=== PATIENT | male | born 1945 | race Caucasian/White ===

== ENCOUNTER → 2016-10-21 | Outpatient (CLI) | payer OTHER ==
[~2016-10-21] MED LIST: GLC/500 PO; LISI-725 PO; METO25TA3 PO; ZNTT/150 PO
--- NOTE | 2016-10-21 15:11 | DIAGNOSTIC IMAGING REPORT ---
AP STANDING VIEW OF BOTH KNEES; 3 VIEWS LEFT KNEE CLINICAL HISTORY: Left knee pain. FINDINGS: An AP standing view of both knees with crosstable lateral, tunnel, and sunrise views of the left knee are compared to study dated 02/04/2012. The skeletal structures are osteopenic. No fracture is seen. There is moderate to advanced tricompartmental degenerative joint space narrowing in the left knee, greatest in the medial and patellofemoral compartments. There are marginal osteophytes, large patellar enthesophytes, and degenerative beaking of the tibial spine. No osteochondral defect is identified on the tunnel view. There is no significant joint effusion. Prepatellar soft tissue edema is noted. Survey images of the right knee on the frontal view show advanced narrowing in the medial compartment with mild bony sclerosis. There is moderate narrowing in the lateral compartment of the right knee. IMPRESSION: 1. Mild soft tissue swelling with no acute bony abnormality seen in the left knee. 2. Osteopenia and arthritic change as above. 3. Survey images of the right knee on the frontal view also show arthritic change. Electronically signed by: Kemal Oneill M.D. 10/21/2016 3:10 PM Dictated Date/Time: 10/21/2016 3:07 PM
== END | disposition home or self-care (01) ==
LOC: C.RDSM 13:52
PROVIDERS: ATTEND Physical Medicine & Rehabilitation Sports Medicine
DX: S76.012A Strain of muscle, fascia and tendon of left hip, initial encounter (principal); X58.XXXA Exposure to other specified factors, initial encounter

== ENCOUNTER → 2016-12-24 | Outpatient (CLI) | payer OTHER ==
--- NOTE | 2016-12-24 12:23 | DIAGNOSTIC IMAGING REPORT ---
LUMBAR SPINE 5 VIEWS HISTORY: Pain. Nausea. LUMBAR RADICULOPATHY COMPARISON: None. FINDINGS: There is no fracture. Mild scoliosis. Moderate degenerative disc changes throughout. No evidence for subluxation. Moderate reactive sclerosis vertebral endplates. IMPRESSION: Moderate degenerative change. Scoliosis. No acute process. Electronically signed by: Bharathi Rivas M.D. 12/24/2016 12:20 PM Dictated Date/Time: 12/24/2016 12:20 PM
== END | disposition home or self-care (01) ==
LOC: C.RADBC 11:58
PROVIDERS: ATTEND Physician Assistant Medical
DX: M54.16 Radiculopathy, lumbar region (principal); M41.9 Scoliosis, unspecified

== ENCOUNTER → 2016-12-30 | Outpatient (CLI) | payer OTHER ==
--- NOTE | 2016-12-30 09:19 | DIAGNOSTIC IMAGING REPORT ---
MRI OF THE LUMBAR SPINE WITHOUT IV CONTRAST CLINICAL HISTORY: Left lower extremity radiculopathy. COMPARISON STUDY: Radiographs of the lumbar spine dated 12/24/2016. TECHNIQUE: MRI of the lumbar spine is performed utilizing various T1 and T2-weighted sequences in the axial and sagittal planes. IV contrast was not administered for this examination. FINDINGS: Lumbar spine: Vertebral body height is maintained throughout the lumbar spine. There is 5 mm of anterolisthesis at L4-L5. Alignment is otherwise preserved. Marrow signal intensity is heterogeneous. Hemangiomas are suggested in the bodies of L1 and L5. The transverse and spinous processes appear intact. There is no evidence of spondylolysis. No destructive bony lesion is seen. Small anterior osteophytes are seen throughout. Mild chronic degenerative endplate change is noted at L3-L4, L4-L5, and L5-S1. Intervertebral discs: There is degenerative disc desiccation seen throughout the lumbar spine. Only mild loss of height is noted, greatest at L4-L5. Spinal cord: The visualized spinal cord is normal in morphology and signal intensity. The conus medullaris terminates at the level of L1. The nerve roots of the cauda equina are normal in morphology. L1-L2: Unremarkable. L2-L3: Unremarkable. L3-L4: There is a posterior disc extrusion. This contributes to moderate central canal stenosis with a minimum AP diameter of 6.5 mm. The neural foramina are patent. There is mild bilateral subarticular stenosis. L4-L5: There is minimal posterior disc bulge with annular fissure. The central canal appears clear. There is mild bilateral subarticular stenosis. Facet arthropathy is of no consequence. The neural foramina are widely patent. L5-S1: Facet arthropathy causes minimal bilateral neural foraminal narrowing. The central canal is widely patent. Sacrum: Partially imaged sacrum is normal in morphology and demonstrates slightly heterogeneous marrow signal intensity. Soft tissues: The paraspinous soft tissues are within normal limits. A large cyst arises from the lower pole of the left kidney. IMPRESSION: 1. Marrow signal intensity is heterogeneous. No destructive bony process is seen. 2. There is a central posterior disc extrusion seen at L3-L4. This contributes to moderate acquired compromise of the central canal. 3. Only mild spondylotic change is seen at the remaining lumbar levels. See above discussion for detailed level by level analysis. Dictated: 12/30/2016 8:00 AM Transcribed: 12/30/2016 9:19 AM [facility] Electronically signed by: Kemal Oneill M.D. 12/30/2016 9:30 AM Dictated Date/Time: 12/30/2016 8:00 AM
== END | disposition home or self-care (01) ==
LOC: C.MRIBC 07:02
PROVIDERS: ATTEND Physician Assistant Medical
DX: M54.16 Radiculopathy, lumbar region (principal)

== ENCOUNTER → 2017-05-17 | Outpatient (CLI) | payer OTHER | END | disposition home or self-care (01) | LOC: C.RDSM 09:00 | PROVIDERS: ATTEND Physical Medicine & Rehabilitation Sports Medicine | DX: M17.12 Unilateral primary osteoarthritis, left knee (principal); Z96.649 Presence of unspecified artificial hip joint; M16.0 Bilateral primary osteoarthritis of hip ==

== ENCOUNTER → 2017-10-18 | Outpatient (CLI) | payer OTHER ==
[~2017-10-18] MED LIST changes: -METO25TA3 PO; +METO25TA4 PO; +RANI150T85 PO; -ZNTT/150 PO
== END | disposition home or self-care (01) ==
LOC: C.RDSM 07:30
PROVIDERS: ATTEND Physical Medicine & Rehabilitation Sports Medicine
DX: M25.562 Pain in left knee (principal); Z96.649 Presence of unspecified artificial hip joint

== ENCOUNTER 2019-07-26 10:52 | Observation (INO) ==
[2019-07-26] MEDS ORDERED: BUPIVACAINE 0.25% 30 ML VIAL ONE (11:57)
[2019-07-26] MEDS ORDERED: LIDOCAINE HCL 1% 20 ML VIAL ONE (11:57)
[2019-07-26] MEDS ORDERED: BACITRACIN INJ 50,000 UNIT VIAL ONE (11:57)
[2019-07-26] MEDS ORDERED: fentaNYL citrate 100 MCG/2 ML VIAL ONE ×3 (12:19→13:54)
[2019-07-26] MEDS ORDERED: MIDAZOLAM HCL 5 MG/ML 1 ML VIAL ONE ×3 (12:19→13:54)
[2019-07-26] MEDS ORDERED: CEFAZOLIN 250 MG/ML 1 GM VIAL ONE (12:20)
--- NOTE | 2019-07-26 12:20 | History & Physical Bridge Note ---
Date of Service July 26, 2019 History & Physical Bridge Note I have examined the patient, reviewed the History & Physical and in the interval since the performance of the History & Physical I have noted the following changes of clinical significance: no changes noted
--- NOTE | 2019-07-26 12:21 | Pre Anesthesia Assessment ---
Date of Service July 26, 2019 Pre Sedation Assessment Vital Signs Temp Pulse Resp BP Pulse Ox 07/26/19 11:09 36.8 C 71 16 182/104 H 98 Cardiovascular RRR, no murmur, no edema Respiratory normal respiratory effort, lungs clear to auscultation Pre-Sedation Airway Assessment Smoking Status: Former smoker Hx Sleep Apnea: No Short, Thick Neck: No Thyromental Distance: > or= 3.5 Finger Breadths Oral Cavity: + WNL Mallampati Class: III ASA: ASA3 NPO Status Date of Last Intake of Fluids: 07/26/19 Time of Last Intake of Fluids: 08:00 Last Oral Intake of Fluids Comment: sip with meds Date of Last Intake of Solid Food: 07/25/19 Time of Last Intake of Solid Foods: 20:00 Procedure Planning Contraindications for Sedation: none Current Medications Reviewed: Yes Notes The planned sedation has been discussed with the patient. Informed Consent was obtained. I have identified the patient, determined the appropriateness of s edation and have assessed the patient immediately prior to the procedure. All medicine(s) and interventions are by my order.
[2019-07-26] MEDS ORDERED: MIDAZOLAM HCL 1 MG/ML 2ML VIAL ONE (14:35)
[2019-07-26] MEDS ORDERED: OXYCODONE/ACETAMINOPHEN 5mg/325mg TAB PO PRN (15:28)
[2019-07-26] MEDS ORDERED: ACETAMINOPHEN 325 MG TAB PO PRN (15:28)
--- NOTE | 2019-07-26 15:28 | Operative Report ---
Post Operative Report Pre & Post Diagnosis 2:1 AV block Operation Date: 07/26/19 12:00 <No data on this case meets the specified criteria> I identified the patient and participated in the time-out.: Yes Procedure Operation Date: 07/26/19 12:00 Actual Procedures p Pacer with A/V Leads (Dual) - Katie Serrato DO s Insertion Single Lead Only - Katie Serrato DO s Venogram, Unilateral - Katie Serrato DO Surgeon Katie Serrato, Vamp Strap Ironer none Estimated Blood Loss 25 Findings Consistent with Post-Op Diagnosis Specimens none Description of Procedure see official report I attest to the content of the Intraoperative Record and any orders documented therein. Any exceptions are noted below.
--- NOTE | 2019-07-26 15:28 | Post Anesthesia Assessment ---
Date of Service July 26, 2019 Post Sedation Assessment Vital Signs Temp Pulse Resp BP Pulse Ox 07/26/19 11:09 36.8 C 71 16 182/104 H 98 Recovery Score Activity: Moves 4 extremities Respiration: Deep Breath/Cough Circulation: +/-20% PreAnes Value Consciousness: Fully Awake Oxygen Saturation: > 92% On Room Air Discharge Sedation Level of Care: Fast Track Phase II Post Sedation Plan On clinical assessment, the patient appears to have tolerated the sedation without complications. Patient is recovering as anticipated. Patient will continue to be monitored by nursing and may be discharged when sedation discharge criteria are met per below protocol. Upon Completions of procedure up to 15 minutes continue every 5 minute vital signs and the P.A.R. score; then discharge to a Phase I or Fast Track to Phase I I per the following guidelines: * Discharge Patient to appropriate Phase II area if PAR is 8 or greater or return to pre- procedure baseline. The post - procedure orders will be as directed. * If PAR score is less than 8 or not return to pre-procedure baseline then patient will follow Phase I monitoring till PAR is reached for Phase II. The Phase I may be done in procedure room or may call to secure a Phase I area. * If naloxone or flumazenil are used for reversal, hold in Phase I for continued monitoring from when last reversal dose was given for a minimum of 60 minutes or longer pending the nurse and/or physician discretion of patient condition before discharge to Phase II. Please call the Sedation Physician to re-evaluate and complete post-note for discharge to Phase II area. Do NOT discharge from procedure sedation or Phase 1 until post- sedation evaluation note is complete by procedure /sedation MD Sedation Discharge Instructions to be given to the patient at discharge to home.
[2019-07-26] MEDS ORDERED: ALBUTEROL HFA 8 GM INHALER INH PRN (16:08)
[2019-07-26] MEDS ORDERED: Nursing to Pharmacy Communication ONE (17:03)
[2019-07-26] MEDS: CELECOXIB 100 MG CAP PO SCH (17:14)
[2019-07-26] MEDS: METFORMIN HCL 500 MG TAB PO SCH (17:15)
[2019-07-26] MEDS: PANTOprazole 40 MG TAB PO SCH (20:02)
[2019-07-26] MEDS ORDERED: CELECOXIB 100 MG CAP PO SCH (21:00)
[2019-07-26] MEDS ORDERED: [UNRECOGNIZED DRUG - OTHER] PO SCH (21:00)
[2019-07-26] MEDS ORDERED: AMOXICILLIN PO SCH (21:00)
[2019-07-27] MEDS ORDERED: Nursing to Pharmacy Communication ONE (00:17)
[2019-07-27] MEDS ORDERED: METOPROLOL SUCC 25MG EXT REL TAB PO SCH ×2 (00:30→09:00)
[2019-07-27] MEDS ORDERED: LISINOPRIL 20 MG TAB PO SCH ×2 (00:30→09:00)
[2019-07-27] MEDS: CELECOXIB 100 MG CAP PO SCH (07:48)
[2019-07-27] MEDS: METFORMIN HCL 500 MG TAB PO SCH (07:48)
[2019-07-27] MEDS: PANTOprazole 40 MG TAB PO SCH (07:48)
--- NOTE | 2019-07-27 07:59 | Discharge Summary ---
Date of Service July 27, 2019 Admission HPI Per Admitting Provider pt admitted for elective ppm due to symptomatic 2:1 AV block Admission Exam Per Admitting Provider aaox3, NAD NC/AT, EOMI Supple No JVD Nrl S1/S2, No murmur CTA b/l no w/r/r soft nt/nd no LE edema b/l skin intact no focal deficits Principal Diagnosis High degree AV block s/p His bundle Biv ppm Discharge Exam aaox3, NAD NC/AT, EOMI Supple No JVD Nrl S1/S2, No murmur CTA b/l no w/r/r soft nt/nd no LE edema b/l skin intact no focal deficits left pectoral incision intact, no hematoma mild ecchymosis, dressing on ENMT Mallampati Class: III Respiratory normal respiratory effort, lungs clear to auscultation Cardiovascular RRR, no murmur, no edema Discharge Data Allergies Allergy/AdvReac Type Severity Reaction Status Date / Time Pfmozmu-Trs-Ico Reductase AdvReac Unknown SEVERE Verified 07/26/19 11:18 Inhibitor MUSCLE WEAKNESS AND ACHES Procedures Performed Operation Date: 07/26/19 12:00 Actual Procedures p Pacer with A/V Leads (Dual) - Katie Serrato DO s Insertion Single Lead Only - DO cliff Nuno Venogram, Unilateral - Katie Serrato DO Ordered Studies 07/26/19 07:30 EP Lab Images for PACS ONCE Hospital Course (1) CHB (complete heart block): Total Time Total Time Spent Total Time Spent (In Minutes): 30 Total Time Includes: Examination of the Patient, Discharge Planning, Medication Reconciliation and Other Discharge Plan Discharge Items Patient Disposition: Home - Self-Care Reason For Visit: PACEMAKER INSERTION Discharge Diagnosis: AV block s/p HIS Bundle BIV ppm Condition on Discharge: Good Activity: As commented below Activity Comment: do not lift the left elbow over the left shoulder for 1 month Lifting: No more than 10 pounds Lifting Comment: do not lift more than 10 pounds with the left arm for 2 weeks Bathing: Keep incision dry Bathing Comment: can shower saturday 07/28 let water run over the dressing Sexual Activity: After two weeks Non-emergency contact: Wood Strip Block Floor Installer Call non-emergency contact if: you have any medication questions Follow-up/Referrals: Mookie Coyne MD [Primary Care Provider] - Diet: Heart Healthy Addtl Attending Provider Instructions: Try to keep the white dressing on until wound check but if it starts to fall off than ok to remove if you notice any concerns at the surgical site call my office immediately your wound check is now Wednesday08/02/2019 at 11:30am Pending Studies at Discharge: No Stand-Alone Forms: [facility] Medications and DC Order Prescriptions: Continued Ranitidine (Zantac) 150 MG tablet 300 mg PO HS Qty: 0 RF: 0 Lisinopril (Zestril) 20 MG tablet 20 mg PO DAILY Qty: 0 RF: 0 Metoprolol Succinate (TOPROL XL) 25 MG ENYRV-ZNR-PXR 25 mg PO DAILY Qty: 30 RF: 0 ALBUTEROL HFA (VENTOLIN HFA) 200 PUFFS/18,000 MCG AEROSOL,SOLN 2 puff Inhalation Q4 PRN (Reason: Pain) Qty: 1 RF: 0 ASPIRIN (ASPIRIN EC) 81 MG tablet 81 mg PO DAILY Qty: 0 RF: 0 Amoxicillin & Pot Clavulanate (Augmentin 875-125 mg) 1 TAB tablet 1 tab PO BID Qty: 14 RF: 0 Celecoxib 100 MG capsule 100 mg PO BID Qty: 0 RF: 0 Fluticasone Propionate 120 SPRAYS/6,000 MCG INHALATION 2 spry RANDAL DAILY Qty: 0 RF: 0 METFORMIN HCL (GLUCOPHAGE) 1,000 MG tablet 1,000 mg PO BID Qty: 0 RF: 0 omeprazole 20 mg Tablet,Delayed Release (Dr/Ec) 20 mg PO BID RF: 0 Discharge Orders: Discharge Order (Routine); Ordered 07/27/19 Ordered By: Katie Serrato Admission Data Admit Date/Time: 07/26/19 14:57 Attending Provider: Katie Serrato Admit Provider: Katie Serrato Primary Care Provider: Mookie Coyne
--- NOTE | 2019-07-27 08:00 | XRay Report ---
XR chest 2V PA/lateral HISTORY: post implant COMPARISON: None. FINDINGS: There is a left-sided pacemaker. The leads appear intact. No pneumothorax. No pleural effus ions. The lungs are clear. The heart is normal in size. IMPRESSION: Left-sided pacemaker. No pneumothorax. Electronically signed by: Justice Lawrence M.D. 07/27/2019 7:58 AM
[2019-07-27] MEDS ORDERED: FLUTICASONE PROPIONATE NA SPR 16 GM BTL SCH (09:00)
[2019-07-27] MEDS ORDERED: ASPIRIN 81 MG ECTAB PO SCH (09:00)
--- NOTE | 2019-07-31 12:22 | Operative Report ---
DATE OF OPERATION: 07/26/2019 PREOPERATIVE DIAGNOSES: Intermittent symptomatic 2:1 atrioventricular block, left bundle branch block, sinus bradycardia. POSTOPERATIVE DIAGNOSES: Intermittent symptomatic 2:1 atrioventricular block, left bundle branch block, sinus bradycardia. PROCEDURE: Biventricular Rate responsive (His bundle) permanent pacemaker with a peripheral venogram and electrogram anatomical mapping of the His bundle region. SURGEON: Katie Serrato DO. ASSISTANTS: None. ANESTHESIA: Monitored conscious sedation administered under my supervision by Leah Collier. Start time 1228, end time 1517. A total of 11 mg of Versed and 275 mcg of fentanyl. INTRAVENOUS FLUIDS: 87 mL. ANTIBIOTICS: 2 grams of Ancef. CONTRAST: 20 mL of Optiview. BLOOD LOSS: 25 mL. URINE OUTPUT: Not applicable. SPECIMENS: None. FINDINGS: See below. DRAINS: None. INDICATIONS: This is a 73-year-old gentleman who has a past medical history for left bundle-branch block, sinus bradycardia, second-degree AV block Mobitz type 1, nonischemic cardiomyopathy, ejection fraction 45%, geos-nc-miybviby aortic insufficiency, obstructive sleep apnea, hypertension, diabetes, hyperlipidemia, prior tobacco use, gastroesophageal reflux disease, Schatzki ring, B12 deficiency, anxiety and cataracts. He is now having symptomatic intermittent 2:1 AV block and was recommended a pacemaker. CONSENT: Consent was obtained prior to the patient going into the electrophysiology lab. The patient was informed of the risks, benefits and alternative procedure. Risks include but not limited to sudden cardiac , cardiac arrhythmias, cerebrovascular accident, myocardial infarction, injury to the blood vessels, chambers of the heart, lungs, bleeding and infection. The patient understood these risks and agreed to the procedure as planned. Informed consent was obtained. DESCRIPTION OF THE PROCEDURE: The patient was brought into electrophysiology lab in a fasting state. He was connected to continuous quality assurance monitor final. A timeout was performed to ensure patient identity and procedure correctly. The patient was prepped and draped over the left infraclavicular space in normal surgical standard fashion. Monitored conscious sedation was given throughout the procedure for patient's comfort level. [place] precautions were maintained throughout the procedure. 10 mL of 1% lidocaine-bupivacaine mixture were given in the left deltopectoral groove. Incision was made in the left deltopectoral groove. Blunt dissection was performed down to identify the cephalic vein; however, none could be identified, so peripheral venogram using 10 mL of contrast diluted in 10 mL of saline was performed to identify the axillary vein. The venous axillary access was obtained with 2 separate sticks without any problems. The guidewire was inserted without any resistance. An 8-Nepalese sheath was inserted over the guidewire without any resistance. The dilator was removed and a second guidewire was inserted through the sheath to allow for retained venous access. Then, the 8-Nepalese sheath was flushed and dilator reinserted over it and it was reinserted over one of the guidewires. The guidewire and dilator were removed. The right ventricular pacing lead was advanced into right ventricle and positioned in the low right ventricular septum under fluoroscopic guidance. There was adequate pacing and sensing thresholds and no diaphragmatic stimulation with high output pacing. The 8-Nepalese sheath was peeled away and lead was fixated to pectoralis muscle using 0 silk suture. This was then connected to alligators so that we could always have right ventricular pacing backup during the case as we position the His bundle given his significant left bundle branch block. An 8-Nepalese sheath was inserted over the other second venous access stick that was by itself and then the guidewire and dilator were removed. Then, the preformed His outer sheath was advanced into the right atrium over a Glidewire. The dilator and guidewire were removed. Then, His bundle lead was advanced through the sheath and I performed intracardiac electrogram anatomical mapping of the His bundle region. We found the His bundle with the AH being 178 milliseconds, HV 99 milliseconds. The lead was screwed in and I did not slit it. Of note, the patient did become dependent on the right ventricular lead into complete heart block with the positioning of the His bundle lead. With the His bundle lead in position now, I went back to the last venous access site I had that was the retained access through the axillary vein where the right ventricular lead is and I advanced an 8-Nepalese sheath over the guidewire. The guidewire and dilator were removed and the right atrial lead was advanced into right atrium and positioned into right atrial appendage under fluoroscopic guidance. There was adequate pacing and sensing thresholds and no diaphragmatic stim with high output pacing. The 8-Nepalese sheath was peeled away and lead was fixated to pectoralis muscle using 0 silk suture. I then slit the His bundle preformed sheath under fluoroscopic guidance followed then by the 8-Nepalese short sheath was peeled away and lead was fixated to pectoralis muscle. However, then we went back to check the His bundle lead, the capture threshold had increased and there was not that much selective capture so I set up to reposition the His bundle lead in the following manner. I ended up doing another peripheral venogram and then obtaining venous axillary access through a third needlestick. Then, an 8-Nepalese sheath was inserted over the guidewire without any resistance. The guidewire and dilator were removed. Then, a preformed His outer sheath was advanced into the right atrium over a Glidewire under fluoroscopic guidance. The Glidewire and the dilator were removed and then I advanced another His lead through the sheath and did electrocardiogram anatomical mapping of the His bundle. I then removed the old His bundle lead under fluoroscopic guidance. The new His bundle position was screwed into the septum. His bundle sheath was then slit under fluoroscopic guidance and the 8-Nepalese sheath was peeled away under fluoroscopic guidance and the His sheath was secured to the pectoralis muscle using 0 silk suture. All 3 leads were intraoperatively tested, you can see below for results. There was no diaphragmatic stimulation with high output pacing. A pacemaker pocket was created using blunt dissection over the pectoralis muscle within the pectoralis fascia. The pocket was flushed with copious amounts of bacitracin saline wash and inspected for hemostasis. The pulse generator was then attached to the leads, making sure that the pins were in appropriate position, passed set screws and set screws were all tightened. Pulse generator was then placed in the pocket, making sure that the leads were lying flat beneath the device. A stay stitch using 0 silk suture was used to secure the device to pectoralis muscle. The incision was then closed in a 3-layer fashion using 2-0 Vicryl interrupted suture followed by 3-0 Vicryl interrupted suture followed by 4-0 Monocryl running stitch and Dermabond was applied followed then by Telfa and a Micropore dressing. EQUIPMENT: 1. The generator is a [employer] Karly CRTP MRI SureScan [id number], serial number [id number]. 2. Right atrial lead is a Medtronic 5076-52 cm, serial number [id number]. 3. Right ventricular lead, Medtronic 5076-58 cm, serial number [id number]. 4. Left ventricular lead is the His bundle lead, is a Rupeetalktronic 3830-69 cm, serial number [id number]. INTRAOPERATIVE TESTIN. The AH was 178 milliseconds, HV was 99 milliseconds. The [place] QRS was 163 milliseconds. The His paced QRS was 123 milliseconds. 2. The right atrial lead P waves were 3.7 millivolts, impedance 651 ohms, threshold 0.6 volts at 0.5 milliseconds. 3. Right ventricular lead R waves 6.1 millivolts, impedance 924 ohms, threshold 0.9 volts at 0.5 milliseconds. 4. The His bundle lead impedance is 650 ohms, threshold 0.9 volts at 1 millisecond. FINAL MEASUREMENTS THROUGH THE DEVICE: 1. Right atrial lead: P waves 3.4 milliseconds, impedance 513 ohms, threshold 0.75 volts at 0.4 milliseconds. 2. Right ventricular lead: There were no R waves as he is completely paced, impedance 570 ohms, threshold 0.5 volts at 0.4 milliseconds. 3. The His bundle lead impedance 532 ohms, threshold 2.9 volts at 1 millisecond for selective capture. FINAL PARAMETERS: DDD 60/130, right atrial amplitude 3.5 volts, pulse width 0.4 milliseconds, sensitivity 0.3 millivolts. Right ventricular amplitude 3.5 volts, pulse width 0.4 milliseconds, sensitivity 0.9 millivolts. His bundle amplitude is 5 volts and pulse width 1 millisecond. IMPRESSION: Successful biventricular rate responsive permanent pacemaker under fluoroscopic guidance along with peripheral venogram and intracardiac electrogram anatomical mapping of the His bundle region secondary to high-degree symptomatic atrioventricular block. PLAN: Monitor the patient overnight, 12-lead ECG, chest x-ray. He cannot lift his left elbow or left shoulder for 1 month. He cannot lift more than 10 pounds with the left arm for 2 weeks. He will follow up in our [facility] in 1 week's time for device and wound check, and he can take a full tablet of his metoprolol instead of half. I attest to the content of the Intraoperative Record and any orders documented therein. Any exceptions are noted below. GIBRAN
== END 2019-07-27 09:39 | disposition home or self-care (01) ==
LOC: 2S 10:52 → EP 10:52 → 2S 22:18

== ENCOUNTER 2021-06-04 06:39 | Observation (INO) ==
--- NOTE | 2021-05-15 15:33 | PAT Medication Instructions ---
Medication Instructions Date of Service May 15, 2021 Home Medications famotidine 40 mg tablet 40 mg PO QPM metformin 1,000 mg tablet 1,000 mg PO BID metoprolol succinate 25 mg tablet,extended release 24 hr (Toprol XL) 25 mg PO QPM dulaglutide 1.5 mg/0.5 mL subcutaneous pen injector (Trulicity) 1.5 mg SUBCUT WK cyanocobalamin (vitamin B-12) 1,000 mcg capsule 1,000 mcg PO 3XWK sacubitril 24 mg-valsartan 26 mg tablet (Entresto) 1 tab PO BID Continue as directed dulaglutide 1.5 mg/0.5 mL subcutaneous pen injector (Trulicity) 1.5 mg SUBCUT WK DO NOT take the morning of surgery metformin 1,000 mg tablet 1,000 mg PO BID cyanocobalamin (vitamin B-12) 1,000 mcg capsule 1,000 mcg PO 3XWK sacubitril 24 mg-valsartan 26 mg tablet (Entresto) 1 tab PO BID Take evening before surgery famotidine 40 mg tablet 40 mg PO QPM metformin 1,000 mg tablet 1,000 mg PO BID metoprolol succinate 25 mg tablet,extended release 24 hr (Toprol XL) 25 mg PO QPM sacubitril 24 mg-valsartan 26 mg tablet (Entresto) 1 tab PO BID Other Notes If you have any questions please call us at [phone] or [phone] or [phone] or [phone]
--- NOTE | 2021-05-19 10:50 | Anesthesiology Consultation ---
Date of Service May 19, 2021 Assessment & Plan (1) Encounter for pre-operative examination: - COVID screening: Per assessment on 05/19: Travel screen negative, no known COVID-19 positive contacts or current COVID-19 related symptoms. Patient vac cinated. Surgeon arranging preop COVID testing. Awaiting results. - Check BSG AM DOS - Cardiology office visit (05/07/21): "Feeling great.. Evaluated by [facility] in October 2020. Recommendations at that time were for Cardiac MRI which the patient declined. Second opinion at [facility]. No indication for Cardiac MRI. Echocardiography at [facility] revealed a mildly dilated left ventricle with normal left ventricular systolic function, EF 56%. The aortic valve was noted to have moderate, 2+ aortic insufficiency with a very eccentric posteriorly directed jet, likely underestimated. Recommendations were to consider RHONDA if indicated.. Preoperative cardiology evaluation.. No overt cardiac contraindications to knee surgery.. Standard pacemaker precautions should be taken. Pre-admission testing to be reviewed when available. Nonischemic cardiomyopathy with moderate left ventricular dysfunction. EF previously 30 to 34%. EF has normalized as of the December 2020 resting echocardiogram obtained at [facility]. Volume status is normovolemic. 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 April 28, 2021 Device Interrogation. Appropriate function. Remaining longevity: 2.5 years. Atrial p aced 2.1%. Ventricular paced 99.8%. OptiVol 2.0 fluid index below threshold. Device interrogation due next on 08/06/2021. Moderate aortic insufficiency. Compensated volume status. Options of management discussed. Patient asymptomatic. LV systolic function has improved. No overt indication for repeat transesophageal echocardiography. Aggressive blood pressure control advised with patient reporting well controlled blood pressures on home monitoring. Endocarditis prophylaxis is not indicated. Continue appropriate medical management." - PCP office visit (05/08/21): "Pt has revised cardiac index score of One Risk Factor- 1.0% (95% CI: 0.5-1.4) for the surgery scheduled. Patient is acceptable for the listed procedure as long as pre-op testing is unremarkable." Preop labs done 05/19/21 at [facility] were unremarkable. Chart Review Chart Review: Acceptable Risk for Surgery (pending evaluation AM DOS ) and Patient seen in Pre Admission Testing Teaching & Discussion Pre-Anesthesia Teaching/Discussion Notes: Instructed NPO after midnight before surgery,except medications with 15 cc of water. Medication instructions provided according to the PAT guidelines. History Surgery Operation Date: 06/04/21 09:20 Proposed Procedures p Left Total Knee Arthroplasty - Kd Palomion MD Per patient, surgery being changed for Right TKA (Sofía at surgeon's office confirmed and will send updated booking sheet) Height/Weight Height: 6 ft 0.5 in Weight: 108.5 kg Allergies Allergy/AdvReac Type Severity Reaction Status Date / Time Ditjgcb-Hht-Fdi Reductase AdvReac Unknown Severe Verified 05/16/21 09:41 Inhibitor muscle weakness, aches Medications Home Medications Medication Instructions Recorded Confirmed Last Taken famotidine 40 mg tablet 40 mg PO QPM 03/21/20 05/13/21 Unknown metformin 1,000 mg tablet 1,000 mg PO BID 03/21/20 05/13/21 Unknown metoprolol succinate 25 mg 25 mg PO QPM 03/21/20 05/13/21 Unknown tablet,extended release 24 hr (Toprol XL) dulaglutide 1.5 mg/0.5 mL 1.5 mg SUBCUT WK ml 06/10/20 05/13/21 Unknown subcutaneous pen injector (Trulicity) cyanocobalamin (vitamin B-12) 1,000 mcg PO 3XWK 08/21/20 05/13/21 Unknown 1,000 mcg capsule sacubitril 24 mg-valsartan 26 mg 1 tab PO BID 01/27/21 05/13/21 Unknown tablet (Entresto) Past Medical History Medical History CAD (coronary artery disease) Mild nonobstructive CAD per 2010 cardiac cath ([place]) Chronic GERD Degenerative joint disease of knee Diabetes NIDDM Hyperlipidemia "Borderline" Hypertension LBBB (left bundle branch block) Nonischemic cardiomyopathy Osteoarthritis Pacemaker Implanted 2018 (for 2:1 AV block), Follows with [facility] cardiology (Dr. Ramírez) Sleep apnea "Mild" > no device prescribed Spinal stenosis of lumbar region Exercise / Class Metabolic Activity II 4-5 Yardwork/Stairs/Walk up hill (one FS (no CP, no SOB)) Past Family History Family History Family/Other Family history of diabetes mellitus BROTHER OR SISTER Other Family history non-contributory No family history of adverse response to anesthesia Past Surgical History Surgical History H/O colonoscopy H/O esophagogastroduodenoscopy S/P appy Status post total hip replacement, right Past Anesthesia History No Hx of Anesthesia Complications and No Family Hx of Anesthesia Complications History of PONV No Hx of PONV and Hx of Motion Sickness (Remote hx) Social History Smoking Status: Former smoker Do You Dip or Chew Tobacco: No Smoking End Date: Quit 30 years ago Hx Alcohol Use: Yes Alcohol type: hard liquor alcohol intake frequency: a few times a month Hx Substance Use: No substance use type: does not use Review of Systems Patient denies chest pain, shortness of breath, dyspnea on exertion, fever, chills, cough, wheezing, palpitations. Physical Exam Vital Signs VITALS BP 138/76 P 82 TEMP 98.2 SP02 95%RA RESP 16 PHYSICAL Decreased cervical extension range of motion. Full TMJ range of motion. TMD 4 finger breaths Mallampati Score 1 Dentition: several missing (including sides/molars), several crowns Lungs: clear throughout to auscultation Cardiac: regular rate and rhythm, no murmurs noted Spine: normal Carotid arteries: negative bruit Extremities: no edema Lab Results Anesthesia Preop Results Results Anesthesia Widget: WBC 5.65 K/uL (4.8-10.8) 05/19/21 Hgb 15.7 g/dL (14.0-18.0) 05/19/21 Hct 42.7 % (42-52) 05/19/21 Plt 189 K/uL (130-400) 05/19/21 Na 137 mmol/L (136-145) 05/19/21 K 4.0 mmol/L (3.5-5.1) 05/19/21 Cl 107 mmol/L (98-107) 05/19/21 CO2 23 mmol/L (21-32) 05/19/21 BUN 16 mg/dl (7-18) 05/19/21 Creat 1.10 mg/dl (0.6-1.4) 05/19/21 Glucose Level 128 mg/dl (70-99) H 05/19/21 PT 10.3 Seconds (9.0-12.0) 05/19/21 PTT 29.6 Seconds (21.0-31.0) 05/19/21 INR 1.0 (0.9-1.1) 05/19/21 HA1c 6.6 % (4.5-5.6) H 05/19/21 Blood Type O Positive 05/19/21 Antibody Screen NEGATIVE 05/19/21 Testing Electrocardiogram Date: 10/11/20 Findings: + pertinent finding Atrialsensed ventricular-paced rhythm at 84bpm. Chest X-Ray Date: 09/16/20 FINDINGS: The cardiac and mediastinal contours remain stable. A left subclavian pacemaker is again visualized. There is no failure. There is no focal pulmonary consolidation. There are no pleural effusions.[ IMPRESSION: No active disease in the chest. Echocardiogram Date: 09/18/20 LVEF 30 to 34%. Septal motion consistent with left bundle branch block. The remaining left ventricular wall segments are moderately hypokinetic. Grade 2 diastolic dysfunction. Moderate AR. Mildly enlarged aortic root and proximal ascending aorta. Per cardiology note from 05/07/21, "Evaluated by [facility] in October 2020. Recommendations at that time were for Cardiac MRI which the patient declined. Second opinion at [facility]. No indication for Cardiac MRI. Echocardiography at [facility] revealed a mildly dilated left ventricle with normal left ventricular systolic function, EF 56%. The aortic valve was noted to have moderate, 2+ aortic insufficiency with a very eccentric posteriorly directed jet, likely underestimated. Recommendations were to consider RHONDA if indicated... No overt indication for repeat transesophageal echocardiography." Attempts to obtain official [facility] subsequent echo report unsuccessful. Stress Test Date: 10/01/20 Type: nuclear Lexiscan nuclear stress test negative for ischemia. Normal myocardial perfusion. Abnormal septal wall motion consistent with pacemaker activation, otherwise, mild global hypokinesis. EF 41%. 99% MPHR. Other Testing Pacer check (04/30/21) [employer]. RVP 99.8%. AP 2.1%. 1 VT nonsustained episodes of which the longest is 1 second with a ventricular rate of 200 bpm. 2.5 years estimated battery longevity. Mode DDD. Summary: " Normal biventricular pacemaker function."
--- NOTE | 2021-05-21 09:42 | History & Physical Report ---
Date of Service May 21, 2021 Assessment & Plan (1) Right knee DJD: Plan: Postoperative prescriptions for Percocet and Coumadin will be provided at discharge from the hospital. Anticipate discharge to home with home health services. He has already seen his PCP and watch caser. Preoperative lab work, EKG, and chest x-ray were ordered today. He will meet with PAT today. He already has a walker. The patient is aware of the COVID-19 risks associated with surgery. He is currently asymptomatic of any COVID-19 symptoms. He has been vaccinated. The patient will obtain nasal swab testing 2 days prior to surgery. PDMP was checked and there are no concerning findings. History of Present Illness Chief Complaint: Right knee pain Primary Care Provider: Mookie Coyne MD This 75-year-old male presents for his preoperative history and physical. He is scheduled to undergo a right knee total knee arthroplasty on 06/04/2021. The patient has had a longstanding history of bilateral knee pain. Symptoms have been ongoing for the last 5-6 years. Previously, his left knee was bothering him more. As of late, the right knee is more bothersome. He has pain with weightbearing. Pain is affecting his ADLs. He is not able to ride his bike or exercise like he would normally do secondary to knee pain. Symptoms have become worse with time. He is frustrated with his lack of activity. No catching or locking. No buckling. There is daily pain. There is pain that disrupts his sleep. Pain is worse medially. He has tried oral anti-inflammatories, ice, elevation, as well as viscosupplementation injections without lasting improvement. Preoperative imaging has been obtained. Allergies Allergy/AdvReac Type Severity Reaction Status Date / Time Oxaqbjl-Jad-Bgd Reductase AdvReac Unknown Severe Verified 05/16/21 09:41 Inhibitor muscle weakness, aches Home Medications Medication Instructions Recorded Confirmed Type famotidine 40 mg tablet 40 mg PO QPM 03/21/20 05/13/21 History metformin 1,000 mg tablet 1,000 mg PO BID 03/21/20 05/13/21 History metoprolol succinate 25 mg 25 mg PO QPM 03/21/20 05/13/21 History tablet,extended release 24 hr (Toprol XL) dulaglutide 1.5 mg/0.5 mL 1.5 mg SUBCUT WK ml 06/10/20 05/13/21 History subcutaneous pen injector (Trulicity) cyanocobalamin (vitamin B-12) 1,000 mcg PO 3XWK 08/21/20 05/13/21 History 1,000 mcg capsule sacubitril 24 mg-valsartan 26 mg 1 tab PO BID 01/27/21 05/13/21 History tablet (Entresto) Past Med/Surg History Medical History (Updated 05/21/21 @ 09:41 by Jose Grady PA-C) Aortic insufficiency Aortic valve disorder CAD (coronary artery disease) Mild nonobstructive CAD per 2010 cardiac cath ([place]) Cardiomyopathy Chronic GERD Degenerative joint disease of knee Diabetes NIDDM Hiatal hernia Hyperlipidemia "Borderline" Hypertension LBBB (left bundle branch block) Migraine headache Nonischemic cardiomyopathy Osteoarthritis Pacemaker Implanted 2018 (for 2:1 AV block), Follows with [facility] cardiology (Dr. Ramírez) Sleep apnea "Mild" > no device prescribed Spinal stenosis of lumbar region Surgical History (Updated 05/21/21 @ 09:38 by Jose Grady PA-C) H/O colonoscopy H/O esophagogastroduodenoscopy History of permanent cardiac pacemaker placement History of tonsillectomy S/P appy Status post total hip replacement, right Family History (Updated 05/21/21 @ 09:39 by Jose Grady PA-C) Family/Other Family history of diabetes mellitus BROTHER OR SISTER Other Family history non-contributory No family history of adverse response to anesthesia Silicosis Social History (Updated 05/21/21 @ 09:39 by Jose Grady PA-C) Smoking Status: Former smoker Second Hand Exposure: No; Hx Alcohol Use: Yes Alcohol type: hard liquor Hx Substance Use: No Preferred Language: Grenadian Communication Ability: Effective Visual Impairment: No Limitations Pharmacy General Manager Required: No Beliefs That Will Affect Care: None Current Living Situation: Spouse current occupational status: retired Feels Safe at Home: Yes Assistive Devices: Glasses Review of Systems Review of Systems: All systems reviewed & are unremarkable except as noted in HPI & below A total of 10 systems were reviewed. Physical Exam Physical Exam: Vitals: Height 186 cm, weight 110 kilograms, BMI 31.9, temperature 36.3, BP 152/72, pulse 88, O2 sat 97% on room air. General: Well-developed, well-nourished, elderly white male in no acute distress. Sitting in a chair. Alert and oriented. Skin: Warm and dry with good turgor. No rashes or lesions. No intraarticular effusion. HEENT: Normocephalic, atraumatic. Eyes: PERRLA, EOMI. Nares and oropharynx exams deferred due to COVID precautions. Heart: RRR. Soft murmur noted. No gallops or rubs. Lungs: Clear to auscultation bilaterally. No crackles, rhonchi or wheezing. Good air movement. Abdomen: Mildly obese, bowel sounds present x4, soft, nontender. No organomegaly. No masses. Musculoskeletal: Right knee evaluation reveals varus alignment. No intraarticular effusion. Obvious arthritic changes. He has focal discomfort with palpation over the medial joint line. No significant lateral joint line discomfort at this time. There is peripatellar discomfort. Stable collateral ligaments. No defect in the patellar tendon or quadriceps tendon. Lacks about 5 degrees of terminal extension. Flexion to greater than 100 degrees. Strength is 5/5 with fairly good quad tone. Ambulates today with a slightly antalgic gait. Neurologic: Gross sensation is intact across both lower extremities by soft touch. Peripheral pulses are 2+. Results & Data Results & Data ([facility]) Diagnostic Findings Radiographic imaging obtained previously today shows tricompartmental osteoarthritis of the right knee. Periarticular osteophytes, subchondral sclerosis, and joint space narrowing are all present. Code Status & VTE Plan VTE Prophylaxis Plan VTE Prophylaxis will be ordered: Yes
[~2021-06-04 06:39] MED LIST changes: +BUPIVACAINE 0.5 % 5 MG/1 ML PF 10ML VIAL ONE; -GLC/500 PO; -LISI-725 PO; +LR 500ML BOLUS, THEN 15ML/HR IV SCH; +LR 60ML/HR IV SCH; -METO25TA4 PO; -RANI150T85 PO; +ROPIVACAINE 0.5% 5 MG/ML 30 ML VIAL ONE; +ROPIVACAINE 0.5% HCL/PF 150 MG, BUPIVACAINE 0.75% MPF 20 ML, EPINEPHrine 0.15 MG, Ketor... INFIL SCH; +TRANEXAMIC ACID 1,000 MG **IV Pre-op IV SCH; +ceFAZolin 2000MG 2,000 MG/15 ML SYR IV SCH
--- NOTE | 2021-06-04 06:52 | History & Physical Bridge Note ---
Date of Service June 04, 2021 History & Physical Bridge Note I have examined the patient, reviewed the History & Physical and in the interval since the performance of the History & Physical I have noted the following changes of clinical significance: consent verified/site verified/covid screen negative.no changes noted
[2021-06-04] MEDS ORDERED: MIDAZOLAM HCL 1 MG/ML 2ML VIAL ONE (07:31)
[2021-06-04] MEDS ORDERED: PROPOFOL IV EMULSION 10 MG/ML 20 ML VIAL IV ONE ×4 (07:31→10:33)
[2021-06-04] MEDS ORDERED: ONDANSETRON INJ 2 MG/ML 2 ML VIAL ONE (07:31)
[2021-06-04] MEDS ORDERED: ePHEDrine sulfate 50 MG/ML AMP IV PRN (08:22)
[2021-06-04] MEDS ORDERED: fentaNYL citrate 100 MCG/2 ML VIAL IV PRN (08:22)
[2021-06-04] MEDS ORDERED: HYDROmorphone INJ 2 MG/ML SYR/VIAL IV PRN (08:22)
[2021-06-04] MEDS ORDERED: ATROPINE SULFATE 0.1 MG/ML 10ML SYR IV PRN (08:22)
[2021-06-04] MEDS ORDERED: ORTHO JOINT ANESTHETIC ONE (08:50)
[2021-06-04] MEDS ORDERED: PHENYLEPHRINE HCL 10 MG/ML VIAL ONE (10:12)
--- NOTE | 2021-06-04 10:44 | Post Operative Brief Note ---
Immediate Post Op Note v1 Date of Surgery June 04, 2021 Pre & Post Diagnosis Operation Date: 06/04/21 08:50 Pre-Op Diagnosis: Right knee degenerative joint disease. Post-Op Diagnosis: Right knee degenerative joint disease. I identified the patient and participated in the time-out.: Yes Procedure Operation Date: 06/04/21 08:50 Actual Procedures p Right Total Knee Arthroplasty(Right) - Kd Palomino MD Surgeon Kd Palomino MD Tennis Coach Corrina/Miguel A Estimated Blood Loss 25 Findings Consistent with Post-Op Diagnosis
--- NOTE | 2021-06-04 10:52 | Operative Report ---
Post Operative Report Pre & Post Diagnosis Operation Date: 06/04/21 08:50 Pre-Op Diagnosis: Right knee degenerative joint disease. Post-Op Diagnosis: Right knee degenerative joint disease. I identified the patient and participated in the time-out.: Yes Procedure Operation Date: 06/04/21 08:50 Actual Procedures p Right Total Knee Arthroplasty(Right) - Kd Palomino MD Surgeon Bobby Palomino Motor Adjuster Corrina/Miguel A Estimated Blood Loss 25 Findings Consistent with Post-Op Diagnosis Right knee degenerative joint disease Specimens no specimens Description of Procedure right total knee arthroplasty I attest to the content of the Intraoperative Record and any orders documented therein. Any exceptions are noted below. Supervising Physician Co-Signing Physician Notes Dr. Palomino
--- NOTE | 2021-06-04 10:58 | Operative Report (OR) ---
DATE OF PROCEDURE: 06/04/2021 SURGEON: Kd Paolmino MD. WILDLIFE BIOLOGY INTERNSHIP: Courtney Houser MD. SECOND WILDLIFE BIOLOGY INTERNSHIP: Jose Grady PA-C. PREOPERATIVE DIAGNOSIS: Osteoarthritis with varus flexion deformity, right knee. POSTOPERATIVE DIAGNOSIS: Osteoarthritis with varus flexion deformity, right knee. OPERATION PERFORMED: Cemented right total knee replacement. PERIOPERATIVE SITUATION: Medically cleared male with intractable knee pain, has varus flexion deform ity bilaterally, right is worse than left as far as symptoms, wants to proceed with knee replacement on the right. Appropriate clearance and so forth was performed. He understands the risks and conseq uences. DESCRIPTION OF PROCEDURE: The patient was appropriately identified, site verified, consent verified. Antibiotics were confirmed as being given. The right lower extremity was prepped and draped in usu al routine fashion with tourniquet inflated to 300 mmHg after exsanguination of limb with a rubber Es march bandage for a total of approximately 65 minutes. Midline exposure was utilized. Parapatellar arthrotomy was performed. Extensive release medially was performed. Synovectomy completed, osteophy lorin resected. Distal femur entered. The ACL was absent. The PCL was resected. A distal femoral cut was made at 14 mm, proximal tibia cut at 4 mm. Extension gap was excellent. Th e femur was sized between 5 and 4, was measured 5, cut 4. There was no notching. Flexion gap was ch ecked, it was excellent. The box cut was then made and a size 4 fit well. The tibia was then broach ed and reamed to a size 4 and with a 10 mm spacer, everything was nice and stable including mid range flexion. The patella tracked well. The patella was resected leaving 16 mm and then the seating hol es made, and the trial tracked well. Orthomix was then injected all about the knee. All the trial implants were removed, the wound irrigated with Betadine Pulsavac, and then the permane nt cemented into position, tibia, femur, and patella in that order. After 12 minutes, the tourniquet was deflated. Minor bleeding points controlled with electrocautery. EBL was only about 25 mL. Once this was all taken care of, the wound was irrigated one final time. The permanent liner seated and then the knee reduced and closed with #2 Vicryl, 2-0 Vicryl and stainless steel clips. It should be mentioned that a saw blade had fractured during the procedure and all of the remaining elements were removed. This was verified by looking at all the pieces. ESTIMATED BLOOD LOSS: Roughly 25 mL. CRYSTALLOID: Per anesthesia. Bone sent for pathology. DVT prophylaxis per protocol. SUMMARY OF IMPLANTS: Size 4 right femur posterior cruciate substituting, size 4 mobile bearing tray right tibia, size 41 patella, size 4 x 10 rotating platform insert. Job ID: [id number]
--- NOTE | 2021-06-04 11:04 | Operative Report ---
Post Operative Report Pre & Post Diagnosis Operation Date: 06/04/21 08:50 Pre-Op Diagnosis: Right knee degenerative joint disease. Post-Op Diagnosis: Right knee degenerative joint disease. I identified the patient and participated in the time-out.: Yes Procedure Operation Date: 06/04/21 08:50 Actual Procedures p Right Total Knee Arthroplasty(Right) - Kd Palomino MD Surgeon APRIL Palomino MD Sewer And Drain Technician Corrina/Miguel A PERSAUD Estimated Blood Loss 25 Findings Consistent with Post-Op Diagnosis see operative report Specimens see operative report Drains none Complications none Disposition Accompanied Patient To Recovery: Yes Indications This 75-year-old male presented to the office with complaints of persisting right knee pain. He had tried conservative care measures including injection therapy and activity modification, without improvement. He elected to proceed with surgical intervention after being educated about potential risks and outcomes. Preoperative imaging was obtained. Description of Procedure Patient was administered a spinal anesthetic and then taken to the operating room where he was given sedation. He was prepped and draped in the usual sterile fashion. Please see Dr. Palomino's operative report for specifics of the procedure. I was present for the entire case from initial patient positioning through final wound closure. Assistance was provided in tissue retraction, hemostasis, trial implant placement, final implant placement, and final wound closure. Patient was taken to the recovery room in satisfactory condition. I attest to the content of the Intraoperative Record and any orders documented therein. Any exceptions are noted below.
--- NOTE | 2021-06-04 11:10 | XRay Report ---
RIGHT KNEE 2 VIEWS History: Right total knee arthroplasty. Degenerative arthritis. Postop. FINDINGS: The patient is status post a right total knee arthroplasty. The hardware is intact. No frac ture or dislocation. Skin sanford are in place. IMPRESSION: Right total knee arthroplasty. No evidence for hardware complication. ACT 112: Negative or not required by law. Electronically signed by: Justice Lawrence M.D. 06/04/2021 11:08 AM
[2021-06-04] MEDS ORDERED: VANCOMYCIN HCL 1,750 MG in SODIUM CHLORIDE 0.9% 500 ML IV STA (11:26)
[2021-06-04] MEDS ORDERED: ALUMINUM/MAGNESIUM SUSP 30 ML UDC PO PRN (12:22)
[2021-06-04] MEDS ORDERED: ONDANSETRON INJ 2 MG/ML 2 ML VIAL IV PRN (12:22)
[2021-06-04] MEDS ORDERED: diphenhydrAMINE 50 MG/ML VIAL IV PRN (12:22)
[2021-06-04] MEDS ORDERED: MAGNESIUM HYDROXIDE SUSP 30 ML UDC PO PRN (12:22)
[2021-06-04] MEDS ORDERED: NALOXONE HCL 0.4 MG/1 ML VIAL/CARP IV PRN (12:22)
[2021-06-04] MEDS ORDERED: TAMSULOSIN HCL 0.4 MG CAP PO PRN (12:22)
[2021-06-04] MEDS ORDERED: HYDROmorphone INJ 0.5 MG/0.5 ML SYR IV PRN (12:22)
[2021-06-04] MEDS ORDERED: METOCLOPRAMIDE HCL INJ 5 MG/ML 2 ML VIAL IV PRN (12:22)
[2021-06-04] MEDS ORDERED: SODIUM CHLORIDE 0.9% 1000ML 1,000 ML IV SCH (12:22)
[2021-06-04] MEDS ORDERED: bisacodyL 10 MG SUPP PR PRN (12:22)
[2021-06-04] MEDS ORDERED: GLUCAGON FOR INJ 1 MG VIAL IM PRN (12:45)
[2021-06-04] MEDS ORDERED: CARBOHYDRATES FOR HYPOGLYCEMIA PO PRN (12:45)
[2021-06-04] MEDS ORDERED: GLUCOSE 40% GEL 15 GM TUBE PO PRN (12:45)
[2021-06-04] MEDS ORDERED: GLUCOSE 10 TABS/TUBE PO PRN (12:45)
[2021-06-04] MEDS ORDERED: DEXTROSE 50% 50 ML SYRINGE IV PRN (12:45)
--- NOTE | 2021-06-04 13:06 | Anesthesiology Progress Note ---
Date of Service June 04, 2021 Anesthesia Post Procedure Vital Signs Vital Signs: Temp Pulse Pulse Resp BP Pulse Ox 06/04/21 12:55 68 18 134/66 93 06/04/21 12:40 67 17 132/68 95 06/04/21 12:25 67 15 132/62 95 06/04/21 12:10 65 14 126/67 95 06/04/21 12:00 70 14 130/71 95 06/04/21 11:50 67 20 136/61 96 06/04/21 11:40 64 19 120/67 98 06/04/21 11:30 36.2 C L 65 16 130/70 94 06/04/21 11:20 71 21 113/65 96 06/04/21 11:10 65 16 126/64 98 06/04/21 11:00 70 73 18 107/56 L 98 06/04/21 10:50 36.4 C L 73 73 19 106/53 L 97 06/04/21 07:11 36.6 C 79 20 160/79 H 97 Transfer of Care Handoff Completed per policy Notes Mental Status: alert / awake / arousable and participated in evaluation Patient Amnestic to Procedure: Yes Nausea / Vomiting: adequately controlled Pain: adequately controlled Airway Patency, RR, SpO2: stable & adequate BP & HR: stable & adequate Hydration State: stable & adequate Anesthetic Complications: no major complications apparent
--- NOTE | 2021-06-04 13:10 | Progress Notes ---
DATE OF SERVICE: 06/04/2021 Postop check status post right total knee replacement. The patient is doing well. He is resting com fortably. His spinal is starting to wear off. He can roll his legs, but still does not have signifi cant function of his foot or ankle. Wound dressing clean, dry and intact. He denies chest pain, shortness of breath, fever, chills, nausea, vomiting or headache. Postop x-rays look excellent. ASSESSMENT: Doing well status post right total knee replacement. Continue care pathway. Discharge tomorrow if he does well overnight. Job ID: [id number]
--- NOTE | 2021-06-04 13:15 | Discharge Summary (DS) ---
DATE OF ADMISSION: 06/04/2021 POTENTIAL DATE OF DISCHARGE: 06/05/2021 CHIEF COMPLAINT: Right knee pain. HISTORY OF PRESENT ILLNESS: The patient underwent elective right total knee replacement. He had sev ere varus flexion deformity. His procedure was uneventful. His postoperative x-rays look excellent. PREADMISSION MEDICATIONS: Include famotidine, metformin, metoprolol, dulaglutide, vitamin B and Entr esto. PAST MEDICAL HISTORY: Remarkable for aortic valvular disease, coronary artery disease, cardiomyopathy , GERD, DJD of multiple joints, ftb-jgpzjuk-hkrfokmue diabetes, hiatal hernia, hyperlipidemia, hypert ension, migraine headaches, nonischemic cardiomyopathy, sleep apnea, spinal stenosis. PAST SURGICAL HISTORY: Remarkable for colonoscopy, gastroduodenoscopy, cardiac pacemaker, tonsillect corazon, status post appendectomy, status post right hip replacement. FAMILY HISTORY: Reveals diabetes runs in the family. SOCIAL HISTORY: Reveals he does not smoke, but he did smoke in the past. He has no secondhand smoke . He socially drinks. Feels safe at home, has a spouse. REVIEW OF SYSTEMS: Noncontributory. ASSESSMENT: Doing well status post right total knee replacement. Discharge to [facility] tomorrow [facility] services. Job ID: [id number]
[2021-06-04] MEDS: INSULIN ASPART 100 UNITS/ML 3 ML PEN SC SCH ×3 (13:43→20:55)
[2021-06-04] MEDS ORDERED: ORTHO WARFARIN NOMOGRAM SCH (14:00)
[2021-06-04] MEDS: ACETAMINOPHEN 500 MG TAB PO SCH ×2 (14:13→20:03)
[2021-06-04] MEDS: KETOROLAC TROMETHAMINE 15 MG/ML VIAL IV SCH ×2 (14:13→17:57)
[2021-06-04] MEDS: oxyCODONE HCL IR 5 MG TAB (IMMEDIATE RELEASE) PO PRN ×2 (15:23→22:41)
[2021-06-04] MEDS ORDERED: WARFARIN SOD 5 MG TAB PO ONE (16:00)
[2021-06-04] MEDS ORDERED: TRANEXAMIC ACID / 0.7% NACL 1,000 MG/100 ML BAG IV SCH (17:00)
[2021-06-04] MEDS: ASCORBIC ACID 500 MG TAB PO SCH (17:57)
[2021-06-04] MEDS: FERROUS GLUCONATE 324 MG TAB PO SCH (17:57)
[2021-06-04] MEDS: ceFAZolin 2000MG 2,000 MG/15 ML SYR IV SCH (18:03)
[2021-06-04] MEDS: DOCUSATE SODIUM 100 MG CAP PO SCH (20:02)
[2021-06-04] MEDS: SACUBITRIL-VALSARTAN 24-26 MG TAB PO SCH (20:03)
[2021-06-04] MEDS ORDERED: VANCOMYCIN HCL 1,750 MG in SODIUM CHLORIDE 0.9% 250 ML IV SCH (21:00)
[2021-06-04] MEDS ORDERED: SENNA 8.6 MG TAB PO SCH (21:00)
[2021-06-04] MEDS ORDERED: METOPROLOL SUCC 25MG EXT REL TAB PO SCH (21:00)
[2021-06-04] MEDS ORDERED: FAMOTIDINE 40 MG TABLET PO SCH (21:00)
[2021-06-05] MEDS: KETOROLAC TROMETHAMINE 15 MG/ML VIAL IV SCH ×2 (01:40→06:12)
[2021-06-05] MEDS: ceFAZolin 2000MG 2,000 MG/15 ML SYR IV SCH (01:40)
[2021-06-05] MEDS: ACETAMINOPHEN 500 MG TAB PO SCH (06:11)
--- NOTE | 2021-06-05 06:44 | Progress Notes ---
DATE OF SERVICE: 06/04/2021 SUBJECTIVE: Postop check status post right total knee replacement. The patient is doing well. Juan Carlos es any chest pain, shortness of breath, fever, chills, nausea, vomiting or headache. OBJECTIVE: Vital signs are stable. He is afebrile. Neurovascular check, femoral sciatic nerve is normal. Wound dressing clean, dry and intact. Can do a straight leg raise. Initiate flexion of his knee. ASSESSMENT AND PLAN: Doing well. Discharged to home today after PT/OT. Coumadin dose per nomogram. Job ID: [id number]
[2021-06-05 07:19] LABS: Hematocrit (blood only) 33.1 % (42-52); Mean Corpuscular Hemoglobin 33.6 pg (25-34); Mean Corpuscular Hgb Conc 36.3 g/dL (32-36); Mean Corpuscular Volume 92.7 fL (80-100); Mean Platelet Volume 9.4 fL (7.4-10.4); Platelet Count 149 K/uL (130-400); RDW Coefficient of Variation 12.9 % (11.5-14.5); RDW Standard Deviation 43.5 fL (36.4-46.3); Red Blood Count 3.57 M/uL (4.7-6.1); White Blood Count 7.41 K/uL (4.8-10.8)
[2021-06-05 07:26] LABS: Prothrombin Time 10.6 Seconds (9.0-12.0)
[2021-06-05 07:55] LABS: BUN Creatinine Ratio 15.1 (10-20); Calcium 8.4 mg/dl (8.5-10.1); Creatinine Clr Calc Pharmacy 55.9 ml/min; Est GFR (African American) 54.3 ml/min; Est GFR (Non-African American) 46.8 ml/min; Potassium 4.3 mmol/L (3.5-5.1)
[2021-06-05] MEDS: SACUBITRIL-VALSARTAN 24-26 MG TAB PO SCH (08:01)
[2021-06-05] MEDS: ASCORBIC ACID 500 MG TAB PO SCH (08:01)
[2021-06-05] MEDS: DOCUSATE SODIUM 100 MG CAP PO SCH (08:01)
[2021-06-05] MEDS: FERROUS GLUCONATE 324 MG TAB PO SCH (08:01)
[2021-06-05] MEDS ORDERED: MULTIVITAMIN TAB PO SCH (09:00)
[2021-06-05] MEDS: INSULIN ASPART 100 UNITS/ML 3 ML PEN SC SCH (09:21)
--- NOTE | 2021-06-05 09:53 | Orthopedic Progress Note ---
Date of Service June 05, 2021 Assessment & Plan (1) Status post total right knee replacement using cement: Plan: Patient's dressings were changed today by me. SUSAN hose was reapplied. Continue using the knee immobilizer today and tomorrow, and discontinue its use on Wednesday morning. Patient will be discharged to home today with home health services. Arrangements have been made. He will receive Coumadin today prior to discharge. Start Coumadin tomorrow at 4 mg daily through the weekend. He will have his blood checked on Wednesday. Follow-up in the office in 2 weeks as scheduled for staple removal. Call the office with any other concerns. Use the walker for ambulation. Weight-bear as tolerated. Admission and Anticipated Discharge Date Admission Date: June 04, 2021 Subjective Patient is seen in his room this morning. He has no chest pain, shortness of breath, nausea, vomiting, or abdominal pain. He states his knee is starting to bother him a little bit. Overall he did well overnight. He feels ready for discharge to home. No other complaints. Review of Systems Review of Systems: Unchanged from yesterday. Physical Exam Physical Exam: General: Well-developed, well-nourished, elderly white male, in no acute distress. Sitting in a chair. Alert and oriented. Conversive. Skin: Warm dry with good turgor. Postsurgical dressings are in place. Upon removal, there is scant dried drainage on the inner dressings. There is no active bleeding. Expected postoperative ecchymosis and edema. Ros are intact. Musculoskeletal: Patient has intact motor function to the ankle and toes. He is able to perform straight leg raise. He lacks a few degrees of terminal extension. Flexion to greater than 45 degrees without difficulty. Neurologic: Gross sensation is intact across the right leg by soft touch. Peripheral pulses are 2+. Results & Data ([facility]) Vital Signs (Past 12 Hours) Vital Signs Temp Pulse Pulse Resp BP BP Pulse Ox 06/05/21 07:27 36.7 C 70 16 125/68 97 06/05/21 02:10 36.4 C L 65 16 126/68 95 06/04/21 22:28 36.5 C 67 16 126/67 96 Laboratory Results WBCs this morning are 7.4. Hemoglobin 12.0. Hematocrit 33.1. Platelets 149. Sodium 136, potassium 4.3, chloride 106, BUN 22, creatinine 1.44. Blood sugar this morning was 169. INR is 1.0.
[2021-06-05] MEDS ORDERED: WARFARIN SOD 5 MG TAB PO ONE (11:30)
== END 2021-06-05 12:05 | disposition home health service (06) ==
LOC: PACUINP 06:39 → ASU 06:39 → 3E 13:51
DX: Z79.899 Other long term (current) drug therapy; I25.10 Atherosclerotic heart disease of native coronary artery without angina pectoris; I44.7 Left bundle-branch block, unspecified; G47.33 Obstructive sleep apnea (adult) (pediatric); E11.9 Type 2 diabetes mellitus without complications; I35.1 Nonrheumatic aortic (valve) insufficiency; E78.5 Hyperlipidemia, unspecified; I42.8 Other cardiomyopathies; Z87.891 Personal history of nicotine dependence; I10 Essential (primary) hypertension; M17.11 Unilateral primary osteoarthritis, right knee; K21.9 Gastro-esophageal reflux disease without esophagitis; Z79.84 Long term (current) use of oral hypoglycemic drugs; Z95.0 Presence of cardiac pacemaker; Z88.8 Allergy status to other drugs, medicaments and biological substances

== ENCOUNTER 2021-06-09 17:59 | Observation (INO) ==
[2021-06-09] MEDS ORDERED: fentaNYL citrate 100 MCG/2 ML VIAL IV PRN (18:17)
[2021-06-09] MEDS ORDERED: ONDANSETRON INJ 2 MG/ML 2 ML VIAL IV STA (18:18)
[2021-06-09 18:42] LABS: Prothrombin Time 10.3 Seconds (9.0-12.0)
[2021-06-09 18:44] LABS: Basophils # (auto) 0.01 K/uL (0-0.2); Basophils % (auto) 0.1 %; Eosinophils # (auto) 0.19 K/uL (0-0.5); Eosinophils % (auto) 2.5 %; Hematocrit (blood only) 34.1 % (42-52); Hemoglobin 12.7 g/dL (14.0-18.0); Immature Granulocytes # (auto) 0.03 K/uL (0.00-0.02); Immature Granulocytes % (auto) 0.4 %; Lymphocytes # (auto) 1.48 K/uL (1.2-3.4); Lymphocytes % (auto) 19.7 %; Mean Corpuscular Hemoglobin 33.2 pg (25-34); Mean Corpuscular Hgb Conc 37.2 g/dL (32-36); Mean Corpuscular Volume 89.3 fL (80-100); Monocytes # (auto) 0.84 K/uL (0.11-0.59); Monocytes % (auto) 11.2 %; Neutrophils # (auto) 4.97 K/uL (1.4-6.5); Neutrophils % (auto) 66.1 %; Platelet Count 293 K/uL (130-400); RDW Coefficient of Variation 12.9 % (11.5-14.5); RDW Standard Deviation 42.1 fL (36.4-46.3); Red Blood Count 3.82 M/uL (4.7-6.1); White Blood Count 7.52 K/uL (4.8-10.8)
[2021-06-09 18:50] LABS: Alanine Aminotransferase 43 U/L (12-78); Aspartate Aminotransferase 31 U/L (15-37); BUN Creatinine Ratio 18.8 (10-20); Blood Urea Nitrogen 17 mg/dl (7-18); Calcium 9.3 mg/dl (8.5-10.1); Carbon Dioxide 23 mmol/L (21-32); Chloride 102 mmol/L (98-107); Creatinine Clr Calc Pharmacy 88.7 ml/min; Est GFR (African American) 92.1 ml/min; Est GFR (Non-African American) 79.5 ml/min; Glucose 147 mg/dl (70-99); Magnesium 2.1 mg/dl (1.8-2.4); Potassium 3.5 mmol/L (3.5-5.1); Sodium 133 mmol/L (136-145)
--- NOTE | 2021-06-09 18:54 | XRay Report ---
XR chest 1V portable CLINICAL HISTORY: weakness COMPARISON STUDY: Chest radiograph September 16, 2020 FINDINGS: Dual lead left subclavian pacemaker is in place. Lung volumes are normal. Lungs are clear. There is no pneumothorax or pleural effusion. Mild cardiomegaly is noted. Mediastinal contours are no rmal. There is no evidence for pulmonary edema. Incidental note is made of osteoarthritis of the left glenohumeral joint. IMPRESSION: No acute cardiopulmonary findings. Cardiomegaly. ACT 112: Negative or not required by law. Electronically signed by: Nakul Rizo M.D. 06/09/2021 6:53 PM
[2021-06-09 19:01] LABS: Albumin Globulin Ratio 0.7 (0.9-2); Alkaline Phosphatase 72 U/L (45-117); Bilirubin,Total 1.6 mg/dl (0.2-1); Creatine Kinase 71 U/L (39-308); Globulin 4.3 gm/dl (2.5-4.0); Total Protein 7.3 gm/dl (6.4-8.2); Troponin I < 0.015 ng/ml (0-0.045)
--- NOTE | 2021-06-09 19:02 | XRay Report ---
XR knee RT 1 or 2V routine CLINICAL HISTORY: Postoperative pain. COMPARISON: Right knee radiographs June 04, 2021. FINDINGS: Alignment of the total right knee arthroplasty is anatomic. Skin sanford are present. No p eriprosthetic fracture is noted. There are no unexpected radiopaque foreign bodies. Right knee soft t issue swelling is noted. No definite joint effusion is identified by radiography. IMPRESSION: 1. Status post total right knee arthroplasty. No periprosthetic fracture. Hardware intact. 2. Right knee soft tissue swelling. ACT 112: Negative or not required by law. Electronically signed by: Nakul Rizo M.D. 06/09/2021 7:00 PM
--- NOTE | 2021-06-09 19:14 | Emergency Department Note ---
Impression & Plan Post-operative pain, Status post revision of total replacement of right knee ED Provider Note Praveen: DIONE SIEGEL AGE: 75 SEX: M : 1945 ARRIVES VIA: Ambulance INFORMANT: Patient, ED PROVIDER(S): José Miguel Minor DO CHIEF COMPLAINT: leg pain HPI: the patient is a 75-year-old male who presented to the emergency department for an evaluation of leg pain. The patient states that he had knee replacement at the end of May. He was discharged home. He thought he would be doing better but he states he is having significant difficulty ambulating. He also reports generalized weakness and just not feeling well. The patient does have a history of pacemaker. The patient states that he is had no chest pain. He states he is been trying to take the pain medication but at times the pain medication makes him very confused and he does not feel comfortable taking the pain medication because of this. He saw home nursing today who evaluated the knee and according to the patient reportedly the knee looks well and is healing well. The patient called his primary orthopedic physician and states he was referred to the emergency department because of this conversation. The patient denies having any falls. He does complain of a slight headache. ROS: See above HPI for pertinent positives & negatives. A total of 10 systems reviewed and were otherwise negative. PAST MEDICAL HISTORY: See Below PAST SURGICAL HISTORY: See Below FAMILY HISTORY: See Below SOCIAL HISTORY: See Below HOME MEDICATIONS: See Below ALLERGIES: See Below VITALS: See Below PHYSICAL EXAMINATION: GENERAL: Patient is awake alert in no acute distress patient is resting comfortably and showing no signs of anxiety EYES: The conjunctivae are clear. The pupils are round and reactive. EARS, NOSE, MOUTH AND THROAT: The nose is without any evidence of any deformity. NECK: The neck is nontender and supple. RESPIRATORY: Normal respiratory effort is noted there is no evidence of wheezing rhonchi or rales CARDIOVASCULAR: Regular rate and rhythm noted there no murmurs rubs or gallops normal S1 normal S2. GASTROINTESTINAL: The abdomen is soft. Abdomen is nontender. Rectal exam revealed brown stool which was he negative. MUSCULOSKELETAL/EXTREMITIES: there is a compression stocking to the right lower extremity. Pulses are symmetric in both feet. SKIN: There is no obvious evidence of any rash. There is no Tenderness elicited. NEUROLOGIC: Patient is awake alert and oriented x3. MEDICAL DECISION MAKING: the patient is a 75-year-old male for an evaluation of pain in his right leg. The patient recently had his knee replaced. The patient was doing some things at home but started to do worse because he was not able to tolerate the pain medications and also was having pain in his leg. The patient was treated pain medication in the emergency department. He was reevaluated multiple times. I discussed his condition with his primary orthopedic surgeon. There does not appear to be any complication involving the knee replacement but the patient might require some inpatient therapy. For this reason I discussed this case with you electronics manufacturer [employer] [facility]. They've agreed to evaluate the patient in the emergency department for further management and disposition. Triage Nursing notes reviewed. Prior medical records reviewed Vital Signs: reviewed and remarkable for elevated blood pressure Differential diagnosis: Infection, dehydration, metabolic abnormality, hypo/hyperglycemia, electrolyte disturbance, anemia, hypoxia, cardiac sources, intracerebral event, toxicologic, neurologic, as well as other pathologies. ER treatment provided: See below Diagnostics interpreted by me: ECG: EKG was obtained in the emergency department. My interpretation is atrial sense ventricular paste rhythm at 72 bpm. No [place] beats were noted. This was compared to retracing from August 022018. No significant changes were noted. Cardiac Monitoring: An order was placed for continuous cardiac monitoring. The monitor shows a rate of 83 bpm with paste rhythm. Laboratory studies: As stated above and show below. Imaging studies: See below Consultation(s): I discussed this case with the patient's primary orthopedic surgeon, Dr. Palomino. I discussed this case with Dr. Heredia who was electronics manufacturer for the [employer] [facility] group. He will evaluate the patient in the emergency department. Past Med/Surg History Medical History Aortic insufficiency Aortic valve disorder CAD (coronary artery disease) Mild nonobstructive CAD per 2010 cardiac cath ([place]) Cardiomyopathy Chronic GERD Degenerative joint disease of knee Diabetes NIDDM Hiatal hernia Hyperlipidemia "Borderline" Hypertension LBBB (left bundle branch block) Migraine headache Nonischemic cardiomyopathy Osteoarthritis Pacemaker Implanted 2018 (for 2:1 AV block), Follows with [facility] cardiology (Dr. Ramírez) Sleep apnea "Mild" > no device prescribed Spinal stenosis of lumbar region Surgical History H/O colonoscopy H/O esophagogastroduodenoscopy History of permanent cardiac pacemaker placement History of tonsillectomy S/P appy Status post total hip replacement, right Family History Family/Other Family history of diabetes mellitus BROTHER OR SISTER Other Family history non-contributory No family history of adverse response to anesthesia Silicosis Social History Smoking Status: Former smoker Second Hand Exposure: No; Hx Alcohol Use: Yes Alcohol type: hard liquor Hx Substance Use: No Preferred Language: Sami Communication Ability: Effective Visual Impairment: No Limitations Folder Gluer Operator Required: No Beliefs That Will Affect Care: None marital status: Current Living Situation: Spouse current occupational status: retired Feels Safe at Home: Yes Assistive Devices: Walker Allergies Allergies Allergy/AdvReac Type Severity Reaction Status Date / Time Dotjdrv-Hbw-Bou Reductase AdvReac Severe Severe Verified 06/09/21 19:17 Inhibitor muscle weakness, aches Home Meds Home Medications Medication Instructions Recorded Confirmed famotidine 40 mg tablet (Pepcid) 40 mg PO QPM 03/21/20 06/09/21 metformin 1,000 mg tablet 1,000 mg PO BID 03/21/20 06/09/21 metoprolol succinate 25 mg 25 mg PO QPM 03/21/20 06/09/21 tablet,extended release 24 hr (Toprol XL) dulaglutide 1.5 mg/0.5 mL 1.5 mg SUBCUT WK ml 06/10/20 06/09/21 subcutaneous pen injector (Trulicity) cyanocobalamin (vitamin B-12) 1,000 mcg PO 3XWK 08/21/20 06/09/21 1,000 mcg capsule sacubitril 24 mg-valsartan 26 mg 1 tab PO BID 01/27/21 06/09/21 tablet (Entresto) tapentadol 50 mg tablet (Nucynta) 50 mg PO BID PRN 06/09/21 06/09/21 warfarin 2 mg tablet 0 mg PO QPM 06/09/21 06/09/21 Previous Rx's Medication Instructions Recorded oxycodone-acetaminophen 5 mg-325 2 tab PO Q6H PRN #24 tab 06/05/21 mg tablet (Percocet) Results & Data (ED) Vital Signs Vital Signs - 24 hr 06/09/21 17:48 06/09/21 18:04 06/09/21 18:16 Temperature 36.6 C Temperature Source Oral Pulse Rate 64 71 Pulse Rate from SpO2 Sensor 69 Respiratory Rate 22 23 Respiratory Effort / Characteristics Non-Labored Respiratory Depth Normal Blood Pressure 141/64 H 141/64 H Blood Pressure Mean 89 89 Blood Pressure Position Lying Pulse Oximetry 95 94 95 Oxygen Delivery Method Room Air Room Air Room Air Sepsis Recent Fever Within 48 Hours No Sepsis New/Unexplained Change in Mental Status No Sepsis Action Taken by Nursing No Action Required 06/09/21 19:00 06/09/21 19:32 06/09/21 20:00 Temperature Temperature Source Pulse Rate 75 84 Pulse Rate from SpO2 Sensor 64 Respiratory Rate 19 18 22 Respiratory Effort / Characteristics Respiratory Depth Blood Pressure 149/67 H 134/79 151/69 H Blood Pressure Mean 94 97 96 Blood Pressure Position Pulse Oximetry 94 95 96 Oxygen Delivery Method Room Air Room Air Room Air Sepsis Recent Fever Within 48 Hours Sepsis New/Unexplained Change in Mental Status Sepsis Action Taken by Nursing 06/09/21 20:30 06/09/21 21:30 06/09/21 22:00 Temperature Temperature Source Pulse Rate 82 68 75 Pulse Rate from SpO2 Sensor Respiratory Rate 20 23 27 H Respiratory Effort / Characteristics Respiratory Depth Blood Pressure 141/88 H 138/67 148/63 H Blood Pressure Mean 105 90 91 Blood Pressure Position Pulse Oximetry 96 94 97 Oxygen Delivery Method Room Air Room Air Room Air Sepsis Recent Fever Within 48 Hours Sepsis New/Unexplained Change in Mental Status Sepsis Action Taken by Nursing 06/09/21 22:30 06/09/21 23:00 Temperature Temperature Source Pulse Rate 69 69 Pulse Rate from SpO2 Sensor Respiratory Rate 25 H 24 Respiratory Effort / Characteristics Respiratory Depth Blood Pressure 146/72 H 140/71 Blood Pressure Mean 96 94 Blood Pressure Position Pulse Oximetry 97 96 Oxygen Delivery Method Room Air Room Air Sepsis Recent Fever Within 48 Hours Sepsis New/Unexplained Change in Mental Status Sepsis Action Taken by Long-Term Medications Current Medication List: was personally reviewed by me Laboratory Data Attestation: I reviewed the patient's lab results. Result diagrams: 06/09/21 17:50 06/09/21 17:50 Lab Results 06/09/21 06/09/21 06/09/21 Range/Units 17:50 17:50 17:50 WBC 7.52 (4.8-10.8) K/uL RBC 3.82 L (4.7-6.1) M/uL Hgb 12.7 L (14.0-18.0) g/dL Hct 34.1 L (42-52) % MCV 89.3 (80-100) fL MCH 33.2 (25-34) pg MCHC 37.2 H (32-36) g/dL RDW Std Deviation 42.1 (36.4-46.3) fL RDW Coeff of Lio 12.9 (11.5-14.5) % Plt Count 293 (130-400) K/uL MPV 9.0 (7.4-10.4) fL Immature Gran % (Auto) 0.4 % Neut % (Auto) 66.1 % Lymph % (Auto) 19.7 % Crisp % (Auto) 11.2 % Eos % (Auto) 2.5 % Baso % (Auto) 0.1 % Neut # (Auto) 4.97 (1.4-6.5) K/uL Lymph # (Auto) 1.48 (1.2-3.4) K/uL Crisp # (Auto) 0.84 H (0.11-0.59) K/uL Eos # (Auto) 0.19 (0-0.5) K/uL Baso # (Auto) 0.01 (0-0.2) K/uL Immature Gran # (Auto) 0.03 H (0.00-0.02) K/uL PT 10.3 (9.0-12.0) Seconds INR 1.0 (0.9-1.1) APTT (21.0-31.0) Seconds PTT Ratio Sodium 133 L (136-145) mmol/L Potassium 3.5 (3.5-5.1) mmol/L Chloride 102 (98-107) mmol/L Carbon Dioxide 23 (21-32) mmol/L Anion Gap 8.0 (3-11) BUN 17 (7-18) mg/dl Creatinine 0.93 (0.6-1.4) mg/dl Est Cr Clr Drug Dosing 88.7 ml/min Est GFR ( Amer) 92.1 ml/min Est GFR (Non-Af Amer) 79.5 ml/min BUN/Creatinine Ratio 18.8 (10-20) Glucose 147 H (70-99) mg/dl Calcium 9.3 (8.5-10.1) mg/dl Magnesium 2.1 (1.8-2.4) mg/dl Total Bilirubin 1.6 H (0.2-1) mg/dl AST 31 (15-37) U/L ALT 43 (12-78) U/L Alkaline Phosphatase 72 (45-117) U/L Total Creatine Kinase 71 (39-308) U/L Troponin I < 0.015 (0-0.045) ng/ml Total Protein 7.3 (6.4-8.2) gm/dl Albumin 3.0 L (3.4-5.0) gm/dl Globulin 4.3 H (2.5-4.0) gm/dl Albumin/Globulin Ratio 0.7 L (0.9-2) TSH 3.180 (0.300-4.500) uIu/ml Urine Color Urine Appearance (Clear) Urine pH (4.5-7.5) Ur Specific Lee (1.000-1.030) Urine Protein (Negative) Urine Glucose (UA) (Negative) Urine Ketones (Negative) Urine Blood (Negative) Urine Nitrite (Negative) Urine Bilirubin (Negative) Urine Urobilinogen (Negative) Ur Leukocyte Esterase (Negative) COVID-19 Eval Order SARS-CoV-2 (PCR) (Negative) 06/09/21 06/09/21 06/09/21 Range/Units 18:16 19:13 19:13 WBC (4.8-10.8) K/uL RBC (4.7-6.1) M/uL Hgb (14.0-18.0) g/dL Hct (42-52) % MCV (80-100) fL MCH (25-34) pg MCHC (32-36) g/dL RDW Std Deviation (36.4-46.3) fL RDW Coeff of Lio (11.5-14.5) % Plt Count (130-400) K/uL MPV (7.4-10.4) fL Immature Gran % (Auto) % Neut % (Auto) % Lymph % (Auto) % Crisp % (Auto) % Eos % (Auto) % Baso % (Auto) % Neut # (Auto) (1.4-6.5) K/uL Lymph # (Auto) (1.2-3.4) K/uL Crisp # (Auto) (0.11-0.59) K/uL Eos # (Auto) (0-0.5) K/uL Baso # (Auto) (0-0.2) K/uL Immature Gran # (Auto) (0.00-0.02) K/uL PT (9.0-12.0) Seconds INR (0.9-1.1) APTT 27.8 (21.0-31.0) Seconds PTT Ratio 1.1 Sodium (136-145) mmol/L Potassium (3.5-5.1) mmol/L Chloride (98-107) mmol/L Carbon Dioxide (21-32) mmol/L Anion Gap (3-11) BUN (7-18) mg/dl Creatinine (0.6-1.4) mg/dl Est Cr Clr Drug Dosing ml/min Est GFR ( Amer) ml/min Est GFR (Non-Af Amer) ml/min BUN/Creatinine Ratio (10-20) Glucose (70-99) mg/dl Calcium (8.5-10.1) mg/dl Magnesium (1.8-2.4) mg/dl Total Bilirubin (0.2-1) mg/dl AST (15-37) U/L ALT (12-78) U/L Alkaline Phosphatase (45-117) U/L Total Creatine Kinase (39-308) U/L Troponin I (0-0.045) ng/ml Total Protein (6.4-8.2) gm/dl Albumin (3.4-5.0) gm/dl Globulin (2.5-4.0) gm/dl Albumin/Globulin Ratio (0.9-2) TSH (0.300-4.500) uIu/ml Urine Color Urine Appearance (Clear) Urine pH (4.5-7.5) Ur Specific Lee (1.000-1.030) Urine Protein (Negative) Urine Glucose (UA) (Negative) Urine Ketones (Negative) Urine Blood (Negative) Urine Nitrite (Negative) Urine Bilirubin (Negative) Urine Urobilinogen (Negative) Ur Leukocyte Esterase (Negative) COVID-19 Eval Order Covid19 at [facility] SARS-CoV-2 (PCR) NEGATIVE (Negative) 06/09/21 Range/Units 20:02 WBC (4.8-10.8) K/uL RBC (4.7-6.1) M/uL Hgb (14.0-18.0) g/dL Hct (42-52) % MCV (80-100) fL MCH (25-34) pg MCHC (32-36) g/dL RDW Std Deviation (36.4-46.3) fL RDW Coeff of Lio (11.5-14.5) % Plt Count (130-400) K/uL MPV (7.4-10.4) fL Immature Gran % (Auto) % Neut % (Auto) % Lymph % (Auto) % Crisp % (Auto) % Eos % (Auto) % Baso % (Auto) % Neut # (Auto) (1.4-6.5) K/uL Lymph # (Auto) (1.2-3.4) K/uL Crisp # (Auto) (0.11-0.59) K/uL Eos # (Auto) (0-0.5) K/uL Baso # (Auto) (0-0.2) K/uL Immature Gran # (Auto) (0.00-0.02) K/uL PT (9.0-12.0) Seconds INR (0.9-1.1) APTT (21.0-31.0) Seconds PTT Ratio Sodium (136-145) mmol/L Potassium (3.5-5.1) mmol/L Chloride (98-107) mmol/L Carbon Dioxide (21-32) mmol/L Anion Gap (3-11) BUN (7-18) mg/dl Creatinine (0.6-1.4) mg/dl Est Cr Clr Drug Dosing ml/min Est GFR ( Amer) ml/min Est GFR (Non-Af Amer) ml/min BUN/Creatinine Ratio (10-20) Glucose (70-99) mg/dl Calcium (8.5-10.1) mg/dl Magnesium (1.8-2.4) mg/dl Total Bilirubin (0.2-1) mg/dl AST (15-37) U/L ALT (12-78) U/L Alkaline Phosphatase (45-117) U/L Total Creatine Kinase (39-308) U/L Troponin I (0-0.045) ng/ml Total Protein (6.4-8.2) gm/dl Albumin (3.4-5.0) gm/dl Globulin (2.5-4.0) gm/dl Albumin/Globulin Ratio (0.9-2) TSH (0.300-4.500) uIu/ml Urine Color Dark Yellow Urine Appearance Clear (Clear) Urine pH 6.0 (4.5-7.5) Ur Specific Lee 1.017 (1.000-1.030) Urine Protein Negative (Negative) Urine Glucose (UA) 1+ H (Negative) Urine Ketones Trace H (Negative) Urine Blood Negative (Negative) Urine Nitrite Negative (Negative) Urine Bilirubin Negative (Negative) Urine Urobilinogen Negative (Negative) Ur Leukocyte Esterase Negative (Negative) COVID-19 Eval Order SARS-CoV-2 (PCR) (Negative) Administered Medications Discontinued Medications Fentanyl Citrate (Fentanyl Citrate 100 Mcg/2 Ml Vial) 50 mcg IV Q15M PRN PRN Reason: Pain Stop: 06/23/21 18:16 Last Admin: 06/09/21 20:10 Dose: 50 mcg Documented by: [id number] Ondansetron HCl (Ondansetron Inj 2 Mg/Ml 2 Ml Vial) 4 mg IV NOW STA Stop: 06/09/21 18:19 Last Admin: 06/09/21 22:49 Dose: Not Given Documented by: [id number] Tramadol HCl (Tramadol Hcl 50 Mg Tablet) 50 mg PO NOW STA Stop: 06/09/21 23:07 Last Admin: 06/09/21 23:30 Dose: 50 mg Documented by: [id number] Warfarin Sodium (Warfarin Sod 5 Mg Tab) 5 mg PO NOW STA Stop: 06/09/21 23:09 Last Admin: 06/09/21 23:39 Dose: 5 mg Documented by: [id number] Imaging Data Radiologist's Impression: Chest X-Ray 06/09/21 18:16 XR chest 1V portable CLINICAL HISTORY: weakness COMPARISON STUDY: Chest radiograph September 16, 2020 FINDINGS: Dual lead left subclavian pacemaker is in place. Lung volumes are normal. Lungs are clear. There is no pneumothorax or pleural effusion. Mild cardiomegaly is noted. Mediastinal contours are normal. There is no evidence for pulmonary edema. Incidental note is made of osteoarthritis of the left glenohumeral joint. IMPRESSION: No acute cardiopulmonary findings. Cardiomegaly. ACT 112: Negative or not required by law. Electronically signed by: Nakul Rizo M.D. 06/09/2021 6:53 PM Knee X-Ray 06/09/21 18:17 XR knee RT 1 or 2V routine CLINICAL HISTORY: Postoperative pain. COMPARISON: Right knee radiographs June 04, 2021. FINDINGS: Alignment of the total right knee arthroplasty is anatomic. Skin sanford are present. No periprosthetic fracture is noted. There are no unexpected radiopaque foreign bodies. Right knee soft tissue swelling is noted. No definite joint effusion is identified by radiography. IMPRESSION: 1. Status post total right knee arthroplasty. No periprosthetic fracture. Hardware intact. 2. Right knee soft tissue swelling. ACT 112: Negative or not required by law. Electronically signed by: Nakul Rizo M.D. 06/09/2021 7:00 PM Venous Doppler Study 06/09/21 18:17 RIGHT LOWER EXTREMITY VENOUS DOPPLER CLINICAL HISTORY: Postoperative pain. COMPARISON STUDY: No previous studies for comparison. TECHNIQUE: Sonography of the deep venous system of the right lower extremity was performed. Compression and augmentation were evaluated. FINDINGS: This exam is mildly compromised by suboptimal penetration. The right common femoral, superficial femoral and popliteal veins were compressible. Augmentation was normal. Flow was shown within the deep calf vessels. IMPRESSION: Technically compromised exam but no evidence of deep venous thrombus within the right lower extremity. ACT 112: Negative or not required by law. Electronically signed by: Nakul Rizo M.D. 06/09/2021 8:59 PM Discharge Plan Visit Data Chief Complaint: Knee Injury/Pain ED Provider: José Miguel Minor Discharge Problem: Post-operative pain, Status post revision of total replacement of right knee Patient Disposition: Admitted As Inpatient Discharge Instructions Interventions: ED Discharge Assessment Last Done: 06/10/21 00:15
[2021-06-09 19:34] LABS: Partial Thromboplastin Ratio 1.1; Partial Thromboplastin Time 27.8 Seconds (21.0-31.0)
[2021-06-09 20:32] LABS: Appearance Urine Clear (Clear); Bilirubin Urine Negative (Negative); Blood Urine Negative (Negative); Color Urine Dark Yellow; Glucose Urine UA 1+ (Negative); Ketones Urine Trace (Negative); Leukocyte Esterase Urine Negative (Negative); Nitrite Urine Negative (Negative); Protein Urine Negative (Negative); Specific Gravity Urine 1.017 (1.000-1.030); Urobilinogen Urine Negative (Negative)
--- NOTE | 2021-06-09 21:01 | Ultrasound Report ---
RIGHT LOWER EXTREMITY VENOUS DOPPLER CLINICAL HISTORY: Postoperative pain. COMPARISON STUDY: No previous studies for comparison. TECHNIQUE: Sonography of the deep venous system of the right lower extremity was performed. Compress ion and augmentation were evaluated. FINDINGS: This exam is mildly compromised by suboptimal penetration. The right common femoral, superf icial femoral and popliteal veins were compressible. Augmentation was normal. Flow was shown within t he deep calf vessels. IMPRESSION: Technically compromised exam but no evidence of deep venous thrombus within the right low er extremity. ACT 112: Negative or not required by law. Electronically signed by: Nakul Rizo M.D. 06/09/2021 8:59 PM
[2021-06-09] MEDS ORDERED: traMADol HCL 50 MG TABLET PO STA (23:06)
[2021-06-09] MEDS ORDERED: WARFARIN SOD 5 MG TAB PO STA (23:08)
[2021-06-09] MEDS ORDERED: SODIUM CHLORIDE 0.9% 500 ML IV ONE (23:15)
--- NOTE | 2021-06-09 23:22 | History & Physical Report ---
Date of Service June 09, 2021 Assessment & Plan (1) Knee pain, right: Plan: hx recent knee replacement Suboptimal control with home Percocet along with confusion as adverse reaction chronic systolic heart failure (EF 30 to 34%, TTE 2020), patient on the dry side hx moderate aortic regurgitation chronic LBBB symptomatic bradycardia status post PPM hypertension, slight elevated hyperlipidemia on statin Rx DM2 on oral medications, well-controlled as of recent hemoglobin A1c of 6.12 May 2021 Postop anemia, hemoglobin stable past tobacco abuse OBS GMF Tramadol trial for now (Patient recalls better tolerance for above Rx in the past. ) Orthopedics postop eval (ER provider already in touch with Dr. Palomino.) Basal insulin, ISS BG goal 1 10-1 40, carb count coverage PT OT eval Social service discharge planning, possible rehab placement DVT prophylaxis. Coumadin INR goal between 2 and 3 Full code Text document was generated using [employer] voice recognition software. It may contain grammatical or spelling errors. Kindly contact undersigned for clarification of any documentation item in question. History of Present Illness Chief Complaint: Right leg pain Primary Care Provider: Mookie Coyne MD History obtained from patient and records. Medical history significant for chronic systolic heart failure (EF 30 to 34%, TTE 2020), moderate aortic regurgitation, chronic LBBB, symptomatic bradycardia status post PPM, hypertension, hyperlipidemia, DM2 on oral medications, BPH, past tobacco abuse. Last confinement June 042020 for elective right total knee replacement. Patient discharged on Coumadin course for DVT prophylaxis. Uncontrolled right knee/right leg pain when patient got home. Oxycodone making him feel confused. Patient denies chest pain, S OB, fever, or chills. Poor appetite as per patient. Patient directed to ER by his orthopedic surgeon for further evaluation. Medical History as above Surgical History : PPM, appendectomy, hip replacement, tonsillectomy/adenoidectomy, sinus surgery, right knee surgery Family History : DM, alcoholism Personal/Social history : Past tobacco abuse, occasional EtOH intake, retired from sales Allergies Allergy/AdvReac Type Severity Reaction Status Date / Time Bdcvfki-Ttl-Aoi Reductase AdvReac Severe Severe Verified 06/09/21 19:17 Inhibitor muscle weakness, aches Home Medications Medication Instructions Recorded Confirmed Type famotidine 40 mg tablet (Pepcid) 40 mg PO QPM 03/21/20 06/09/21 History metformin 1,000 mg tablet 1,000 mg PO BID 03/21/20 06/09/21 History metoprolol succinate 25 mg 25 mg PO QPM 03/21/20 06/09/21 History tablet,extended release 24 hr (Toprol XL) dulaglutide 1.5 mg/0.5 mL 1.5 mg SUBCUT WK ml 06/10/20 06/09/21 History subcutaneous pen injector (Trulicity) cyanocobalamin (vitamin B-12) 1,000 mcg PO 3XWK 08/21/20 06/09/21 History 1,000 mcg capsule sacubitril 24 mg-valsartan 26 mg 1 tab PO BID 01/27/21 06/09/21 History tablet (Entresto) oxycodone-acetaminophen 5 mg-325 2 tab PO Q6H PRN #24 tab 06/05/21 06/09/21 Rx mg tablet (Percocet) tapentadol 50 mg tablet (Nucynta) 50 mg PO BID PRN 06/09/21 06/09/21 History warfarin 2 mg tablet 0 mg PO QPM 06/09/21 06/09/21 History Past Med/Surg History Medical History Aortic insufficiency Aortic valve disorder CAD (coronary artery disease) Mild nonobstructive CAD per 2010 cardiac cath ([place]) Cardiomyopathy Chronic GERD Degenerative joint disease of knee Diabetes NIDDM Hiatal hernia Hyperlipidemia "Borderline" Hypertension LBBB (left bundle branch block) Migraine headache Nonischemic cardiomyopathy Osteoarthritis Pacemaker Implanted 2018 (for 2:1 AV block), Follows with [facility] cardiology (Dr. Ramírez) Sleep apnea "Mild" > no device prescribed Spinal stenosis of lumbar region Surgical History H/O colonoscopy H/O esophagogastroduodenoscopy History of permanent cardiac pacemaker placement History of tonsillectomy S/P appy Status post total hip replacement, right Family History Family/Other Family history of diabetes mellitus BROTHER OR SISTER Other Family history non-contributory No family history of adverse response to anesthesia Silicosis Social History Smoking Status: Former smoker Second Hand Exposure: No; Hx Alcohol Use: Yes Alcohol type: hard liquor Hx Substance Use: No Preferred Language: Peruvian Communication Ability: Effective Visual Impairment: No Limitations Overnight Cashier Required: No Beliefs That Will Affect Care: None marital status: Current Living Situation: Spouse current occupational status: retired Feels Safe at Home: Yes Assistive Devices: Walker Review of Systems Review of Systems: As per HPI, all 10 systems reviewed, all other ROS negative Physical Exam Physical Exam: GENERAL: Comfortable, pleasant, obese, no respiratory distress SKIN: Pallor, warm HEENT: Pale palpebral conjunctivae, no ptosis, dry buccal mucosa NECK : Supple, short neck, no tenderness CHEST : Decreased breath sounds, no tenderness HEART : RRR, diastolic murmur appreciated over left sternal border ABDOMEN: Some distention, nontender EXTREMITIES : Minimal LE swelling, dressing over right knee, no overt tenderness, no other conspicuous deformities noted NEUROLOGIC : Coherent, no facial asymmetry, no other gross focality Results & Data Results & Data ([facility]) Vital Signs (Past 12 Hours) Vital Signs Temp Pulse Resp BP Pulse Ox 06/09/21 22:30 69 25 H 146/72 H 97 06/09/21 22:00 75 27 H 148/63 H 97 06/09/21 21:30 68 23 138/67 94 06/09/21 20:30 82 20 141/88 H 96 06/09/21 20:00 84 22 151/69 H 96 06/09/21 19:32 75 18 134/79 95 06/09/21 19:00 19 149/67 H 94 06/09/21 18:16 95 06/09/21 18:04 71 23 141/64 H 94 06/09/21 17:48 36.6 C 64 22 141/64 H 95 Laboratory Results Laboratory Results WBC 7.52 K/uL (4.8-10.8) 06/09/21 17:50 RBC 3.82 M/uL (4.7-6.1) L 06/09/21 17:50 Hgb 12.7 g/dL (14.0-18.0) L 06/09/21 17:50 Hct 34.1 % (42-52) L 06/09/21 17:50 MCV 89.3 fL (80-100) 06/09/21 17:50 MCH 33.2 pg (25-34) 06/09/21 17:50 MCHC 37.2 g/dL (32-36) H 06/09/21 17:50 RDW Std Deviation 42.1 fL (36.4-46.3) 06/09/21 17:50 RDW Coeff of Lio 12.9 % (11.5-14.5) 06/09/21 17:50 Plt Count 293 K/uL (130-400) 06/09/21 17:50 MPV 9.0 fL (7.4-10.4) 06/09/21 17:50 Immature Gran % (Auto) 0.4 % 06/09/21 17:50 Neut % (Auto) 66.1 % 06/09/21 17:50 Lymph % (Auto) 19.7 % 06/09/21 17:50 [place] % (Auto) 11.2 % 06/09/21 17:50 Eos % (Auto) 2.5 % 06/09/21 17:50 Baso % (Auto) 0.1 % 06/09/21 17:50 Neut # (Auto) 4.97 K/uL (1.4-6.5) 06/09/21 17:50 Lymph # (Auto) 1.48 K/uL (1.2-3.4) 06/09/21 17:50 [place] # (Auto) 0.84 K/uL (0.11-0.59) H 06/09/21 17:50 Eos # (Auto) 0.19 K/uL (0-0.5) 06/09/21 17:50 Baso # (Auto) 0.01 K/uL (0-0.2) 06/09/21 17:50 Immature Gran # (Auto) 0.03 K/uL (0.00-0.02) H 06/09/21 17:50 PT 10.3 Seconds (9.0-12.0) 06/09/21 17:50 INR 1.0 (0.9-1.1) 06/09/21 17:50 APTT 27.8 Seconds (21.0-31.0) 06/09/21 18:16 PTT Ratio 1.1 06/09/21 18:16 Sodium 133 mmol/L (136-145) L 06/09/21 17:50 Potassium 3.5 mmol/L (3.5-5.1) 06/09/21 17:50 Chloride 102 mmol/L (98-107) 06/09/21 17:50 Carbon Dioxide 23 mmol/L (21-32) 06/09/21 17:50 Anion Gap 8.0 (3-11) 06/09/21 17:50 BUN 17 mg/dl (7-18) 06/09/21 17:50 Creatinine 0.93 mg/dl (0.6-1.4) 06/09/21 17:50 Est Cr Clr Drug Dosing 88.7 ml/min 06/09/21 17:50 Est GFR ( Amer) 92.1 ml/min 06/09/21 17:50 Est GFR (Non-Af Amer) 79.5 ml/min 06/09/21 17:50 BUN/Creatinine Ratio 18.8 (10-20) 06/09/21 17:50 Glucose 147 mg/dl (70-99) H 06/09/21 17:50 Calcium 9.3 mg/dl (8.5-10.1) 06/09/21 17:50 Magnesium 2.1 mg/dl (1.8-2.4) 06/09/21 17:50 Total Bilirubin 1.6 mg/dl (0.2-1) H 06/09/21 17:50 AST 31 U/L (15-37) 06/09/21 17:50 ALT 43 U/L (12-78) 06/09/21 17:50 Alkaline Phosphatase 72 U/L (45-117) 06/09/21 17:50 Total Creatine Kinase 71 U/L (39-308) 06/09/21 17:50 Troponin I < 0.015 ng/ml (0-0.045) 06/09/21 17:50 Total Protein 7.3 gm/dl (6.4-8.2) 06/09/21 17:50 Albumin 3.0 gm/dl (3.4-5.0) L 06/09/21 17:50 Globulin 4.3 gm/dl (2.5-4.0) H 06/09/21 17:50 Albumin/Globulin Ratio 0.7 (0.9-2) L 06/09/21 17:50 TSH 3.180 uIu/ml (0.300-4.500) 06/09/21 17:50 Urine Color Dark Yellow 06/09/21 20:02 Urine Appearance Clear (Clear) 06/09/21 20:02 Urine pH 6.0 (4.5-7.5) 06/09/21 20:02 Ur Specific [place] 1.017 (1.000-1.030) 06/09/21 20:02 Urine Protein Negative (Negative) 06/09/21 20:02 Urine Glucose (UA) 1+ (Negative) H 06/09/21 20:02 Urine Ketones Trace (Negative) H 06/09/21 20:02 Urine Blood Negative (Negative) 06/09/21 20: Urine Nitrite Negative (Negative) 06/09/21 20:02 Urine Bilirubin Negative (Negative) 06/09/21 20:02 Urine Urobilinogen Negative (Negative) 06/09/21 20:02 Ur Leukocyte Esterase Negative (Negative) 06/09/21 20:02 COVID-19 Eval Order Covid19 at [facility] 06/09/21 19:13 SARS-CoV-2 (PCR) NEGATIVE (Negative) 06/09/21 19:13 Impressions Chest X-Ray 06/09/21 18:16 XR chest 1V portable CLINICAL HISTORY: weakness COMPARISON STUDY: Chest radiograph September 16, 2020 FINDINGS: Dual lead left subclavian pacemaker is in place. Lung volumes are normal. Lungs are clear. There is no pneumothorax or pleural effusion. Mild cardiomegaly is noted. Mediastinal contours are normal. There is no evidence for pulmonary edema. Incidental note is made of osteoarthritis of the left glenohumeral joint. IMPRESSION: No acute cardiopulmonary findings. Cardiomegaly. ACT 112: Negative or not required by law. Electronically signed by: Nakul Rizo M.D. 06/09/2021 6:53 PM Knee X-Ray 06/09/21 18:17 XR knee RT 1 or 2V routine CLINICAL HISTORY: Postoperative pain. COMPARISON: Right knee radiographs June 04, 2021. FINDINGS: Alignment of the total right knee arthroplasty is anatomic. Skin sanford are present. No periprosthetic fracture is noted. There are no unexpected radiopaque foreign bodies. Right knee soft tissue swelling is noted. No definite joint effusion is identified by radiography. IMPRESSION: 1. Status post total right knee arthroplasty. No periprosthetic fracture. Hardware intact. 2. Right knee soft tissue swelling. ACT 112: Negative or not required by law. Electronically signed by: Nakul Rizo M.D. 06/09/2021 7:00 PM Venous Doppler Study 06/09/21 18:17 RIGHT LOWER EXTREMITY VENOUS DOPPLER CLINICAL HISTORY: Postoperative pain. COMPARISON STUDY: No previous studies for comparison. TECHNIQUE: Sonography of the deep venous system of the right lower extremity was performed. Compression and augmentation were evaluated. FINDINGS: This exam is mildly compromised by suboptimal penetration. The right common femoral, superficial femoral and popliteal veins were compressible. Augmentation was normal. Flow was shown within the deep calf vessels. IMPRESSION: Technically compromised exam but no evidence of deep venous thrombus within the right lower extremity. ACT 112: Negative or not required by law. Electronically signed by: Nakul Rizo M.D. 06/09/2021 8:59 PM Diagnostic Findings EKG as per my interpretation rate 70, paced rhythm Code Status & VTE Plan VTE Prophylaxis Plan VTE Prophylaxis will be ordered: Yes
[2021-06-10] MEDS ORDERED: PROMETHAZINE HCL 12.5 MG in SODIUM CHLORIDE 0.9% 50 ML IV PRN (00:21)
[2021-06-10] MEDS ORDERED: GLUCOSE 10 TABS/TUBE PO PRN (00:21)
[2021-06-10] MEDS ORDERED: MoRPHine SULFATE 4 MG/ML 1 ML CARP\\VIAL IV PRN (00:21)
[2021-06-10] MEDS ORDERED: CARBOHYDRATES FOR HYPOGLYCEMIA PO PRN (00:21)
[2021-06-10] MEDS ORDERED: DEXTROSE 50% 50 ML SYRINGE IV PRN (00:21)
[2021-06-10] MEDS ORDERED: POTASSIUM CHLORIDE CRTAB 20 MEQ TABCR PO STA (00:21)
[2021-06-10] MEDS ORDERED: ACETAMINOPHEN 325 MG TAB PO PRN (00:21)
[2021-06-10] MEDS ORDERED: GLUCAGON FOR INJ 1 MG VIAL SQ PRN (00:21)
[2021-06-10] MEDS ORDERED: GLUCOSE 40% GEL 15 GM TUBE PO PRN (00:21)
[2021-06-10] MEDS: SACUBITRIL-VALSARTAN 24-26 MG TAB PO SCH ×3 (01:33→22:04)
[2021-06-10] MEDS: METOPROLOL SUCC 25MG EXT REL TAB PO SCH ×2 (01:33→22:06)
[2021-06-10] MEDS: INSULIN ASPART 100 UNITS/ML 3 ML PEN SC SCH ×5 (01:37→21:59)
[2021-06-10] MEDS ORDERED: traMADol HCL 50 MG TABLET PO PRN (06:00)
[2021-06-10] MEDS: ACETAMINOPHEN 500 MG TAB PO SCH ×3 (06:42→22:04)
[2021-06-10 07:43] LABS: Basophils # (auto) 0.01 K/uL (0-0.2); Basophils % (auto) 0.2 %; Eosinophils # (auto) 0.18 K/uL (0-0.5); Eosinophils % (auto) 2.9 %; Hematocrit (blood only) 30.8 % (42-52); Hemoglobin 11.3 g/dL (14.0-18.0); Immature Granulocytes # (auto) 0.04 K/uL (0.00-0.02); Immature Granulocytes % (auto) 0.6 %; Lymphocytes # (auto) 1.05 K/uL (1.2-3.4); Mean Corpuscular Hemoglobin 33.3 pg (25-34); Mean Corpuscular Hgb Conc 36.7 g/dL (32-36); Mean Corpuscular Volume 90.9 fL (80-100); Mean Platelet Volume 8.9 fL (7.4-10.4); Monocytes # (auto) 0.92 K/uL (0.11-0.59); Monocytes % (auto) 14.9 %; Neutrophils # (auto) 3.98 K/uL (1.4-6.5); Neutrophils % (auto) 64.4 %; Platelet Count 216 K/uL (130-400); RDW Coefficient of Variation 12.8 % (11.5-14.5); RDW Standard Deviation 42.1 fL (36.4-46.3); Red Blood Count 3.39 M/uL (4.7-6.1); White Blood Count 6.18 K/uL (4.8-10.8)
[2021-06-10 07:57] LABS: INR 1.1 (0.9-1.1); Prothrombin Time 10.7 Seconds (9.0-12.0)
[2021-06-10] MEDS: traMADol HCL 50 MG TABLET PO PRN ×2 (08:20→20:02)
[2021-06-10 08:26] LABS: BUN Creatinine Ratio 22.1 (10-20); Calcium 8.7 mg/dl (8.5-10.1); Creatinine Clr Calc Pharmacy 97.9 ml/min; Est GFR (African American) 98.1 ml/min; Est GFR (Non-African American) 84.6 ml/min; Potassium 4.1 mmol/L (3.5-5.1)
--- NOTE | 2021-06-10 08:51 | Electrocardiogram Report ---
Test Reason : Blood Pressure : / mmHG Vent. Rate : 072 BPM Atrial Rate : 072 BPM P-R Int : 144 ms QRS Dur : 156 ms QT Int : 492 ms P-R-T Axes : 030 021 204 degrees QTc Int : 538 ms Atrial-sensed ventricular-paced rhythm Abnormal ECG When compared with ECG of 27-JUL-2019 08:03, Vent. rate has decreased BY 28 BPM Confirmed by Anthony Bartlett ([id number]) on 06/10/2021 8:50:53 AM Referred By: REFERRED SELF Confirmed By:Juan Bartlett
[2021-06-10] MEDS ORDERED: INSULIN GLARGINE SOLOSTAR 100 UNITS/ML 3 ML PEN SC SCH (09:00)
--- NOTE | 2021-06-10 09:11 | Consultation Report ---
HISTORY OF PRESENT ILLNESS: The patient was seen this morning. He is 6 days postoperative right tot al knee replacement, is having issues with pain management and reactions to the medication, making hi m feel weak, still a little bit cantankerous. Also having a little bit of reactive depression. PHYSICAL EXAMINATION: Today reveals calves nontender. Vascular check intact. Neurologic check quad and hamstring all intact. Posterior and anterior tibial, deep and superficial peroneal and femoral n erve, all intact. Wound looks excellent for 6 days out. X-rays are fine. Doppler is fine. Chest x-ray is fine. Laboratory work is good. ASSESSMENT: 1. Pain management reactive to narcotics. At this point, adjusted medications, Tylenol 1000 mg q. 8 hours ATC, tramadol 50 mg q. 4 hours p.r.n., Celebrex 100 mg b.i.d. Please note that I want the INR to be in the 1.8-2.2 range, not for over 2. 2. He can be full weightbearing with a knee immobilizer on. The knee immobilizer is only necessary f or gait to help him get up and move. He can do range of motion 0 to 90 degrees with no restriction i n that range. He needs PT and OT. He can be discharged when he feels more comfortable or be placed immediately. At this point in time, there is nothing further to do orthopedically. His main issues are reactive depression, pain management and negative reaction to narcotics. Job ID: [id number]
[2021-06-10] MEDS: CELECOXIB 100 MG CAP PO SCH ×2 (09:44→22:04)
[2021-06-10] MEDS: GABAPENTIN 100 MG CAP PO SCH ×2 (09:44→22:04)
--- NOTE | 2021-06-10 14:49 | Hospitalist Progress Note ---
Date of Service June 10, 2021 Assessment & Plan (1) Knee pain, right: (2) Status post total right knee replacement using cement: (3) Diabetes: (4) Nonischemic cardiomyopathy: (5) Hypertension: (6) Pacemaker: Plan: This is a 75-year-old male who has significant past medical history of T2DM, HTN, HLD, nonischemic dilated cardiomyopathy, chronic LBBB symptomatic bradycardia with pacemaker placement, BPH, GERD who presented to ED on evening of 06/09 secondary to increasing right knee pain in setting of postop right TKA on 06/[address] Palomino. S/P R TKA on 06/04, POD #[address] Palomino Readmitted for ambulatory dysfunction and uncontrolled post operative pain - intolerant with percocet continue PT/OT per ortho Pain management adjusted by orthopedics to tylenol ATC, tramadol prn and scheduled celebrex continue warfarin for dvt ppx, goal INR 1.8-2.2 Full WBAT with knee immobilizer with gait T2DM a1c 6.6 on 05/27 hold metformin, trulicity Lantus/novolog per protocol, BSG consistently 200 or above, will adjust lantus to 0-10 units BID Nonischemic [employer] CLE[employer]ER with moderate LV dysfunction Moderate aortic insufficiency EF previously 30-34%, EF normalized as of 12/2020 continue entresto, metoprolol add daily weights, I&Os HTN Bp elevated, likely pain related on entresto and metoprolol monitor HLD statin intolerant diet controlled Symptomatic 2:1 AV Block s/p PPM Dispo: med/surg, likely d/c home with HH or acute rehab based on progress, CM on board PCP: [facility] FULL CODE Pt was seen and examined in collaboration with Dr. Soares, please see addendum Admission and Anticipated Discharge Date Admission Date: June 09, 2021 Supervising Physician Co-Signing Physician Notes Patient seen and examined. History notable for 75-year-old man with chronic systolic heart failure, moderate pediatric regurgitation, chronic LBBB, symptomatic bradycardia status post PPM, hypertension, DM 2 who was recently hospitalized for elective right total knee replacement and discharged on Coumadin for DVT prophylaxis. Presents from home for uncontrolled right knee pain. Physical exam notable for limited range of movement of right knee due to pain. Right knee pain Status post total right knee replacement. Report of patient being confused and oxycodone with very poor pain control. Patient currently on Tylenol and tramadol. Reports better pain control with this regimen. to bring knee immobilizer from home. PT/OT evaluation Patient may needs some rehab or placement depending on for evaluation by PT Agree with other plans as detailed by Ruby Jewell PA-C Subjective This is a 75-year-old male who has significant past medical history of T2DM, HTN, HLD, nonischemic dilated cardiomyopathy, chronic LBBB symptomatic bradycardia with pacemaker placement, BPH, GERD who presented to ED on evening of 06/09 secondary to increasing right knee pain in setting of postop right TKA on 06/[address] Palomino. Patient states he was discharged to home on 06/05. He has had minimal therapy yet at home. He states when he was discharged on he spent most every day in bed except family numbers on 06/08 came to home unassisted to get out to the chair. He is having a significant increase in right leg pain and lack of mobility which is causing him severe frustration. He states, "it should not be like this." He denies any known fever, chills, sweats, lightheadedness, chest pain, shortness of breath, cough, nausea, vomiting, abdominal pain. He states postoperatively he did have constipation but his last bowel movement was 1 day ago. He denies any difficulty with urination. He is currently working with physical therapy. Review of Systems Review of Systems: All systems reviewed & are unremarkable except as noted in HPI & below Physical Exam Physical Exam: Gen: WD/WN, M, sitting at bedside c/o pain, NAD, A&O x3 HEENT: Normocephalic, atraumatic, conjunctivae moist, sclerae anicteric, mucous membranes moist. Lung: Clear to Auscultation bilaterally, no wheezes/rales/rhonchi Heart: Regular rate, regular rhythm, no murmurs, rubs, or gallops Abdomen: Soft, NT, ND +BS x 4 Extremities: No edema, RLE dressing CDI Skin: Warm, no rash, negative turgor. Results & Data Results & Data ([facility]) Vital Signs (Past 12 Hours) Vital Signs Temp Pulse Resp BP Pulse Ox 06/10/21 07:36 36.9 C 66 16 152/71 H 95 Diagnostic Findings Chest X-Ray 06/09/21 18:16 XR chest 1V portable CLINICAL HISTORY: weakness COMPARISON STUDY: Chest radiograph September 16, 2020 FINDINGS: Dual lead left subclavian pacemaker is in place. Lung volumes are normal. Lungs are clear. There is no pneumothorax or pleural effusion. Mild cardiomegaly is noted. Mediastinal contours are normal. There is no evidence for pulmonary edema. Incidental note is made of osteoarthritis of the left glenohumeral joint. IMPRESSION: No acute cardiopulmonary findings. Cardiomegaly. ACT 112: Negative or not required by law. Electronically signed by: Nakul Rizo M.D. 06/09/2021 6:53 PM Knee X-Ray 06/09/21 18:17 XR knee RT 1 or 2V routine CLINICAL HISTORY: Postoperative pain. COMPARISON: Right knee radiographs June 04, 2021. FINDINGS: Alignment of the total right knee arthroplasty is anatomic. Skin sanford are present. No periprosthetic fracture is noted. There are no unexpected radiopaque foreign bodies. Right knee soft tissue swelling is noted. No definite joint effusion is identified by radiography. IMPRESSION: 1. Status post total right knee arthroplasty. No periprosthetic fracture. Hardware intact. 2. Right knee soft tissue swelling. ACT 112: Negative or not required by law. Electronically signed by: Nakul Rizo M.D. 06/09/2021 7:00 PM Venous Doppler Study 06/09/21 18:17 RIGHT LOWER EXTREMITY VENOUS DOPPLER CLINICAL HISTORY: Postoperative pain. COMPARISON STUDY: No previous studies for comparison. TECHNIQUE: Sonography of the deep venous system of the right lower extremity was performed. Compression and augmentation were evaluated. FINDINGS: This exam is mildly compromised by suboptimal penetration. The right common femoral, superficial femoral and popliteal veins were compressible. Augmentation was normal. Flow was shown within the deep calf vessels. IMPRESSION: Technically compromised exam but no evidence of deep venous thrombus within the right lower extremity. ACT 112: Negative or not required by law. Electronically signed by: Nakul Rizo M.D. 06/09/2021 8:59 PM Medications Administered Current Inpatient Medications Acetaminophen (Acetaminophen 325 Mg Tab) 650 mg PO Q4H PRN PRN Reason: pain/fever Stop: 07/10/21 00:20 Last Admin: 06/10/21 01:51 Dose: 650 mg Documented by: Acetaminophen (Acetaminophen 500 Mg Tab) 1,000 mg PO Q8 URIEL Stop: 07/10/21 05:59 Last Admin: 06/10/21 13:29 Dose: 1,000 mg Documented by: Celecoxib (Celecoxib 100 Mg Cap) 100 mg PO BID URIEL Stop: 07/10/21 08:59 Last Admin: 06/10/21 09:44 Dose: 100 mg Documented by: Dextrose (Dextrose 50% 50 Ml Syringe) 25 - 50 ml IV UD PRN; Protocol PRN Reason: Hypoglycemia Protocol Stop: 07/10/21 00:20 Famotidine (Famotidine 40 Mg Tablet) 40 mg PO QPM URIEL Stop: 07/10/21 20:59 Gabapentin (Gabapentin 100 Mg Cap) 100 mg PO BID URIEL Stop: 07/10/21 08:59 Last Admin: 06/10/21 09:44 Dose: 100 mg Documented by: Glucagon (Glucagon For Inj 1 Mg Vial) 1 mg SQ UD PRN; Protocol PRN Reason: Hypoglycemia Protocol Stop: 07/10/21 00:20 Glucose (Glucose 10 Tabs/Tube) 4 - 8 tabs PO UD PRN; Protocol PRN Reason: Hypoglycemia Protocol Stop: 07/10/21 00:20 Glucose (Glucose 40% Gel 15 Gm Tube) 15 - 30 gm PO UD PRN; Protocol PRN Reason: Hypoglycemia Protocol Stop: 07/10/21 00:20 Promethazine HCl 12.5 mg/ (Sodium Chloride) 50.5 mls @ 202 mls/hr IV Q6H PRN PRN Reason: Nausea And Vomiting Stop: 07/10/21 00:20 Insulin Aspart (Insulin Aspart 100 Units/Ml 3 Ml Pen) 0 units SC ACHS URIEL Stop: 07/10/21 00:20 Last Admin: 06/10/21 13:26 Dose: 5 units Documented by: Insulin Glargine (Insulin Glargine Solostar 100 Units/Ml 3 Ml Pen) 5 units SC DAILY URIEL Stop: 07/10/21 08:59 Last Admin: 06/10/21 10:50 Dose: 5 units Documented by: Metoprolol Succinate (Metoprolol Succ 25mg Ext Rel Tab) 25 mg PO QPM URIEL Stop: 07/10/21 00:20 Last Admin: 06/10/21 01:33 Dose: 25 mg Documented by: Miscellaneous (Carbohydrates For Hypoglycemia ) 15 - 30 gm PO UD PRN PRN Reason: Hypoglycemia Protocol Stop: 07/10/21 00:20 Morphine Sulfate (Morphine Sulfate 4 Mg/Ml 1 Ml Carp\\Vial) 4 mg IV Q4H PRN PRN Reason: Pain Stop: 06/24/21 00:20 Sacubitril/Valsartan (Sacubitril-Valsartan 24-26 Mg Tab) 1 tab PO BID URIEL Stop: 07/10/21 00:20 Last Admin: 06/10/21 09:44 Dose: 1 tab Documented by: Tramadol HCl (Tramadol Hcl 50 Mg Tablet) 25 - 50 mg PO Q4H PRN PRN Reason: Pain Stop: 07/10/21 00:20 Last Admin: 06/10/21 08:20 Dose: 25 mg Documented by: COVID-19 Results Results COVID-19 Adm Lab Results: RBC 3.39 M/uL (4.7-6.1) L 06/10/21 WBC 6.18 K/uL (4.8-10.8) 06/10/21 Hgb 11.3 g/dL (14.0-18.0) L 06/10/21 Hct 30.8 % (42-52) L 06/10/21 Plt Count 216 K/uL (130-400) 06/10/21 Neutrophils (%) (Auto) 64.4 % 06/10/21 Lymphocytes (%) (Auto) 17.0 % 06/10/21 Monocytes # (Auto) 0.92 K/uL (0.11-0.59) H 06/10/21 Eosinophils # (Auto) 0.18 K/uL (0-0.5) 06/10/21 Immature Granulocyte % (Auto) 0.6 % 06/10/21 Neutrophils # (Auto) 3.98 K/uL (1.4-6.5) 06/10/21 Lymphocytes # (Auto) 1.05 K/uL (1.2-3.4) L 06/10/21 Monocytes # (Auto) 0.92 K/uL (0.11-0.59) H 06/10/21 Eosinophils # (Auto) 0.18 K/uL (0-0.5) 06/10/21 Basophils # (Auto) 0.01 K/uL (0-0.2) 06/10/21 Immature Granulocyte # (Auto) 0.04 K/uL (0.00-0.02) H 06/10/21 Na 136 mmol/L (136-145) 06/10/21 K 4.1 mmol/L (3.5-5.1) 06/10/21 Cl 104 mmol/L (98-107) 06/10/21 CO2 24 mmol/L (21-32) 06/10/21 Anion Gap 8.0 (3-11) 06/10/21 BUN 19 mg/dl (7-18) H 06/10/21 Creatinine 0.85 mg/dl (0.6-1.4) 06/10/21 BUN/Creatinine Ratio 22.1 (10-20) H 06/10/21 Glucose Level 147 mg/dl (70-99) H 06/10/21 Ca 8.7 mg/dl (8.5-10.1) 06/10/21 Total Bilirubin 1.6 mg/dl (0.2-1) H 06/09/21 AST/SGOT 31 U/L (15-37) 06/09/21 ALT/SGPT 43 U/L (12-78) 06/09/21 Alkaline Phosphatase 72 U/L (45-117) 06/09/21 Total Protein 7.3 gm/dl (6.4-8.2) 06/09/21 Albumin 3.0 gm/dl (3.4-5.0) L 06/09/21 Globulin 4.3 gm/dl (2.5-4.0) H 06/09/21 Albumin/Globulin Ratio 0.7 (0.9-2) L 06/09/21 Total CK 71 U/L (39-308) 06/09/21 Troponin I < 0.015 ng/ml (0-0.045) 06/09/21 PTT 27.8 Seconds (21.0-31.0) 06/09/21 INR 1.1 (0.9-1.1) 06/10/21 COVID-19 PCR NEGATIVE (Negative) 06/09/21 Chest X-Ray 06/09/21
[2021-06-10] MEDS: WARFARIN SOD 4 MG TAB PO SCH (16:33)
[2021-06-10] MEDS ORDERED: FAMOTIDINE 40 MG TABLET PO SCH (21:00)
[2021-06-10] MEDS: INSULIN GLARGINE SOLOSTAR 100 UNITS/ML 3 ML PEN SC SCH (21:58)
[2021-06-11] MEDS: ACETAMINOPHEN 500 MG TAB PO SCH ×2 (05:32→12:38)
[2021-06-11 05:51] LABS: Hematocrit (blood only) 29.4 % (42-52); Hemoglobin 10.8 g/dL (14.0-18.0); Mean Corpuscular Hemoglobin 33.3 pg (25-34); Mean Corpuscular Hgb Conc 36.7 g/dL (32-36); Mean Corpuscular Volume 90.7 fL (80-100); Mean Platelet Volume 8.6 fL (7.4-10.4); Platelet Count 221 K/uL (130-400); RDW Coefficient of Variation 12.9 % (11.5-14.5); RDW Standard Deviation 42.3 fL (36.4-46.3); Red Blood Count 3.24 M/uL (4.7-6.1); White Blood Count 5.56 K/uL (4.8-10.8)
[2021-06-11 06:04] LABS: INR 1.3 (0.9-1.1); Prothrombin Time 12.5 Seconds (9.0-12.0)
[2021-06-11 06:15] LABS: Albumin Level 2.5 gm/dl (3.4-5.0); BUN Creatinine Ratio 22.1 (10-20); Bilirubin Direct 0.3 mg/dl (0-0.2); Calcium 8.6 mg/dl (8.5-10.1); Creatinine Clr Calc Pharmacy 102.7 ml/min; Est GFR (African American) 100.1 ml/min; Est GFR (Non-African American) 86.3 ml/min
[2021-06-11 06:27] LABS: Total Protein 6.2 gm/dl (6.4-8.2)
[2021-06-11 06:38] LABS: Potassium 3.7 mmol/L (3.5-5.1)
--- NOTE | 2021-06-11 07:43 | Progress Notes ---
bedside commode. Knee immobilizer for walking only b.i.d., b.i.d., Tylenol 1000 mg . Job ID: [id number] The phone did not pick nthis up I will re dictate MTDD
[2021-06-11] MEDS: traMADol HCL 50 MG TABLET PO PRN (08:43)
--- NOTE | 2021-06-11 08:55 | Progress Notes ---
SUBJECTIVE: He is doing well he can do a straight leg raise. He has been getting up to the [facility]. He is eating and drinking. He denies chest pain, shortness of breath, fever, chills, nausea, vom iting or headache. VITAL SIGNS: Stable. He is afebrile. Wound is clean and dry. Calves nontender. His INR is 1.3. He is getting appropriate Coumadin. LABORATORY DATA: Hematocrit stable at 29-30 range. ASSESSMENT AND PLAN: At this point in time, he can be discharged to home. Discharge on gabapentin/N eurontin 100 mg p.o. b.i.d., Celebrex 100 mg p.o. b.i.d., Tylenol 1000 mg p.o. q. 8 hours and p.r.n., tramadol 50 mg p.o. q. 4 to 6 hours p.r.n. Can do range of motion 0 to 90 degrees. Can be full weig htbearing using the knee immobilizer until he is comfortable and confident. Can discontinue it at an y time. Job ID: [id number]
[2021-06-11] MEDS: CELECOXIB 100 MG CAP PO SCH (09:28)
[2021-06-11] MEDS: GABAPENTIN 100 MG CAP PO SCH (09:28)
[2021-06-11] MEDS: SACUBITRIL-VALSARTAN 24-26 MG TAB PO SCH (09:28)
[2021-06-11] MEDS: INSULIN GLARGINE SOLOSTAR 100 UNITS/ML 3 ML PEN SC SCH (09:29)
[2021-06-11] MEDS: INSULIN ASPART 100 UNITS/ML 3 ML PEN SC SCH ×2 (09:30→13:33)
--- NOTE | 2021-06-11 11:05 | Discharge Summary ---
Date of Service June 11, 2021 Admission HPI Per Admitting Provider History obtained from patient and records. Medical history significant for chronic systolic heart failure (EF 30 to 34%, TTE 2020), moderate aortic regurgitation, chronic LBBB, symptomatic bradycardia status post PPM, hypertension, hyperlipidemia, DM2 on oral medications, BPH, past tobacco abuse. Last confinement June 042020 for elective right total knee replacement. Patient discharged on Coumadin course for DVT prophylaxis. Uncontrolled right knee/right leg pain when patient got home. Oxycodone making him feel confused. Patient denies chest pain, S OB, fever, or chills. Poor appetite as per patient. Patient directed to ER by his orthopedic surgeon for further evaluation. Medical History as above Surgical History : PPM, appendectomy, hip replacement, tonsillectomy/adenoidectomy, sinus surgery, right knee surgery Family History : DM, alcoholism Personal/Social history : Past tobacco abuse, occasional EtOH intake, retired from sales Admission Exam Per Admitting Provider Physical Exam Physical Exam: GENERAL: Comfortable, pleasant, obese, no respiratory distress SKIN: Pallor, warm HEENT: Pale palpebral conjunctivae, no ptosis, dry buccal mucosa NECK : Supple, short neck, no tenderness CHEST : Decreased breath sounds, no tenderness HEART : RRR, diastolic murmur appreciated over left sternal border ABDOMEN: Some distention, nontender EXTREMITIES : Minimal LE swelling, dressing over right knee, no overt tenderness, no other conspicuous deformities noted NEUROLOGIC : Coherent, no facial asymmetry, no other gross focality Principal Diagnosis Uncontrolled post operative R knee pain S/P R TKA on 06/[address] Palomino T2DM Discharge Exam Gen: WD/WN, M, sitting up in bed, NAD, A&O x3 HEENT: Normocephalic, atraumatic, conjunctivae moist, sclerae anicteric, mucous membranes moist. Lung: Clear to Auscultation bilaterally, no wheezes/rales/rhonchi Heart: Regular rate, regular rhythm, no murmurs, rubs, or gallops Abdomen: Soft, NT, ND +BS x 4 Extremities: No edema, RTKA dressing CDI Skin: Warm, no rash, negative turgor. Discharge Data Allergies Allergy/AdvReac Type Severity Reaction Status Date / Time alfuzosin Allergy Unknown Verified 06/10/21 14:34 tamsulosin Allergy Unknown Verified 06/10/21 14:34 terazosin Allergy Unknown Verified 06/10/21 14:34 [id number]-[id number]-Tjq Reductase AdvReac Severe Severe Verified 06/09/21 19:17 Inhibitor muscle weakness, aches Consultations 06/09/21 21:58 ED Decision to Admit Stat 06/10/21 00:21 Consult Orthopedic Surgery Routine DICTATED BY: Kd Palomino M.D. SUBJECTIVE: He is doing well he can do a straight leg raise. He has been getting up to the bathroom. He is eating and drinking. He denies chest pain, shortness of breath, fever, chills, nausea, vomiting or headache. VITAL SIGNS: Stable. He is afebrile. Wound is clean and dry. Calves nontender. His INR is 1.3. He is getting appropriate Coumadin. LABORATORY DATA: Hematocrit stable at 29-30 range. ASSESSMENT AND PLAN: At this point in time, he can be discharged to home. Discharge on gabapentin/Neurontin 100 mg p.o. b.i.d., Celebrex 100 mg p.o. b.i.d., Tylenol 1000 mg p.o. q. 8 hours and p.r.n., tramadol 50 mg p.o. q. 4 to 6 hours p.r.n. Can do range of motion 0 to 90 degrees. Can be full weightbearing using the knee immobilizer until he is comfortable and confident. Can discontinue it at any time. Ordered Studies Chest X-Ray 06/09/21 18:16 XR chest 1V portable CLINICAL HISTORY: weakness COMPARISON STUDY: Chest radiograph September 16, 2020 FINDINGS: Dual lead left subclavian pacemaker is in place. Lung volumes are normal. Lungs are clear. There is no pneumothorax or pleural effusion. Mild cardiomegaly is noted. Mediastinal contours are normal. There is no evidence for pulmonary edema. Incidental note is made of osteoarthritis of the left glenohumeral joint. IMPRESSION: No acute cardiopulmonary findings. Cardiomegaly. ACT 112: Negative or not required by law. Electronically signed by: Nakul Rizo M.D. 06/09/2021 6:53 PM Knee X-Ray 06/09/21 18:17 XR knee RT 1 or 2V routine CLINICAL HISTORY: Postoperative pain. COMPARISON: Right knee radiographs June 04, 2021. FINDINGS: Alignment of the total right knee arthroplasty is anatomic. Skin sanford are present. No periprosthetic fracture is noted. There are no unexpected radiopaque foreign bodies. Right knee soft tissue swelling is noted. No definite joint effusion is identified by radiography. IMPRESSION: 1. Status post total right knee arthroplasty. No periprosthetic fracture. Hardware intact. 2. Right knee soft tissue swelling. ACT 112: Negative or not required by law. Electronically signed by: Nakul Rizo M.D. 06/09/2021 7:00 PM Venous Doppler Study 06/09/21 18:17 RIGHT LOWER EXTREMITY VENOUS DOPPLER CLINICAL HISTORY: Postoperative pain. COMPARISON STUDY: No previous studies for comparison. TECHNIQUE: Sonography of the deep venous system of the right lower extremity was performed. Compression and augmentation were evaluated. FINDINGS: This exam is mildly compromised by suboptimal penetration. The right common femoral, superficial femoral and popliteal veins were compressible. Augmentation was normal. Flow was shown within the deep calf vessels. IMPRESSION: Technically compromised exam but no evidence of deep venous thrombus within the right lower extremity. ACT 112: Negative or not required by law. was 6.6 Continue outpatient regiment of Metformin and Trulicity Hospital Course (1) Knee pain, right: (2) Status post total right knee replacement using cement: (3) Diabetes: (4) Nonischemic cardiomyopathy: (5) Hypertension: (6) Pacemaker: This is a 75-year-old male who has significant past medical history of T2DM, HTN, HLD, nonischemic dilated cardiomyopathy, chronic LBBB symptomatic bradycardia with pacemaker placement, BPH, GERD who presented to ED on evening of 06/09 secondary to increasing right knee pain in setting of postop right TKA on 06/[address] Palomino. A venous Doppler of the right leg was performed which was negative for DVT. He also had an x-ray which confirmed proper placement and positioning of knee replacement. On day of discharge patient is POD #7. He was seen and evaluated by Dr. Palomino who adjusted pain medications. His Percocet and Nucynta were discontinued. He was started on regiment of Celebrex 100 mg twice a day, APAP 1000 mg every 8 hours, tramadol 25 to 50 mg every 6 hours as needed and gabapentin 100 mg twice daily. His symptoms improved and he was seen and evaluated by physical therapy and Occupational Therapy. Acute rehabilitation was recommended for the patient; however, patient declined and wished to be discharged home. His blood sugar was controlled throughout hospital stay. At time of discharge his vital signs were stable and he voiced no concerns. His pain has significantly improved in the past 24 hours. Per orthopedics he is to continue to bear full weight on right lower extremity with knee immobilizer in place until he is feeling comfortable and confident. At that time he is able to remove knee immobilizer. It is recommended he continue warfarin 8 mg in the evening and to maintain a PT/INR of 1.8-2.2 for DVT prophylaxis. Home health is currently in place from recent discharge and will continue to follow patient at home. He will have a PT/INR drawn on 06/12. His last INR was 1.3 on 06/11/2021. Total Time Total Time Spent Total Time Spent (In Minutes): 45 minutes Total Time Includes: Examination of the Patient, Discharge Planning, Medication Reconciliation, Communication With Other Providers and Other Discharge Plan Discharge Items Patient Disposition: Home - Home Health Services Reason For Visit: R KNEE PAIN Discharge Diagnosis: Post operative pain in setting of recent R TKA Uncontrolled pain Intolerance to narcotics Ambulatory dysfunction T2DM Condition on Discharge: Good Activity: Per Instructions section Lifting: Wait until after follow-up appointment Bathing: Keep incision dry Exercise/Sports: Wait until after follow-up appointment Driving/Machine Use: No driving until cleared by Dr. Palomino Weightbearing: Full weightbearing Weightbearing Comment: full weight bearing with knee immobilizer until comfortable and confident Non-emergency contact: Primary Care Provider and Surgeon Call non-emergency contact if: you have any medication questions, your symptoms worsen, your pain is not controlled, your pain is worsening, your pain is concerning for you, you have a fever, your temperature is above 101, your wound has increased redness and your wound pain has increased Follow-up/Referrals: Mookie Coyne MD [Primary Care Provider] - (Date & Time 06/18/2021 10:00 AM Provider Evelia Watson MD Department General Internal Medicine [facility] ) Diet: Carb Consistent or DM2 Addtl Attending Provider Instructions: MEDICATION CHANGES: STOP: Oxycodone - Acetaminophen (Percocet) & Nucynta START: Gabapentin/Neurontin 100 mg by mouth twice daily Celebrex 100 mg by mouth twice daily Tylenol 1000 mg by mouth every 8 hours and as needed Tramadol 50 mg by mouth q. 4 to 6 hours p.r.n. SUMMARY OF TEST RESULTS: Knee Xray confirms proper position of your right knee replacement Ultrasound was done and ruled out blood clot to right leg. PENDING TEST RESULTS: None RECOMMENDATIONS FOR FOLLOW-UP: Continue physical therapy and occupational therapy as prescribed by orthopedics. Please continue to follow activity instructions from your orthopedic Physician Dr. Palomino. You may bear full weight on R leg with knee immobilizer until you feel comfortable and confident. At that time you may stop using the immobilizer. Please have a PT/INR level drawn on 06/12/21 or 06/13/21 with home health to monitor your warfarin (blood thinner). Goal INR 1.8-2.2 Continue your Coumadin daily. Continue all other medications as prescribed by your PCP. OTHER INSTRUCTIONS: Seek medical attention if you have: * temperature above 101 * chest pain or trouble breathing * abdominal pain, nausea, vomiting * diarrhea, dark stools or bloody stools * any unanswered questions or concerns Call 911 if symptoms are severe. Please take good care of yourself. It has been a pleasure taking care of you. Please take care of yourself. If you have any questions regarding your recent hospitalization please contact [facility] and request [employer] Jes[facility]s[employer] @ [phone]. Ruby Jewell PA-C Pending Studies at Discharge: No Stand-Alone Forms: My [facility], Opioid Pain Management, Smoking Cessation Medications and DC Order Prescriptions: New acetaminophen [Tylenol Extra Strength] 500 mg Tablet 1,000 mg PO Q8 Qty: 21 RF: 0 celecoxib [Celebrex] 100 mg Capsule 100 mg PO BID Qty: 30 RF: 0 gabapentin 100 mg Capsule 100 mg PO BID Qty: 60 RF: 0 tramadol 50 mg Tablet 50 mg PO Q6H PRN (Reason: pain) Qty: 14 RF: 0 Continued metoprolol succinate [Toprol XL] 25 mg tablet extended release 24 hr 25 mg PO QPM RF: 0 famotidine [Pepcid] 40 mg tablet 40 mg PO QPM RF: 0 metformin 1,000 mg tablet 1,000 mg PO BID RF: 0 Entresto 24-26 mg tablet 1 tab PO BID RF: 0 Trulicity 1.5 mg/0.5 mL pen injector 1.5 mg subcut WK RF: 0 cyanocobalamin (vitamin B-12) 1,000 mcg Capsule 1,000 mcg PO 3XWK RF: 0 warfarin 2 mg tablet 8 mg PO QPM RF: 0 Discontinued oxycodone-acetaminophen [Percocet] 5-325 mg tablet 2 tab PO Q6H PRN (Reason: pain) Qty: 24 RF: 0 Nucynta 50 mg tablet 50 mg PO BID PRN (Reason: pain) RF: 0 Discharge Orders: Discharge Order (Routine); Ordered 06/11/21 Ordered By: Kd Landaverde/Other Patient Handouts: What to Know When TakingWarfarin, How Your Knee Works, Managing Post-Op Pain at Home Admission Data Admit Date/Time: 06/09/21 23:09 Attending Provider: Luís Leach Admit Provider: Raghu Spencer Primary Care Provider: Mookie Coyne Other Providers: Raghu Spencer ; Kd Palomino ; [facility] ; [facility] Other Interventions: Discharge Summary Assessment (RN) Last Done: 06/11/21 14:02 Supervising Physician Co-Signing Physician Notes Patient is seen and examined at bedside on day of discharge. Right knee pain at surgical site is much improved. He denies any chest pain, shortness of breath, dizziness, nausea, abdominal pain. On exam patient is moderately built and nourished, no apparent distress, normocephalic atraumatic, EOMI, lungs are clear to auscultation, normal breath sounds, S1-S2, no murmur, no pedal edema, abdomen soft, nontender, normal bowel sounds, alert, awake, oriented, grossly no focal deficits, right knee surgical site in dressing. Patient is admitted for management of uncontrolled postoperative pain after having right total knee arthroplasty by Dr. Palomino. He also had ambulatory dysfunction. Patient refused rehab placement. He prefers to be discharged home with home health. Pain is better controlled with change in medications. Appreciate orthopedics input. Advised to follow-up with primary care physician and orthopedics upon discharge. I personally reviewed the record. Patient is interviewed and examined at bedside. Patient's care is coordinated with Ruby Jewell PA-C. Please refer to the documentation above for details of patient's presentation and for discussion of other issues.
[2021-06-11] MEDS: WARFARIN SOD 4 MG TAB PO SCH (15:42)
== END 2021-06-11 16:05 | disposition home health service (06) ==
LOC: ED 17:59 → 3N 17:59 → SUATTDRO 23:09 → 3N 06-10 00:15
DX: Z79.01 Long term (current) use of anticoagulants; I42.8 Other cardiomyopathies; I35.1 Nonrheumatic aortic (valve) insufficiency; K21.9 Gastro-esophageal reflux disease without esophagitis; G89.18 Other acute postprocedural pain; I25.10 Atherosclerotic heart disease of native coronary artery without angina pectoris; Z79.84 Long term (current) use of oral hypoglycemic drugs; R00.1 Bradycardia, unspecified; R26.9 Unspecified abnormalities of gait and mobility; Z96.651 Presence of right artificial knee joint; Z95.0 Presence of cardiac pacemaker; E11.9 Type 2 diabetes mellitus without complications; I44.7 Left bundle-branch block, unspecified; Z87.891 Personal history of nicotine dependence; E78.5 Hyperlipidemia, unspecified; Z20.822 Contact with and (suspected) exposure to COVID-19; Z88.8 Allergy status to other drugs, medicaments and biological substances; G47.30 Sleep apnea, unspecified; M19.90 Unspecified osteoarthritis, unspecified site

== ENCOUNTER 2024-11-18 15:04 | Inpatient (IN) ==
--- OUTSIDE RECORDS SUMMARY | 2024-11-18 15:13 | External Medical Summary | Summary of Care ---
Author Name Unknown Organization [facility] Address [address] [place] [address] Phone [phone] Care Team Providers Care Centerpuncher Name Role Phone Mookie Coyne MD Primary Care Provider + Reason for Visit * Reason Onset Date Comments Advice 11/16/2024 Encounter Details Date Type Department Care Team (Late st Contact Info) Description 11/16/2024 Telephone Gastroenterology, [facility] [address] [facility] [place] [address] Virgen Dias MD [address] [facility] [place] [address] Advice Allergies Active Allergy Reactions Criticality Noted Date Comments Statins 02/29/2012 Feels poorly on Statins Tamsulosin 12/24/2015 Nasal congestion Terazosin 12/24/2015 Low blood pressure, weak legs documented as of this encounter (statuses as of 11/17/2024) Medications AMOXICILLIN 500 MG PO CAPSIndications: Aortic valve disorder 4 by mouth 1 hour prior to procedure 4 Cap 5 4 Active B-12 1000 MCG Oral Tablet 1 tab daily 1 Tablet 2 Active Famotidine 20 MG Oral Tablet (Pepcid) Take 2 Tablets by mouth every evening. 180 Tablet 3 4 Active Omeprazole 20 MG Oral Capsule Delayed Release (PriLOSEC) Take 1 Capsule by mouth in the morning. Every morning.. 90 Capsule 3 4 Active Metoprolol Succinate ER 50 MG Oral Tablet Extended Release 24 Hour (toPROL XL)Indications:H TN, goal below 140/90 Take 1 Tablet by mouth in the morning. 90 Tablet 3 4 Active Additional Information Patient taking differently:50 mg OralHS, Reported on 07/18/2024 Entresto 49-51 MG Oral Tablet (sacubitril-vals saul 49-51 mg per tab)Indications: HTN, goal below 150/90 TAKE 1 TABLET BY MOUTH EVERY MORNING AND TAKE 1 TABLET BY MOUTH AT BEDTIME 180 Tablet 3 4 Active Trulicity 3 MG/0.5ML Subcutaneous Solution Pen-injector (Dulaglutide)Ind ications:Type 2 diabetes mellitus with hemoglobin A1c goal of less than 7.0% (HCC) INJECT 3MG (0.5ML) UNDER THE SKIN ONCE WEEKLY 2 mL 11 4 Active Finasteride 5 MG Oral Tablet (Proscar)Indicat ions:BPH with obstruction/lowe r urinary tract symptoms TAKE 1 TABLET BY MOUTH EVERY MORNING 90 Tablet 3 4 Active metFORMIN HCl 1000 MG Oral Tablet (Glucophage)Dariana cations:Type 2 diabetes mellitus with hemoglobin A1c goal of less than 7.0% (HCC) TAKE ONE TABLET BY MOUTH twice daily with MORNING AND EVENING meals 180 Tablet 1 5 Active documented as of this encounter (statuses as of 11/17/2024) Active Problems Problem Noted Date Diagnosed Date Heart failure 11/30/2023 AV block 09/19/2020 S/P cardiac pacemaker procedure 03/06/2020 Vitamin B12 deficiency 04/19/2018 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/2014 HTN, goal below 150/90 05/10/2014 Hyperlipidemia with target LDL less than 100 Type 2 diabetes mellitus wit h hemoglobin A1c goal of less than 7.0% 03/11/2012 Overview (12/31/2015): Diagnosed 2011 ICD-10 update of inactive term Aortic valve regurgitation 03/11/2012 Left bundle branch block 03/11/2012 Aortic valve disorder 09/24/2003 Anxiety state Esophageal reflux documented as of this encounter (statuses as of 11/17/2024) Resolved Problems Problem Noted Date Diagnosed Date Resolved Date HTN, goal below 140/80 06/29/201305/10 Hyperglycemia 02/29/2012 03/14/2014 Other primary cardiomyopathies 06/25/2011 05/04/2017 History of tobacco use 06/25/201112/03 Dyslipidemia, goal LDL below 130 06/25/2011 02/22/2013 Pre-op testing 06/25/2011 12/03/2016 ED 08/22/2008 05/04/2017 ADVANCE DIRECTIVE INFORMATION 06/01/2005 04/19/2018 Overview (06/01/2005): No, Advance Directive brochure given to patient. HTN, goal below 140/90 09/24/200305/10 Screening for prostate cancer 07/31/2002 11/14/2008 Overview (11/14/2008): Resolved per Screening Diagnosis Protocol #6 Dyslipidemia, goal to be determined 07/31/2002 02/22/2013 FAM HX-DIABETES MELLITUS 07/31/2002 documented as of this encounter (statuses as of 11/17/2024) Immunizations Name Administration Dates Next Due COVID-19 mRNA, LNP-s, No Pre serve, 2-Dose Series (Moderna) 07/22/2021 COVID-19 mRNA, LNP-s, No Pre serve, 2-Dose Series (Pfizer) 10/28/2020,10/07/2020 Pneumococcal Conjugate Vacc, 13 Valent (Prevnar) 12/20/2014 Pneumococcal Polysaccharide PPV23 (Pneumovax) 05/07/2011 Season Influenza, Quad, PF, Adjuvanted, 65+ Yrs, IM (FLUAD) 05/16/2020 Seasonal Influenza Vac., MDV , IM, 0.5 mL (Fluzone) 06/06/2016,05/21/2015,06/15/2014,06/08,06/25/2012,07/24/2006 Seasonal Influenza, High Dos e, Trivalent, PF, IM (Fluzone HD) 06/20/2024,06/22/2018 Seasonal Influenza, Quadriva lent Hd (Fluzone Hd) 06/13/2022,09/23/2021 Seasonal Influenza, Quadriva lent, No Preserve, IM 07/06/2017 Seasonal Influenza, Trivalen t, Adjuvanted, 65+ YRS, PF, (Fluad) 05/30/2019 TDAP (age 10 and older)(Boostrix) 12/03/2016 Varicella Zoster Vaccine (Adult) 08/05/2012 Zoster Vaccine Recombinant (Shingrix) 07/10/2019 ,03/13/2019 documented as of this encounter Social History Tobacco Use Types Packs/Day Years Used Date Smoking Tobacco: Former Cigars Smokeless Tobacco: Never Alcohol Use Standard Drinks/Week Comments Yes 0 (1 standard drink = 0.6 oz pure alcohol) very rare- when going to dinner maybe a glass of wine PHQ-2 Answer Date Recorded PHQ Adult Total Score 0 07/18/2024 Hunger Vital Sign Answer Date Recorded Within the past 12 months, y ou worried that your food would run out before you got the money to buy more. Never true 07/16/20 23 Within the past 12 months, t he food you bought just didn't last and you didn't have money to get more. Never true 07/16/2023 Childcare Answer Date Recorded Do you feel overwhelmed with taking care of a child, family member or friend? No 07/16/2023 Does your family need help f inding childcare? (Household - for ages 0-17 years) Not on file 07/16/2023 Clothing Answer Date Recorded Have you been unable to get clothing when it was really needed? No 07/16/2023 Is your family able to get c lothes or diapers when needed? (Household - for ages 0-17 years) Not on file 07/16/2023 Personal Safety Answer Date Recorded Do you feel unsafe or have concerns for your saf ety? No 07/16/2023 Do you have concerns for you r family's safety? (Household - for ages 0-17 years) Not on file 07/16/2023 Utilities Answer Date Recorded Do you have trouble paying y our heating, water, or electric bill? No 07/16/2023 Is your family able to pay t he heat, water, or electric bill? (Household - for ages 0-17 years) Not on file 07/16/2023 Does your family have access to good internet? (Household - for ages 0-17 years) Not on file 07/16/2023 Employment Status Answer Date Recorded Are you unemployed or without regular income? No 07/16/2023 Does the household have a re gular source of income? (Household - for ages 0-17 years) Not on file 07/16/2023 Social Connections Answer Date Recorded How often do you feel lonely or isolated from th ose around you? Never 07/16/2023 Financial Resource Strain Answer Date R ecorded Do you have any trouble payi ng for your medications, or do you think you might in the future? No 07/16/2023 Does your family have troubl e paying for medicine? (Household - for ages 0-17 years) Not on file 07/16/2023 Transportation Needs Answer Date Record ed READ ONLY Do you have troubl e getting a ride to medical visits or work? Never True 07/16/2023 Does your family have a hard time getting a ride to doctors visits? (Household - for ages 0-17 years) Not on file 07/16/2023 Has lack of transportation k ept you from medical appointments, meetings, work, or from getting things needed for daily living? Check all that apply. (Adult - for ages 18 years and over) Not on file 07/16/2023 Do you (or your family) have trouble finding or paying for a ride (transportation)? (Household - for ages 0-17 years) Not on file 07/16/2023 Housing Stability Answer Date Recorded Do you currently live in a s helter or have no steady place to sleep at night? No 07/16/2023 READ ONLY Do you think you a re at risk of becoming homeless? No 07/16/2023 Does your family worry about paying for your home or becoming homeless? (Household - for ages 0-17 years) Not on file 1 09/15/2022 Are you homeless or worried that you might be in the future? (Adult - for ages 18 years and over) Not on file Are you (or your family) danelle eless or worried that you might be in the future? (Household - for ages 0-17 years) Not on file Food Insecurity Answer Date Recorded Do you need food for this week? No 07/16/2023 Are you able to get enough f ood for your family? (Household - for ages 0-17 years) Not on file 07/16/2023 Does your family need food t his week? (Household - for ages 0-17 years) Not on file 07/16/2023 Do you always have enough fo od for your family? 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 Total of 5 episodes. Was given IV fluids, zofran and tylenol. ER physician thought norovirus. Today able to consume scrambled eggs, toast, tea, jello. Patient still not feeling well but no vomiting today. Pt has not been seen in GI clinic since 2021. Advised pts that they should contact PCP for further advice and for potential referral back to GI. Call transferred to Alfonso WIN at [facility]. documented in this encounter Plan of Treatment Upcoming Encounters Date Type Department Care Team (Late st Contact Info) Description 11/17/2024 8:30 AM EDT Office Visit Gastroenterology, [facility] [address] [place] [id number] Dianne Haji CRNP [address] [place] [address] 11/24/2024 12:15 PM EDT Office Visit Cardiology, [facility] [address] [facility] [facility] [place] [address] Katie Serrato, [address] [place] [address] 12/25/2024 10:00 AM EDT Office Visit Cardiology, [facility] [address] [facility] [place] [address] Bharathi Lynn PA-C [facility] [place] [address] 04/19/2025 1:00 PM EDT Office Visit General Internal Medicine [facility] [address] [place] [address] Mookie Coyne MD [address] [facility] [place] [address] 07/24/2025 11:00 AM EST Nurse Only Ancillary [facility] [address] [facility] [place] [address] [place], Nurse Annual Wellness [address] [facility] [place] [address] Health Maintenance Due Date Last Done Comments Albumin/Creatinine Ratio 05/21/2024 023, 03/21/2021, 03/06/2020, Additional history exists *NEPHROLOGY REFERRAL DUE TO RESISTANT HTN 07/21/2024 B-12 12/01/2024 12/02/2023, 05/07, 10/21/2022, Additional history exists HbA1c 12/21/2024 06/22/2024, 11/05, 05/19/2023, Additional history exists Diabetic Eye Exam 12/22/2024 12/23/2023, , 07/16/2023, Additional history exists COVID-19 Vaccine ( season) 2025 07/22/2021, 10/28/2020, 10/07/2020 Postponed from 05/07/2024 (Other) Diabetic Foot Exam 06/28/2025 06/28/2024, 0 05/19/2023, 04/01/2022, Additional history exists Adult Wellness Visit 07/18/2025 07/18/2024, 07/16/20 23 Depression Screening 07/18/2025 07/18/2024 GFR 08/02/2025 08/02/2024, 06/06, 03/17/2024, Additional history exists DTap/Tdap Vaccines (2 - Td or Tdap) 12/03/2026 12/03/2016, 07/24/2005 Colonoscopy 08/16/2028 08/16/2023, 08/06, 06/15/2018, Additional history exists Pneumococcal Vaccine: 50+ Years Completed 12/20/2014, 05/07/2011 Zoster Vaccines Completed 07/10/2019, 04/2019, 08/05/2012 RETIRED - COLONOSCOPY-EVERY 5 YRS AGES 18-100 Discontinued 08/16/2023, 08/16/2023, 06/15/2018, Additional history exists Influenza Vaccine (FLU shot) Completed 06/20/2024, 07/11/2023, 06/13/2022, Additional history exists HPV (Gardasil) Vaccine Aged Out No lo nger eligible based on patient's age to complete this topic Hepatitis B Vaccine Aged Out No longe r eligible based on patient's age to complete this topic MENINGOCOCCAL (MENACTRA/MENVEO) Aged Out No longer eligible based on patient's age to complete this topic Meningitis B Vaccine (Bexsero/Trumemba) Aged Out No longer eligible based on patient's age to complete this topic documented as of this encounter Medical Devices Implanted Type Area Flight Operations Engineer Device Identifier Shelf Expiration Date Model / Serial / Lot Lens Intraoc 18.5 - [id number] Implanted:Qty: 1 on 12/15/2022 by Anuj Mack MD at OR [facility] Left: Eye BAUSCH & LOMB 07/06/2027 [id number] / / [id number] Lens Intraoc 19.0 - [id number] - [id number] Implanted:Qty: 1 on 12/29/2022 by Anuj Mack MD at OR [facility] Right: Eye BAUSCH & LOMB 07/06/2027 [id number] / [id number] / [id number] documented as of this encounter Advance Directives * No Code (Latest Code Status on File) Date Activated Date Inactivated Comments 12/29/2022 7:22 AM 12/29/2022 1:47 PM This order r eflects the patients wishes and were consensually agreed upon. Question Answer Comments Discussion of Advance Directives occurred with: Patient Does the patient have a Living Will? No Does the patient have Health Care Power of Attor raul? No * No Code Date Activated Date Inactivated Comments 12/15/2022 8:32 AM 12/15/2022 2:40 PM This order r eflects the patients wishes and were consensually agreed upon. Question Answer Comments Discussion of Advance Directives occurred with: Patient Does the patient have a Living Will? No Does the patient have Health Care Power of Attor raul? No Care Teams Centerpuncher Relationship Specialty Start Date End Date Mookie Coyne MD [address] [place] [address] PCP - General Internal Medicine 12/06/17 documented as of this encounter
--- OUTSIDE RECORDS SUMMARY | 2024-11-18 15:13 | External Medical Summary | Summary of Care ---
Author Name Unknown Organization [facility] Address [address] [place] [address] Phone [phone] Care Team Providers Care Carpenter Apprentice Name Role Phone Mookie Coyne MD Primary Care Provider + Encounter Details Date Type Department Care Team (Late st Contact Info) Description 11/13/2024 Result Scan Unspecified Department <No scans attached> Allergies Active Allergy Reactions Criticality Noted Date Comments Statins 02/29/2012 Feels poorly on Statins Tamsulosin 12/24/2015 Nasal congestion Terazosin 12/24/2015 Low blood pressure, weak legs documented as of this encounter (statuses as of 11/17/2024) Medications AMOXICILLIN 500 MG PO CAPSIndications :Aortic valve disorder 4 by mouth 1 hour prior to procedure 4 Cap 5 11/07/19 14 Active B-12 1000 MCG Oral Tablet 1 tab daily 1 Tablet 04/01/20 22 Active Famotidine 20 MG Oral Tablet (Pepcid) Take 2 Tablets by mouth every evening. 180 Tablet 3 11/30/19 24 Active Metoprolol Succinate ER 50 MG Oral Tablet Extended Release 24 Hour (toPROL XL)Indications: HTN, goal below 140/90 Take 1 Tablet by mouth in the morning. 90 Tablet 3 12/20/19 24 Active Additional Information Patient taking differently:50 mg OralHS, Reported on 11/17/2024 Entresto 49-51 MG Oral Tablet (sacubitril-juan sartan 49-51 mg per tab)Indications :HTN, goal below 150/90 TAKE 1 TABLET BY MOUTH EVERY MORNING AND TAKE 1 TABLET BY MOUTH AT BEDTIME 180 Tablet 3 06/12/20 24 Active Trulicity 3 MG/0.5ML Subcutaneous Solution Pen-injector (Dulaglutide)In dications:Type 2 diabetes mellitus with hemoglobin A1c goal of less than 7.0% (HCC) INJECT 3MG (0.5ML) UNDER THE SKIN ONCE WEEKLY 2 mL 11 06/15/20 24 Active Finasteride 5 MG Oral Tablet (Proscar)Indica tions:BPH with obstruction/low er urinary tract symptoms TAKE 1 TABLET BY MOUTH EVERY MORNING 90 Tablet 3 06/26/20 24 Active metFORMIN HCl 1000 MG Oral Tablet (Glucophage)Ind ications:Type 2 diabetes mellitus with hemoglobin A1c goal of less than 7.0% (HCC) TAKE ONE TABLET BY MOUTH twice daily with MORNING AND EVENING meals 180 Tablet 1 11/08/19 25 Active Additional Information Patient not taking.Reported on 11/17/2024 Omeprazole 20 MG Oral Capsule Delayed Release (PriLOSEC) Take 1 Capsule by mouth in the morning. Every morning.. 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 Not on file Not on file documented as of this encounter Plan of Treatment Upcoming Encounters Date Type Department Care Team (Latest Contact Info) Description 11/24/2024 12:15 PM EDT Office Visit Cardiology, [facility] [address] [place] [address] Katie Serrato, [address] [place] [address] 12/05/2024 2:00 PM EDT Hospital Encounter ENDO OSSC, Endoscopy Room [facility] [address] [place] [phone] Bharathi Mcdonnell MD [address] [place] [address] 12/05/2024 2:00 PM EDT - 12/05/2024 2:30 PM EDT Surgery ENDO OSS[facility], Endoscopy Room [facility] [address] [place] [phone] Bharathi Mcdonnell MD [address] [place] [address] ESOPHAGOGASTRODUODENOSCOPY (EGD), FLEXIBLE, TRANSORAL, DIAGNOSTIC 12/25/2024 10:00 AM EDT Office Visit Cardiology, [facility] [address] [place] [address] Bharathi Lynn, PARhonaC [address] [place] [address] 04/19/2025 1:00 PM EDT Office Visit General Internal Medicine [facility] [place] [address] [facility] [place] [address] Mookie Coyne MD [address] [facility] [place] [address] 05/23/2025 10:30 AM EDT Office Visit Gastroenterology , [facility] [address] [place] [address] Cassidy Palm CRNP [address] [place] [address] 07/24/2025 11:00 AM EST Nurse Only Ancillary [facility] [place] [address] [facility] [place] [address] [place], Nurse Annual Wellness [address] [place] [address] Scheduled Procedures Name Priority Associated Diagnoses Date/Ti me ESOPHAGOGASTRODUODENOSCOPY ( EGD), FLEXIBLE, TRANSORAL, DIAGNOSTIC Gastroesophageal reflux disease, unspecified whether esophagitis present 12/05/2024 2:00 PM EDT Health Maintenance Due Date Last Done Comments [...] 07/16/20 23 Depression Screening 07/18/2025 07/18/2024 GFR 11/13/2025 11/13/2024, 07/08, 06/22/2024, Additional history exists DTap/Tdap Vaccines (2 - [...] this encounter Medical Devices Implanted Type Area Cable Wirer Device Identifier Shelf Expiration Date Model / Serial / Lot Lens Intraoc 18.5 - [id number] Implanted:Qty: 1 on 12/15/2022 by Anuj Mack MD at OR [facility] Left: Eye BAUSCH & LOMB 07/06/2027 [id number] / / [id number] Lens Intraoc 19.0 - [id number] - [id number] Implanted:Qty: 1 on 12/29/2022 by Anuj Mack MD at OR [facility] Right: Eye BAUSCH & LOMB 07/06/2027 [id number] / [id number] / [id number] documented as of this encounter Procedures Procedure Name Priority Date/Time Associated Diagnosis Comments EKG SCANNED RESULT 11/13/2024 RADIOLOGY SCANNED RESULT 11/13/2024 documented in this encounter Results * RADIOLOGY SCANNED RESULT (11/13/2024) 11/13/2024 us No Physician Data Unknown DIAGNOSTIC RADIOLOGY S ERVICES Final Result * EKG SCANNED RESULT (11/13/2024) 11/13/2024 us No Physician Data Unknown EKG Final Result documented in this encounter Advance Directives * No Code [...] Power of Attor raul? No Care Teams Carpenter Apprentice Relationship Specialty Start Date End Date Mookie Coyne MD [address] [place] [address] PCP - General Internal Medicine 12/06/17 documented as of this encounter
--- OUTSIDE RECORDS SUMMARY | 2024-11-18 15:13 | External Medical Summary | Summary of Care ---
Author Name Unknown Organization [facility] Address [address] [place] [address] Phone [phone] Care Team Providers Care Helicopter Crew Chief Name Role Phone Mookie Coyne MD Primary Care Provider + Encounter Details Date Type Department Care Team (Late st Contact Info) Description 11/17/2024 Orders Only General Internal Medicine [facility] [place] 200 [facility] [place] [address] Mookie Coyne MD 200 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 on file Not on file Not on file documented as of this encounter Plan of Treatment Upcoming Encounters Date Type Department Care Team (Latest Contact Info) Description 11/24/2024 12:15 PM EDT Office Visit Cardiology, [facility] 132 [place] [address] Katie Serrato, [address] [place] [address] 12/05/2024 2:00 PM EDT Hospital Encounter ENDO OSS[facility], Endoscopy Room [facility] [address] [place] [phone] Bharathi Mcdonnell MD 132 [place] [address] 12/05/2024 2:00 PM EDT - 12/05/2024 2:30 PM EDT Surgery ENDO [facility], Endoscopy Room [facility] [address] [place] [phone] Bharathi Mcdonnell MD [address] [place] [address] ESOPHAGOGASTRODUODENOSCOPY (EGD), FLEXIBLE, TRANSORAL, DIAGNOSTIC 12/25/2024 10:00 AM EDT Office Visit Cardiology, [facility] 132 [facility] [place] [address] Bharathi Lynn PA-C [address] [place] [address] 04/19/2025 1:00 PM EDT Office Visit General Internal Medicine [facility] 200 [facility] [place] [address] Mookie Coyne MD 200 [facility] [place] [address] 05/23/2025 10:30 AM EDT Office Visit Gastroenterology , [facility] [place] [address] Cassidy Palm CRNP 132 [facility] [place] [address] 07/24/2025 11:00 AM EST Nurse Only Ancillary [facility] 200 [facility] [place] [address] Fabiana, Nurse [facility] [address] [place] [address] Scheduled Procedures Name Priority Associated Diagnoses Date/Ti [...] this encounter Medical Devices Implanted Type Area Tricot Knitting Machine Operator Device Identifier Shelf Expiration Date Model / Serial / Lot Lens Intraoc 18.5 - [id number] Implanted:Qty: 1 on 12/15/2022 by Anuj Mack MD at OR [facility] Left: Eye BAUSCH [employer] LOMB 07/06/2027 [id number] / / [id number] Lens Intraoc 19.0 - [id number] - [id number] Implanted:Qty: 1 on 12/29/2022 by Anuj Mack MD at OR [facility] Right: Eye BAUSCH & LOMB 07/06/2027 [id number] / [id number] / [id number] documented as of this encounter Procedures Procedure Name Priority Date/Time Associated Diagnosis Comments XR CHEST 1 VIEW Routine 11/13/2024 CHEMISTRY-OUTSIDE Routine 11/13/2024 documented in this encounter Results * (ABNORMAL) CHEMISTRY-OUTSIDE (11/13/2024) Not all results display below - see scan for full detail SCAN INCLUDES [facility]: CBC, CMP OUTSIDE LAB (SEE SCANNED REPORT) CREATININE 1.32 0.6 - 1.4 MG/DL OUTSIDE LAB (SEE SCANNED REPORT) EGFR 54.87 OUTSIDE LA B (SEE SCANNED REPORT) POTASSIUM 3.7 3.5 - 5.1 MMOL/L OUTSIDE LAB (SEE SCANNED REPORT) GLUCOSE 241(A) 70 - 99 MG/DL OUTSIDE LAB (SEE SCANNED REPORT) HOURS FASTING OUTSID E LAB (SEE SCANNED REPORT) TRIGLYCERIDES-OU TSIDE LAB OUTSIDE LAB (SEE SCANNED REPORT) CHOLESTEROL-OUTS VENKAT LAB OUTSIDE LAB (SEE SCANNED REPORT) HDL-OUTSIDE LAB OUTS VENKAT LAB (SEE SCANNED REPORT) CHOL/HDL RATIO-OUTSIDE LAB OUTSIDE LAB (SEE SCANNED REPORT) LDL (CALCULATED)-OUT SIDE LAB OUTSIDE LAB (SEE SCANNED REPORT) LDL (DIRECT MEASURE)-OUTSIDE LAB OUTSIDE LAB (SEE SCANNED REPORT) HEMOGLOBIN, I6G-VDOUROT LAB OUTSIDE LAB (SEE SCANNED REPORT) PHOSPHORUS-OUTSI DE LAB OUTSIDE LAB (SEE SCANNED REPORT) PTH-OUTSIDE LAB OUTS VENKAT LAB (SEE SCANNED REPORT) MICROALBUMIN RATIO-OUTSIDE LAB OUTSIDE LAB (SEE SCANNED REPORT) PROTEIN, UA-OUTSIDE LAB OUTSIDE LAB (SEE SCANNED REPORT) HGB 15.9 14.0 - 18.0 G/DL OUTSIDE LAB (SEE SCANNED REPORT) 11/13/2024 us History Per Patient LABORATORY Final Result OUTSIDE LAB (SEE SCANNED REPORT) * XR CHEST 1 VIEW (11/13/2024) Anatomical Region Laterality Modality Chest Other 11/13/2024 us History Per Patient RADIOLOGY (RAD GENERAL) Kelly l Result documented in this encounter Advance Directives [...] Power of Attor raul? No Care Teams Helicopter Crew Chief Relationship Specialty Start Date End Date Mookie Coyne MD 200 [facility] [place] [address] PCP - General Internal Medicine 12/06/17 documented as of this encounter
--- OUTSIDE RECORDS SUMMARY | 2024-11-18 15:13 | External Medical Summary | Summary of Care ---
Author Name Unknown Organization [facility] Address [address] [place] [address] Phone [phone] Care Team Providers Care Float Nurse Name Role Phone Mookie Coyne MD Primary Care Provider + Reason for Visit * Reason Comments Vomiting Pt was at [facility] for v omiting. He has h/o food getting stuck in his esophagus. * Evaluate & Treat - Unlimited Visits (Within 3 days (urgent)) - Authorized Specialty Diagnoses / Procedures Referred By Mary clark Referred To Contact Gastroenterology Diagnoses Gastroesophageal reflux disease without esophagitis Mookie Coyne MD [address] [facility] [place] [address] Phone: tel: fax: Referral ID Status Reason Start Date Expiration Date Visits Requested Visits Authorized [id number] Authorized Specialty Services Required 11/16/2024 [id number] Encounter Details Date Type Department Care Team (Latest Contact Info) Description 11/17/2024 8:30 AM EDT Office Visit Gastroenterology, [facility] [address] [place] [address] Dianne Haji CRNP [address] [place] [address] Gastroesophageal reflux disease, unspecified whether esophagitis present*; Nausea and vomiting, unspecified vomiting type Allergies Active Allergy Reactions Criticality Noted Date [...] Information Patient not taking.Reported on 11/17/2024 Omeprazole 40 MG Oral Capsule Delayed Release (PriLOSEC)Indic ations:GERD Take 1 Capsule by mouth in the morning. 30 Capsule 12 11/18/19 25 Active Omeprazole 20 MG Oral Capsule Delayed [...] Tobacco: Former Cigarettes Cigars Smokeless Tobacco: Never Tobacco Cessation:Counseling Given: Not Answered Alcohol Use Standard Drinks/Week Comments Yes 0 [...] 07/16/2023 Does the household have a re lar source of income? 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 Not on ce e Not on file Retired Not on file Not on file Not on file documented as of this encounter Last Filed Vital Signs Vital Sign Reading Time Taken Comments Blood Pressure 132/63 11/17/2024 8:28 AM EDT Pulse 85 11/17/2024 8:28 AM EDT Temperature 36.7 C (98.1 F) 11/17/2024 8:28 AM ED T Respiratory Rate - - Oxygen Saturation - - Inhaled Oxygen Concentration - - Weight 106.7 kg (235 lb 3.2 oz) 11/17/2024 8:28 AM EDT Height - - Body Mass Index 31.44 07/18/2024 11:11 AM EST documented in this encounter Patient Instructions * Patient Instructions* Dianne Haji CRNP - 11/17/2024 9:00 AM EDT Omeprazole 40mg take 1/2 hour before breakfast. Famotidine at bedtime. documented in this encounter Progress Notes * Dianne Haji CRNP - 11/17/2024 7:32 AM EDT CC: Recent Vomiting Episode, GERD HPI: Recall that Ms. Karthikeyan Soto is a 78 yr old male pt of Dr. Stanford rosenbaum a hx of HTN, HLD, DM2, GERD w Juanpablo's who was seen in the ED for vomiting, abd pain on 11/14/24 then when at [facility] for ED f/u yesterday, we were asked to fit him in urgently. He describes his baseline symptoms being reflux symptoms present most days, often taking his morning dose of omeprazole in the middle of the night because he has reflux then. He has had severe vomiting episodes, but not frequently. He is referred for 1 of these severe episodes. Most recent prior severe episode was around 2 or 3 years ago. He describes the recent episode began in the evening and w a little nausea, a feeling in the upper chest that felt like something wascoming up. He had eaten a large, meal earlier that day. Then he vomited aroun 9PM, the food that heate a few hours prior, but the vomiting didn't stop. He continued to have dry heaving until being in the ED around 11PM. He also had epigastric pain. The vomiting and pain resolved in the ED. He had a similar episode in 2022. His believes that he has, different since starting the Trulicity a few years ago. She describes him as being full more quickly having less of an appetite and having more reflux. He denies ongoing problems with vomiting up food that he ate hours previously he does not have ongoing nausea. In fact during this episode of recent severe vomiting had some mild nausea but not an overwhelming feeling of nausea and it was not present for very long before the vomiting started. He isnow able to eat liquid and soft foods without any abdominal pain or nausea. His presents with him today. She mentions that eats quickly that he sometimes eats large portions. No blood in bowel movements, no blood in the emesis, no black tarry bowel movements, no unintentional weight loss. Current GI Meds: Omeprazole 20mg daily Pepcid 20mg daily Also on Trulicity for DM Diagnostic Testing: Labs at [facility] on 11/14/24: CBC, CMP w BS 241 otherwise no significant abnormalities. EGD 2019 Hiatal Hernia, prior esophagitis resolved, Ring at GE junction dilated to 18mm. EGD 2018 Dr. Ricardo: Fabio Grade II erosive esophagitis. Normal stomach and duodenum. EXAM: BP 132/63 | Pulse 85 | Temp 36.7 C (98.1 F) | Wt 106.7 kg (235 lb 3.2 oz) | BMI 31.44 kg/m | BSA 2.34 m GENERAL: 78 year old male well developed and well nourished in no acute distress SKIN: no rashes, ulcers, or spider angiomata HEENT: normocephalic, sclera clear, pharynx normal NECK: supple, no lymphadenopathy, no masses or thyroid enlargement LUNGS: clear to auscultation anterior and posterior HEART: regular rate & rhythm, no murmurs and no gallops ABDOMEN: Ventral hernia and umbilical hernia, normo-active bowel sounds, soft, non-tender, non-distended no masses, no hepatosplenomegaly, no rebound or guarding, no bruits EXTREMITIES: no palmar erythema, no edema, no skin discoloration, no clubbing, no cyanosis NEURO: no lateralizing findings, Sensory/Motor grossly normal IMPRESSION/RECOMMENDATIONS: 78 year old male with GERD, rare but severe vomiting episodes. Most likely, both of these are worsened by being on Trulicity. I explained that the effects of Trulicity includes slowing down stomach emptying, so he should expect to feel more full sometimes even some mild nausea as well as decreased appetite as a result of being on Trulicity. I encouraged him to use thisas a reminder to eat smaller portions. He has a history of Schatzki ring, but he is not describing any dysphagia. He has a history significant esophagitis in the past, he likely has some esophagitis right now based on the frequency of his reflux symptoms. Gastroesophageal reflux disease, unspecified whether esophagitis present (Primary) - EGD, FLEXIBLE, DIAGNOSTIC - Omeprazole 40 MG Oral Capsule Delayed Release (PriLOSEC); Take 1 Capsule by mouth in the morning. Nausea and vomiting, unspecified vomiting type I spent a total of 30 minutes on the date of service in review of patient's record, and previously obtained information in person and appropriate medical visit, discussion and education of plan, withpatient and/or caregiver, placing orders for tests/referral/procedures as medically necessary and documentation of pertinent clinical information in patient's medical records for their visit today. Recheck in GI after EGD, in approx 6m. At that time, may decrease Omeprazole dosing if improved symptoms. Thank you for the opportunity to be involved in the care of this patient. HARLEY Middleton documented in this encounter Nursing Notes * Taylor Rodríguez LPN - 11/17/2024 8:28 AM EDT Chief Complaint Patient presents with Vomiting Pt was at [facility] for vomiting. He has h/o food getting stuck in his esophagus. documented in this encounter Plan of Treatment Upcoming Encounters Date Type Department Care Team (Latest Contact Info) Description 11/24/2024 12:15 PM EDT Office Visit Cardiology, [facility] [address] [place] [address] Katie Serrato, [address] [place] [address] 12/05/2024 2:00 PM EDT Hospital Encounter ENDO [facility], Endoscopy Room [facility] 132 [place] [phone] Bharathi Mcdonnell MD 132 [place] [address] 12/05/2024 2:00 PM EDT - 12/05/2024 2:30 PM EDT Surgery ENDO [facility], Endoscopy Room [facility] [address] [place] [phone] Bharathi Mcdonnell MD [address] [place] [address] ESOPHAGOGASTRODUODENOSCOPY (EGD), FLEXIBLE, TRANSORAL, DIAGNOSTIC 12/25/2024 10:00 AM EDT Office Visit Cardiology, [facility] [address] [place] [address] Bharathi Lynn PA-Tonja [address] [place] [address] 04/19/2025 1:00 PM EDT Office Visit General Internal Medicine [facility] [place] [address] Mookie Coyne MD [address] [place] [address] [place] [address] 05/23/2025 10:30 AM EDT Office Visit Gastroenterology , [facility] [address] [place] [address] Cassidy Palm CRNP 132 [facility] [place] [address] 07/24/2025 11:00 AM EST Nurse Only Ancillary [facility] [address] [facility] [place] [address] Fabiana, Nurse Annual Wellness [place] [address] [place] [address] [address] Scheduled Orders Name Type Priority Associated Diagnoses Orde r Schedule EGD, FLEXIBLE, DIAGNOSTIC Procedures Routine Gastroesophageal reflux disease, unspecified whether esophagitis present Ordered: 11/17/2024 Scheduled Procedures Name Priority Associated Diagnoses Date/Ti [...] Completed 12/20/2014, 05/07/2011 Zoster Vaccines Completed 07/10/2019, 0704/2019, 08/05/2012 RETIRED - COLONOSCOPY-EVERY 5 YRS AGES [...] this encounter Medical Devices Implanted Type Area Vocational Education Teacher Device Identifier Shelf Expiration Date Model / Serial / Lot Lens Intraoc 18.5 - [id number] Implanted:Qty: 1 on 12/15/2022 by Anuj Mack MD at OR [facility] Left: Eye BAUSCH & LOMB 07/06/2027 [id number] / / [id number] Lens Intraoc 19.0 - [id number] - [id number] Implanted:Qty: 1 on 12/29/2022 by Anuj Mack MD at OR [facility] Right: Eye BAUSCH & LOMB 07/06/2027 [id number] / [id number] / [id number] documented as of this encounter Visit Diagnoses Diagnosis Gastroesophageal reflux disease, unspecified whether esophagitis present- Primary Nausea and vomiting, unspecified vomiting type Gastroesophageal reflux disease, unspecified whether esophagitis present documented in this encounter Advance Directives * [...] Power of Attor raul? No Care Teams Float Nurse Relationship Specialty Start Date End Date Mookie Coyne MD 200 [facility], [place] [id number] PCP - General Internal Medicine 12/06/17 documented as of this encounter"
--- OUTSIDE RECORDS SUMMARY | 2024-11-18 15:13 | External Medical Summary | Summary of Care ---
Author Name Unknown Organization [facility] Address [address] [place] [address] Phone [phone] Care Team Providers Care Cutting Machine Operator Name Role Phone Mookie Coyne MD Primary Care Provider + Reason for Referral * Evaluate & Treat - Unlimited Visits (Within 3 days (urgent)) - Authorized Specialty Diagnoses / Procedures Referred By Mary clark Referred To Contact Gastroenterology Diagnoses Gastroesophageal reflux disease without esophagitis Mookie Coyne MD [address] [facility] [address] [facility] [place] [address] Phone: tel: fax: Referral ID Status Reason Start Date Expiration Date Visits Requested Visits Authorized [id number] Authorized Specialty Services Required 11/16/2024 999 [id number] Question Answer Referral Priority Within 3 days (urgent) Where should this appointment be scheduled? [facility] For what condition is the patient being referred? All Other Gastro Conditions (Abdominal Pain, Change in Bowel Habits, Anemia, Reflux) Other conditions (please specify): GERD, Esophagitis, Epigastric ABD PAIN, Hx of Hiatal Hernia Reason for Visit * Reason Onset Date Comments Appointment 11/16/2024 Encounter Details Date Type Department Care Team (Late st Contact Info) Description 11/16/2024 Telephone General Internal Medicine [place] [address] [place] [address] Mookie Coyne MD [address] [place] [address] Appointment Allergies Active Allergy Reactions Criticality Noted Date [...] every evening. 180 Tablet 3 4 Active Metoprolol Succinate ER 50 MG Oral Tablet Extended Release 24 Hour (toPROL XL)Indications:H TN, goal below 140/90 Take 1 Tablet by mouth in the morning. 90 Tablet 3 4 Active Additional Information Patient taking differently:50 mg OralHS, Reported on 11/17/2024 Entresto 49-51 MG Oral Tablet (sacubitril-vals saul [...] EVENING meals 180 Tablet 1 5 Active Additional Information Patient not taking.Reported on 11/17/2024 documented as of this encounter (statuses as [...] mRNA, LNP-s, No Pre serve, 2-Dose Series ([email or web address]) 10/28/2020,10/07/2020 Pneumococcal Conjugate Vacc, 13 Valent (Prevnar) [...] No 07/16/2023 Does the household have a [facility] receiving hospitalr source of income? (Household - for ages [...] encounter Miscellaneous Notes * Telephone Encounter - Taylor Rodríguez LPN - 11/17/2024 11:29 AM EDT Appt with Dianne at 8:30 am today * Telephone Encounter - Alfonso Conner LPN - 11/16/2024 3:43 PM EDT The pt was transferred to [facility] care [facility] by gastroenterology [facility] because he did not have an active referral. Vernell Soto: The pt's took her to the [facility] ED on Wednesday11/13/2024. She said in the evening on Wednesday11/13/2024 the pt started "violently" vomiting with ABD pain radiating to her back. She said he also vomited in the ED. His is a former nurse and said his EKG was good., and that they gave him IV Zofran, Pepcid, and tylenol. She also said the patient has a Hx of GERD, a hiatal hernia, and he has a pacemaker. She also said that he has an extensive history of EGDs. The patient previously saw Dr. Dias. When asked his said the patient is no longer vomiting, she also denied him having Diarrhea. Karthikeyan Brittany I spoke with the pt and he said he is also having trouble swallowing and he feels like his food is sticking his esophagus. He said any food that is very dense he cannot swallow very well. The pt stated he has esophagitis and epigastric ABD pain(5/10). The pt denies taking any medication today todaybut he did say he took omeprazole in the middle of the night. He said he feels weak and his urine is orange. He thinks he is dehydrated as well. He said he has been drinking a cup of tea and some water(16oz). I encouraged him to try to drink fluids. I renewed the pt's referral and Tt'd HARLEY Stanton with the gastroenterology department because she was scheduled to work at the [facility] tomorrow 11/17/2024. She was willing to allowthe pt to be overbooked at 830am. I informed Dianne that the patient was dehydrated and his urine was orange, and fluid intake has been limited. The pt was agreeable to seeing Dianne and scheduled.I informed the patient that if he starts vomiting again or he feels like he is unable to keep fluids down and his dehydration is getting worse to go to the ED. I also called [facility] and spoke with medical records and they are faxing all the patients documentation related to his ED visit to the gastroenterology department at [facility] and his PCP's office. documented in this encounter Plan of Treatment Upcoming Encounters Date Type Department Care Team (Latest Contact Info) Description 11/24/2024 12:15 PM EDT Office Visit Cardiology [facility] [address] [place] [address] Rojelio Katie Vernell, DO [address] [place] [address] 12/05/2024 2:00 PM EDT Hospital Encounter ENDO OSS[facility], Endoscopy Room [facility] [address] [place] [phone] Bharathi Mcdonnell MD [address] [place] [address] 12/05/2024 2:00 PM EDT - 12/05/2024 2:30 PM EDT Surgery ENDO O[facility], Endoscopy Room [facility] [address] [place] [phone] Bhaarthi Mcdonnell MD [address] [place] [address] ESOPHAGOGASTRODUODENOSCOPY (EGD), FLEXIBLE, TRANSORAL, DIAGNOSTIC 12/25/2024 10:00 AM EDT Office Visit Cardiology [facility] [address] [place] [address] Bharathi yLnn PA-C [address] [place] [address] 04/19/2025 1:00 PM EDT Office Visit General Internal Medicine S[place]ra [place] [address] [place] [address] Mookie Coyne MD [address] [facility] [place] [address] 05/23/2025 10:30 AM EDT Office Visit Gastroenterology , [facility] [address] [place] [address] Cassidy Palm CRNP [address] [place] [address] 07/24/2025 11:00 AM EST Nurse Only Ancillary [facility] [address] [place] [address] Fabiana, Nurse Annual Wellness [facility] [address] [facility] [place] [address] Scheduled Procedures Name Priority Associated Diagnoses Date/Ti me ESOPHAGOGASTRODUODENOSCOPY ( EGD), FLEXIBLE, TRANSORAL, DIAGNOSTIC Gastroesophageal reflux disease, unspecified whether esophagitis present 12/05/2024 2:00 PM EDT Scheduled Referrals Name Type Priority Associated Diagnoses Order Schedule ADULT GASTROENTEROLOGY REFERRAL OP Referral Within 3 days (urgent) Gastroesophageal reflux disease without esophagitis Ordered: 11/16/2024 Health Maintenance Due Date Last Done Comments [...] this encounter Medical Devices Implanted Type Area Airdox Fitter Device Identifier Shelf Expiration Date Model / Serial / Lot Lens Intraoc 18.5 - [id number] Implanted:Qty: 1 on 12/15/2022 by Anuj Mack MD at OR [facility] Left: Eye BAUSCH & LOMB 07/06/2027 [id number] / / [id number] Lens Intraoc 19.0 - [id number] - [id number] Implanted:Qty: 1 on 12/29/2022 by Anuj Mack MD at OR [facility] Right: Eye BAUSCH & LOMB 07/06/2027 [id number] / [id number] / [id number] documented as of this encounter Visit Diagnoses Diagnosis Gastroesophageal reflux disease without esophagitis- Primary Esophageal reflux Esophagitis Esophagitis, unspecified Abdominal pain, epigastric Dysphagia Dysphagia, unspecified Gastroesophageal reflux disease, unspecified whether esophagitis present [...] Power of Attor raul? No Care Teams Cutting Machine Operator Relationship Specialty Start Date End Date Mookie Coyne MD 200 [place] [address] PCP - General Internal Medicine 12/06/17 documented as of this encounter
--- NOTE | 2024-11-18 15:15 | Emergency Department Note ---
Impression & Plan Acute cholecystitis, Abdominal pain, Acute dyspnea, Transaminitis ED Provider Note NAME: DIONE SIEGEL AGE: 78 SEX: M : 1945 ARRIVES VIA: Walk-In INFORMANT: Patient, , daughter ED PROVIDER(S): Andre Scott MD CHIEF COMPLAINT: Abdominal fullness, shortness of breath MEDICAL DECISION MAKING: Patient presents due to concern for increased work of breathing as well as abdominal fullness. IV was established and blood work was obtained. Fluids withheld until evaluating patient further as the patient does have pretibial edema. Patient's blood work shows a normal white count normal hemoglobin and platelet count. The patient's kidney function is unremarkable. Mild hypokalemia at 3.3 and hyponatremia 132. Lipase elevated at 200 BMP of 419 with a bilirubin of 2.4 AST and ALT of 41 and 57. The patient had complained of upper abdominal fullness and does have epigastric right upper quadrant pain CT abdomen pelvis performed to further evaluate liver gallbladder as well as pancreas. Patient's plain films without significant findings. CT Abdo pelvis did show concern for acute cholecystitis. I did inform the patient of these findings. I did speak with the on-call general surgery service Dr. Boothe as well as the inpatient medicine service Dr. Deal. Patient was admitted to medicine service with surgical consultation. I did inform the patient patient's family bedside of plan of care and they were comfortable with current plan of care. CBD normal in caliber as noted on CT without any biliary ductal dilatation reported. Patient's mild transaminitis may be discussed further with the inpatient service and general surgery. Discussion w/ other healthcare providers: Dr. Boothe general surgery Dr. Deal inpatient medicine service Prior /Outside records reviewed: None Differential diagnosis: CHF, pneumonia, bowel obstruction, GA, infection, dehydration, metabolic abnormality, hypo/hyperglycemia, electrolyte imbalance, anemia, UTI, pneumonia, thyroid dysfunction among others were considered. Diagnostics, as interpreted by me: ECG: A sensed V paced rhythm, rate of 101, wide QRS, left branch block pattern, ST depressions in the lateral leads. No obvious Sgarbossa criteria present. Cardiac monitoring: An order was placed for continuous cardiac monitoring. The monitor shows a rate of 102 with paced rhythm. Patient was placed on pulse oximetry Medical decision rules: None Imaging studies: I informally interpreted the patient's chest x-ray without obvious pneumonia or pneumothorax with formal report to follow. HPI: Patient presents due to concern for upper abdominal fullness and family reporting that patient has had fever the last 2 days. Temp of one 1.3 yesterday and 100.3 today. Patient denies any cough. He does occasionally feel chilled. Patient denies any significant leg swelling. Family reports that today with exertion he seemed to have increased work of breathing and heavier breathing. Patient states that he has a decreased appetite. The patient was seen at gastroenterology yesterday after being seen here in the emergency department for vomiting on Wednesday. They report that yesterday he was told that he might have an element of gastroparesis and is pending an EGD. Patient has not had any recent vomiting in the last 2 days and has been able to keep liquids down. Patient has not had a bowel movement since Wednesday. Patient does feel as though he has increased upper abdominal fullness. Patient currently denies any active chest pain. also reports that she thought that he had an irregular heartbeat. Patient denies any prior history of A-fib and does not take blood thinners but does have a pacemaker and does follow with Dr. Ramírez with cardiology as well as with Bharathi Lynn PA-C. PAST MEDICAL HISTORY: See Below PAST SURGICAL HISTORY: See Below SOCIAL HISTORY: See Below HOME MEDICATIONS: See Below ALLERGIES: See Below VITALS: See Below PHYSICAL EXAMINATION: GENERAL: NAD, non-toxic. Wearing glasses. EYE EXAM: Normal conjunctiva. PERRL, no anisocoria and EOM's grossly intact w/o pain. OROPHARYNX: Dry mucus membranes, grossly normal dentition. NECK: Trachea midline, no stridor. Supple, no nuchal rigidity, no adenopathy, non-tender. No signs of meningismus. FROM of the neck with good chin to chest and neck extension. LUNGS: Clear to auscultation. Normal chest wall mechanics. HEART: Tachycardic and regular, no MRG. ABDOMEN: Abdomen soft, mild distention no significant TTP, no masses, no rebound or guarding. BACK: No CVA TTP. SKIN: No rashes and no bruising. UPPER EXTREMITIES: Upper extremities are grossly normal. LOWER EXTREMITIES: Grossly normal, trace pretibial edema without calf pain or erythema. NEURO EXAM: A&O x3, cranial nerves II-XII grossly intact, normal speech, moves all 4 extremities. 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 Degenerative joint disease of knee Left hip pain Spinal stenosis of lumbar region (Chronic) Sacroiliitis Piriformis syndrome (Chronic) Pacemaker Implanted 2018 (for 2:1 AV block), Follows with [facility] cardiology (Dr. Ramírez) Hypertension Medical History Aortic valve disorder Migraine headache Hiatal hernia Cardiomyopathy Aortic insufficiency Nonischemic cardiomyopathy Osteoarthritis Hyperlipidemia "Borderline" LBBB (left bundle branch block) Chronic GERD CAD (coronary artery disease) Mild nonobstructive CAD per 2010 cardiac cath ([place]) Sleep apnea "Mild" > no device prescribed Surgical History History of tonsillectomy History of permanent cardiac pacemaker placement H/O colonoscopy H/O esophagogastroduodenoscopy S/P appy Status post total hip replacement, right Family History Family/Other Family history of diabetes mellitus BROTHER OR SISTER Other Family history non-contributory No family history of adverse response to anesthesia Silicosis Social History Smoking Status: Former smoker Second Hand Exposure: No; Do You Dip or Chew Tobacco: No; Hx Alcohol Use: No Hx Substance Use: No Preferred Language: Latvian Communication Ability: Effective Visual Impairment: No Limitations Alpine Guide Required: No Beliefs That Will Affect Care: None marital status: Current Living Situation: Spouse current occupational status: retired Other Information That Helps Us Care for You: No Feels Safe at Home: Yes Safety Concerns: Feels Safe At This Time Assistive Devices: Cane and Glasses Allergies Allergies Allergy/AdvReac Type Severity Reaction Status Date / Time alfuzosin Allergy Unknown Nausea Verified 11/18/24 19:47 tamsulosin Allergy Unknown Nausea Verified 11/18/24 19:47 terazosin Allergy Unknown Nausea Verified 11/18/24 19:47 Aaupnxw-NHN-OaQ Reductase AdvReac Severe Severe Verified 11/18/24 19:47 Inhibitor muscle [[place]-Ohr-Dhf Reductase weakness, Inhibitor] aches Home Meds Home Medications Medication Instructions Recorded Confirmed cyanocobalamin (vitamin B-12) 1,000 mcg PO 3XWK 08/21/20 11/18/24 1,000 mcg capsule dulaglutide 3 mg/0.5 mL 3 mg subcut WK 11/18/24 11/18/24 subcutaneous pen injector (Trulicity) famotidine 20 mg tablet 40 mg PO PM 11/18/24 11/18/24 finasteride 5 mg tablet 5 mg PO QAM 11/18/24 11/18/24 metformin 1,000 mg tablet 1,000 mg PO BID 11/18/24 11/18/24 metoprolol succinate 50 mg 50 mg PO QAM 11/18/24 11/18/24 tablet,extended release 24 hr sacubitril 49 mg-valsartan 51 mg 1 tab PO BID 11/18/24 11/18/24 tablet (Entresto) Previous Rx's Medication Instructions Recorded acetaminophen 500 mg tablet 1,000 mg (2 x 500 mg) PO Q8 pain 06/11/21 (Tylenol Extra Strength) #21 tabs Results & Data (ED) Vital Signs Vital Signs - 24 hr 11/18/24 15:05 11/18/24 15:08 11/18/24 15:24 Temperature 36.9 C Temperature Source Temporal Artery Scan Pulse Rate 104 H 97 H Pulse Rate [Right Finger] Pulse Rate from SpO2 Sensor Respiratory Rate 16 20 Respiratory Effort / Characteristics Non-Labored Spontaneous Respiratory Depth Normal Respiratory Pattern Blood Pressure 118/65 Blood Pressure [Right Arm] Blood Pressure Mean 82 Blood Pressure Mean [Right Arm] Blood Pressure Position [Right Arm] Pulse Oximetry 95 96 95 Oxygen Delivery Method Room Air Room Air Room Air Sepsis Recent Fever Within 48 Hours No Sepsis New/Unexplained Change in Mental Status No Sepsis Action Taken by Nursing No Action Required 11/18/24 15:39 11/18/24 15:57 11/18/24 16:06 Temperature Temperature Source Pulse Rate 95 H 95 H 97 H Pulse Rate [Right Finger] Pulse Rate from SpO2 Sensor 96 H 89 Respiratory Rate 19 30 H Respiratory Effort / Characteristics Respiratory Depth Respiratory Pattern Blood Pressure 136/73 154/81 H Blood Pressure [Right Arm] Blood Pressure Mean 94 105 Blood Pressure Mean [Right Arm] Blood Pressure Position [Right Arm] Pulse Oximetry 94 94 Oxygen Delivery Method Sepsis Recent Fever Within 48 Hours Sepsis New/Unexplained Change in Mental Status Sepsis Action Taken by Nursing 11/18/24 16:27 11/18/24 16:33 11/18/24 19:19 Temperature 37.9 C H Temperature Source Oral Pulse Rate 97 H 96 H Pulse Rate [Right Finger] 86 Pulse Rate from SpO2 Sensor 84 86 Respiratory Rate 35 H 30 H 24 Respiratory Effort / Characteristics Non-Labored Spontaneous Respiratory Depth Normal Respiratory Pattern Regular Blood Pressure 150/101 H 150/101 H Blood Pressure [Right Arm] 141/72 H Blood Pressure Mean 117 117 Blood Pressure Mean [Right Arm] 95 Blood Pressure Position [Right Arm] Lying Pulse Oximetry 93 93 94 Oxygen Delivery Method Room Air Sepsis Recent Fever Within 48 Hours Sepsis New/Unexplained Change in Mental Status Sepsis Action Taken by Nursing 11/18/24 20:01 Temperature Temperature Source Pulse Rate 92 H Pulse Rate [Right Finger] Pulse Rate from SpO2 Sensor Respiratory Rate Respiratory Effort / Characteristics Respiratory Depth Respiratory Pattern Blood Pressure Blood Pressure [Right Arm] Blood Pressure Mean Blood Pressure Mean [Right Arm] Blood Pressure Position [Right Arm] Pulse Oximetry Oxygen Delivery Method Sepsis Recent Fever Within 48 Hours Sepsis New/Unexplained Change in Mental Status Sepsis Action Taken by Retirement Medications Current Medication List: was personally reviewed by me Laboratory Data Attestation: I reviewed the patient's lab results. 11/19/24 05:24 11/19/24 05:24 Lab Results 11/18/24 Range/Units 15:26 WBC 8.82 (4.8-10.8) K/ul RBC 4.50 L (4.70-6.10) M/uL Hgb 14.7 (14.0-18.0) g/dl Hct 40.5 L (42.0-52.0) % MCV 90.0 (80.0-100.0) fL MCH 32.7 (25.0-34.0) pg MCHC 36.3 H (32.0-36.0) g/dL RDW Std Deviation 41.9 (36.4-46.3) fL RDW Coeff of Lio 12.9 (11.5-14.5) % Plt Count 203 (130-400) K/uL MPV 9.5 (9.4-12.4) fL Immature Gran % (Auto) 0.5 % Neut % (Auto) 82.0 % Lymph % (Auto) 6.2 % Humphreys % (Auto) 10.2 % Eos % (Auto) 1.0 % Baso % (Auto) 0.1 % Neut # (Auto) 7.23 H (1.40-6.50) K/uL Lymph # (Auto) 0.55 L (1.20-3.40) K/uL Humphreys # (Auto) 0.90 H (0.11-0.59) K/uL Eos # (Auto) 0.09 (0.00-0.50) K/uL Baso # (Auto) 0.01 (0.00-0.20) K/uL Immature Gran # (Auto) 0.04 (0.01-0.20) K/uL PT 11.1 (9.0-12.0) Seconds INR 1.0 (0.9-1.1) APTT 28 (21-31) Seconds PTT Ratio 1.0 Sodium 132 L (136-145) mmol/L Potassium 3.3 L (3.5-5.1) mmol/L Chloride 96 L (98-107) mmol/L Carbon Dioxide 25 (21-32) mmol/L Anion Gap 11 (3-11) BUN 19 (6-23) mg/dl Creatinine 1.22 (0.6-1.4) mg/dl Est Cr Clr Drug Dosing Not Reportable eGFR 60.31 BUN/Creatinine Ratio 15.6 (10-20) Glucose 207 H (70-99(Fasting)) mg/dl Calcium 9.4 (8.6-10.3) mg/dl Magnesium 1.7 (1.7-2.4) mg/dl Total Bilirubin 2.4 H (0.2-1.0) mg/dl AST 41 H (13-39) U/L ALT 57 H (7-52) U/L Alkaline Phosphatase 82 (34-104) U/L Troponin I High Sens 13.0 (0-20) pg/ml B-Natriuretic Peptide 419 H (0-100) pg/ml Total Protein 7.4 (6.0-8.3) gm/dl Albumin 4.0 (3.4-5.0) gm/dl Globulin 3.4 (2.5-4.0) gm/dl Albumin/Globulin Ratio 1.2 (0.9-2) Lipase 200 H (11-82) U/L Administered Medications Finasteride (Finasteride 5 Mg Tab) 5 mg PO QAM [facility] Stop: 12/19/24 08:59 Last Admin: 11/19/24 08:54 Dose: 5 mg Documented By: DARCY Sodium Chloride (Nss) 1,000 mls @ 75 mls/hr IV .[id number] URIEL Stop: 11/19/24 21:56 Last Admin: 11/18/24 22:27 Dose: 75 mls/hr Documented By: MAURICIO Piperacillin Sod/Tazobactam Sod (Zosyn) 4.5 gm in 100 mls @ 25 mls/hr IV Q8H URIEL; Protocol Stop: 11/29/24 00:00 Last Admin: 11/19/24 08:53 Dose: 25 mls/hr Documented By: Infusion: 11/19/24 04:13 Dose: Infused Documented By: Admin: 11/19/24 00:13 Dose: 25 mls/hr Documented By: MAURICIO Potassium Chloride (K Cornell / Wtr) 10 meq in 100 mls @ 100 mls/hr IV Q1H URIEL Stop: 11/19/24 12:29 Last Infusion: 11/19/24 10:02 Dose: Infused Documented By: Admin: 11/19/24 09:02 Dose: 100 mls/hr Documented By: DARCY Insulin Aspart (Insulin Aspart Per Unit Charge) 0 units SC Q6 URIEL Stop: 12/19/24 00:00 Last Admin: 11/19/24 05:54 Dose: 1 units Documented By: MAURICIO Co-signed By: MIK Admin: 11/19/24 00:13 Dose: 2 units Documented By: MAURICIO Co-signed By: CLARENCE Metoprolol Succinate (Metoprolol Succ 50mg Ext Rel Tab) 50 mg PO QAM URIEL Stop: 12/19/24 08:59 Last Admin: 11/19/24 08:54 Dose: 50 mg Documented By: DARCY Sacubitril/Valsartan (Valsartan/Sacubitril 51/49 Mg Tab) 1 tab PO BID URIEL Stop: 12/18/24 21:56 Last Admin: 11/19/24 08:54 Dose: 1 tab Documented By: Admin: 11/18/24 22:29 Dose: Not Given Documented By: MAURICIO Discontinued Medications Piperacillin Sod/Tazobactam Sod (Zosyn) 4.5 gm in 100 mls @ 200 mls/hr IV NOW ONE; Protocol Stop: 11/18/24 19:39 Last Infusion: 11/18/24 20:16 Dose: Infused Documented By: Admin: 11/18/24 19:46 Dose: 200 mls/hr Documented By: EDGAR Potassium Chloride (K Cornell / Wtr) 10 meq in 100 mls @ 100 mls/hr IV Q1H URIEL Stop: 11/18/24 22:59 Last Infusion: 11/18/24 23:24 Dose: Infused Documented By: Admin: 11/18/24 22:24 Dose: 100 mls/hr Documented By: Infusion: 11/18/24 22:01 Dose: Infused Documented By: Admin: 11/18/24 21:01 Dose: 100 mls/hr Documented By: EDGAR Ioversol (Optiray 320 100ml) 93 ml IV ONCE ONE Stop: 11/18/24 17:10 Last Admin: 11/18/24 17:09 Dose: 93 ml Documented By: EDK Potassium Chloride (Potassium Chloride 20 Meq/15 Ml Udc) 20 meq PO NOW STA Stop: 11/18/24 20:55 Last Admin: 11/18/24 21:00 Dose: 20 meq Documented By: PAG Imaging Data Radiologist's Impression: Chest/Abdomen X-ray 11/18/24 15:24 EXAM: XR abdomen 2V w PA chest CLINICAL HISTORY: Upper ab fullness, SOB. TECHNIQUE: X-ray images of the chest in PA projection, and abdomen were obtained in supine and upright positions. COMPARISON: X-RAY dated 11/12/2024 FINDINGS: I-Chest: Pulmonary Parenchyma: Left lower zone parenchymal band, not appreciated in the previous images, possibly was masked by cardiac shadow Non-specific prominence of perihilar and right lower zone bronchovascular markings. No evidence of consolidation, collapse, or focal opacities. No pulmonary nodules are identified. No evidence of pleural effusion or pleural thickening. Heart and Mediastinum: The heart size appears enlarged. No hilar or mediastinal lymphadenopathy. Bony Thorax: Degenerative changes in the visualized skeleton. Soft Tissues: Soft tissues overlying the chest wall are unremarkable. A cardiac pacemaker is seen with its distal leads projected over the right atrium, right ventricular apex, and left ventricle. (no interval changes) II-Abdomen: Gas Pattern: Interval increase in the gaseous distension of the bowel loops mainly central and on the right. No evidence of bowel obstruction. No air-fluid levels No pneumoperitoneum. Soft Tissues: Soft tissues of the abdomen appear normal without evidence of calcifications. Tiny faint radiopaque densities are seen in the right renal area. is not appreciated in today's study Right hip prosthesis seen in place without loosening or break. IMPRESSION: 1. The left lower zone parenchymal band not appreciated in the previous radiograph, could be inflammatory. 2. Interval progression of the bowel gas distention, since last study mainly, no air-fluid levels, no pneumoperitoneum. 3. clinical correlation is recommended. Electronically signed by Corby Zuniga 11-18-2024 6:04 PM Abdomen/Pelvis CT 11/18/24 16:27 EXAM: CT abd pelvis IV con only CLINICAL HISTORY: Transaminitis, elevated lipase, upper ab fullness; TECHNIQUE: Contrast-enhanced CT of the abdomen and pelvis was performed, with the following protocol: axial images with, and reconstructed coronal and sagittal images. 93ml opti 320 was administered. One of the following dose reduction techniques was utilized for this exam: Automated exposure control, adjustment of the mA and/or kV according to patient size, and use of iterative reconstruction. DLP: 1444.56 mGy-cm, CTDI: 27.4 mGy. COMPARISON: Compared to prior CT dated 01/24/2023. FINDINGS: Abdomen: Liver: Increase in size 19 cm, shape, and fatty density. multiple small hypodense lesions, with no zonal predilection. Hepatic vasculature and biliary ducts are unremarkable. 19x19 mm gely hepatic lymph node. Gallbladder and Biliary System: The gallbladder is distended 53x12 cm Increase wall thickness with pericholecystic fat strandings. The common bile duct is normal in caliber 3.5 mm without dilation. Pancreas: Pancreatic head, body, and tail are visualized and appear normal in size and density. No pancreatic masses, spot of calcification at uncinate process. The pancreatic duct is not dilated. Spleen: Normal in size, shape, and density. No splenic lesions or masses were identified. Appendix: No signs of acute appendicitis. Kidneys and Adrenal Glands: Both kidneys are normal in size, shape, and position. Cortical thickness is within normal limits. No renal calculi or hydronephrosis. Perinephric fat strandings. Bilateral multiple simple renal cysts, largest at the left lower pole about 11.4x11.4 cm. Adrenal glands are unremarkable with no evidence of masses or hyperplasia. Pelvis: Urinary Bladder: Normal in contour and wall thickness. No intraluminal lesions identified. Prostate: Increase in size 65 gm and contour. No focal lesions or masses identified. Seminal Vesicles: Normal in size and appearance. No abnormalities noted. Rectum and Sigmoid Colon: Normal wall thickness and no evidence of mass. Peritoneal and Retroperitoneal Structures: No free fluid or abnormal fluid collections were identified within the abdomen or pelvis. No lymphadenopathy was noted. Bowel: The visualized bowel loops are normal in caliber and appearance. No evidence of bowel obstruction or wall thickening. Abdominal wall: Fatty umbilical defect 17 mm. Bones and Soft Tissues: Pelvic bones and soft tissues are unremarkable. No fractures or abnormal masses were identified. Lumbar spondylosis with facet arthropathy and L4 over L5 grade I anterior spondylolisthesis. right-sided total hip replacement scanned lower lung lobes: bilateral basal atelectatic changes (stable) IMPRESSION: 1. Inflammatory changes centered on the gallbladder, suggestive of acute non-calcular cholecystitis. US correlation is recommended (new). 2. 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 3. 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 (unchanged). 4. Enlarged prostate 65 gm. (unchanged). 5. Bilateral simple renal cysts (BOSNIAK I) (unchanged). Electronically signed by Corby Zuniga 11-18-2024 6:23 PM Discharge Plan Visit Data Chief Complaint: Cardiac Assessment Stated Complaint: SHORTNESS OF BREATH, HYPERTENSION, ARRHYTHMIA ED Provider: Andre Scott Discharge Problem: Acute cholecystitis, Abdominal pain, Acute dyspnea, Transaminitis Patient Disposition: Admitted As Inpatient Discharge Instructions Interventions: ED Discharge Assessment Last Done: 11/18/24 21:54 Discharge Problem: Abdominal pain Qualifiers: Abdominal location: epigastric Qualified Code(s): R10.13 - Epigastric pain
[2024-11-18 15:53] LABS: Basophils # (auto) 0.01 K/uL (0.00-0.20); Basophils % (auto) 0.1 %; Eosinophils # (auto) 0.09 K/uL (0.00-0.50); Hematocrit (blood only) 40.5 % (42.0-52.0); Hemoglobin 14.7 g/dl (14.0-18.0); Immature Granulocytes # (auto) 0.04 K/uL (0.01-0.20); Immature Granulocytes % (auto) 0.5 %; Lymphocytes # (auto) 0.55 K/uL (1.20-3.40); Lymphocytes % (auto) 6.2 %; Mean Corpuscular Hemoglobin 32.7 pg (25.0-34.0); Mean Corpuscular Hgb Conc 36.3 g/dL (32.0-36.0); Mean Platelet Volume 9.5 fL (9.4-12.4); Monocytes % (auto) 10.2 %; Neutrophils # (auto) 7.23 K/uL (1.40-6.50); Platelet Count 203 K/uL (130-400); RDW Coefficient of Variation 12.9 % (11.5-14.5); RDW Standard Deviation 41.9 fL (36.4-46.3); White Blood Count 8.82 K/ul (4.8-10.8)
[2024-11-18 16:14] LABS: Alanine Aminotransferase 57 U/L (7-52); Albumin Globulin Ratio 1.2 (0.9-2); Alkaline Phosphatase 82 U/L (34-104); Anion Gap 11 (3-11); Aspartate Aminotransferase 41 U/L (13-39); BUN Creatinine Ratio 15.6 (10-20); Bilirubin,Total 2.4 mg/dl (0.2-1.0); Blood Urea Nitrogen 19 mg/dl (6-23); Calcium 9.4 mg/dl (8.6-10.3); Carbon Dioxide 25 mmol/L (21-32); Chloride 96 mmol/L (98-107); Globulin 3.4 gm/dl (2.5-4.0); Glucose 207 mg/dl (70-99(Fasting)); Lipase 200 U/L (11-82); Magnesium 1.7 mg/dl (1.7-2.4); Potassium 3.3 mmol/L (3.5-5.1); Sodium 132 mmol/L (136-145); Total Protein 7.4 gm/dl (6.0-8.3)
[2024-11-18 16:21] LABS: Partial Thromboplastin Time 28 Seconds (21-31); Prothrombin Time 11.1 Seconds (9.0-12.0)
[2024-11-18] MEDS: OPTIRAY 320 100ml IV ONE (17:09)
--- NOTE | 2024-11-18 18:05 | XRay Report ---
EXAM: XR abdomen 2V w PA chest CLINICAL HISTORY: Upper ab fullness, SOB. TECHNIQUE: X-ray images of the chest in PA projection, and abdomen were obtained in supine and upright positions. COMPARISON: X-RAY dated 11/12/2024 FINDINGS: I-Chest: Pulmonary Parenchyma: Left lower zone parenchymal band, not appreciated in the previous images, possibly was masked by cardiac shadow Non-specific prominence of perihilar and right lower zone bronchovascular markings. No evidence of consolidation, collapse, or focal opacities. No pulmonary nodules are identified. No evidence of pleural effusion or pleural thickening. Heart and Mediastinum: The heart size appears enlarged. No hilar or mediastinal lymphadenopathy. Bony Thorax: Degenerative changes in the visualized skeleton. Soft Tissues: Soft tissues overlying the chest wall are unremarkable. A cardiac pacemaker is seen with its distal leads projected over the right atrium, right ventricular apex, and left ventricle. (no interval changes) II-Abdomen: Gas Pattern: Interval increase in the gaseous distension of the bowel loops mainly central and on the right. No evidence of bowel obstruction. No air-fluid levels No pneumoperitoneum. Soft Tissues: Soft tissues of the abdomen appear normal without evidence of calcifications. Tiny faint radiopaque densities are seen in the right renal area. is not appreciated in today's study Right hip prosthesis seen in place without loosening or break. IMPRESSION: 1. The left lower zone parenchymal band not appreciated in the previous radiograph, could be inflammatory. 2. Interval progression of the bowel gas distention, since last study mainly, no air-fluid levels, no pneumoperitoneum. 3. clinical correlation is recommended. Electronically signed by Corby Zuniga 11-18-2024 6:04 PM
--- NOTE | 2024-11-18 18:23 | CT Scan Report ---
EXAM: CT abd pelvis IV con only CLINICAL HISTORY: Transaminitis, elevated lipase, upper ab fullness; TECHNIQUE: Contrast-enhanced CT of the abdomen and pelvis was performed, with the following protocol: axial images with, and reconstructed coronal and sagittal images. 93ml opti 320 was administered. One of the following dose reduction techniques was utilized for this exam: Automated exposure control, adjustment of the mA and/or kV according to patient size, and use of iterative reconstruction. DLP: 1444.56 mGy-cm, CTDI: 27.4 mGy. COMPARISON: Compared to prior CT dated 01/24/2023. FINDINGS: Abdomen: Liver: Increase in size 19 cm, shape, and fatty density. multiple small hypodense lesions, with no zonal predilection. Hepatic vasculature and biliary ducts are unremarkable. 19x19 mm gely hepatic lymph node. Gallbladder and Biliary System: The gallbladder is distended 53x12 cm Increase wall thickness with pericholecystic fat strandings. The common bile duct is normal in caliber 3.5 mm without dilation. Pancreas: Pancreatic head, body, and tail are visualized and appear normal in size and density. No pancreatic masses, spot of calcification at uncinate process. The pancreatic duct is not dilated. Spleen: Normal in size, shape, and density. No splenic lesions or masses were identified. Appendix: No signs of acute appendicitis. Kidneys and Adrenal Glands: Both kidneys are normal in size, shape, and position. Cortical thickness is within normal limits. No renal calculi or hydronephrosis. Perinephric fat strandings. Bilateral multiple simple renal cysts, largest at the left lower pole about 11.4x11.4 cm. Adrenal glands are unremarkable with no evidence of masses or hyperplasia. Pelvis: Urinary Bladder: Normal in contour and wall thickness. No intraluminal lesions identified. Prostate: Increase in size 65 gm and contour. No focal lesions or masses identified. Seminal Vesicles: Normal in size and appearance. No abnormalities noted. Rectum and Sigmoid Colon: Normal wall thickness and no evidence of mass. Peritoneal and Retroperitoneal Structures: No free fluid or abnormal fluid collections were identified within the abdomen or pelvis. No lymphadenopathy was noted. Bowel: The visualized bowel loops are normal in caliber and appearance. No evidence of bowel obstruction or wall thickening. Abdominal wall: Fatty umbilical defect 17 mm. Bones and Soft Tissues: Pelvic bones and soft tissues are unremarkable. No fractures or abnormal masses were identified. Lumbar spondylosis with facet arthropathy and L4 over L5 grade I anterior spondylolisthesis. right-sided total hip replacement scanned lower lung lobes: bilateral basal atelectatic changes (stable) IMPRESSION: 1. Inflammatory changes centered on the gallbladder, suggestive of acute non-calcular cholecystitis. US correlation is recommended (new). 2. 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 3. 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 (unchanged). 4. Enlarged prostate 65 gm. (unchanged). 5. Bilateral simple renal cysts (BOSNIAK I) (unchanged). Electronically signed by Corby Zuniga 11-18-2024 6:23 PM
[2024-11-18] MEDS: PIPERACILLIN/TAZOBACTAM 4.5 GM/100 ML BAG IV ONE (19:46)
--- NOTE | 2024-11-18 20:04 | Surgery Consultation ---
Date of Consultation November 18, 2024 Assessment & Plan (1) Cholecystitis, acute: The patient has symptomatic cholelithiasis acute flareup at this time I recommend proceed with laparoscopic cholecystectomy possible open interesting the liver enzyme is slightly elevated total bili alkaline phosphatase normal he does have an amylase of 200 clinically has some dark urine therefore at this time we will repeat the liver enzymes in the morning along with the amylase and pending those results he may need MRCP prior to surgery The medical service is seeing the patient admitting and clearing for surgery Presently is on antibiotic The procedure was discussed with the patient and his including bleeding infection and most likely repair that umbilical hernia defect since we have been neurorehab but are not one of the more trocars All question answered History of Present Illness Reason for Consultation: Symptomatic cholelithiasis History of Present Illness This 78-year-old gentleman with nonischemic cardiomyopathy aortic insufficiency hyperlipidemia coronary artery disease has had a longstanding history of gallbladder dysfunction as far as eating certain foods triggering some pain in the upper abdomen especially fatty foods spicy foods on Wednesday had an acute episode and a persistent he came in to be evaluated and underwent a CT scan of the abdomen which showed acute cholecystitis common bile duct 3.5 mm we were asked to see for consideration of cholecystectomy He has had an extremely longstanding history of spicy foods and fatty food intolerances The here at the bedside and noticed that recently his urine has been pretty dark orange Allergies Allergy/AdvReac Type Severity Reaction Status Date / Time alfuzosin Allergy Unknown Nausea Verified 11/18/24 19:47 tamsulosin Allergy Unknown Nausea Verified 11/18/24 19:47 terazosin Allergy Unknown Nausea Verified 11/18/24 19:47 [id number] Reductase AdvReac Severe Severe Verified 11/18/24 19:47 Inhibitor muscle [Bjnbabs-Rqy-Ebd Reductase weakness, Inhibitor] aches Home Medications Medication Instructions Recorded Confirmed Type cyanocobalamin (vitamin B-12) 1,000 mcg PO 3XWK 08/21/20 11/18/24 History 1,000 mcg capsule acetaminophen 500 mg tablet 1,000 mg (2 x 500 mg) PO Q8 pain 06/11/21 11/18/24 Rx (Tylenol Extra Strength) #21 tabs dulaglutide 3 mg/0.5 mL 3 mg subcut WK 11/18/24 11/18/24 History subcutaneous pen injector (Trulicity) famotidine 20 mg tablet 40 mg PO PM 11/18/24 11/18/24 History finasteride 5 mg tablet 5 mg PO QAM 11/18/24 11/18/24 History metformin 1,000 mg tablet 1,000 mg PO BID 11/18/24 11/18/24 History metoprolol succinate 50 mg 50 mg PO QAM 11/18/24 11/18/24 History tablet,extended release 24 hr sacubitril 49 mg-valsartan 51 mg 1 tab PO BID 11/18/24 11/18/24 History tablet (Entresto) Patient History Medical History Aortic valve disorder Migraine headache Hiatal hernia Cardiomyopathy Aortic insufficiency Nonischemic cardiomyopathy Osteoarthritis Hyperlipidemia "Borderline" LBBB (left bundle branch block) Chronic GERD CAD (coronary artery disease) Mild nonobstructive CAD per 2010 cardiac cath ([place]) Sleep apnea "Mild" > no device prescribed Surgical History History of tonsillectomy History of permanent cardiac pacemaker placement H/O colonoscopy H/O esophagogastroduodenoscopy S/P appy Status post total hip replacement, right Family History Family/Other Family history of diabetes mellitus BROTHER OR SISTER Other Family history non-contributory No family history of adverse response to anesthesia Silicosis Social History Smoking Status: Former smoker Second Hand Exposure: No; Do You Dip or Chew Tobacco: No; Hx Alcohol Use: No Hx Substance Use: No Preferred Language: Italian Communication Ability: Effective Visual Impairment: No Limitations Coke Drawer Required: No Beliefs That Will Affect Care: None marital status: Current Living Situation: Spouse current occupational status: retired Other Information That Helps Us Care for You: No Feels Safe at Home: Yes Safety Concerns: Feels Safe At This Time Assistive Devices: Cane and Glasses Review of Systems Review of Systems: Positive for cardiac issues fatty foods spicy food intolerances The patient has no chest pain going up a flight of stairs and no shortness of breath although lately according to the he has a little trouble walking with his balance Physical Exam Physical Exam: Alert coherent in no distress sclera minimally icteric No cervical lymphadenopathy trachea midline Lungs no rhonchi or rails audible Heart normal sinus rhythm The abdomen distended right upper quadrant tenderness patient has an umbilical hernia large completely reduced measuring the size of centimeter and a half or so as far as the defect Extremity grossly normal Results & Data Vital Signs (Past 12 Hours) Vital Signs Temp Pulse Pulse Resp BP BP Pulse Ox 11/18/24 19:19 37.9 C H 86 24 141/72 H 94 11/18/24 16:33 96 H 30 H 150/101 H 93 11/18/24 16:27 97 H 35 H 150/101 H 93 11/18/24 16:06 97 H 11/18/24 15:57 95 H 30 H 154/81 H 94 11/18/24 15:39 95 H 19 136/73 94 11/18/24 15:24 97 H 20 95 11/18/24 15:08 36.9 C 104 H 16 118/65 96 11/18/24 15:05 95 O2 Del Method 11/18/24 19:19 Room Air 11/18/24 16:33 11/18/24 16:27 11/18/24 16:06 11/18/24 15:57 11/18/24 15:39 11/18/24 15:24 Room Air 11/18/24 15:08 Room Air 11/18/24 15:05 Room Air Laboratory Results Normal white count with left shift total bilirubin 2.4 alkaline phosphatase 82 lipase 200 Diagnostic Findings Noted PG Care Time/CCT Total # of Minutes Spent Total Time Spent with Patient: Total time spent is greater than 50% in coordination of care (as documented) at patient's floor/unit and/or counseling patient: Coding Level of Care Code 41860 INT INP/OBS CARE MIN Diagnoses Cholecystitis, acute K81.0
--- NOTE | 2024-11-18 20:43 | History & Physical Report ---
Date of Service November 18, 2024 Assessment & Plan (1) Cholecystitis, acute: Plan: 78-year-old male with past medical history significant for type 2 diabetes, hyperlipidemia, nonischemic dilated cardiomyopathy, chronic systolic CHF EF 30 to 34%, chronic left bundle branch block, symptomatic 2:1 AV block status post biventricular pacemaker in 2019, moderate aortic insufficiency, hypertension GERD, schatzki ring, hiatal hernia, B12 deficiency, anxiety disorder, BPH comes from home because of abdominal pain, nausea and vomiting. Patient states symptoms started last Wednesday. Pain in the epigastric region radiating to back. Associated with nausea and vomiting. No blood in the vomitus. He was in the ER on Wednesday. Symptoms not improving and was spiking temperature today and brought to hospital . also noticed heart rate was irregular. Somewhat con stipated. Urine is orange color. Denies any chest pain or shortness of breath. No headache. No runny nose or sore throat or cough. No earaches. Family in the room. Acute cholecystitis Presents with abdominal pain nausea vomiting and fevers Labs showed elevated LFTs Total bilirubin 2.4. AST 41. ALT 57. Alk phos 82. CT abdomen pelvis showing acute non calcular cholecystitis. Will get ultrasound. NPO. IV fluids. IV pain meds as needed. IV Zosyn. follow repeat labs Surgery consulted. Chronic left bundle branch block Symptomatic 2:1 AV block Status post biventricular pacemaker in 2019 As per epic records pacemaker is not MRI compatible at [facility] Nonischemic dilated cardiomyopathy Chronic systolic CHF with EF of 30 to 34% Moderate aortic insufficiency Continue home metoprolol and Entresto Not on diuretics Getting gentle fluids Will monitor for volume overload Type 2 diabetes On Trulicity Will hold metformin Sliding scale Will monitor Hypertension On metoprolol and Entresto Will monitor GERD On famotidine BPH On finasteride DVT prophylaxis SCDs Disposition Med/telemetry Full code History of Present Illness Chief Complaint: Abdominal pain Primary Care Provider: Mookie Coyne MD 78-year-old male with past medical history significant for type 2 diabetes, hyperlipidemia, nonischemic dilated cardiomyopathy, chronic systolic CHF EF 30 to 34%, chronic left bundle branch block, symptomatic 2:1 AV block status post biventricular pacemaker in 2019, moderate aortic insufficiency, hypertension GERD, schatzki ring, hiatal hernia, B12 deficiency, anxiety disorder, BPH comes from home because of abdominal pain, nausea and vomiting. Patient states symptoms started last Wednesday. Pain in the epigastric region radiating to back. Associated with nausea and vomiting. No blood in the vomitus. He was in the ER on Wednesday. Symptoms not improving and was spiking temperature today and brought to hospital . also noticed heart rate was irregular. Somewhat constipated. Urine is orange color. Denies any chest pain or shortness of breath. No headache. No runny nose or sore throat or cough. No earaches. Family in the room. Past medical history. As mentioned above Past surgical history. Colonoscopy. EGD. Sinus surgery. Right foot surgery. Pacemaker insertion. Appendectomy. Bilateral cataracts. Tonsillectomy and adenoidectomy. Right total hip replacement. Right total knee replacement. Social history. . Former smoker. Alcohol rarely. No drug use. Family history. Mother had cancer. Diabetes. Father had black lung. Sister had diabetes. Allergies Allergy/AdvReac Type Severity Reaction Status Date / Time alfuzosin Allergy Unknown Nausea Verified 11/18/24 19:47 tamsulosin Allergy Unknown Nausea Verified 11/18/24 19:47 terazosin Allergy Unknown Nausea Verified 11/18/24 19:47 Ynwakvi-BLC-WeY Reductase AdvReac Severe Severe Verified 11/18/24 19:47 Inhibitor muscle [Pqkwops-Hbk-Nio Reductase weakness, Inhibitor] aches Home Medications Medication Instructions Recorded Confirmed Type cyanocobalamin (vitamin B-12) 1,000 mcg PO 3XWK 08/21/20 11/18/24 History 1,000 mcg capsule acetaminophen 500 mg tablet 1,000 mg (2 x 500 mg) PO Q8 pain 06/11/21 11/18/24 Rx (Tylenol Extra Strength) #21 tabs dulaglutide 3 mg/0.5 mL 3 mg subcut WK 11/18/24 11/18/24 History subcutaneous pen injector (Trulicity) famotidine 20 mg tablet 40 mg PO PM 11/18/24 11/18/24 History finasteride 5 mg tablet 5 mg PO QAM 11/18/24 11/18/24 History metformin 1,000 mg tablet 1,000 mg PO BID 11/18/24 11/18/24 History metoprolol succinate 50 mg 50 mg PO QAM 11/18/24 11/18/24 History tablet,extended release 24 hr sacubitril 49 mg-valsartan 51 mg 1 tab PO BID 11/18/24 11/18/24 History tablet (Entresto) Past Med/Surg History Problem List (Updated 11/18/24 @ 20:02 by Elio Boothe MD, FACS) Cholecystitis, acute Vomiting (Acute) Pacemaker battery depletion Nonischemic cardiomyopathy Diabetes NIDDM Post-operative pain (Acute) Status post revision of total replacement of right knee (Acute) Knee pain, right 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 Degenerative joint disease of knee Left hip pain Spinal stenosis of lumbar region (Chronic) Sacroiliitis Piriformis syndrome (Chronic) Pacemaker Implanted 2018 (for 2:1 AV block), Follows with [facility] cardiology (Dr. Ramírez) Hypertension Medical History Aortic valve disorder Migraine headache Hiatal hernia Cardiomyopathy Aortic insufficiency Nonischemic cardiomyopathy Osteoarthritis Hyperlipidemia "Borderline" LBBB (left bundle branch block) Chronic GERD CAD (coronary artery disease) Mild nonobstructive CAD per 2011 cardiac cath ([place]) Sleep apnea "Mild" > no device prescribed Surgical History History of tonsillectomy History of permanent cardiac pacemaker placement H/O colonoscopy H/O esophagogastroduodenoscopy S/P appy Status post total hip replacement, right Family History Family/Other Family history of diabetes mellitus BROTHER OR SISTER Other Family history non-contributory No family history of adverse response to anesthesia Silicosis Social History Smoking Status: Former smoker Second Hand Exposure: No; Do You Dip or Chew Tobacco: No; Hx Alcohol Use: No Hx Substance Use: No Preferred Language: Armenian Communication Ability: Effective Visual Impairment: No Limitations Television Announcer Required: No Beliefs That Will Affect Care: None marital status: Current Living Situation: Spouse current occupational status: retired Other Information That Helps Us Care for You: No Feels Safe at Home: Yes Safety Concerns: Feels Safe At This Time Assistive Devices: Cane and Glasses Review of Systems Review of Systems: All systems reviewed & are unremarkable except as noted in HPI & below Physical Exam Physical Exam: General- Not in distress. Head- atraumatic Eyes- PERRL. ENT- oropharynx dry Neck- supple, no JVD. Lungs- clear to auscultation no wheezing or crackles Heart- regular rhythm; no murmur, no gallop. Abdomen- normal bowel sounds, soft, mild diffuse discomfort, no distension. Extremities- trace pretibial edema, no erythema seen Neuro- alert, oriented PERRL, no facial palsy; no dysarthria; moves extremities Results & Data Results & Data Vital Signs (Past 12 Hours) Vital Signs Temp Pulse Pulse Resp BP BP Pulse Ox 11/18/24 20:01 92 H 11/18/24 19:19 37.9 C H 86 24 141/72 H 94 11/18/24 16:33 96 H 30 H 150/101 H 93 11/18/24 16:27 97 H 35 H 150/101 H 93 11/18/24 16:06 97 H 11/18/24 15:57 95 H 30 H 154/81 H 94 11/18/24 15:39 95 H 19 136/73 94 11/18/24 15:24 97 H 20 95 11/18/24 15:08 36.9 C 104 H 16 118/65 96 11/18/24 15:05 95 O2 Del Method 11/18/24 20:01 11/18/24 19:19 Room Air 11/18/24 16:33 11/18/24 16:27 11/18/24 16:06 11/18/24 15:57 11/18/24 15:39 11/18/24 15:24 Room Air 11/18/24 15:08 Room Air 11/18/24 15:05 Room Air Diagnostic Findings Laboratory Results WBC 8.82 K/ul (4.8-10.8) 11/18/24 15:26 RBC 4.50 M/uL (4.70-6.10) L 11/18/24 15: Hgb 14.7 g/dl (14.0-18.0) 11/18/24: Hct 40.5 % (42.0-52.0) L 11/18/24: MCV 90.0 fL (80.0-100.0) 11/18/24: MCH 32.7 pg (25.0-34.0) 11/18/24: MCHC 36.3 g/dL (32.0-36.0) H 11/18/24: RDW Std Deviation 41.9 fL (36.4-46.3) 11/18/24 RDW Coeff of Lio 12.9 % (11.5-14.5) 11/18/24 Plt Count 203 K/uL (130-400) 11/18/24 MPV 9.5 fL (9.4-12.4) 11/18/24: Immature Gran % (Auto) 0.5 % 11/18/24: Neut % (Auto) 82.0 % 11/18/24: Lymph % (Auto) 6.2 % 11/18/24: [place] % (Auto) 10.2 % 11/18/24: Eos % (Auto) 1.0 % 11/18/24: Baso % (Auto) 0.1 % 11/18/24: Neut # (Auto) 7.23 K/uL (1.40-6.50) H 11/18/24 15: Lymph # (Auto) 0.55 K/uL (1.20-3.40) L 11/18/24: [place] # (Auto) 0.90 K/uL (0.11-0.59) H 11/18/24: Eos # (Auto) 0.09 K/uL (0.00-0.50) 11/18/24: Baso # (Auto) 0.01 K/uL (0.00-0.20) 11/18/24: Immature Gran # (Auto) 0.04 K/uL (0.01-0.20) 11/18/24 15: PT 11.1 Seconds (9.0-12.0) 11/18/24: INR 1.0 (0.9-1.1) 11/18/24 15: APTT 28 Seconds (21-31) 11/18/24: PTT Ratio 1.0 11/18/24: Sodium 132 mmol/L (136-145) L 11/18/24: Potassium 3.3 mmol/L (3.5-5.1) L 11/18/24: Chloride 96 mmol/L (98-107) L 11/18/24: Carbon Dioxide 25 mmol/L (21-32) 11/18/24 Anion Gap 11 (3-11) 11/18/24: BUN 19 mg/dl (6-23) 11/18/24: Creatinine 1.22 mg/dl (0.6-1.4) 11/18/24 Est Cr Clr Drug Dosing Not Reportable 11/18/24 eGFR 60.31 11/18/24 BUN/Creatinine Ratio 15.6 (10-20) 11/18/24: Glucose 207 mg/dl (70-99(Fasting)) H 11/18/24: Calcium 9.4 mg/dl (8.6-10.3) 11/18/24: Magnesium 1.7 mg/dl (1.7-2.4) 11/18/24: Total Bilirubin 2.4 mg/dl (0.2-1.0) H 11/18/24: AST 41 U/L (13-39) H 11/18/24: ALT 57 U/L (7-52) H 11/18/24: Alkaline Phosphatase 82 U/L (34-104) 11/18/24: Troponin I High Sens 13.0 pg/ml (0-20) 11/18/24: B-Natriuretic Peptide 419 pg/ml (0-100) H 11/18/24: Total Protein 7.4 gm/dl (6.0-8.3) 03/15/25 15:26 Albumin 4.0 gm/dl (3.4-5.0) 11/18/24 15:26 Globulin 3.4 gm/dl (2.5-4.0) 11/18/24 15:26 Albumin/Globulin Ratio 1.2 (0.9-2) 11/18/24 15:26 Lipase 200 U/L (11-82) H 11/18/24 15:26 Impressions Chest/Abdomen X-ray 11/18/24 15:24 EXAM: XR abdomen 2V w PA chest CLINICAL HISTORY: Upper ab fullness, SOB. TECHNIQUE: X-ray images of the chest in PA projection, and abdomen were obtained in supine and upright positions. COMPARISON: X-RAY dated 11/12/2024 FINDINGS: I-Chest: Pulmonary Parenchyma: Left lower zone parenchymal band, not appreciated in the previous images, possibly was masked by cardiac shadow Non-specific prominence of perihilar and right lower zone bronchovascular markings. No evidence of consolidation, collapse, or focal opacities. No pulmonary nodules are identified. No evidence of pleural effusion or pleural thickening. Heart and Mediastinum: The heart size appears enlarged. No hilar or mediastinal lymphadenopathy. Bony Thorax: Degenerative changes in the visualized skeleton. Soft Tissues: Soft tissues overlying the chest wall are unremarkable. A cardiac pacemaker is seen with its distal leads projected over the right atrium, right ventricular apex, and left ventricle. (no interval changes) II-Abdomen: Gas Pattern: Interval increase in the gaseous distension of the bowel loops mainly central and on the right. No evidence of bowel obstruction. No air-fluid levels No pneumoperitoneum. Soft Tissues: Soft tissues of the abdomen appear normal without evidence of calcifications. Tiny faint radiopaque densities are seen in the right renal area. is not appreciated in today's study Right hip prosthesis seen in place without loosening or break. IMPRESSION: 1. The left lower zone parenchymal band not appreciated in the previous radiograph, could be inflammatory. 2. Interval progression of the bowel gas distention, since last study mainly, no air-fluid levels, no pneumoperitoneum. 3. clinical correlation is recommended. Electronically signed by Corby Zuniga 11-18-2024 6:04 PM Abdomen/Pelvis CT 11/18/24 16:27 EXAM: CT abd pelvis IV con only CLINICAL HISTORY: Transaminitis, elevated lipase, upper ab fullness; TECHNIQUE: Contrast-enhanced CT of the abdomen and pelvis was performed, with the following protocol: axial images with, and reconstructed coronal and sagittal images. 93ml opti 320 was administered. One of the following dose reduction techniques was utilized for this exam: Automated exposure control, adjustment of the mA and/or kV according to patient size, and use of iterative reconstruction. DLP: 1444.56 mGy-cm, CTDI: 27.4 mGy. COMPARISON: Compared to prior CT dated 01/24/2023. FINDINGS: Abdomen: Liver: Increase in size 19 cm, shape, and fatty density. multiple small hypodense lesions, with no zonal predilection. Hepatic vasculature and biliary ducts are unremarkable. 19x19 mm gely hepatic lymph node. Gallbladder and Biliary System: The gallbladder is distended 53x12 cm Increase wall thickness with pericholecystic fat strandings. The common bile duct is normal in caliber 3.5 mm without dilation. Pancreas: Pancreatic head, body, and tail are visualized and appear normal in size and density. No pancreatic masses, spot of calcification at uncinate process. The pancreatic duct is not dilated. Spleen: Normal in size, shape, and density. No splenic lesions or masses were identified. Appendix: No signs of acute appendicitis. Kidneys and Adrenal Glands: Both kidneys are normal in size, shape, and position. Cortical thickness is within normal limits. No renal calculi or hydronephrosis. Perinephric fat strandings. Bilateral multiple simple renal cysts, largest at the left lower pole about 11.4x11.4 cm. Adrenal glands are unremarkable with no evidence of masses or hyperplasia. Pelvis: Urinary Bladder: Normal in contour and wall thickness. No intraluminal lesions identified. Prostate: Increase in size 65 gm and contour. No focal lesions or masses identified. Seminal Vesicles: Normal in size and appearance. No abnormalities noted. Rectum and Sigmoid Colon: Normal wall thickness and no evidence of mass. Peritoneal and Retroperitoneal Structures: No free fluid or abnormal fluid collections were identified within the abdomen or pelvis. No lymphadenopathy was noted. Bowel: The visualized bowel loops are normal in caliber and appearance. No evidence of bowel obstruction or wall thickening. Abdominal wall: Fatty umbilical defect 17 mm. Bones and Soft Tissues: Pelvic bones and soft tissues are unremarkable. No fractures or abnormal masses were identified. Lumbar spondylosis with facet arthropathy and L4 over L5 grade I anterior spondylolisthesis. right-sided total hip replacement scanned lower lung lobes: bilateral basal atelectatic changes (stable) IMPRESSION: 1. Inflammatory changes centered on the gallbladder, suggestive of acute non-calcular cholecystitis. US correlation is recommended (new). 2. 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 3. 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 (unchanged). 4. Enlarged prostate 65 gm. (unchanged). 5. Bilateral simple renal cysts (BOSNIAK I) (unchanged). Electronically signed by Corby Zuniga 11-18-2024 6:23 PM ECG Additional Comments: ECG. Atrial sensed ventricular paced rhythm with occasional PVCs at the rate of 101. QTc 518 Code Status & VTE Plan VTE Prophylaxis Plan VTE Prophylaxis will be ordered: Yes
[2024-11-18 20:48] LABS: Albumin Level 3.5 gm/dl (3.4-5.0); Total Protein 6.3 gm/dl (6.0-8.3)
[2024-11-18 20:55] LABS: Troponin I High Sensitivity 12.5 pg/ml (0-20)
[2024-11-18] MEDS: POTASSIUM CHLORIDE 20 MEQ/15 ML UDC PO STA (21:00)
[2024-11-18] MEDS: POTASSIUM CHLORIDE / WTR 10 MEQ/100 ML PLCT IV SCH (21:01)
[2024-11-18] MEDS ORDERED: GLUCOSE 10 TAB/TUBE PO PRN (21:57)
[2024-11-18] MEDS ORDERED: NITROGLYCERIN SL 0.4 MG/TAB TAB SL PRN (21:57)
[2024-11-18] MEDS ORDERED: CARBOHYDRATES FOR HYPOGLYCEMIA PO PRN (21:57)
[2024-11-18] MEDS ORDERED: DEXTROSE 50% 50 ML SYRINGE IV PRN (21:57)
[2024-11-18] MEDS ORDERED: GLUCOSE 40% GEL 15 GM TUBE PO PRN (21:57)
[2024-11-18] MEDS ORDERED: GLUCAGON FOR INJ 1 MG VIAL SQ PRN (21:57)
[2024-11-18] MEDS ORDERED: ONDANSETRON INJ 2 MG/ML 2 ML VIAL IV PRN (21:57)
[2024-11-18] MEDS ORDERED: HYDROmorphone INJ 0.5 MG/0.5 ML SYR IV PRN ×2 (21:57)
[2024-11-18] MEDS: SODIUM CHLORIDE 0.9% 1,000 ML IV SCH (22:27)
[2024-11-18] MEDS: VALSARTAN/SACUBITRIL 51/49 MG TAB PO SCH (22:29)
--- NOTE | 2024-11-19 00:09 | Ultrasound Report ---
Exam(s): US GALLBLADDER EXAM: US Abdomen Limited, Gallbladder CLINICAL HISTORY: Reason for exam: elevated liver enzymes. cholecystitis. TECHNIQUE: Real-time ultrasound of the right upper quadrant with image documentation. COMPARISON: CT scan from November 18, 2024 FINDINGS: Liver: The liver is fatty infiltrated. There are numerous small simple cyst scattered throughout the liver measuring up to 1 cm. The portal vein is patent with normal hepatopetal flow. The liver is enlarged measuring 20.4 cm craniocaudad. Gallbladder: The gallbladder is dilated measuring 5 x 11 cm with sludge and small amount calcified stones within it dependently, wall thickening measuring 7 mm and a trace amount of pericholecystic fluid consistent with acute cholecystitis. Common bile duct: The common bile duct is nondilated measuring 3 mm. Pancreas: The pancreas is obscured by bowel gas. Right kidney: The right kidney measures 12.4 cm. There are simple cysts measuring 1.7 cm extending off the right kidney. No follow-up is required. IMPRESSION: The gallbladder is dilated measuring 5 x 11 cm with sludge and small amount calcified stones within it dependently, wall thickening measuring 7 mm, and a trace amount of pericholecystic fluid consistent with acute cholecystitis. Electronically signed by: Jason Max MD 11/19/24 00:09 AM
[2024-11-19] MEDS: INSULIN ASPART PER UNIT CHARGE SC SCH (00:13)
[2024-11-19] MEDS: PIPERACILLIN/TAZOBACTAM 4.5 GM/100 ML BAG IV SCH (00:13)
[2024-11-19 05:56] LABS: Basophils # (auto) 0.02 K/uL (0.00-0.20); Basophils % (auto) 0.3 %; Eosinophils # (auto) 0.11 K/uL (0.00-0.50); Eosinophils % (auto) 1.6 %; Hematocrit (blood only) 35.1 % (42.0-52.0); Immature Granulocytes # (auto) 0.03 K/uL (0.01-0.20); Immature Granulocytes % (auto) 0.4 %; Lymphocytes # (auto) 0.43 K/uL (1.20-3.40); Lymphocytes % (auto) 6.3 %; Mean Corpuscular Hemoglobin 33.1 pg (25.0-34.0); Mean Corpuscular Volume 89.3 fL (80.0-100.0); Mean Platelet Volume 9.5 fL (9.4-12.4); Monocytes # (auto) 0.69 K/uL (0.11-0.59); Monocytes % (auto) 10.1 %; Neutrophils # (auto) 5.58 K/uL (1.40-6.50); Neutrophils % (auto) 81.3 %; Platelet Count 175 K/uL (130-400); RDW Coefficient of Variation 12.5 % (11.5-14.5); RDW Standard Deviation 41.1 fL (36.4-46.3); Red Blood Count 3.93 M/uL (4.70-6.10); White Blood Count 6.86 K/ul (4.8-10.8)
[2024-11-19 06:08] LABS: Albumin Level 3.3 gm/dl (3.4-5.0); Bilirubin Direct 0.9 mg/dl (0-0.2); Bilirubin,Total 1.9 mg/dl (0.2-1.0); Calcium 8.5 mg/dl (8.6-10.3); Creatinine Clr Calc Pharmacy 67.4 ml/min; Magnesium 1.6 mg/dl (1.7-2.4); Potassium 3.4 mmol/L (3.5-5.1); Total Protein 6.1 gm/dl (6.0-8.3)
[2024-11-19 08:26] LABS: Estimated Average Glucose 148 mg/dl; Hemoglobin A1C 6.8 % (4.5-5.6)
[2024-11-19] MEDS ORDERED: PROPOFOL IV EMULSION 10 MG/ML 20 ML VIAL IV ONE (08:36)
[2024-11-19] MEDS ORDERED: ONDANSETRON INJ 2 MG/ML 2 ML VIAL ONE (08:36)
[2024-11-19] MEDS ORDERED: CISATRACURIUM BESYLATE IV SOLN 2 MG/ML 10 ML VIAL IV ONE ×2 (08:36→11:11)
[2024-11-19] MEDS ORDERED: fentaNYL citrate PF 100 MCG/2 ML VIAL ONE ×3 (08:36→12:17)
[2024-11-19] MEDS ORDERED: LIDOCAINE 2% 2 ML VIAL/AMP(20MG/ML) INFIL ONE (08:36)
--- NOTE | 2024-11-19 08:48 | Anesthesiology Consultation ---
Date of Service November 19, 2024 Assessment & Plan Chart Review Chart Review: Acceptable Risk for Surgery and Patient NOT seen in Pre Admission Testing Consults Requested none ASA [id number] Proposed Anesthesia Anesthesia Type: General Anesthesia Line Insertion: Arterial line History Surgery Operation Date: 11/19/24 10:00 Proposed Procedures p Laparoscopic Cholecystectomy - Elio Boothe MD, FACS Height/Weight Height: 6 ft 1 in Weight: 108.7 kg Allergies Allergy/AdvReac Type Severity Reaction Status Date / Time alfuzosin Allergy Unknown Nausea Verified 11/18/24 19:47 tamsulosin Allergy Unknown Nausea Verified 11/18/24 19:47 terazosin Allergy Unknown Nausea Verified 11/18/24 19:47 Humkjif-YNR-ZhE Reductase AdvReac Severe Severe Verified 11/18/24 19:47 Inhibitor muscle [Lsoeurx-Efh-Nyq Reductase weakness, Inhibitor] aches Medications Home Medications Medication Instructions Recorded Confirmed Last Taken cyanocobalamin (vitamin B-12) 1,000 mcg PO 3XWK 08/21/20 11/18/24 11/16/24 1,000 mcg capsule acetaminophen 500 mg tablet 1,000 mg (2 x 500 mg) PO Q8 pain 06/11/21 11/18/24 Unknown (Tylenol Extra Strength) #21 tabs dulaglutide 3 mg/0.5 mL 3 mg subcut WK 11/18/24 11/18/24 11/13/24 subcutaneous pen injector (Trulicity) famotidine 20 mg tablet 40 mg PO PM 11/18/24 11/18/24 Unknown finasteride 5 mg tablet 5 mg PO QAM 11/18/24 11/18/24 Unknown metformin 1,000 mg tablet 1,000 mg PO BID 11/18/24 11/18/24 Unknown metoprolol succinate 50 mg 50 mg PO QAM 11/18/24 11/18/24 11/15/24 tablet,extended release 24 hr sacubitril 49 mg-valsartan 51 mg 1 tab PO BID 11/18/24 11/18/24 Unknown tablet (Entresto) Active Medications Generic Name Dose Route Start Last Admin Trade Name Freq PRN Reason Stop Dose Admin Sodium Chloride 1,000 mls @ 75 mls/hr 11/18/24 21:57 11/18/24 22:27 Nss IV 11/19/24 21:56 75 mls/hr .[id number] URIEL Administration Piperacillin Sod/Tazobactam Sod 4.5 gm in 100 mls @ 25 mls/hr 11/19/24 00:00 11/19/24 04:13 Zosyn IV 11/29/24 00:00 Infused Q8H URIEL Infusion Protocol Insulin Aspart 0 units 11/19/24 00:00 11/19/24 05:54 Insulin Aspart Per Unit Charge SC 12/19/24 00:00 1 units Q6 URIEL Administration Sacubitril/Valsartan 1 tab 11/18/24 21:57 11/18/24 22:29 Valsartan/Sacubitril 51/49 Mg Tab PO 12/18/24 21:56 Not Given BID URIEL Past Medical History Medical History Aortic valve disorder Migraine headache Hiatal hernia Cardiomyopathy Aortic insufficiency Nonischemic cardiomyopathy Osteoarthritis Hyperlipidemia "Borderline" LBBB (left bundle branch block) Chronic GERD CAD (coronary artery disease) Mild nonobstructive CAD per 2010 cardiac cath ([place]) Sleep apnea "Mild" > no device prescribed obese GERD Anemia HLD ASCVD Ao DJD NIDDM S/P pacemaker AR mod Exercise / Class Metabolic Activity III < 4 Walking/Shop/Light housework Past Family History Family History Family/Other Family history of diabetes mellitus BROTHER OR SISTER Other Family history non-contributory No family history of adverse response to anesthesia Silicosis Past Surgical History Surgical History History of tonsillectomy History of permanent cardiac pacemaker placement H/O colonoscopy H/O esophagogastroduodenoscopy S/P appy Status post total hip replacement, right Past Anesthesia History No Hx of Anesthesia Complications and No Family Hx of Anesthesia Complications History of PONV No Hx of PONV and No Hx of Motion Sickness Social History Smoking Status: Former smoker Do You Dip or Chew Tobacco: No Hx Alcohol Use: No Alcohol type: wine alcohol intake frequency: holidays/special occasions only Hx Substance Use: No substance use type: does not use Physical Exam Vital Signs Last Vital Signs Temp 37.7 C H 11/19/24 08:23 Pulse 85 03/16/25 07:00 Resp 36 H 11/19/24 08:23 BP 147/66 H 11/19/24 08:23 Pulse Ox 94 11/19/24 08:23 O2 Del Method Room Air 11/19/24 08:23 Testing Laboratory Results 11/19/24 05:24 11/19/24 05:24 PT 11.1 Seconds (9.0-12.0) 11/18/24 15: INR 1.0 (0.9-1.1) 11/18/24 15: APTT 28 Seconds (21-31) 11/18/24 15:26 Hemoglobin A1c 6.8 % (4.5-5.6) H 11/19/24 05:24 11/19/24 11/19/24 11/19/24 08:13 05:46 00:00 POC Glucose 168 H 156 H 185 H 11/18/24 22:25 POC Glucose 201 H Electrocardiogram Date: 11/18/24 Findings: + LBBB A sensed, V paced @ 101 w/ PVC's;LBBB Chest X-Ray Date: 11/13/24 Findings: + NAD and + other (pacemaker) Echocardiogram Date: 11/02/23 EF: 35% LV Function: dysfunctional RWMA: + hypokinetic Other Findings: + LVH (mild) Valvular Disease: + AI (moderate)
[2024-11-19] MEDS: METOPROLOL SUCC 50MG EXT REL TAB PO SCH (08:54)
[2024-11-19] MEDS: FINASTERIDE 5 MG TAB PO SCH (08:54)
[2024-11-19] MEDS: POTASSIUM CHLORIDE / WTR 10 MEQ/100 ML PLCT IV SCH (09:02)
[2024-11-19] MEDS ORDERED: ONDANSETRON INJ 2 MG/ML 2 ML VIAL IV PRN (09:43)
[2024-11-19] MEDS ORDERED: fentaNYL citrate PF 100 MCG/2 ML VIAL IV PRN (09:43)
[2024-11-19] MEDS ORDERED: PROMETHAZINE HCL 6.25 MG in SODIUM CHLORIDE 0.9% 50 ML IV PRN (09:43)
[2024-11-19] MEDS ORDERED: NALOXONE HCL 0.4 MG/1 ML VIAL/CARP IV PRN (09:43)
[2024-11-19] MEDS ORDERED: ePHEDrine sulfate 50 MG/ML AMP IV PRN (09:43)
[2024-11-19] MEDS ORDERED: FLUMAZENIL 0.1 MG/1 ML 10 ML VIAL IV PRN (09:43)
[2024-11-19] MEDS ORDERED: ATROPINE SULFATE 0.1 MG/ML 10ML SYR IV PRN (09:43)
--- NOTE | 2024-11-19 09:45 | Surgery Progress Note ---
Date of Service November 19, 2024 Assessment & Plan (1) Cholecystitis, acute: Plan: Appropriate for laparoscopic cholecystectomy possible open risk and complication of procedure were explained to patient including bleeding infection conversion open procedure injury to other organs To proceed accordingly (2) Umbilical hernia, incarcerated: Plan: Will proceed with repair of incarcerated umbilical hernia defect approxione 1.5 cm discussed this with the patient since this is the area that we normally placed the umbilical trocar to the laparoscopic cholecystectomy and may be an appropriate time to try to fix this hernia and he agrees to proceed accordingly Plan Repair incarcerated incisional hernia Admission and Anticipated Discharge Date Admission Date: November 18, 2024 Subjective Patient had a fairly good night stating he has less discomfort in the right side where the gallbladder is Stating his urine is still concentrated Physical Exam Physical Exam: Alert coherent resting comfortably no distress This morning sclera is nonicteric The abdomen less abdominal right upper quadrant discomfort umbilical area still present incarcerated umbilical hernia Results & Data Vital Signs (Past 12 Hours) Vital Signs Temp Pulse Pulse Resp BP BP Pulse Ox 11/19/24 09:00 11/19/24 08:23 37.7 C H 36 H 147/66 H 94 11/19/24 07:00 85 11/19/24 03:45 37.4 C 80 18 150/72 H 92 11/18/24 22:46 37.3 C 98 H 18 153/71 H 94 11/18/24 22:04 91 H 11/18/24 21:57 37.3 C 98 H 18 153/71 H 94 11/18/24 21:54 74 20 136/81 94 O2 Del Method 11/19/24 09:00 Room Air 11/19/24 08:23 Room Air 11/19/24 07:00 11/19/24 03:45 Room Air 11/18/24 22:46 Room Air 11/18/24 22:04 11/18/24 21:57 Room Air 11/18/24 21:54 Room Air Laboratory Results Liver enzymes normal except for bilirubin is still mildly elevated at 1.9 total direct is 0.9 Patient had a lipase of 201 and that yesterday this morning is 21
[2024-11-19] MEDS ORDERED: PHENYLEPHRINE 100MCG/ML 5ML SYR ONE (09:58)
--- NOTE | 2024-11-19 10:57 | Hospitalist Progress Note ---
Date of Service November 19, 2024 Assessment & Plan (1) Cholecystitis, acute: Plan: 78-year-old male with past medical history significant for type 2 diabetes, hyperlipidemia, nonischemic dilated cardiomyopathy, chronic systolic CHF EF 30 to 34%, chronic left bundle branch block, symptomatic 2:1 AV block status post biventricular pacemaker in 2019, moderate aortic insufficiency, hypertension GERD, schatzki ring, hiatal hernia, B12 deficiency, anxiety disorder, BPH comes from home because of abdominal pain, nausea and vomiting For several days Acute cholecystitis Umbilical hernia Presents with abdominal pain nausea vomiting and fever Labs showed elevated LFTs Total bilirubin 2.4. AST 41. ALT 57. Alk phos 82. Right upper quadrant ultrasound shows dilated gallbladder with sludge and a small amount of calcified stone; wall thickening and trace amount of pericholecystic fluid present. Continue on Zosyn. Surgery planning for laparoscopic cholecystectomy and umbilical hernia repair. Chronic left bundle branch block Symptomatic 2:1 AV block Status post biventricular pacemaker in 2019 As per epic records pacemaker is not MRI compatible at [facility] Nonischemic dilated cardiomyopathy, Chronic systolic CHF with EF of 30 to 34%, compensated Moderate aortic insufficiency Continue home metoprolol and Entresto Not on diuretics Patient appears well compensated from heart failure standpoint. High sensitive troponin are negative; patient denies any chest pain or shortness of breath. He has higher than average risk for perioperative and postoperative complications due to his comorbid conditions. will hold entresto for today Type 2 diabetes On Trulicity Will hold metformin Sliding scale Will monitor Hypertension On metoprolol and Entresto Will monitor GERD On famotidine BPH On finasteride DVT prophylaxis SCDs Disposition Med/telemetry Full code Time spent evaluating patient, direct bedside care, chart review, placing orders, interpretation of diagnostic studies, discussion with consultants, patient, and family members, as well as other required patient management activities is 50 minutes Please note the above document was generated using voice recognition software. It may contain grammatical, syntax or spelling errors. Any formal questions or concerns about the content, text or information contained within the body of this dictation should be directly addressed to the provider for clarification Admission and Anticipated Discharge Date Admission Date: November 18, 2024 Subjective Patient seen and examined at bedside. He is comfortable; not in distress Reports that the pain is well-controlled at this time Mildly elevated temperature noted Review of Systems Review of Systems: All systems reviewed & are unremarkable except as noted in Subjective Physical Exam Physical Exam: General- Not in distress. Head- atraumatic Eyes- PERRL. ENT- oropharynx dry Neck- supple, no JVD. Lungs- clear to auscultation no wheezing or crackles Heart- regular rhythm; no murmur, no gallop. Abdomen- normal bowel sounds, soft, mild diffuse discomfort, no distension. Extremities- trace pretibial edema, no erythema seen Neuro- alert, oriented PERRL, no facial palsy; no dysarthria; moves extremities Results & Data Results & Data Vital Signs (Past 12 Hours) Vital Signs Temp Pulse Pulse Resp BP Pulse Ox O2 Del Method 11/19/24 09:00 Room Air 11/19/24 08:23 37.7 C H 36 H 147/66 H 94 Room Air 11/19/24 07:00 85 11/19/24 03:45 37.4 C 80 18 150/72 H 92 Room Air
[2024-11-19] MEDS ORDERED: LABETALOL HCL IV 5 MG/ML 20ML IV ONE (11:03)
[2024-11-19] MEDS ORDERED: GLYCOPYRROLATE 0.2 MG/ML VIAL ONE (11:54)
[2024-11-19] MEDS: BUPIVACAINE/EPINEPHRINE 0.5% MPF 1:200,000 30 ML VIAL ONE (11:55)
[2024-11-19] MEDS ORDERED: NEOSTIGMINE METHYLSULFATE 1 MG/ML 10ML VIAL ONE (11:55)
[2024-11-19] MEDS: OPTIRAY 350 IV PRN (11:56)
--- NOTE | 2024-11-19 12:04 | Post Operative Brief Note ---
Immediate Post Op Note Date of Surgery November 19, 2024 Pre & Post Diagnosis Operation Date: 11/19/24 10:00 Pre-Op Diagnosis: Acute Cholecystitis Post-Op Diagnosis: Acute Cholecystitis I identified the patient and participated in the time-out.: Yes Procedure Operation Date: 11/19/24 10:00 Actual Procedures p Laparoscopic Cholecystectomy with Cholangiogram(Not Applicable) - Elio Boothe MD, FACS Surgeon Elio Boothe MD, FACS In[employer] Maker Nathalie SOUZA Estimated Blood Loss 100 Findings Consistent with Post-Op Diagnosis
--- NOTE | 2024-11-19 12:06 | Electrocardiogram Report ---
Test Reason : Blood Pressure : */* mmHG Vent. Rate : 101 BPM Atrial Rate : 101 BPM P-R Int : 164 ms QRS Dur : 152 ms QT Int : 400 ms P-R-T Axes : 23 13 182 degrees QTcB Int : 518 ms Atrial-sensed ventricular-paced rhythm with occasional Premature ventricular complexes Abnormal ECG When compared with ECG of 13-Nov-2024 23:59, Premature ventricular complexes are now Present Vent. rate has increased by 38 bpm Confirmed by José Miguel Betancourt ([id number]) on 11/19/2024 12:05:56 PM Referred By: REFERRED SELF Confirmed By: José Miguel Betancourt
--- NOTE | 2024-11-19 12:21 | Operative Report ---
PG Post Operative Report Pre & Post Diagnosis Operation Date: 11/19/24 10:00 Pre-Op Diagnosis: Acute Cholecystitis Post-Op Diagnosis: Acute Gangrenous Cholecystitis I identified the patient and participated in the time-out.: Yes Procedure Operation Date: 11/19/24 10:00 Actual Procedures p Placement of Cholecystostomy Tube, Incarcerated umbilical Hernia(Not Applicable) - Elio Boothe MD, FACS The patient was brought into the operating theater general endotracheal anesthesia including arterial line placement systemic antibiotics on board a t imeout was had patient identified in the abdomen abdomen prepped with Betadine solution and properly draped We made a small opening transversely in the tissue overlying the umbilical crater where the patient had an incarcerated umbilical hernia incision approximately centimeter and a half we then dissected out the incarcerated tissue circumferentially till we were able to delineate the wall of the hernia at this point we entered the abdomen with a hemostat 5 mm trocar was placed we had trouble insufflating therefore we thought it was preperitoneal he eventually enlarge the incision lower the patient's finger in a and suite prepared stimulate and finally were able to enter towards the cephalic area a 5 mm port that was intra-abdominal he CO2 insufflated to about 12 with that the patient's abdomen was quite distended and throughout the procedure we took it down to about 10 at most fully identified at this point was in the right upper quadrant significant amount of wrapped around the gallbladder that we could see was quite thickened therefore on the requisition we placed a 5 mm epigastric to 5 mm subcostal ports the start of dissection taken the omentum that was wrapped about three quarters the way around the gallbladder wall and this dissection was pretty much report to take longstanding the block thing in strip the omentum was wrapped around the gallbladder to the point that we could see the gallbladder wall more specifically it was thickened did not appear to be gangrenous at this point I aspirated the gallbladder so we can obtain more purchase and the drainage was bilious in nature even though aspirating approximately 150 cc from the gallbladder wall we still had enough tissue and the gallbladder still moderately prominent as far as the edema on the wall we were able then to grab it and continued our dissection towards the neck of the gallbladder but he was quite apparent that this did dissection was not going to go very well as we had towards the lower part of the gallbladder it was became more more difficult to identify any planes with this thickened area we did enter the gallbladder 1 area of what looks like a patchy necrosis that had been sealed off by the omentum and some bilirubinate and small stones fell out that we had tried to remove as many as possible. This opening in the gallbladder was approximately 1 cm which was the area that appeared to be necrotic at this point we brought onto the field and #16 [place] catheter placement intra-abdominal he and I placed a catheter in the area there was approximately 1 cm went in without any difficulty we then brought out the other end to a right upper quadrant trocar site and attached to the skin edges with 2-0 silk we left the catheter bit loose then we sutured the tissue around the catheter is entering the gallbladder with 2-0 silk interrupted suture but we felt that we had enough secure very little oozing in fact we flushed through the catheter and there was very little extravasation around the gastrostomy tube having accomplished this then we elected to drain the area twice with a 19 Fernando drain brought 1 subhepatic we have 1 suprahepatic lead tension in both of the skin edges it was brought up to the right upper quadrant with 2-0 silk suture the area was then checked hemostasis appeared satisfactory the trocars were removed and used a 2 subhepatic trocar sites at the site to bring the plate to the fascial stitch 0 Vicryl x 2 for epigastric area fascia and the umbilical opening similarly closed with 0 Vicryl suture [id number] times 2 subcutaneous 4-0 Monocryl Steri-Strips applied procedure was tolerated well by the patient estimated blood loss approximately 100 cc We took cultures of the bile Nathalie SOUZA was present about the procedure and helped the retraction exposure wound closure and low Called his Vernell at [phone] there is no answer recorder on I left a generic message hopefully can talk to her later Surgeon Eilo Boothe MD, FACS Career Developer Nathalie SOUZA Estimated Blood Loss 100 Findings Consistent with Post-Op Diagnosis Acute gangrenous gallbladder incarcerated umbilical hernia Specimens Incarcerated fatty tissue gallbladder cultures Complications Not Description of Procedure merda I attest to the content of the Intraoperative Record and any orders documented therein. Any exceptions are noted below.
[2024-11-19] MEDS: ALBUTEROL 0.083% NEBU SOLN 3 ML VIAL ONE (13:19)
[2024-11-19 13:23] LABS: iSTAT Art Bld Gas pCO2 Correct 34 mmHg (35-46); iSTAT Art Bld Gas pH Corrected 7.349 (7.35-7.45); iSTAT Arterial Blood Gas HCO3 19 meg/L (19-24); iSTAT Arterial Blood Gas pCO2 34 mmHg (35-46); iSTAT Arterial Blood Gas pH 7.34 (7.35-7.45); iSTAT Arterial Blood Gas pO2 76 mmHg (80-95); iSTAT Arterial Blood Gas pO2 C 74; iSTAT Carbon Dioxide 20 mmol/L (24-31); iSTAT Hematocrit 37 % (42-52); iSTAT Hemoglobin 12.6 g/dl (14.0-18.0); iSTAT Potassium 3.9 mmol/L (3.3-5.0); iSTAT Sample Type Arterial; iSTAT Site Art Line; iSTAT Sodium 133 mmol/L (135-144); iSTAT SpO2 92
--- NOTE | 2024-11-19 13:32 | XRay Report ---
HISTORY: CHF. Postoperative evaluation. TECHNIQUE: Portable AP radiograph of the chest. 2 images. COMPARISON: Chest radiograph dated 11/18/2024. FINDINGS: Low lung volumes. Mild bibasilar airspace opacities. No pneumothorax or significant effusion. Cardiomegaly. Left subclavian approach pacer. Left-sided aortic arch. Midline trachea. Degenerative changes of the shoulders and spine. IMPRESSION: * Low lung volumes with mild bibasilar opacities favoring atelectasis. Possible small effusions. * Cardiomegaly. Electronically signed by Junito Ko 11-19-2024 13:32 PM
--- NOTE | 2024-11-19 14:05 | Anesthesiology Progress Note ---
Date of Service November 19, 2024 Anesthesia Post Procedure Vital Signs Vital Signs: Temp Pulse Pulse Pulse Resp BP BP 11/19/24 13:45 36.6 C 79 31 H 140/89 11/19/24 13:35 79 31 H 148/77 H 11/19/24 13:25 73 31 H 141/64 H 11/19/24 13:21 74 20 11/19/24 13:15 75 30 H 138/70 11/19/24 13:05 75 28 H 141/83 H 11/19/24 12:55 81 28 H 152/75 H 11/19/24 12:45 85 30 H 146/74 H 11/19/24 12:36 36.6 C 81 30 H 153/66 H 11/19/24 09:00 11/19/24 08:23 37.7 C H 36 H 147/66 H 11/19/24 07:00 85 11/19/24 03:45 37.4 C 80 18 150/72 H 11/18/24 22:46 37.3 C 98 H 18 153/71 H 11/18/24 22:04 91 H 11/18/24 21:57 37.3 C 98 H 18 153/71 H 11/18/24 21:54 74 20 136/81 11/18/24 20:01 92 H 11/18/24 19:19 37.9 C H 86 24 141/72 H 11/18/24 16:33 96 H 30 H 150/101 H 11/18/24 16:27 97 H 35 H 150/101 H 11/18/24 16:06 97 H 11/18/24 15:57 95 H 30 H 154/81 H 11/18/24 15:39 95 H 19 136/73 11/18/24 15:24 97 H 20 11/18/24 15:08 36.9 C 104 H 16 118/65 11/18/24 15:05 Pulse Ox O2 Del Method O2 Flow Rate 11/19/24 13:45 94 Oxymask 10 11/19/24 13:35 94 Oxymask 10 11/19/24 13:25 94 Oxymask 10 11/19/24 13:21 93 Oxymask 9 11/19/24 13:15 93 Oxymask 10 11/19/24 13:05 92 Oxymask 15 11/19/24 12:55 92 Oxymask 15 11/19/24 12:45 91 Oxymask 15 11/19/24 12:36 88 L Oxymask 15 11/19/24 09:00 Room Air 11/19/24 08:23 94 Room Air 11/19/24 07:00 11/19/24 03:45 92 Room Air 11/18/24 22:46 94 Room Air 11/18/24 22:04 11/18/24 21:57 94 Room Air 11/18/24 21:54 94 Room Air 11/18/24 20:01 11/18/24 19:19 94 Room Air 11/18/24 16:33 93 11/18/24 16:27 93 11/18/24 16:06 11/18/24 15:57 94 11/18/24 15:39 94 11/18/24 15:24 95 Room Air 11/18/24 15:08 96 Room Air 11/18/24 15:05 95 Room Air Pain Intensity Abdomen: Pain Intensity: 2 Transfer of Care Handoff Completed per policy Notes Mental Status: alert / awake / arousable Patient Amnestic to Procedure: Yes Nausea / Vomiting: adequately controlled Pain: adequately controlled Airway Patency, RR, SpO2: see Notes below BP & HR: stable & adequate Hydration State: stable & adequate Anesthetic Complications: no major complications apparent Notes: Pt w/ cardiomyopathy and post-op SOB;CXR shows bibasilar atelectasis; pt will be transferred to ICU.
[2024-11-19] MEDS: HYDROmorphone INJ 0.5 MG/0.5 ML SYR IV PRN (15:37)
--- NOTE | 2024-11-19 15:54 | Critical Care Consultation ---
Date of Consultation November 19, 2024 Assessment & Plan (1) Acute cholecystitis: (2) Nonischemic cardiomyopathy: (3) Hypoxemia: Plan 79-year-old male with a history of heart block status post pacemaker, nonischemic cardiomyopathy, Type 2 diabetes mellitus and hypertension presenting to the ICU status post laparotomy and gallbladder drain placement. Neurologic: Pain control per general surgery. Avoid overly sedating agents. Pulmonary: Postoperative hypoxemia likely related to mild volume overload and postoperative atelectasis. Continue incentive spirometer. Head of the bed elevated. Chest x-ray with mild atelectasis today. Cardiovascular: Continue home meds including metoprolol and Entresto. Discontinue additional IV fluids given patient's hypoxemia. Fluid boluses as needed for maps under 65. Gastrointestinal: NPO. Advance diet per general surgery recommendations. Gallbladder drains in place. Monitor output closely. Renal: Monitor urine output closely. Replace electrolytes as needed. Infectious disease: Follow-up surgical cultures. Continue Zosyn. Hematologic: SCDs. Start chemical prophylaxis when indicated by surgery. Endocrine: Maintain euglycemia. Sliding scale insulin. Hold Trulicity. Lines and tubes: Peripheral IVs and arterial line in place. VTE prophylaxis: SCDs CODE STATUS: Full Family at bedside: Daughter updated at bedside by me Disposition: ICU overnight I have personally spent 39 minutes of critical care time in the direct management of this patient. This is a life/limb threatening event. This includes time spent evaluating patient, direct bedside care, chart review, placing orders, interpretation of diagnostic studies, discussion with consultants, patient, and family members, as well as other required patient management activities. This time is exclusive of all separately billable procedures, and teaching time and separate from and in addition to any other critical care service time. Thank you for allowing us to participate in the care of this patient. History of Present Illness Reason for Consultation: Status post gallbladder tube, acute hypoxic respiratory failure Attending Physician: Danial Metz MD History of Present Illness 79-year-old male with a past medical history of type 2 diabetes mellitus, nonischemic cardiomyopathy with an EF of 30 to 34%, chronic left bundle branch block status post pacemaker, hypertension, GERD and anxiety who presented with abdominal pain, nausea and vomiting which started on Wednesday. He was found to have acute cholecystitis but was taken to the OR. Patient was found to have gangrenous gallbladder and it was decided to place a gallbladder drain by the general surgeon. Patient was moved to the ICU postoperatively due to some mild hypoxemia and complexity of his OR case. Currently patient is complaining of lower back pain. Denies any chest pain or shortness of breath. No fevers or chills. He is currently receiving Zosyn, p.o. metoprolol NovoLog sliding scale, Entresto and Proscar. Allergies Allergy/AdvReac Type Severity Reaction Status Date / Time alfuzosin Allergy Unknown Nausea Verified 11/18/24 19:47 tamsulosin Allergy Unknown Nausea Verified 11/18/24 19:47 terazosin Allergy Unknown Nausea Verified 11/18/24 19:47 [id number]-[id number]-OxZ Reductase AdvReac Severe Severe Verified 11/18/24 19:47 Inhibitor muscle [Awmzrxb-Err-Qrz Reductase weakness, Inhibitor] aches Home Medications Medication Instructions Recorded Confirmed Type cyanocobalamin (vitamin B-12) 1,000 mcg PO 3XWK 08/21/20 11/18/24 History 1,000 mcg capsule acetaminophen 500 mg tablet 1,000 mg (2 x 500 mg) PO Q8 pain 06/11/21 11/18/24 Rx (Tylenol Extra Strength) #21 tabs dulaglutide 3 mg/0.5 mL 3 mg subcut WK 11/18/24 11/18/24 History subcutaneous pen injector (Trulicity) famotidine 20 mg tablet 40 mg PO PM 11/18/24 11/18/24 History finasteride 5 mg tablet 5 mg PO QAM 11/18/24 11/18/24 History metformin 1,000 mg tablet 1,000 mg PO BID 11/18/24 11/18/24 History metoprolol succinate 50 mg 50 mg PO QAM 11/18/24 11/18/24 History tablet,extended release 24 hr sacubitril 49 mg-valsartan 51 mg 1 tab PO BID 11/18/24 11/18/24 History tablet (Entresto) Patient History Medical History Aortic valve disorder Migraine headache Hiatal hernia Cardiomyopathy Aortic insufficiency Nonischemic cardiomyopathy Osteoarthritis Hyperlipidemia "Borderline" LBBB (left bundle branch block) Chronic GERD CAD (coronary artery disease) Mild nonobstructive CAD per 2010 cardiac cath ([place]) Sleep apnea "Mild" > no device prescribed Surgical History History of tonsillectomy History of permanent cardiac pacemaker placement H/O colonoscopy H/O esophagogastroduodenoscopy S/P appy Status post total hip replacement, right Family History Family/Other Family history of diabetes mellitus BROTHER OR SISTER Other Family history non-contributory No family history of adverse response to anesthesia Silicosis Social History Smoking Status: Former smoker Second Hand Exposure: No; Do You Dip or Chew Tobacco: No; Hx Alcohol Use: No Hx Substance Use: No Preferred Language: Armenian Communication Ability: Effective Visual Impairment: No Limitations Language Assistant Required: No Beliefs That Will Affect Care: None marital status: Current Living Situation: Spouse current occupational status: retired Other Information That Helps Us Care for You: No Feels Safe at Home: Yes Safety Concerns: Feels Safe At This Time Assistive Devices: Cane and Glasses Review of Systems Review of Systems: All systems reviewed & are unremarkable except as noted in HPI & below Physical Exam Physical Exam: Constitutional: Patient appears to be of their stated age. Patient is in no apparent distress. Patient is well-developed. Eyes: Pupils are equal round and reactive to light. Conjunctivae are normal. Anicteric sclera. Ears nose, mouth and throat: Mallampati class 2. Normal posterior oropharynx. Uvula is midline. Neck: Trachea is midline. Visual inspection is normal. Respiratory: Clear to auscultation bilaterally. No use of accessory muscles. No significant clubbing noted. Cardiovascular: Regular rate and rhythm. No murmurs. No edema. Gastrointestinal: Mildly distended abdomen with bandaging noted. [address] Musculoskeletal: No cyanosis. Patient is able to move all extremities. Strength is 5 out of 5 in the upper and lower extremities. Skin: No rashes, warm dry and intact. Neurologic: No obvious focal neurological deficits seen. Psychiatric: Alert and oriented x3 with a euthymic affect. Results & Data Results & Data Vital Signs (Past 12 Hours) Vital Signs Temp Pulse Pulse Pulse Resp BP Pulse Ox 11/19/24 13:45 36.6 C 79 31 H 140/89 94 03/16/25 13:35 79 31 H 148/77 H 94 11/19/24 13:25 73 31 H 141/64 H 94 11/19/24 13:21 74 20 93 11/19/24 13:15 75 30 H 138/70 93 11/19/24 13:05 75 28 H 141/83 H 92 11/19/24 12:55 81 28 H 152/75 H 92 11/19/24 12:45 85 30 H 146/74 H 91 11/19/24 12:36 36.6 C 81 30 H 153/66 H 88 L 11/19/24 09:00 11/19/24 08:23 37.7 C H 36 H 147/66 H 94 11/19/24 07:00 85 11/19/24 03:45 37.4 C 80 18 150/72 H 92 O2 Del Method O2 Flow Rate 11/19/24 13:45 Oxymask 10 11/19/24 13:35 Oxymask 10 11/19/24 13:25 Oxymask 10 11/19/24 13:21 Oxymask 9 11/19/24 13:15 Oxymask 10 11/19/24 13:05 Oxymask 15 11/19/24 12:55 Oxymask 15 11/19/24 12:45 Oxymask 15 11/19/24 12:36 Oxymask 15 11/19/24 09:00 Room Air 11/19/24 08:23 Room Air 11/19/24 07:00 11/19/24 03:45 Room Air Coding Level of Care Code 80363 CRITICAL CARE 1ST 30-74M Diagnoses Acute cholecystitis K81.0 Nonischemic cardiomyopathy I42.8 Hypoxemia R09.02
[2024-11-19] MEDS: ALBUTEROL 0.083% NEBU SOLN 3 ML VIAL NEB STA (17:06)
--- NOTE | 2024-11-19 19:23 | Surgery Progress Note ---
Date of Service November 19, 2024 Assessment & Plan (1) Acute cholecystitis: Plan: Discussed the situation with the son and I tried to get a hold of her . Will go there again had some phone issues Went over the surgical procedure and anticipated plans for keeping the tube in the gallbladder and tentatively proceed with cholecystectomy in approximately 6 weeks They are made aware that this was a very difficult case and one of their cases that we had to put her intraoperative cholecystostomy tube All question answered Admission and Anticipated Discharge Date Admission Date: November 18, 2024 Subjective 7 hours postop surgery evaluation Physical Exam Physical Exam: Alert coherent no distress stating less pain than he had preoperatively The cholecystostomy tube is bilious drainage the Fernando drains bloody discharge nonbilious The abdomen is distended tympanitic but nonpainful Results & Data Vital Signs (Past 12 Hours) Vital Signs Temp Pulse Pulse Resp BP BP Pulse Ox 11/19/24 19:12 11/19/24 19:10 36.9 C 11/19/24 18:30 91 H 20 92 11/19/24 18:00 149/69 H 11/19/24 18:00 149/69 H 11/19/24 18:00 90 20 91 11/19/24 17:59 11/19/24 17:57 37.3 C 11/19/24 17:30 89 22 91 11/19/24 17:00 94 H 22 92 11/19/24 17:00 143/64 H 11/19/24 16:55 93 H 11/19/24 16:30 93 H 27 H 91 11/19/24 16:03 94 H 24 95 11/19/24 16:00 154/76 H 11/19/24 16:00 154/76 H 11/19/24 16:00 154/76 H 11/19/24 15:33 86 31 H 94 11/19/24 15:21 82 40 H 95 11/19/24 14:48 82 35 H 93 11/19/24 14:39 79 37 H 96 11/19/24 14:30 37 C 11/19/24 13:45 36.6 C 79 31 H 140/89 94 11/19/24 13:35 79 31 H 148/77 H 94 11/19/24 13:25 73 31 H 141/64 H 94 11/19/24 13:21 74 20 93 11/19/24 13:15 75 30 H 138/70 93 11/19/24 13:05 75 28 H 141/83 H 92 11/19/24 12:55 81 28 H 152/75 H 92 11/19/24 12:45 85 30 H 146/74 H 91 11/19/24 12:36 36.6 C 81 30 H 153/66 H 88 L 11/19/24 09:00 11/19/24 08:23 37.7 C H 36 H 147/66 H 94 O2 Del Method O2 Flow Rate 11/19/24 19:12 Room Air 11/19/24 19:10 11/19/24 18:30 11/19/24 18:00 11/19/24 18:00 11/19/24 18:00 11/19/24 17:59 Oxymask 4 11/19/24 17:57 11/19/24 17:30 11/19/24 17:00 11/19/24 17:00 11/19/24 16:55 11/19/24 16:30 11/19/24 16:03 Oxymask 8 11/19/24 16:00 11/19/24 16:00 11/19/24 16:00 11/19/24 15:33 11/19/24 15:21 11/19/24 14:48 11/19/24 14:39 11/19/24 14:30 11/19/24 13:45 Oxymask 10 11/19/24 13:35 Oxymask 10 11/19/24 13:25 Oxymask 10 11/19/24 13:21 Oxymask 9 11/19/24 13:15 Oxymask 10 11/19/24 13:05 Oxymask 15 11/19/24 12:55 Oxymask 15 11/19/24 12:45 Oxymask 15 11/19/24 12:36 Oxymask 15 11/19/24 09:00 Room Air 11/19/24 08:23 Room Air
[2024-11-19 19:26] LABS: BUN Creatinine Ratio 15.5 (10-20); Calcium 8.7 mg/dl (8.6-10.3); Creatinine Clr Calc Pharmacy 53.7 ml/min; Potassium 4.7 mmol/L (3.5-5.1)
[2024-11-20 05:14] LABS: Basophils # (auto) 0.02 K/uL (0.00-0.20); Basophils % (auto) 0.3 %; Eosinophils # (auto) 0.01 K/uL (0.00-0.50); Eosinophils % (auto) 0.1 %; Hematocrit (blood only) 35.7 % (42.0-52.0); Hemoglobin 12.8 g/dl (14.0-18.0); Immature Granulocytes # (auto) 0.04 K/uL (0.01-0.20); Immature Granulocytes % (auto) 0.5 %; Lymphocytes # (auto) 0.48 K/uL (1.20-3.40); Lymphocytes % (auto) 6.4 %; Mean Corpuscular Hemoglobin 32.6 pg (25.0-34.0); Mean Corpuscular Hgb Conc 35.9 g/dL (32.0-36.0); Mean Corpuscular Volume 90.8 fL (80.0-100.0); Mean Platelet Volume 9.5 fL (9.4-12.4); Neutrophils # (auto) 6.06 K/uL (1.40-6.50); Neutrophils % (auto) 80.7 %; Platelet Count 203 K/uL (130-400); RDW Coefficient of Variation 12.9 % (11.5-14.5); RDW Standard Deviation 42.6 fL (36.4-46.3); Red Blood Count 3.93 M/uL (4.70-6.10); White Blood Count 7.51 K/ul (4.8-10.8)
[2024-11-20 05:54] LABS: Alanine Aminotransferase 53 U/L (7-52); Albumin Globulin Ratio 1.1 (0.9-2); Albumin Level 3.3 gm/dl (3.4-5.0); Alkaline Phosphatase 64 U/L (34-104); Anion Gap 6 (3-11); BUN Creatinine Ratio 18.2 (10-20); Bilirubin,Total 1.5 mg/dl (0.2-1.0); Blood Urea Nitrogen 24 mg/dl (6-23); Calcium 8.3 mg/dl (8.6-10.3); Carbon Dioxide 23 mmol/L (21-32); Chloride 102 mmol/L (98-107); Creatinine Clr Calc Pharmacy 57.7 ml/min; Globulin 3.1 gm/dl (2.5-4.0); Glucose 234 mg/dl (70-99(Fasting)); Sodium 131 mmol/L (136-145); Total Protein 6.4 gm/dl (6.0-8.3)
[2024-11-20 06:45] LABS: Potassium 4.1 mmol/L (3.5-5.1)
--- NOTE | 2024-11-20 06:55 | Surgery Progress Note ---
Date of Service November 20, 2024 Assessment & Plan (1) Acute cholecystitis: Plan: keep NPO for today increase activity Admission and Anticipated Discharge Date Admission Date: November 18, 2024 Subjective States he feels much better than before surgery denies any nausea minimal abdominal discomfort Physical Exam Physical Exam: Is alert coherent in no distress Vitals noted arterial line is still within will be removed later today O2 sats 96% on 2 L nasal cannula The abdomen is distended tympanitic but nontender Cholecystostomy tube approximately 25 cc of bilious drainage He has a 2 drains 1 subcostally 1 subhepatic leak last 6 hours 30 cc and 20 cc a slight blood-tinged nonbilious Results & Data Vital Signs (Past 12 Hours) Vital Signs Temp Pulse Resp BP Pulse Ox O2 Del Method O2 Del Method 11/20/24 06:12 75 18 128/77 96 11/20/24 05:51 71 24 96 11/20/24 05:00 75 23 96 11/20/24 04:09 77 28 H 137/65 94 11/20/24 03:57 75 28 H 92 11/20/24 03:00 79 23 93 11/20/24 02:42 80 21 94 11/20/24 02:01 140/69 11/20/24 01:54 78 31 H 92 11/20/24 01:43 36.5 C 11/20/24 01:03 86 31 H 93 11/20/24 00:06 86 32 H 139/75 11/19/24 23:51 87 22 93 11/19/24 23:06 85 27 H 135/77 91 11/19/24 23:03 87 28 H 91 11/19/24 22:00 128/69 11/19/24 22:00 89 33 H 128/69 11/19/24 21:57 Nasal Cannula 11/19/24 21:09 89 19 93 11/19/24 20:03 89 26 H 138/69 93 11/19/24 19:57 91 H 32 H 92 11/19/24 19:12 Nasal Cannula 11/19/24 19:10 36.9 C 11/19/24 19:00 90 32 H 158/83 H 90 O2 Flow Rate O2 Flow Rate 11/20/24 06:12 11/20/24 05:51 11/20/24 05:00 11/20/24 04:09 11/20/24 03:57 11/20/24 03:00 11/20/24 02:42 11/20/24 02:01 11/20/24 01:54 11/20/24 01:43 11/20/24 01:03 11/20/24 00:06 11/19/24 23:51 11/19/24 23:06 11/19/24 23:03 11/19/24 22:00 11/19/24 22:00 11/19/24 21:57 2 11/19/24 21:09 11/19/24 20:03 11/19/24 19:57 11/19/24 19:12 2 11/19/24 19:10 11/19/24 19:00 Laboratory Results Lab noted WBCs 7.51 no left shift Hemoglobin 12.8
--- NOTE | 2024-11-20 09:29 | Critical Care Progress Note ---
Date of Service November 20, 2024 Assessment & Plan (1) Acute cholecystitis: (2) Nonischemic cardiomyopathy: (3) Hypoxemia: Plan 79-year-old male with a history of heart block status post pacemaker, nonischemic cardiomyopathy, Type 2 diabetes mellitus and hypertension presenting to the ICU status post laparotomy and gallbladder drain placement. Neurologic: Pain control per general surgery. Pulmonary: Continue incentive spirometer no supplemental oxygen Cardiovascular: Restart home meds including metoprolol and Entresto. Gastrointestinal: NPO. Advance diet per general surgery recommendations. Gallbladder drains in place. Renal: Elevated creatinine improved Infectious disease: Sepsis secondary to gangrenous cholecystitis Follow-up surgical cultures. - Continue Zosyn. Anticipate 14-day course Hematologic: SCDs. Recommend initiation of chemoprophylaxis today Endocrine: Maintain euglycemia. Sliding scale insulin. Hold Trulicity. Lines and tubes: Peripheral IVs VTE prophylaxis: SCDs CODE STATUS: Full Disposition: Stable for downgrade out of ICU Admission and Anticipated Discharge Date Admission Date: November 18, 2024 Subjective Abdominal pain mildly improved. Passing a little bit of flatus. Physical Exam Physical Exam: General: Alert. nontoxic. Skin: Warm, dry, Head: Atraumatic Ears, nose, mouth and throat: airway patent Cardiovascular: Normal peripheral perfusion Respiratory: no respiratory distress Gastrointestinal: Hypoactive bowel sounds, drains present draining serosanguineous fluid, biliary drain draining bile Musculoskeletal: No deformity Results & Data Results & Data Vital Signs (Past 12 Hours) Vital Signs Temp Pulse Pulse Resp BP BP Pulse Ox 11/20/24 08:41 96 11/20/24 08:18 75 27 H 96 11/20/24 08:00 128/76 11/20/24 08:00 128/76 11/20/24 07:36 76 11/20/24 07:30 11/20/24 07:22 36.5 C 77 20 132/70 95 11/20/24 06:12 75 18 128/77 96 11/20/24 05:51 71 24 96 11/20/24 05:00 75 23 96 11/20/24 04:09 77 28 H 137/65 94 11/20/24 03:57 75 28 H 92 11/20/24 03:00 79 23 93 11/20/24 02:42 80 21 94 11/20/24 02:01 140/69 11/20/24 01:54 78 31 H 92 11/20/24 01:43 36.5 C 11/20/24 01:03 86 31 H 93 11/20/24 00:06 86 32 H 139/75 11/19/24 23:51 87 22 93 11/19/24 23:06 85 27 H 135/77 91 11/19/24 23:03 87 28 H 91 11/19/24 22:00 128/69 11/19/24 22:00 89 33 H 128/69 11/19/24 21:57 O2 Del Method O2 Del Method O2 Flow Rate O2 Flow Rate 11/20/24 08:41 Room Air 11/20/24 08:18 Room Air 11/20/24 08:00 11/20/24 08:00 11/20/24 07:36 11/20/24 07:30 Nasal Cannula 2 11/20/24 07:22 Nasal Cannula 2 11/20/24 06:12 11/20/24 05:51 11/20/24 05:00 11/20/24 04:09 11/20/24 03:57 11/20/24 03:00 11/20/24 02:42 11/20/24 02:01 11/20/24 01:54 11/20/24 01:43 11/20/24 01:03 11/20/24 00:06 11/19/24 23:51 11/19/24 23:06 11/19/24 23:03 11/19/24 22:00 11/19/24 22:00 11/19/24 21:57 Nasal Cannula 2 Critical Care Results & Data Vital Signs (Past 12 Hours) Vital Signs Temp Pulse Pulse Resp BP BP Pulse Ox 11/20/24 08:41 96 11/20/24 08:18 75 27 H 96 11/20/24 08:00 128/76 11/20/24 08:00 128/76 11/20/24 07:36 76 11/20/24 07:30 11/20/24 07:22 36.5 C 77 20 132/70 95 11/20/24 06:12 75 18 128/77 96 11/20/24 05:51 71 24 96 11/20/24 05:00 75 23 96 11/20/24 04:09 77 28 H 137/65 94 11/20/24 03:57 75 28 H 92 11/20/24 03:00 79 23 93 11/20/24 02:42 80 21 94 11/20/24 02:01 140/69 11/20/24 01:54 78 31 H 92 11/20/24 01:43 36.5 C 11/20/24 01:03 86 31 H 93 11/20/24 00:06 86 32 H 139/75 11/19/24 23:51 87 22 93 11/19/24 23:06 85 27 H 135/77 91 11/19/24 23:03 87 28 H 91 11/19/24 22:00 128/69 11/19/24 22:00 89 33 H 128/69 11/19/24 21:57 O2 Del Method O2 Del Method O2 Flow Rate O2 Flow Rate 11/20/24 08:41 Room Air 11/20/24 08:18 Room Air 11/20/24 08:00 11/20/24 08:00 11/20/24 07:36 11/20/24 07:30 Nasal Cannula 2 11/20/24 07:22 Nasal Cannula 2 11/20/24 06:12 11/20/24 05:51 11/20/24 05:00 11/20/24 04:09 11/20/24 03:57 11/20/24 03:00 11/20/24 02:42 11/20/24 02:01 11/20/24 01:54 11/20/24 01:43 11/20/24 01:03 11/20/24 00:06 11/19/24 23:51 11/19/24 23:06 11/19/24 23:03 11/19/24 22:00 11/19/24 22:00 11/19/24 21:57 Nasal Cannula 2 Lab & Micro Results (Past 24 Hours) RBC 3.93 M/uL (4.70-6.10) L 11/20/24 WBC 7.51 K/ul (4.8-10.8) 11/20/24 Hgb 12.8 g/dl (14.0-18.0) L 11/20/24 Hct 35.7 % (42.0-52.0) L 11/20/24 MCV 90.8 fL (80.0-100.0) 11/20/24 MCH 32.6 pg (25.0-34.0) 11/20/24 MCHC 35.9 g/dL (32.0-36.0) 11/20/24 RDW Standard Deviation 42.6 fL (36.4-46.3) 11/20/24 RDW Coefficient of Variation 12.9 % (11.5-14.5) 11/20/24 Plt Count 203 K/uL (130-400) 11/20/24 MPV 9.5 fL (9.4-12.4) 11/20/24 Neutrophils (%) (Auto) 80.7 % 11/20/24 Lymphocytes (%) (Auto) 6.4 % 11/20/24 Monocytes # (Auto) 0.90 K/uL (0.11-0.59) H 11/20/24 Eosinophils # (Auto) 0.01 K/uL (0.00-0.50) 11/20/24 Immature Granulocyte % (Auto) 0.5 % 11/20/24 Neutrophils # (Auto) 6.06 K/uL (1.40-6.50) 11/20/24 Lymphocytes # (Auto) 0.48 K/uL (1.20-3.40) L 11/20/24 Monocytes # (Auto) 0.90 K/uL (0.11-0.59) H 11/20/24 Eosinophils # (Auto) 0.01 K/uL (0.00-0.50) 11/20/24 Basophils # (Auto) 0.02 K/uL (0.00-0.20) 11/20/24 Immature Granulocyte # (Auto) 0.04 K/uL (0.01-0.20) 5 Na 131 mmol/L (136-145) L 11/20/24 K 4.1 mmol/L (3.5-5.1) 11/20/24 Cl 102 mmol/L (98-107) 11/20/24 CO2 23 mmol/L (21-32) 11/20/24 Anion Gap 6 (3-11) 11/20/24 BUN 24 mg/dl (6-23) H 11/20/24 Creatinine 1.32 mg/dl (0.6-1.4) 11/20/24 BUN/Creatinine Ratio 18.2 (10-20) 11/20/24 Glu 234 mg/dl (70-99(Fasting)) H 11/20/24 Ca 8.3 mg/dl (8.6-10.3) L 11/20/24 Total Bilirubin 1.5 mg/dl (0.2-1.0) H 11/20/24 AST 27 U/L (13-39) 11/20/24 ALT 53 U/L (7-52) H 11/20/24 Alkaline Phosphatase 64 U/L (34-104) 11/20/24 TP 6.4 gm/dl (6.0-8.3) 11/20/24 Albumin 3.3 gm/dl (3.4-5.0) L 11/20/24 Globulin 3.1 gm/dl (2.5-4.0) 11/20/24 Albumin/Globulin Ratio 1.1 (0.9-2) 11/20/24 Calcium Level 8.3 mg/dl (8.6-10.3) L 11/20/24 04:55 Microbiology 11/19/24 12:00 Gram Stain - Final Gallbladder Diagnostic Findings (Past 24 Hours) Chest X-Ray 11/19/24 12:56 HISTORY: CHF. Postoperative evaluation. TECHNIQUE: Portable AP radiograph of the chest. 2 images. COMPARISON: Chest radiograph dated 11/18/2024. FINDINGS: Low lung volumes. Mild bibasilar airspace opacities. No pneumothorax or significant effusion. Cardiomegaly. Left subclavian approach pacer. Left-sided aortic arch. Midline trachea. Degenerative changes of the shoulders and spine. IMPRESSION: * Low lung volumes with mild bibasilar opacities favoring atelectasis. Possible small effusions. * Cardiomegaly. Electronically signed by Junito Ko 11-19-2024 13:32 PM I & O Totals 24 Hours 11/19/24 11/20/24 11/21/24 06:59 06:59 06:59 Intake Total 400 / 400 2251.25 / 2251.25 100 / 100 Output Total 880 / 880 100 / 100 Balance 400 / 400 1371.25 / 1371.25 0 / 0 Cumulative 11/18/24 15:04 thru 11/20/24 08:00 Intake Total 2751.25 Output Total 980 Balance 1771.25 RT Ventilator Mngmt (Last Documented) Ventilator Ordered Settings Respiratory Rate 27 11/20/24 08:18 Ventilator - PT Measurements Respiratory Rate 27 Coding Level of Care Code 97231 SUB INP/OBS CARE 3/50MIN Diagnoses Acute cholecystitis K81.0 Nonischemic cardiomyopathy I42.8 Hypoxemia R09.02
--- NOTE | 2024-11-20 12:37 | Hospitalist Progress Note ---
Date of Service November 20, 2024 Assessment & Plan (1) Cholecystitis, acute: Plan: 78-year-old male with past medical history significant for type 2 diabetes, hyperlipidemia, nonischemic dilated cardiomyopathy, chronic systolic CHF EF 30 to 34%, chronic left bundle branch block, symptomatic 2:1 AV block status post biventricular pacemaker in 2019, moderate aortic insufficiency, hypertension GERD, schatzki ring, hiatal hernia, B12 deficiency, anxiety disorder, BPH comes from home because of abdominal pain, nausea and vomiting For several days Acute gangrenous cholecystitis status postplacement of cholecystostomy tube Acute postoperative respiratory insufficiencyresolved Patient presented to the hospital with abdominal pain, nausea, vomiting and fever. Total bilirubin elevated 2.4 on admission Right upper quadrant showed dilated gallbladder with sludge and a small amount of calcified stone; wall thickening and trace amount of pericholecystic fluid present. Gram stain from bile shows moderate gram-positive bacilli; culture pending Patient initially plan for laparoscopic cholecystectomy; found to have gangrenous acute cholecystitis; placement of cholecystostomy tube was done. Patient was admitted to ICU for close observation after he was found to be hypoxic after the surgery. Likely secondary to atelectasis. Lactic acid within normal limits. ABG was reassuring. Patient transferred out of the ICU on November 20, 2024 Continue on Zosyn Continue on pain medication N.p.o. for today as per surgery Follow-up on final culture results Nonischemic dilated cardiomyopathy, Chronic systolic CHF with EF of 30 to 34%, compensated Moderate aortic insufficiency Continue home metoprolol. Entresto on hold for now Not on diuretics Type 2 diabetes On Trulicity Will hold metformin Sliding scale Will monitor Hypertension On metoprolol and Entresto Will monitor GERD On famotidine BPH On finasteride DVT prophylaxis SCDs Disposition PCU Full code Time spent evaluating patient, direct bedside care, chart review, placing orders, interpretation of diagnostic studies, discussion with consultants, patient, and family members, as well as other required patient management activities is 50 minutes Please note the above document was generated using voice recognition software. It may contain grammatical, syntax or spelling errors. Any formal questions or concerns about the content, text or information contained within the body of this dictation should be directly addressed to the provider for clarification Admission and Anticipated Discharge Date Admission Date: November 18, 2024 Subjective Patient seen and examined at bedside. He is sitting up on the chair at the side of the bed comfortably; denies any pain or discomfort. Abdominal pain has improved. He has been weaned off to room air Afebrile overnight Review of Systems Review of Systems: All systems reviewed & are unremarkable except as noted in Subjective Physical Exam Physical Exam: General- Not in distress. Head- atraumatic Eyes- PERRL. ENT- oropharynx dry Neck- supple, no JVD. Lungs- clear to auscultation no wheezing or crackles Heart- regular rhythm; no murmur, no gallop. Abdomen- To drain in place; Cholecystostomy tube with 25 cc bilious drainage and another drain with serosanguineous output. Extremities- trace pretibial edema, no erythema seen Neuro- alert, oriented PERRL, no facial palsy; no dysarthria; moves extremities Results & Data Results & Data Vital Signs (Past 12 Hours) Vital Signs Temp Pulse Pulse Resp BP BP Pulse Ox 11/20/24 10:11 78 20 118/71 90 11/20/24 08:41 96 11/20/24 08:18 75 27 H 96 11/20/24 08:00 128/76 11/20/24 08:00 128/76 11/20/24 07:36 76 11/20/24 07:30 11/20/24 07:22 36.5 C 77 20 132/70 95 11/20/24 06:12 75 18 128/77 96 11/20/24 05:51 71 24 96 11/20/24 05:00 75 23 96 11/20/24 04:09 77 28 H 137/65 94 11/20/24 03:57 75 28 H 92 11/20/24 03:00 79 23 93 11/20/24 02:42 80 21 94 11/20/24 02:01 140/69 11/20/24 01:54 78 31 H 92 11/20/24 01:43 36.5 C 11/20/24 01:03 86 31 H 93 O2 Del Method O2 Flow Rate 11/20/24 10:11 Room Air 11/20/24 08:41 Room Air 11/20/24 08:18 Room Air 11/20/24 08:00 11/20/24 08:00 11/20/24 07:36 11/20/24 07:30 Nasal Cannula 2 11/20/24 07:22 Nasal Cannula 2 11/20/24 06:12 11/20/24 05:51 11/20/24 05:00 11/20/24 04:09 11/20/24 03:57 11/20/24 03:00 11/20/24 02:42 11/20/24 02:01 11/20/24 01:54 11/20/24 01:43 11/20/24 01:03
[2024-11-20] MEDS: ACETAMINOPHEN 1,000 MG/100 ML VIAL IV PRN (18:32)
[2024-11-21] MEDS: HYDROmorphone INJ 0.5 MG/0.5 ML SYR IV PRN (01:25)
[2024-11-21] MEDS: ALUMINUM/MAGNESIUM/SIMETH (MAALOX MAX) 30 ML UDC PO PRN (03:26)
[2024-11-21 05:05] LABS: Basophils # (auto) 0.01 K/uL (0.00-0.20); Basophils % (auto) 0.1 %; Eosinophils # (auto) 0.02 K/uL (0.00-0.50); Eosinophils % (auto) 0.2 %; Hematocrit (blood only) 41.9 % (42.0-52.0); Immature Granulocytes # (auto) 0.07 K/uL (0.01-0.20); Immature Granulocytes % (auto) 0.7 %; Lymphocytes # (auto) 0.33 K/uL (1.20-3.40); Lymphocytes % (auto) 3.1 %; Mean Corpuscular Hemoglobin 32.4 pg (25.0-34.0); Mean Corpuscular Hgb Conc 35.8 g/dL (32.0-36.0); Mean Corpuscular Volume 90.5 fL (80.0-100.0); Mean Platelet Volume 9.4 fL (9.4-12.4); Monocytes # (auto) 0.63 K/uL (0.11-0.59); Monocytes % (auto) 5.9 %; Neutrophils # (auto) 9.59 K/uL (1.40-6.50); Platelet Count 271 K/uL (130-400); RDW Standard Deviation 43.2 fL (36.4-46.3); Red Blood Count 4.63 M/uL (4.70-6.10); White Blood Count 10.65 K/ul (4.8-10.8)
[2024-11-21 05:23] LABS: Albumin Level 3.3 gm/dl (3.4-5.0); BUN Creatinine Ratio 23.4 (10-20); Bilirubin,Total 1.5 mg/dl (0.2-1.0); Calcium 8.7 mg/dl (8.6-10.3); Creatinine Clr Calc Pharmacy 55.4 ml/min; Globulin 3.3 gm/dl (2.5-4.0); Total Protein 6.6 gm/dl (6.0-8.3)
--- NOTE | 2024-11-21 08:01 | Surgery Progress Note ---
Date of Service November 21, 2024 Assessment & Plan (1) Acute cholecystitis: Plan: POD#2 Placement of Cholecystostomy Tube, Incarcerated umbilical Hernia repair WBC 10, Hbg 15, Tb 1.5 (1.5), AST 46. ALT 65. Vitals stable Pt feeling ok. pain tolerable. tender on right sided abdomen to palpation. distended but passing flatus biliary tube with 125cc over last 12 hrs bilious, brandi #1 (190cc over 12 hrs, serosang), brandi #2 (160cc over 12 hrs, serosang) Continue IV abx, intraop cultures pending encourage OOB ambulating, PT/OT ordered. pt has been in and out of chair. Continue IS ordered maalox prn for GERD symptoms will discuss initiation of diet with dr. hamlin Admission and Anticipated Discharge Date Admission Date: November 18, 2024 Subjective Patient feeling okay. Pain manageable. No nausea, but had some issues with acid reflux this morning that is now controlled. He is passing gas, no BM yet. Has been out of bed to chair yesterday. Physical Exam Physical Exam: awake, no distress Respiratory: normal respiratory effort Gastrointestinal (Abdomen): Inspection/Auscultation: + abdomen distended and + abdominal surgical incision (dressings c/d/i) Percussion/Palpation: + abdomen tender (right sided abdominal discomfort to palpation) biliary tube with 125cc over last 12 hrs bilious, brandi #1 (190cc over 12 hrs, serosang), brandi #2 (160cc over 12 hrs, serosang) Results & Data Vital Signs (Past 12 Hours) Vital Signs Temp Pulse Pulse Resp BP Pulse Ox O2 Del Method 11/21/24 04:03 110/69 11/21/24 03:40 98.2 F 85 25 H 146/118 H 93 Room Air 11/21/24 00:00 81 11/21/24 00:00 97.7 F 83 22 154/79 H 93 Room Air PG Care Time/CCT Total # of Minutes Spent Total Time Spent with Patient: Total time spent is greater than 50% in coordination of care (as documented) at patient's floor/unit and/or counseling patient: Coding Level of Care Code 98166 Post Operative Follow-Up Diagnoses Acute cholecystitis K81.0
--- NOTE | 2024-11-21 08:19 | Hospitalist Progress Note ---
Date of Service November 21, 2024 Assessment & Plan (1) Cholecystitis, acute: Plan: 78-year-old male with past medical history significant for type 2 diabetes, hyperlipidemia, nonischemic dilated cardiomyopathy, chronic systolic CHF EF 30 to 34%, chronic left bundle branch block, symptomatic 2:1 AV block status post biventricular pacemaker in 2019, moderate aortic insufficiency, hypertension GERD, schatzki ring, hiatal hernia, B12 deficiency, anxiety disorder, BPH comes from home because of abdominal pain, nausea and vomiting For several days Acute gangrenous cholecystitis status postplacement of cholecystostomy tube Acute postoperative respiratory insufficiencyresolved Patient presented to the hospital with abdominal pain, nausea, vomiting and fever. Total bilirubin elevated 2.4 on admission Right upper quadrant showed dilated gallbladder with sludge and a small amount of calcified stone; wall thickening and trace amount of pericholecystic fluid present. Gram stain from bile shows moderate gram-positive bacilli; culture pending Patient initially plan for laparoscopic cholecystectomy; found to have gangrenous acute cholecystitis; placement of cholecystostomy tube was done. Patient was admitted to ICU for close observation after he was found to be hypoxic after the surgery. Likely secondary to atelectasis. Lactic acid within normal limits. ABG was reassuring. Patient transferred out of the ICU on November 20, 2024 Continue on Zosyn Continue on pain medication diet and drain management as per surgery Follow-up on final culture results on NSS at 50cc/hr. PT/OT evaluation Nonischemic dilated cardiomyopathy, Chronic systolic CHF with EF of 30 to 34%, compensated Moderate aortic insufficiency Continue home metoprolol. Entresto on hold for now Not on diuretics Type 2 diabetes On Trulicity Will hold metformin Sliding scale Will monitor Hypertension On metoprolol and Entresto, monitor GERD On famotidine BPH On finasteride DVT prophylaxis heparin Disposition PCU Full code Time spent evaluating patient, direct bedside care, chart review, placing orders, interpretation of diagnostic studies, discussion with consultants, patient, and family members, as well as other required patient management activities is 50 minutes Please note the above document was generated using voice recognition software. It may contain grammatical, syntax or spelling errors. Any formal questions or concerns about the content, text or information contained within the body of this dictation should be directly addressed to the provider for clarification Admission and Anticipated Discharge Date Admission Date: November 18, 2024 Subjective Patient is seated at bedside. He is comfortable occipital without any distress He is having some issues with reflux; denies any abdomen pain or discomfort Afebrile overnight Review of Systems Review of Systems: All systems reviewed & are unremarkable except as noted in Subjective Physical Exam Physical Exam: General- Not in distress. Head- atraumatic Eyes- PERRL. ENT- oropharynx dry Neck- supple, no JVD. Lungs- clear to auscultation no wheezing or crackles Heart- regular rhythm; no murmur, no gallop. Abdomen- Slightly distended. Appropriately tender in right side. Biliary tube with bilious output and drain with serosanguineous output. Extremities- trace pretibial edema, no erythema seen Neuro- alert, oriented PERRL, no facial palsy; no dysarthria; moves extremities Results & Data Results & Data Vital Signs (Past 12 Hours) Vital Signs Temp Pulse Pulse Resp BP Pulse Ox O2 Del Method 11/21/24 08:11 36.6 C 84 24 152/69 H 91 Room Air 11/21/24 04:03 110/69 11/21/24 03:40 36.8 C 85 25 H 146/118 H 93 Room Air 11/21/24 00:00 81 11/21/24 00:00 36.5 C 83 22 154/79 H 93 Room Air
[2024-11-21] MEDS: SODIUM CHLORIDE 0.9% 500 ML IV SCH (08:28)
[2024-11-21] MEDS: PANTOprazole 40 MG TAB PO SCH (08:32)
[2024-11-21] MEDS: HEPARIN SOD 5,000 UNIT/0.5 ML VIAL SQ SCH (08:34)
--- NOTE | 2024-11-21 09:03 | Surgery Progress Note ---
Date of Service November 21, 2024 Assessment & Plan (1) Acute cholecystitis: Plan: POD#3 Placement of Cholecystostomy Tube, Incarcerated umbilical Hernia repair Pt feeling ok. pain tolerable. tender on right sided abdomen to palpation. distended but passing flatus biliary tube with 125cc over last 12 hrs bilious, Fernando drains with minimal serosanguineous drainage Continue IV abx encourage OOB ambulating, PT/OT ordered. pt has been in and out of chair. Continue IS advance diet to clears Admission and Anticipated Discharge Date Admission Date: November 18, 2024 Subjective Feeling well today. Tolerating sips. No nausea or vomiting. Minimal pain. No fevers or chills. Physical Exam Physical Exam: awake, no distress Respiratory: normal respiratory effort Gastrointestinal (Abdomen): Inspection/Auscultation: + abdomen distended and + abdominal surgical incision (dressings c/d/i) Percussion/Palpation: + abdomen tender (right sided abdominal discomfort to palpation) Results & Data Vital Signs (Past 12 Hours) Vital Signs Temp Pulse Pulse Resp BP Pulse Ox O2 Del Method 11/21/24 08:11 36.6 C 84 24 152/69 H 91 Room Air 11/21/24 04:03 110/69 11/21/24 03:40 36.8 C 85 25 H 146/118 H 93 Room Air 11/21/24 00:00 81 11/21/24 00:00 36.5 C 83 22 154/79 H 93 Room Air Laboratory Results 11/21/24 11/21/24 11/20/24 Range/Units 05:38 04:30 23:55 WBC 10.65 (4.8-10.8) K/ul RBC 4.63 L (4.70-6.10) M/uL Hgb 15.0 (14.0-18.0) g/dl Hct 41.9 L (42.0-52.0) % MCV 90.5 (80.0-100.0) fL MCH 32.4 (25.0-34.0) pg MCHC 35.8 (32.0-36.0) g/dL RDW Std Deviation 43.2 (36.4-46.3) fL RDW Coeff of Lio 13.0 (11.5-14.5) % Plt Count 271 (130-400) K/uL MPV 9.4 (9.4-12.4) fL Immature Gran % (Auto) 0.7 % Neut % (Auto) 90.0 % Lymph % (Auto) 3.1 % [place] % (Auto) 5.9 % Eos % (Auto) 0.2 % Baso % (Auto) 0.1 % Neut # (Auto) 9.59 H (1.40-6.50) K/uL Lymph # (Auto) 0.33 L (1.20-3.40) K/uL [place] # (Auto) 0.63 H (0.11-0.59) K/uL Eos # (Auto) 0.02 (0.00-0.50) K/uL Baso # (Auto) 0.01 (0.00-0.20) K/uL Immature Gran # (Auto) 0.07 (0.01-0.20) K/uL Sodium 133 L (136-145) mmol/L Potassium 4.0 (3.5-5.1) mmol/L Chloride 100 (98-107) mmol/L Carbon Dioxide 20 L (21-32) mmol/L Anion Gap 13 H (3-11) BUN 32 H (6-23) mg/dl Creatinine 1.37 (0.6-1.4) mg/dl Est Cr Clr Drug Dosing 55.4 ml/min eGFR 52.15 BUN/Creatinine Ratio 23.4 H (10-20) Glucose 246 H (70-99(Fasting)) mg/dl POC Glucose 226 H 157 H (70-99) mg/dl Calcium 8.7 (8.6-10.3) mg/dl Total Bilirubin 1.5 H (0.2-1.0) mg/dl AST 46 H (13-39) U/L ALT 65 H (7-52) U/L Alkaline Phosphatase 69 (34-104) U/L Total Protein 6.6 (6.0-8.3) gm/dl Albumin 3.3 L (3.4-5.0) gm/dl Globulin 3.3 (2.5-4.0) gm/dl Albumin/Globulin Ratio 1.0 (0.9-2) 11/20/24 11/20/24 Range/Units 17:51 12:21 WBC (4.8-10.8) K/ul RBC (4.70-6.10) M/uL Hgb (14.0-18.0) g/dl Hct (42.0-52.0) % MCV (80.0-100.0) fL MCH (25.0-34.0) pg MCHC (32.0-36.0) g/dL RDW Std Deviation (36.4-46.3) fL RDW Coeff of Lio (11.5-14.5) % Plt Count (130-400) K/uL MPV (9.4-12.4) fL Immature Gran % (Auto) % Neut % (Auto) % Lymph % (Auto) % [place] % (Auto) % Eos % (Auto) % Baso % (Auto) % Neut # (Auto) (1.40-6.50) K/uL Lymph # (Auto) (1.20-3.40) K/uL [place] # (Auto) (0.11-0.59) K/uL Eos # (Auto) (0.00-0.50) K/uL Baso # (Auto) (0.00-0.20) K/uL Immature Gran # (Auto) (0.01-0.20) K/uL Sodium (136-145) mmol/L Potassium (3.5-5.1) mmol/L Chloride (98-107) mmol/L Carbon Dioxide (21-32) mmol/L Anion Gap (3-11) BUN (6-23) mg/dl Creatinine (0.6-1.4) mg/dl Est Cr Clr Drug Dosing ml/min eGFR BUN/Creatinine Ratio (10-20) Glucose (70-99(Fasting)) mg/dl POC Glucose 163 H 181 H (70-99) mg/dl Calcium (8.6-10.3) mg/dl Total Bilirubin (0.2-1.0) mg/dl AST (13-39) U/L ALT (7-52) U/L Alkaline Phosphatase (34-104) U/L Total Protein (6.0-8.3) gm/dl Albumin (3.4-5.0) gm/dl Globulin (2.5-4.0) gm/dl Albumin/Globulin Ratio (0.9-2)
[2024-11-21] MEDS: oxyCODONE HCL IR 5 MG TAB (IMMEDIATE RELEASE) PO PRN (09:08)
[2024-11-21] MEDS: THIAMINE HCL 200 MG in SODIUM CHLORIDE 0.9% 50 ML IV SCH (09:08)
[2024-11-21] MEDS: INSULIN ASPART PER UNIT CHARGE SC SCH (12:28)
[2024-11-21] MEDS: LANTUS PER UNIT CHARGE SQ SCH (12:28)
--- NOTE | 2024-11-22 07:30 | Hospitalist Progress Note ---
Date of Service November 22, 2024 Assessment & Plan (1) Cholecystitis, acute: Plan: 78-year-old male with past medical history significant for type 2 diabetes, hyperlipidemia, nonischemic dilated cardiomyopathy, chronic systolic CHF EF 30 to 34%, chronic left bundle branch block, symptomatic 2:1 AV block status post biventricular pacemaker in 2019, moderate aortic insufficiency, hypertension GERD, schatzki ring, hiatal hernia, B12 deficiency, anxiety disorder, BPH comes from home because of abdominal pain, nausea and vomiting For several days Acute gangrenous cholecystitis status postplacement of cholecystostomy tube Acute postoperative respiratory insufficiencyresolved Patient presented to the hospital with abdominal pain, nausea, vomiting and fever. Total bilirubin elevated 2.4 on admission Right upper quadrant showed dilated gallbladder with sludge and a small amount of calcified stone; wall thickening and trace amount of pericholecystic fluid present. Gram stain from bile shows moderate gram-positive bacilli; Culture growing Streptococcus mutans, Streptococcus para sanguinous Patient initially plan for laparoscopic cholecystectomy; found to have gangrenous acute cholecystitis; placement of cholecystostomy tube was done. Patient was admitted to ICU for close observation after he was found to be hypoxic after the surgery. Likely secondary to atelectasis. Lactic acid within normal limits. ABG was reassuring. Patient transferred out of the ICU on November 20, 2024 Continue on Zosyn. . Will obtain infectious disease consultation to determine choice and duration of antibiotics. Continue on pain medication diet and drain management as per surgery Continue PT/OT evaluation Nonischemic dilated cardiomyopathy, Chronic systolic CHF with EF of 30 to 34%, compensated Moderate aortic insufficiency Continue home metoprolol. Entresto on hold for now Not on diuretics Type 2 diabetes On Trulicity Will hold metformin Sliding scale Will monitor Hypertension On metoprolol and Entresto, monitor GERD On famotidine BPH On finasteride DVT prophylaxis heparin Disposition PCU Full code Time spent evaluating patient, direct bedside care, chart review, placing orders, interpretation of diagnostic studies, discussion with consultants, patient, and family members, as well as other required patient management activi ties is 50 minutes Please note the above document was generated using voice recognition software. It may contain grammatical, syntax or spelling errors. Any formal questions or concerns about the content, text or information contained within the body of this dictation should be directly addressed to the provider for clarification Admission and Anticipated Discharge Date Admission Date: November 18, 2024 Subjective Patient seen and examined at bedside. He is comfortable; not in distress No significant events overnight Review of Systems Review of Systems: All systems reviewed & are unremarkable except as noted in Subjective Physical Exam Physical Exam: General- Not in distress. Head- atraumatic Eyes- PERRL. ENT- oropharynx dry Neck- supple, no JVD. Lungs- clear to auscultation no wheezing or crackles Heart- regular rhythm; no murmur, no gallop. Abdomen- Slightly distended. Appropriately tender in right side. Biliary tube with bilious output and drain with serosanguineous output. Extremities- trace pretibial edema, no erythema seen Neuro- alert, oriented PERRL, no facial palsy; no dysarthria; moves extremities Results & Data Results & Data Vital Signs (Past 12 Hours) Vital Signs Temp Pulse Pulse Pulse Resp BP Pulse Ox 11/22/24 07:27 36.8 C 76 18 124/63 92 11/22/24 07:17 73 11/22/24 02:22 37.0 C 73 22 143/74 H 94 11/21/24 22:48 36.8 C 76 20 132/67 93 11/21/24 21:00 Pulse Ox O2 Del Method O2 Del Method 11/22/24 07:27 Room Air 11/22/24 07:17 11/22/24 02:22 Room Air 11/21/24 22:48 Room Air 11/21/24 21:00 95 Room Air
[2024-11-22 07:41] LABS: Hemoglobin 14.7 g/dl (14.0-18.0); Mean Corpuscular Hemoglobin 32.7 pg (25.0-34.0); Mean Corpuscular Hgb Conc 33.4 g/dL (32.0-36.0); Mean Corpuscular Volume 97.8 fL (80.0-100.0); Mean Platelet Volume 9.4 fL (9.4-12.4); Platelet Count 284 K/uL (130-400); RDW Coefficient of Variation 13.2 % (11.5-14.5); RDW Standard Deviation 47.2 fL (36.4-46.3); White Blood Count 7.99 K/ul (4.8-10.8)
[2024-11-22 07:48] LABS: Albumin Globulin Ratio 1.1 (0.9-2); Albumin Level 3.1 gm/dl (3.4-5.0); Bilirubin,Total 0.8 mg/dl (0.2-1.0); Calcium 8.5 mg/dl (8.6-10.3); Creatinine Clr Calc Pharmacy 50.5 ml/min; Globulin 2.9 gm/dl (2.5-4.0); Potassium 3.7 mmol/L (3.5-5.1)
[2024-11-22 08:00] LABS: Basophils # (auto) 0.03 K/uL (0.00-0.20); Basophils % (auto) 0.4 %; Eosinophils # (auto) 0.26 K/uL (0.00-0.50); Eosinophils % (auto) 3.3 %; Immature Granulocytes # (auto) 0.07 K/uL (0.01-0.20); Immature Granulocytes % (auto) 0.9 %; Lymphocytes # (auto) 0.97 K/uL (1.20-3.40); Lymphocytes % (auto) 12.1 %; Monocytes # (auto) 0.78 K/uL (0.11-0.59); Monocytes % (auto) 9.8 %; Neutrophils # (auto) 5.88 K/uL (1.40-6.50); Neutrophils % (auto) 73.5 %
--- NOTE | 2024-11-22 08:23 | Surgery Progress Note ---
Date of Service November 22, 2024 Assessment & Plan (1) Acute cholecystitis: Plan: POD#3 Placement of Cholecystostomy Tube, Incarcerated umbilical Hernia repair WBC 7.9, Hbg 14.7, Tb 0.8, AST 26, ALT 46. Vitals stable Pt feeling ok. pain tolerable. tender on right sided abdomen to palpation. distended but passing flatus biliary tube with 90cc over last 12 hrs bilious, brandi #1 (40cc over 12 hrs, serosang), brandi #2 (80cc over 12 hrs, serosang) Continue IV abx, intraop cultures growing strep mutans and strep parasanguinis encourage OOB ambulating, PT/OT ordered. pt has been in and out of chair. Continue IS ordered maalox prn and medicine added on protonix for GERD symptoms remains on clear liquids for now Admission and Anticipated Discharge Date Admission Date: November 18, 2024 Supervising Physician Co-Signing Physician Notes As per Keira Mann physician recruitment assistant Patient is relatively comfortable taking some clear liquids then out of bed passing some flatus no bowel movement The abdomen moderately distended (abdominal distention was even present preoperatively) positive guarding but nontender trocar sites healing well Brandi drainage x 2 serosanguineous nonbilious amount noted cholecystostomy tube drainage is less than 24 hours 120 cc dark bilious in nature (indication that the common bile duct is open and majority of the bowel was drained through common bile duct) oropharyngeal area moist Intraoperative cultures noted sensitivities pending BUN slightly rising at 45 with creatinine 1.50 At this point we will DC hydromorphone continue with Tylenol and wean off oxycodone Overall patient is doing markedly well given the significance of intra-abdominal pathology is been afebrile no white count and his GI function beginning to resume We will leave all 3 drains in for now Increase activity Appreciated Dr. Shawn Barrett seen patient yesterday Subjective Patient feeling okay. Similarly to yesterday. Tolerating liquids. Reports some acid-reflux symptoms. No nausea/vomiting. passing some gas, no BMs. says he was out of bed a little bit yesterday. pain manageable. Physical Exam Physical Exam: awake, no distress Gastrointestinal (Abdomen): Inspection/Auscultation: + abdomen distended and + abdominal surgical incision (c/d/i with steri strips) Percussion/Palpation: + abdomen tender (tender in RUQ/R mid abdomen ) biliary tube with 90cc over last 12 hrs bilious, brandi #1 (40cc over 12 hrs, serosang), brandi #2 (80cc over 12 hrs, serosang) Results & Data Vital Signs (Past 12 Hours) Vital Signs Temp Pulse Pulse Pulse Resp BP Pulse Ox 11/22/24 07:27 98.2 F 76 18 124/63 92 11/22/24 07:17 73 11/22/24 02:22 98.6 F 73 22 143/74 H 94 11/21/24 22:48 98.2 F 76 20 132/67 93 11/21/24 21:00 Pulse Ox O2 Del Method O2 Del Method 11/22/24 07:27 Room Air 11/22/24 07:17 11/22/24 02:22 Room Air 11/21/24 22:48 Room Air 11/21/24 21:00 95 Room Air PG Care Time/CCT Total # of Minutes Spent Total Time Spent with Patient: Total time spent is greater than 50% in coordination of care (as documented) at patient's floor/unit and/or counseling patient: Coding Level of Care Code 12080 Post Operative Follow-Up Diagnoses Acute cholecystitis K81.0
[2024-11-22] MEDS: LACTATED RINGER'S 1,000 ML IV SCH (10:15)
--- NOTE | 2024-11-22 13:02 | Infectious Disease Consult ---
Date of Service November 22, 2024 Attending Addendum This is a 78 /o male w/ a hx of DM2 and complex cardiac issues including chronic LBBB s/p bivPPM (2019), who was admittted on 11/18/24 for actue cholecystitis: fever w/ CT showing acute acaculus cholecystitis. Currently on zosyn. The patient had cholecystostomy tube placement (11/19/24) w/ GB bile cx growing Str eptococcus mutans and parasanguinis. I recommend total 4-7 days of abx therapy. The patient already had 4 days of zosy. May switch to either unasyn or augmentin to provide 2-3 more days of abx. If he is ready for discharge before completion of the additional abx, the abx can simply be stopped upon hospital discharge. I saw and evaluated the patient today. I have reviewed the trainee note and jarvis fulton Telehealth Information I performed this visit using a real-time telehealth connection between my location and the patients location ([facility]). After connecting through interactive tele-video, patient was identified by name and date of and/or wristband check.Patient (or authorized healthcare solar sales representative and assessor) was informed that this was a telemedicine visit and it was being conducted confidentially over secure lines. My office door was closed and no one else was present in the room with me.Patient (or authorized healthcare solar sales representative and assessor) provided consent to proceed with the visit, expressed an understanding of privacy and security of the telemedicine visit, and gave permission to have a hospital solar sales representative and assessor in the room in order to assist with the visit and to conduct portions of the visit, as needed. I informed the patient (or authorized healthcare solar sales representative and assessor) that I reviewed their record and presented the opportunity for them to ask any questions regarding the visit today. The patient agreed to participate. Assessment & Plan (1) Acute cholecystitis: (2) Umbilical hernia, incarcerated: (3) Status post revision of total replacement of right knee: Plan patient with acute cholecystitis, status post cholecystotomy. Patient was largely stable, not in septic shock, source has presumably been obtained via drainage. Cultures with Streptococcus species which are typically sensitive to penicillins. Patient with significantly improved abdominal pain as well. He has been treated appropriately with broad-spectrum Zosyn for intra-abdominal infection and at this point given his significant improvement we can deescalate to Unasyn with a total of 7 days. if primary team deems patient permissible for discharge in the next 3 days, reasonable to discontinue antibiotics altogether. - discontinue Zosyn - Unasyn IV 3 g q.8 hours based on current clearance with EOT 11/25/24 or discontinuation at discharge Appreciate consultation, Infectious Disease will sign off at this time. Please do not hesitate to reach out for any further questions or concerns. Jalil Parker MD PGY5 Infectious Disease History of Present Illness History of Present Illness 79-year-old male with a past medical history of type 2 diabetes, HEFrEF with nonischemic dilated cardiomyopathy, BPH presents to the ER from home due to fevers, abdominal pain, nausea, vomiting with the associated pain that radiated to the back. Patient was diagnosed with acute gangrenous cholecystitis as well as well as incarcerated umbilical hernia. Underwent laparotomy with placement of cholecystostomy tube 11/19/2024. Patient was brought to the ICU at procedure due to hypoxemia secondary to fluid overload/postoperative atelectasis. Patient is currently day 4 of Zosyn, culture from bile revealing Streptococcus mutans/Streptococcus parasanguinis. Surgical plan for outpatient cholecystectomy in approximately 4 weeks. Allergies Allergy/AdvReac Type Severity Reaction Status Date / Time alfuzosin Allergy Unknown Nausea Verified 11/18/24 19:47 tamsulosin Allergy Unknown Nausea Verified 11/18/24 19:47 terazosin Allergy Unknown Nausea Verified 11/18/24 19:47 Xbnajjr-IMP-ZgY Reductase AdvReac Severe Severe Verified 11/18/24 19:47 Inhibitor muscle [Wzrxiso-Smy-Vth Reductase weakness, Inhibitor] aches Home Medications Medication Instructions Recorded Confirmed Type cyanocobalamin (vitamin B-12) 1,000 mcg PO 3XWK 08/21/20 11/18/24 History 1,000 mcg capsule acetaminophen 500 mg tablet 1,000 mg (2 x 500 mg) PO Q8 pain 06/11/21 11/18/24 Rx (Tylenol Extra Strength) #21 tabs dulaglutide 3 mg/0.5 mL 3 mg subcut WK 11/18/24 11/18/24 History subcutaneous pen injector (Trulicity) famotidine 20 mg tablet 40 mg PO PM 11/18/24 11/18/24 History finasteride 5 mg tablet 5 mg PO QAM 11/18/24 11/18/24 History metformin 1,000 mg tablet 1,000 mg PO BID 11/18/24 11/18/24 History metoprolol succinate 50 mg 50 mg PO QAM 11/18/24 11/18/24 History tablet,extended release 24 hr sacubitril 49 mg-valsartan 51 mg 1 tab PO BID 11/18/24 11/18/24 History tablet (Entresto) Patient History Medical History (Updated 11/19/24 @ 15:48 by Jose Luis Aguillon MD) Aortic valve disorder Migraine headache Hiatal hernia Cardiomyopathy Aortic insufficiency Nonischemic cardiomyopathy Osteoarthritis Hyperlipidemia "Borderline" LBBB (left bundle branch block) Chronic GERD CAD (coronary artery disease) Mild nonobstructive CAD per 2011 cardiac cath ([place]) Sleep apnea "Mild" > no device prescribed Surgical History (Updated 11/21/24 @ 16:41 by Yamila Triplett RN) H/O umbilical hernia repair (11/19/24) Placement of Cholecystostomy Tube, Incarcerated umbilical Hernia(Not Applicable) - Elio Boothe MD, FACS H/O insertion of cholecystostomy tube (11/19/24) Placement of Cholecystostomy Tube, Incarcerated umbilical Hernia(Not Applicable) - Elio Boothe MD, FACS History of tonsillectomy History of permanent cardiac pacemaker placement H/O colonoscopy H/O esophagogastroduodenoscopy S/P appy Status post total hip replacement, right Family History Family/Other Family history of diabetes mellitus BROTHER OR SISTER Other Family history non-contributory No family history of adverse response to anesthesia Silicosis Social History Smoking Status: Former smoker Second Hand Exposure: No; Do You Dip or Chew Tobacco: No; Hx Alcohol Use: No Hx Substance Use: No Preferred Language: Turkmen Communication Ability: Effective Visual Impairment: No Limitations Ground Intelligence Officer Required: No Beliefs That Will Affect Care: None marital status: Current Living Situation: Spouse current occupational status: retired Other Information That Helps Us Care for You: No Feels Safe at Home: Yes Safety Concerns: Feels Safe At This Time Assistive Devices: Raised Toilet Seat and Walker Review of Systems CONSTITUTIONAL: Denies weight loss, fever and chills. HEENT: Denies changes in vision and hearing. RESPIRATORY: Denies SOB and cough. CV: Denies palpitations and CP. GI: Denies abdominal pain, nausea, vomiting and diarrhea. : Denies dysuria and urinary frequency. MSK: Denies myalgia and joint pain. SKIN: Denies rash and pruritus. NEUROLOGICAL: Denies headache and syncope PSYCHIATRIC: Denies recent changes in mood. Denies anxiety and depression. Physical Exam GENERAL: Appears as stated age. No acute distress. ABD: Abdominal drain with bilious drainage NEUROLOGIC: No focal neurological deficits. Cranial nerves grossly intact. Results & Data Vital Signs (Past 12 Hours) Vital Signs Temp Pulse Pulse Pulse Resp BP Pulse Ox 11/22/24 10:36 36.7 C 76 18 123/70 91 11/22/24 10:19 11/22/24 07:27 36.8 C 76 18 124/63 92 11/22/24 07:17 73 11/22/24 02:22 37.0 C 73 22 143/74 H 94 O2 Del Method 11/22/24 10:36 Room Air 11/22/24 10:19 Room Air 11/22/24 07:27 Room Air 11/22/24 07:17 11/22/24 02:22 Room Air Laboratory Results Abnormal Lab Results 11/21/24 11/21/24 11/22/24 15:59 20:29 07:02 WBC 7.99 RBC 4.50 L Hgb 14.7 Hct 44.0 MCV 97.8 D MCH 32.7 MCHC 33.4 RDW Std Deviation 47.2 H RDW Coeff of Lio 13.2 Plt Count 284 MPV 9.4 Immature Gran % (Auto) 0.9 Neut % (Auto) 73.5 Lymph % (Auto) 12.1 [place] % (Auto) 9.8 Eos % (Auto) 3.3 Baso % (Auto) 0.4 Neut # (Auto) 5.88 Lymph # (Auto) 0.97 L [place] # (Auto) 0.78 H Eos # (Auto) 0.26 Baso # (Auto) 0.03 Immature Gran # (Auto) 0.07 Sodium 137 Potassium 3.7 Chloride 104 Carbon Dioxide 26 Anion Gap 7 BUN 45 H Creatinine 1.50 H Est Cr Clr Drug Dosing 50.5 eGFR 46.77 BUN/Creatinine Ratio 30.0 H Glucose 148 H POC Glucose 218 H 241 H Calcium 8.5 L Total Bilirubin 0.8 D AST 26 ALT 46 Alkaline Phosphatase 58 Total Protein 6.0 Albumin 3.1 L Globulin 2.9 Albumin/Globulin Ratio 1.1 11/22/24 11/22/24 07:20 11:26 WBC RBC Hgb Hct MCV MCH MCHC RDW Std Deviation RDW Coeff of Lio Plt Count MPV Immature Gran % (Auto) Neut % (Auto) Lymph % (Auto) [place] % (Auto) Eos % (Auto) Baso % (Auto) Neut # (Auto) Lymph # (Auto) [place] # (Auto) Eos # (Auto) Baso # (Auto) Immature Gran # (Auto) Sodium Potassium Chloride Carbon Dioxide Anion Gap BUN Creatinine Est Cr Clr Drug Dosing eGFR BUN/Creatinine Ratio Glucose POC Glucose 134 H 199 H Calcium Total Bilirubin AST ALT Alkaline Phosphatase Total Protein Albumin Globulin Albumin/Globulin Ratio Diagnostic Findings Chest/Abdomen X-ray 11/18/24 15:24 EXAM: XR abdomen 2V w PA chest CLINICAL HISTORY: Upper ab fullness, SOB. TECHNIQUE: X-ray images of the chest in PA projection, and abdomen were obtained in supine and upright positions. COMPARISON: X-RAY dated 11/12/2024 FINDINGS: I-Chest: Pulmonary Parenchyma: Left lower zone parenchymal band, not appreciated in the previous images, possibly was masked by cardiac shadow Non-specific prominence of perihilar and right lower zone bronchovascular markings. No evidence of consolidation, collapse, or focal opacities. No pulmonary nodules are identified. No evidence of pleural effusion or pleural thickening. Heart and Mediastinum: The heart size appears enlarged. No hilar or mediastinal lymphadenopathy. Bony Thorax: Degenerative changes in the visualized skeleton. Soft Tissues: Soft tissues overlying the chest wall are unremarkable. A cardiac pacemaker is seen with its distal leads projected over the right atrium, right ventricular apex, and left ventricle. (no interval changes) II-Abdomen: Gas Pattern: Interval increase in the gaseous distension of the bowel loops mainly central and on the right. No evidence of bowel obstruction. No air-fluid levels No pneumoperitoneum. Soft Tissues: Soft tissues of the abdomen appear normal without evidence of calcifications. Tiny faint radiopaque densities are seen in the right renal area. is not appreciated in today's study Right hip prosthesis seen in place without loosening or break. IMPRESSION: 1. The left lower zone parenchymal band not appreciated in the previous radiograph, could be inflammatory. 2. Interval progression of the bowel gas distention, since last study mainly, no air-fluid levels, no pneumoperitoneum. 3. clinical correlation is recommended. Electronically signed by Efrain Corby 11-18-2024 6:04 PM Abdomen/Pelvis CT 11/18/24 16:27 EXAM: CT abd pelvis IV con only CLINICAL HISTORY: Transaminitis, elevated lipase, upper ab fullness; TECHNIQUE: Contrast-enhanced CT of the abdomen and pelvis was performed, with the following protocol: axial images with, and reconstructed coronal and sagittal images. 93ml opti 320 was administered. One of the following dose reduction techniques was utilized for this exam: Automated exposure control, adjustment of the mA and/or kV according to patient size, and use of iterative reconstruction. DLP: 1444.56 mGy-cm, CTDI: 27.4 mGy. COMPARISON: Compared to prior CT dated 01/24/2023. FINDINGS: Abdomen: Liver: Increase in size 19 cm, shape, and fatty density. multiple small hypodense lesions, with no zonal predilection. Hepatic vasculature and biliary ducts are unremarkable. 19x19 mm gely hepatic lymph node. Gallbladder and Biliary System: The gallbladder is distended 53x12 cm Increase wall thickness with pericholecystic fat strandings. The common bile duct is normal in caliber 3.5 mm without dilation. Pancreas: Pancreatic head, body, and tail are visualized and appear normal in size and density. No pancreatic masses, spot of calcification at uncinate process. The pancreatic duct is not dilated. Spleen: Normal in size, shape, and density. No splenic lesions or masses were identified. Appendix: No signs of acute appendicitis. Kidneys and Adrenal Glands: Both kidneys are normal in size, shape, and position. Cortical thickness is within normal limits. No renal calculi or hydronephrosis. Perinephric fat strandings. Bilateral multiple simple renal cysts, largest at the left lower pole about 11.4x11.4 cm. Adrenal glands are unremarkable with no evidence of masses or hyperplasia. Pelvis: Urinary Bladder: Normal in contour and wall thickness. No intraluminal lesions identified. Prostate: Increase in size 65 gm and contour. No focal lesions or masses identified. Seminal Vesicles: Normal in size and appearance. No abnormalities noted. Rectum and Sigmoid Colon: Normal wall thickness and no evidence of mass. Peritoneal and Retroperitoneal Structures: No free fluid or abnormal fluid collections were identified within the abdomen or pelvis. No lymphadenopathy was noted. Bowel: The visualized bowel loops are normal in caliber and appearance. No evidence of bowel obstruction or wall thickening. Abdominal wall: Fatty umbilical defect 17 mm. Bones and Soft Tissues: Pelvic bones and soft tissues are unremarkable. No fractures or abnormal masses were identified. Lumbar spondylosis with facet arthropathy and L4 over L5 grade I anterior spondylolisthesis. right-sided total hip replacement scanned lower lung lobes: bilateral basal atelectatic changes (stable) IMPRESSION: 1. Inflammatory changes centered on the gallbladder, suggestive of acute non-calcular cholecystitis. US correlation is recommended (new). 2. 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 3. 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 (unchanged). 4. Enlarged prostate 65 gm. (unchanged). 5. Bilateral simple renal cysts (BOSNIAK I) (unchanged). Electronically signed by Corby Zuniga 11-18-2024 6:23 PM Gallbladder Ultrasound 11/18/24 20:20 Exam(s): US GALLBLADDER EXAM: US Abdomen Limited, Gallbladder CLINICAL HISTORY: Reason for exam: elevated liver enzymes. cholecystitis. TECHNIQUE: Real-time ultrasound of the right upper quadrant with image documentation. COMPARISON: CT scan from November 18, 2024 FINDINGS: Liver: The liver is fatty infiltrated. There are numerous small simple cyst scattered throughout the liver measuring up to 1 cm. The portal vein is patent with normal hepatopetal flow. The liver is enlarged measuring 20.4 cm craniocaudad. Gallbladder: The gallbladder is dilated measuring 5 x 11 cm with sludge and small amount calcified stones within it dependently, wall thickening measuring 7 mm and a trace amount of pericholecystic fluid consistent with acute cholecystitis. Common bile duct: The common bile duct is nondilated measuring 3 mm. Pancreas: The pancreas is obscured by bowel gas. Right kidney: The right kidney measures 12.4 cm. There are simple cysts measuring 1.7 cm extending off the right kidney. No follow-up is required. IMPRESSION: The gallbladder is dilated measuring 5 x 11 cm with sludge and small amount calcified stones within it dependently, wall thickening measuring 7 mm, and a trace amount of pericholecystic fluid consistent with acute cholecystitis. Electronically signed by: Jason Max MD 11/19/24 00:09 AM Chest X-Ray 11/19/24 12:56 HISTORY: CHF. Postoperative evaluation. TECHNIQUE: Portable AP radiograph of the chest. 2 images. COMPARISON: Chest radiograph dated 11/18/2024. FINDINGS: Low lung volumes. Mild bibasilar airspace opacities. No pneumothorax or significant effusion. Cardiomegaly. Left subclavian approach pacer. Left-sided aortic arch. Midline trachea. Degenerative changes of the shoulders and spine. IMPRESSION: * Low lung volumes with mild bibasilar opacities favoring atelectasis. Possible small effusions. * Cardiomegaly. Electronically signed by Junito Ko 11-19-2024 13:32 PM
[2024-11-22] MEDS: AMPICILLIN/SULBACTAM SOD 3,000 MG/100 ML BAG IV SCH (14:26)
[2024-11-22] MEDS: ACETAMINOPHEN 325 MG TAB PO PRN (20:17)
[2024-11-23 06:27] LABS: Albumin Level 3.1 gm/dl (3.4-5.0); Bilirubin,Total 0.9 mg/dl (0.2-1.0); Calcium 8.1 mg/dl (8.6-10.3); Potassium 3.4 mmol/L (3.5-5.1)
[2024-11-23 06:33] LABS: Albumin Globulin Ratio 1.1 (0.9-2); BUN Creatinine Ratio 29.3 (10-20); Creatinine Clr Calc Pharmacy 65.2 ml/min; Globulin 2.7 gm/dl (2.5-4.0); Total Protein 5.8 gm/dl (6.0-8.3)
--- NOTE | 2024-11-23 06:39 | Surgery Progress Note ---
Date of Service November 23, 2024 Assessment & Plan (1) Acute cholecystitis: Plan: Cultures taken intraoperatively noted sensitivities noted Infectious disease consult noted Will increase diet consult physical therapy to increase activity I would expect to be in the hospital another 3 or 4 days Admission and Anticipated Discharge Date Admission Date: November 18, 2024 Subjective Sitting at the side of the bed comfortable without any issues denies any abdominal discomfort positive flatus no bowel movement yet Physical Exam Physical Exam: Alert coherent no acute distress Sitting up without any issues comfortable in chair Fernando drainage serous nonbilious amount noted Cholecystostomy tube draining well expected color of bile Abdomen less distended nontender Results & Data Vital Signs (Past 12 Hours) Vital Signs Temp Pulse Pulse Resp BP Pulse Ox O2 Del Method 11/23/24 03:16 36.6 C 66 19 139/62 94 Room Air 11/22/24 22:00 78 11/22/24 22:00 36.7 C 74 19 136/79 94 Room Air 11/22/24 21:00 11/22/24 19:00 36.5 C 74 18 158/81 H 95 Room Air O2 Del Method 11/23/24 03:16 11/22/24 22:00 11/22/24 22:00 11/22/24 21:00 Room Air 11/22/24 19:00
[2024-11-23] MEDS: POTASSIUM CHLORIDE CRTAB 20 MEQ TABCR PO STA (07:00)
[2024-11-23] MEDS: METOPROLOL SUCC 50MG EXT REL TAB PO STA (07:35)
[2024-11-23] MEDS: MAGNESIUM SULFATE / D5W 1 GM/100 ML BAG IV ONE (08:18)
[2024-11-23 08:27] LABS: Magnesium 2.1 mg/dl (1.7-2.4)
[2024-11-23] MEDS: POTASSIUM CHLORIDE 20 MEQ in LACTATED RINGER'S 1,000 ML IV ONE (08:55)
--- NOTE | 2024-11-23 14:23 | Hospitalist Progress Note ---
Date of Service November 23, 2024 Assessment & Plan (1) Cholecystitis, acute: Plan: 78-year-old male with past medical history significant for type 2 diabetes, hyperlipidemia, nonischemic dilated cardiomyopathy, chronic systolic CHF EF 30 to 34%, chronic left bundle branch block, symptomatic 2:1 AV block status post biventricular pacemaker in 2019, moderate aortic insufficiency, hypertension GERD, schatzki ring, hiatal hernia, B12 deficiency, anxiety disorder, BPH comes from home because of abdominal pain, nausea and vomiting for several days. Acute gangrenous cholecystitis status postplacement of cholecystostomy tube Acute postoperative respiratory insufficiencyresolved Patient presented to the hospital with abdominal pain, nausea, vomiting and fever. Total bilirubin elevated 2.4 on admission Right upper quadrant showed dilated gallbladder with sludge and a small amount of calcified stone; wall thickening and trace amount of pericholecystic fluid present. 11/19 GB culture: Streptococcus mutans, Streptococcus parasanguinis Patient initially plan for laparoscopic cholecystectomy; found to have gangrenous acute cholecystitis; placement of cholecystostomy tube was done. Patient was admitted to ICU for close observation after he was found to be hypoxic after the surgery. Likely secondary to atelectasis. Lactic acid within normal limits. ABG was reassuring. Patient transferred out of the ICU on November 20, 2024 ID evaled 11/22, total 7 day atb therapy Pt received already 4 days of zosyn, c/w 3 days of unasyn and stop. EOT 11/25/24. Continue on pain medication diet and drain management as per surgery Continue PT/OT evaluation Nonischemic dilated cardiomyopathy, Chronic systolic CHF with EF of 30 to 34%, compensated Moderate aortic insufficiency Continue home metoprolol and Entresto . Other chronic medical conditions: Continue with/resume home meds as and when able. T2DM: Sliding scale insulin while inpatient. Hypertension: Continue home cardiac medications. GERD: Continue PPI. BPH: Continue home finasteride DVT prophylaxis: Heparin subcu Disposition: PCU, PT/OT, CM to assist with DC planning. Full code Admission and Anticipated Discharge Date Admission Date: November 18, 2024 Subjective Patient was seen and examined at bedside. Patient was lying in bed, on room air, NAD, resting comfortably. Patient reports improvement in his belly pain, reports moving gas, has not moved bowels yet. Patient reports eating okay and denies any increase in belly pain after food. Patient denies any fever/sore throat/cough/chest pain/headache. Physical Exam Physical Exam: General- Not in distress. Head- atraumatic Eyes- PERRL. ENT- oropharynx dry Neck- supple, no JVD. Lungs- clear to auscultation no wheezing or crackles Heart- regular rhythm; no murmur, no gallop. Abdomen- Slightly distended. Appropriately tender in right side. Biliary tube with bilious output and drain with serosanguineous output. Extremities- trace pretibial edema, no erythema seen Neuro- alert, oriented PERRL, no facial palsy; no dysarthria; moves extremities Results & Data Results & Data Vital Signs (Past 12 Hours) Vital Signs Temp Pulse Pulse Pulse Resp BP BP 11/23/24 11:16 36.7 C 70 18 130/70 11/23/24 08:53 11/23/24 07:27 65 11/23/24 07:14 36.7 C 78 18 154/61 H 11/23/24 03:16 36.6 C 66 19 139/62 Pulse Ox O2 Del Method 11/23/24 11:16 94 Room Air 11/23/24 08:53 Room Air 11/23/24 07:27 11/23/24 07:14 94 Room Air 11/23/24 03:16 94 Room Air
[2024-11-23 15:44] LABS: Basophils # (auto) 0.02 K/uL (0.00-0.20); Basophils % (auto) 0.3 %; Eosinophils # (auto) 0.16 K/uL (0.00-0.50); Eosinophils % (auto) 2.1 %; Hematocrit (blood only) 41.3 % (42.0-52.0); Hemoglobin 14.4 g/dl (14.0-18.0); Immature Granulocytes # (auto) 0.08 K/uL (0.01-0.20); Immature Granulocytes % (auto) 1.1 %; Lymphocytes # (auto) 0.87 K/uL (1.20-3.40); Lymphocytes % (auto) 11.6 %; Mean Corpuscular Hemoglobin 32.2 pg (25.0-34.0); Mean Corpuscular Hgb Conc 34.9 g/dL (32.0-36.0); Mean Corpuscular Volume 92.4 fL (80.0-100.0); Monocytes # (auto) 0.56 K/uL (0.11-0.59); Monocytes % (auto) 7.5 %; Neutrophils # (auto) 5.79 K/uL (1.40-6.50); Neutrophils % (auto) 77.4 %; Platelet Count 285 K/uL (130-400); RDW Coefficient of Variation 12.9 % (11.5-14.5); RDW Standard Deviation 43.9 fL (36.4-46.3); Red Blood Count 4.47 M/uL (4.70-6.10); White Blood Count 7.48 K/ul (4.8-10.8)
[2024-11-24 06:42] LABS: Hematocrit (blood only) 41.8 % (42.0-52.0); Hemoglobin 14.4 g/dl (14.0-18.0); Mean Corpuscular Hemoglobin 32.2 pg (25.0-34.0); Mean Corpuscular Hgb Conc 34.4 g/dL (32.0-36.0); Mean Corpuscular Volume 93.5 fL (80.0-100.0); Mean Platelet Volume 8.9 fL (9.4-12.4); Platelet Count 283 K/uL (130-400); RDW Coefficient of Variation 12.8 % (11.5-14.5); RDW Standard Deviation 44.3 fL (36.4-46.3); Red Blood Count 4.47 M/uL (4.70-6.10)
[2024-11-24 07:27] LABS: Calcium 8.4 mg/dl (8.6-10.3); Magnesium 2.1 mg/dl (1.7-2.4); Potassium 3.7 mmol/L (3.5-5.1)
[2024-11-24 07:33] LABS: BUN Creatinine Ratio 23.2 (10-20); Creatinine Clr Calc Pharmacy 67.6 ml/min
[2024-11-24] MEDS: METOPROLOL SUCC 50MG EXT REL TAB PO SCH (08:26)
[2024-11-24] MEDS: ADVANCED PROBIOTIC 625 MG CAPSULE PO SCH (08:27)
--- NOTE | 2024-11-24 09:01 | Surgery Progress Note ---
Date of Service November 24, 2024 Assessment & Plan (1) Acute cholecystitis: Plan: #5 POD status post laparoscopic placement of gastrostomy tube for acute significant acute cholecystitis with thickened wall very sclerotic unable to dissect safely therefore a cholecystotomy tube was placed with 2 Fernando drains 1 underneath the liver and 1 above All parameters were improved patient is tolerating a diet passing flatus but has not had a bowel movement his abdomen is moderately distended tympanitic but nontender Patient has no white count no left shift creatinine is back to preoperative levels (will cut back on IV fluids) already been seen by Dr. Heredia We also give a fleets enema today The patient is experiencing back pain that he stated this started after surgery he did not have it when he first came in In reviewing the labs when he first came in on the his lipase was 200 on the that was back to normal but noted that on an ER visit that he had on 11/13/2024 where he came in with abdominal pain nausea and reflux symptoms patient had a KUB of the abdomen and the only exam did not show anything specific except some punctate area seen on the right kidney but on subsequently x-ray when it was admitted on the there were no longer present Moderate abdominal distention with prominent bowel loops was noted on admission on the of following CT scan of the abdomen and pelvis nothing remarkable was noted on the bowel loops Looking over the data from the ER visit on 11/13/2024 and how it progressed to admission on 11/18/2024 and suspicion of the patient at that time on the may have had the beginning of a cholecystitis but possible pancreatitis that by the and may beginning to resolve with a lipase of 200 but the CAT scan that was done on the did not show anything abnormal in the pancreas such as edema Today will get a KUB of the abdomen may be that repeat CT scan of the abdomen and pelvis depending on the clinical course although at this time clinically is greatly improved and we will hold off proceeding with the CT scan Discussed case with yesterday that the patient will probably need some rehab and he is agreeable and they are working with social service to find a place for rehab Dr. Underwood covering the weekend Admission and Anticipated Discharge Date Admission Date: November 18, 2024 Subjective No major complaints is tolerating a diet passing flatus but no bowel movement yet no real abdominal discomfort On questioning the patient this evening back pain he stated he has some back pain around his kidneys had before his came to the hospital Physical Exam Physical Exam: Alert coherent responds appropriately although at times she seems to have a sluggish response (he has had this disposition before) Resting comfortably without any complaints Sclera nonicteric The abdomen markedly distended and tympanitic this seems to be more so than yesterday although he had a prominent abdominal girth follow-up on Fernando drainage and cholecystostomy tube noted Fernando drain serous mostly in nature nonbilious Cholecystostomy tube drainage bilious in nature as expected Results & Data Vital Signs (Past 12 Hours) Vital Signs Temp Pulse Pulse Pulse Resp BP Pulse Ox 11/24/24 08:19 36.7 C 61 18 164/78 H 95 11/24/24 03:00 36.7 C 62 18 163/67 H 95 11/23/24 23:00 36.8 C 64 16 144/69 H 94 11/23/24 22:00 65 O2 Del Method 11/24/24 08:19 Room Air 11/24/24 03:00 Room Air 11/23/24 23:00 Room Air 11/23/24 22:00 Laboratory Results Noted
--- NOTE | 2024-11-24 10:32 | XRay Report ---
KUB HISTORY: post op, eval bowel gas pattern COMPARISON STUDY: 11/19/2023 FINDINGS: Catheter overlies the lateral right abdomen. There is diffusely increased small bowel diste ntion measuring up tor 5 cm diameter. There is moderate retained stool. No colonic distention seen. T here is trace postoperative free air. IMPRESSION: Increased small bowel distention could represent ileus or early small bowel obstruction. ACT 112: Negative or not required by law. The above report was generated using voice recognition software. It may contain grammatical, syntax o r spelling errors. Electronically signed by: Jef Alvarez M.D. 11/24/2024 10:30 AM
[2024-11-24] MEDS: LACTATED RINGER'S 1,000 ML IV SCH (13:00)
[2024-11-24] MEDS: AMPICILLIN/SULBACTAM SOD 3,000 MG/100 ML BAG IV SCH (13:00)
--- NOTE | 2024-11-24 13:46 | Communication Note ---
Date of Service: November 24, 2024 KUB obtained today for + abdominal distention. Imaging revealed increased small bowel distention which could represent ileus or early small bowel obstruction. Will back diet back down to NPO/Sips/Chips and re-initiate IVF at LR 50cc/hr. If nausea or vomiting will recommend NGT insertion. Will repeat KUB tomorrow. If worsens will consider repeat CT scan, but will hold off on this for now. Discussed with Dr. Boothe.
--- NOTE | 2024-11-24 14:16 | Hospitalist Progress Note ---
Date of Service November 24, 2024 Assessment & Plan (1) Cholecystitis, acute: Plan: 78-year-old male with past medical history significant for type 2 diabetes, hyperlipidemia, nonischemic dilated cardiomyopathy, chronic systolic CHF EF 30 to 34%, chronic left bundle branch block, symptomatic 2:1 AV block status post biventricular pacemaker in 2019, moderate aortic insufficiency, hypertension GERD, schatzki ring, hiatal hernia, B12 deficiency, anxiety disorder, BPH comes from home because of abdominal pain, nausea and vomiting for several days. Acute gangrenous cholecystitis status postplacement of cholecystostomy tube Acute postoperative respiratory insufficiencyresolved Patient presented to the hospital with abdominal pain, nausea, vomiting and fever. Total bilirubin elevated 2.4 on admission Right upper quadrant showed dilated gallbladder with sludge and a small amount of calcified stone; wall thickening and trace amount of pericholecystic fluid present. 11/19 GB culture: Streptococcus mutans, Streptococcus parasanguinis Patient initially plan for laparoscopic cholecystectomy; found to have gangrenous acute cholecystitis; placement of cholecystostomy tube was done. Patient was admitted to ICU for close observation after he was found to be hypoxic after the surgery. Likely secondary to atelectasis. Lactic acid within normal limits. ABG was reassuring. Patient transferred out of the ICU on November 20, 2024 ID evaled 11/22, total 7 day atb therapy Pt received already 4 days of zosyn, c/w 3 days of unasyn and stop. EOT 11/25/24. Continue on pain medication diet and drain management as per surgery Continue PT/OT evaluation Early SBO vs ileus: pt has not moved bowel post operatively, KUB 11/24 w/ concerns of ileus vs early sbo. Gen sx on board, NPO now, on gentle ivf, plan for repeat KUB XR in AM. Nonischemic dilated cardiomyopathy, Chronic systolic CHF with EF of 30 to 34%, compensated Moderate aortic insufficiency Continue home metoprolol and Entresto . Other chronic medical conditions: Continue with/resume home meds as and when able. T2DM: Sliding scale insulin while inpatient. Hypertension: Continue home cardiac medications. GERD: Continue PPI. BPH: Continue home finasteride DVT prophylaxis: Heparin subcu Disposition: PCU, PT/OT, CM to assist with DC planning. Full code Admission and Anticipated Discharge Date Admission Date: November 18, 2024 Subjective Patient was seen and examined at bedside. Patient was lying in bed, on room air, NAD, resting comfortably. Patient reports no belly pain, reports moving gas, has not moved bowels yet. Patient reports eating okay and denies any increase in belly pain after food. Patient denies any fever/sore throat/cough/chest pain/headache. Physical Exam Physical Exam: General- Not in distress. Head- atraumatic Eyes- PERRL. ENT- oropharynx dry Neck- supple, no JVD. Lungs- clear to auscultation no wheezing or crackles Heart- regular rhythm; no murmur, no gallop. Abdomen- Slightly distended. Appropriately tender in right side. Biliary tube with bilious output and drain with serosanguineous output. Extremities- trace pretibial edema, no erythema seen Neuro- alert, oriented PERRL, no facial palsy; no dysarthria; moves extremities Results & Data Results & Data Vital Signs (Past 12 Hours) Vital Signs Temp Pulse Pulse Pulse Resp BP Pulse Ox 11/24/24 10:58 36.7 C 66 18 144/70 H 96 11/24/24 08:19 36.7 C 61 18 164/78 H 95 11/24/24 07:00 74 11/24/24 03:00 36.7 C 62 18 163/67 H 95 O2 Del Method 11/24/24 10:58 Room Air 11/24/24 08:19 Room Air 11/24/24 07:00 11/24/24 03:00 Room Air
[2024-11-24] MEDS ORDERED: Nursing to Pharmacy Communication SCH (19:15)
[2024-11-25] MEDS: INSULIN ASPART PER UNIT CHARGE SC SCH ×2 (00:30→17:24)
--- NOTE | 2024-11-25 04:58 | Surgery Progress Note ---
Date of Service November 25, 2024 Assessment & Plan (1) Acute cholecystitis: Plan: Status postplacement of cholecystostomy tube on 11/19/2024 (postop day #6) Continue analgesics as needed Continue antibiotics in form of Unasyn Concern noted on 11/24/2024 the patient was developing an ileus and therefore his diet was backed down to n.p.o. KUB is ordered for this morning which is pending Consideration be given to readvancing diet beginning with sips of clear liquids pending KUB results if continued bowel function (patient does report passing flatus last night) Check a.m. labs when available Patient is receiving subcutaneous heparin for DVT prophylaxis Admission and Anticipated Discharge Date Admission Date: November 18, 2024 Supervising Physician Co-Signing Physician Notes Patient seen and examined, labs imaging reviewed, grew with above. 79-year-old male status post attempted laparoscopic cholecystectomy with laparoscopic cholecystostomy tube placement and drain placement due to cholecystitis with significant adhesions. Continues to feel well, tolerating diet. Less distended, has passed flatus, no nausea. On exam he is afebrile with stable vitals, his abdomen is moderately distended but soft, nontender. The 2 GUY drains are serosanguineous. The cholecystostomy tube drain is bilious. Labs unremarkable. KUB personally viewed and interpreted and agree with the assessment of continued small bowel distention but improved from yesterday. Will advance him to clear liquids, if continues to do well may advance to regular diet as tolerated over the next 24 hours. Subjective Patient is currently resting comfortably in bed. He notes his pain is well- controlled at the present time. He does not report any bowel movement but does note he is passing some flatus. He currently does not report any nausea or vomiting. Physical Exam Gastrointestinal (Abdomen): Abdomen has mild distention noted. There is minimal pain with palpation. Little rgical drains are in place and appear to have some serous drainage with a bilious component. Results & Data Vital Signs (Past 12 Hours) Vital Signs Temp Pulse Pulse Pulse Resp BP Pulse Ox 11/25/24 04:12 65 167/70 H 11/25/24 02:45 36.7 C 64 20 180/76 H 96 11/25/24 00:00 62 11/24/24 23:03 36.7 C 67 18 175/78 H 94 11/24/24 19:30 36.6 C 68 20 161/70 H 96 O2 Del Method 11/25/24 04:12 11/25/24 02:45 Room Air 11/25/24 00:00 11/24/24 23:03 Room Air 11/24/24 19:30 Room Air PG Care Time/CCT Total # of Minutes Spent Total Time Spent with Patient: Total time spent is greater than 50% in coordination of care (as documented) at patient's floor/unit and/or counseling patient: Coding Level of Care Code 54962 Post Operative Follow-Up Diagnoses Acute cholecystitis K81.0
[2024-11-25 06:32] LABS: Creatinine Clr Calc Pharmacy 72.2 ml/min; Magnesium 1.8 mg/dl (1.7-2.4); Phosphorus 3.5 mg/dl (2.5-4.9); Potassium 3.5 mmol/L (3.5-5.1)
[2024-11-25] MEDS: POTASSIUM CHLORIDE / WTR 10 MEQ/100 ML PLCT IV SCH (08:51)
[2024-11-25] MEDS: LANTUS PER UNIT CHARGE SQ SCH (10:18)
--- NOTE | 2024-11-25 10:35 | XRay Report ---
KUB CLINICAL HISTORY: eval ileus vs sbo resolution COMPARISON STUDY: CT of the abdomen and pelvis November 18, 2024. KUB November 24, 2024. FINDINGS: Cholecystostomy tube is noted. There is a surgical clip within the right upper quadrant. Mu ltiple loops of moderately dilated small bowel measure up to 4.5 cm in caliber. Small bowel dilatatio n has slightly decreased. Right hip arthroplasty is partially imaged. IMPRESSION: Mild decrease in small bowel dilatation. The findings favor a postoperative ileus. A part ial small bowel obstruction could appear similar. ACT 112: Negative or not required by law. Electronically signed by: Nakul Rizo M.D. 11/25/2024 10:34 AM
--- NOTE | 2024-11-25 14:55 | Hospitalist Progress Note ---
Date of Service November 25, 2024 Assessment & Plan (1) Cholecystitis, acute: Plan: 78-year-old male with past medical history significant for type 2 diabetes, hyperlipidemia, nonischemic dilated cardiomyopathy, chronic systolic CHF EF 30 to 34%, chronic left bundle branch block, symptomatic 2:1 AV block status post biventricular pacemaker in 2019, moderate aortic insufficiency, hypertension GERD, schatzki ring, hiatal hernia, B12 deficiency, anxiety disorder, BPH comes from home because of abdominal pain, nausea and vomiting for several days. Acute gangrenous cholecystitis status postplacement of cholecystostomy tube Acute postoperative respiratory insufficiencyresolved Patient presented to the hospital with abdominal pain, nausea, vomiting and fever. Total bilirubin elevated 2.4 on admission Right upper quadrant showed dilated gallbladder with sludge and a small amount of calcified stone; wall thickening and trace amount of pericholecystic fluid present. 11/19 GB culture: Streptococcus mutans, Streptococcus parasanguinis Patient initially plan for laparoscopic cholecystectomy; found to have gangrenous acute cholecystitis; placement of cholecystostomy tube was done. Patient was admitted to ICU for close observation after he was found to be hypoxic after the surgery. Likely secondary to atelectasis. Lactic acid within normal limits. ABG was reassuring. Patient transferred out of the ICU on November 20, 2024 ID evaled 11/22, total 7 day atb therapy Pt received already 4 days of zosyn, c/w 3 days of unasyn and stop. EOT 11/25/24. Continue on pain medication diet and drain management as per surgery, diet advanced today. Pt moved bowel 11/24, XR KUB w/ some improvement today. Continue PT/OT evaluation Early SBO vs ileus: pt has not moved bowel post operatively, KUB 11/24 w/ vladimir rns of ileus vs early sbo. Gen sx on board. 11/25 XR KUB w/ some improvement. Pt moved BM 11/24, diet advanced today. Nonischemic dilated cardiomyopathy, Chronic systolic CHF with EF of 30 to 34%, compensated Moderate aortic insufficiency Continue home metoprolol and Entresto . Other chronic medical conditions: Continue with/resume home meds as and when able. T2DM: Sliding scale insulin while inpatient. Hypertension: Continue home cardiac medications. GERD: Continue PPI. BPH: Continue home finasteride DVT prophylaxis: Heparin subcu Disposition: PCU, PT/OT, CM to assist with DC planning. Full code Admission and Anticipated Discharge Date Admission Date: November 18, 2024 Subjective Patient was seen and examined at bedside. Patient was lying in bed, on room air, NAD, resting comfortably. Patient reports no belly pain, reports good BM last evening. Gen sx on board, diet advanced today. Patient denies any fever/sore throat/cough/chest pain/headache. Physical Exam Physical Exam: General- Not in distress. Head- atraumatic Eyes- PERRL. ENT- oropharynx dry Neck- supple, no JVD. Lungs- clear to auscultation no wheezing or crackles Heart- regular rhythm; no murmur, no gallop. Abdomen- Slightly distended. Appropriately tender in right side. Biliary tube with bilious output and drain with serosanguineous output. Extremities- trace pretibial edema, no erythema seen Neuro- alert, oriented PERRL, no facial palsy; no dysarthria; moves extremities Results & Data Results & Data Vital Signs (Past 12 Hours) Vital Signs Temp Pulse Pulse Resp BP Pulse Ox O2 Del Method 11/25/24 14:00 36.6 C 67 18 167/77 H 96 Room Air 11/25/24 11:00 36.8 C 55 L 20 155/63 H 96 Room Air 11/25/24 08:00 65 11/25/24 07:09 36.5 C 63 18 170/65 H 94 Room Air 11/25/24 04:12 65 167/70 H
[2024-11-25] MEDS ORDERED: Nursing to Pharmacy Communication SCH (16:45)
[2024-11-26 06:11] LABS: Calcium 7.7 mg/dl (8.6-10.3); Creatinine Clr Calc Pharmacy 71.5 ml/min; Magnesium 1.6 mg/dl (1.7-2.4); Phosphorus 2.7 mg/dl (2.5-4.9); Potassium 3.6 mmol/L (3.5-5.1)
--- NOTE | 2024-11-26 08:32 | Surgery Progress Note ---
Date of Service November 26, 2024 Assessment & Plan (1) Acute cholecystitis: Plan: Status postplacement of cholecystostomy tube on 11/19/2024 (postop day #7) Continue antibiotics Pt had BM this AM , tolerated clear liquids will advance to fulls for lunch GUY drains serosanguineous Cholecystostomy drain bilious VSS ordered am labs pt seen and examined with Dr Underwood Admission and Anticipated Discharge Date Admission Date: November 18, 2024 Supervising Physician Co-Signing Physician Notes Patient seen and examined, agree with above. Status post attempted laparoscopic cholecystectomy with laparoscopic cholecystostomy tube placement and drain placement. Multiple bowel movements overnight. Feels better. Tolerating clear liquids. On exam nondistended, GUY drain serosanguineous, cholecystostomy tube ileus. Incisions without infection. Follow-up KUB, advance to low-fat diet. Subjective +bms tolerating clears no n/v Review of Systems Gastrointestinal: no abdominal pain, no nausea and no vomiting Physical Exam Constitutional: cooperative and comfortable; no acute distress Respiratory: normal respiratory effort and able to speak in complete sentences; no respiratory distress Cardiovascular: Rate/Rhythm: regular rate Gastrointestinal (Abdomen): Inspection/Auscultation: + abdominal surgical incision and + abdominal surgical drain present (brandi drains x2, cholecystostomy tube ) Psychiatric: Orientation: alert and oriented x 3 Results & Data Vital Signs (Past 12 Hours) Vital Signs Temp Pulse Pulse Resp BP Pulse Ox O2 Del Method 11/26/24 07:36 98.2 F 65 18 174/69 H 95 Room Air 11/26/24 07:18 61 11/26/24 03:06 97.9 F 73 18 161/77 H 97 Room Air 11/25/24 22:52 97.7 F 61 16 151/73 H 95 Room Air 11/25/24 22:41 61 PG Care Time/CCT Total # of Minutes Spent Total Time Spent with Patient: Total time spent is greater than 50% in coordination of care (as documented) at patient's floor/unit and/or counseling patient: Coding Level of Care Code 12514 Post Operative Follow-Up Diagnoses Acute cholecystitis K81.0
[2024-11-26] MEDS: MAGNESIUM SULFATE / D5W 1 GM/100 ML BAG IV SCH (09:04)
[2024-11-26 09:06] LABS: Basophils # (auto) 0.02 K/uL (0.00-0.20); Basophils % (auto) 0.3 %; Eosinophils # (auto) 0.23 K/uL (0.00-0.50); Hematocrit (blood only) 38.7 % (42.0-52.0); Hemoglobin 13.1 g/dl (14.0-18.0); Immature Granulocytes # (auto) 0.13 K/uL (0.01-0.20); Immature Granulocytes % (auto) 1.7 %; Lymphocytes # (auto) 1.02 K/uL (1.20-3.40); Lymphocytes % (auto) 13.4 %; Mean Corpuscular Hemoglobin 31.3 pg (25.0-34.0); Mean Corpuscular Hgb Conc 33.9 g/dL (32.0-36.0); Mean Corpuscular Volume 92.4 fL (80.0-100.0); Mean Platelet Volume 9.1 fL (9.4-12.4); Monocytes # (auto) 0.56 K/uL (0.11-0.59); Monocytes % (auto) 7.3 %; Neutrophils # (auto) 5.68 K/uL (1.40-6.50); Neutrophils % (auto) 74.3 %; Platelet Count 279 K/uL (130-400); RDW Coefficient of Variation 12.8 % (11.5-14.5); RDW Standard Deviation 43.3 fL (36.4-46.3); Red Blood Count 4.19 M/uL (4.70-6.10); White Blood Count 7.64 K/ul (4.8-10.8)
[2024-11-26] MEDS: hydrALAZINE HCL 20 MG/ML VIAL IV PRN (11:06)
--- NOTE | 2024-11-26 11:15 | XRay Report ---
KUB CLINICAL HISTORY: ileus COMPARISON STUDY: KUB November 25, 2024. FINDINGS: Multiple loops of mildly dilated small bowel measure up to 5.6 cm in caliber. Small bowel d ilatation has slightly increased. Cholecystostomy tube is in place. Right hip arthroplasty is inciden tally noted. Pacer leads are partially imaged. No evidence for free air on supine exam. IMPRESSION: Moderate small bowel dilatation, slightly increased since prior exam. The findings could represent an ileus or small bowel obstruction. ACT 112: Negative or not required by law. Electronically signed by: Nakul Rizo M.D. 11/26/2024 11:14 AM
--- NOTE | 2024-11-26 15:43 | Hospitalist Progress Note ---
Date of Service November 26, 2024 Assessment & Plan (1) Cholecystitis, acute: Plan: 78-year-old male with past medical history significant for type 2 diabetes, hyperlipidemia, nonischemic dilated cardiomyopathy, chronic systolic CHF EF 30 to 34%, chronic left bundle branch block, symptomatic 2:1 AV block status post biventricular pacemaker in 2019, moderate aortic insufficiency, hypertension GERD, schatzki ring, hiatal hernia, B12 deficiency, anxiety disorder, BPH comes from home because of abdominal pain, nausea and vomiting for several days. Acute gangrenous cholecystitis status postplacement of cholecystostomy tube Acute postoperative respiratory insufficiencyresolved Patient presented to the hospital with abdominal pain, nausea, vomiting and fever. Total bilirubin elevated 2.4 on admission Right upper quadrant showed dilated gallbladder with sludge and a small amount of calcified stone; wall thickening and trace amount of pericholecystic fluid present. 11/19 GB culture: Streptococcus mutans, Streptococcus parasanguinis Patient initially plan for laparoscopic cholecystectomy; found to have gangrenous acute cholecystitis; placement of cholecystostomy tube was done. Patient was admitted to ICU for close observation after he was found to be hypoxic after the surgery. Likely secondary to atelectasis. Lactic acid within normal limits. ABG was reassuring. Patient transferred out of the ICU on November 20, 2024 ID evaled 11/22, total 7 day atb therapy. Pt completed atb therapy. Continue on pain medication diet and drain management as per surgery, diet advanced to full liq today. Continue PT/OT evaluation Early SBO vs ileus: pt has not moved bowel post operatively, KUB 11/24 w/ concerns of ileus vs early sbo. Gen sx on board. 11/25 XR KUB w/ some improvement. Pt moved BM 11/24 and 11/25, diet advanced today. Nonischemic dilated cardiomyopathy, Chronic systolic CHF with EF of 30 to 34%, compensated Moderate aortic insufficiency Continue home metoprolol and Entresto . Other chronic medical conditions: Continue with/resume home meds as and when able. T2DM: Sliding scale insulin while inpatient. Hypertension: Continue home cardiac medications. GERD: Continue PPI. BPH: Continue home finasteride DVT prophylaxis: Heparin subcu Disposition: PCU, PT/OT, CM to assist with DC planning. Full code Admission and Anticipated Discharge Date Admission Date: November 18, 2024 Subjective Patient was seen and examined at bedside. Patient was lying in bed, on room air, NAD, resting comfortably. Patient reports no belly pain, reports 2 BMs in AM Gen sx on board, diet being advanced today. Patient denies any fever/sore throat/cough/chest pain/headache. Physical Exam Physical Exam: General- Not in distress. Head- atraumatic Eyes- PERRL. ENT- oropharynx dry Neck- supple, no JVD. Lungs- clear to auscultation no wheezing or crackles Heart- regular rhythm; no murmur, no gallop. Abdomen- Slightly distended. Minimal tender in right side. Biliary tube with bilious output and drain with serosanguineous output. Extremities- trace pretibial edema, no erythema seen Neuro- alert, oriented PERRL, no facial palsy; no dysarthria; moves extremities Results & Data Results & Data Vital Signs (Past 12 Hours) Vital Signs Temp Pulse Pulse Pulse Resp BP Pulse Ox 11/26/24 14:38 36.6 C 62 18 152/71 H 97 11/26/24 13:09 148/64 H 11/26/24 11:00 36.8 C 61 18 174/74 H 95 11/26/24 09:53 161/72 H 11/26/24 07:36 36.8 C 65 18 174/69 H 95 11/26/24 07:18 61 O2 Del Method 11/26/24 14:38 Room Air 11/26/24 13:09 11/26/24 11:00 Room Air 11/26/24 09:53 11/26/24 07:36 Room Air 11/26/24 07:18
[2024-11-27 07:24] LABS: BUN Creatinine Ratio 12.5 (10-20); Calcium 7.8 mg/dl (8.6-10.3); Creatinine Clr Calc Pharmacy 78.9 ml/min; Magnesium 1.7 mg/dl (1.7-2.4); Phosphorus 2.7 mg/dl (2.5-4.9); Potassium 3.4 mmol/L (3.5-5.1)
[2024-11-27] MEDS: POTASSIUM CHLORIDE CRTAB 20 MEQ TABCR PO STA (08:41)
[2024-11-27] MEDS: MAGNESIUM SULFATE / D5W 1 GM/100 ML BAG IV SCH (08:42)
--- NOTE | 2024-11-27 09:49 | Surgery Progress Note ---
Date of Service November 27, 2024 Assessment & Plan (1) Acute cholecystitis: Plan: Status postplacement of cholecystostomy tube on 11/19/2024 (postop day #8) having bowel movements, tolerating full liquids, will advance 2 CLAYTON drains serosanguineous , will remove one clayton drain prior to DC Cholecystostomy drain bilious VSS pt seen and examined with Dr Boothe Admission and Anticipated Discharge Date Admission Date: November 18, 2024 Subjective pt states he is not really having abd pain/discomfort tolerating full liquids no n/v urinating w/o difficulty, +bm Review of Systems Constitutional: no fever and no chills Respiratory: no dyspnea Gastrointestinal: no abdominal pain Physical Exam Constitutional: cooperative and comfortable; no acute distress Respiratory: normal respiratory effort and able to speak in complete sentences; no respiratory distress Cardiovascular: Rate/Rhythm: regular rate Gastrointestinal (Abdomen): Inspection/Auscultation: + abdominal surgical i ncision and + abdominal surgical drain present (brandi drains x2, cholecystostomy tube ) Psychiatric: Orientation: alert and oriented x 3 Results & Data Vital Signs (Past 12 Hours) Vital Signs Temp Pulse Resp BP BP Pulse Ox O2 Del Method 11/27/24 07:07 97.9 F 66 18 168/68 H 96 Room Air 11/27/24 04:45 152/67 H 11/27/24 04:03 98.1 F 60 18 167/75 H 96 Room Air 11/26/24 23:29 97.7 F 64 18 166/67 H 94 Room Air PG Care Time/CCT Total # of Minutes Spent Total Time Spent with Patient: Total time spent is greater than 50% in coordination of care (as documented) at patient's floor/unit and/or counseling patient: Coding Level of Care Code 86828 Post Operative Follow-Up Diagnoses Acute cholecystitis K81.0
--- NOTE | 2024-11-27 11:45 | XRay Report ---
KUB HISTORY: f/u sb distention COMPARISON STUDY: 11/26/2022 FINDINGS: There is diffuse small bowel distention measuring up tor 6 cm diameter, stable. Stable mild colonic distention. There is mild retained stool. No gross free air seen. Stable catheter is at the right abdomen. IMPRESSION: Stable prominent small bowel distention. ACT 112: Negative or not required by law. The above report was generated using voice recognition software. It may contain grammatical, syntax o r spelling errors. Electronically signed by: Jef Alvarez M.D. 11/27/2024 11:44 AM
--- NOTE | 2024-11-27 13:59 | Hospitalist Progress Note ---
Date of Service November 27, 2024 Assessment & Plan (1) Cholecystitis, acute: Plan: 78-year-old male with past medical history significant for type 2 diabetes, hyperlipidemia, nonischemic dilated cardiomyopathy, chronic systolic CHF EF 30 to 34%, chronic left bundle branch block, symptomatic 2:1 AV block status post biventricular pacemaker in 2019, moderate aortic insufficiency, hypertension GERD, schatzki ring, hiatal hernia, B12 deficiency, anxiety disorder, BPH comes from home because of abdominal pain, nausea and vomiting for several days. Acute gangrenous cholecystitis status postplacement of cholecystostomy tube Acute postoperative respiratory insufficiencyresolved Patient presented to the hospital with abdominal pain, nausea, vomiting and fever. Total bilirubin elevated 2.4 on admission Right upper quadrant showed dilated gallbladder with sludge and a small amount of calcified stone; wall thickening and trace amount of pericholecystic fluid present. 11/19 GB culture: Streptococcus mutans, Streptococcus parasanguinis Patient initially plan for laparoscopic cholecystectomy; found to have gangrenous acute cholecystitis; placement of cholecystostomy tube was done. Patient was admitted to ICU for close observation after he was found to be hypoxic after the surgery. Likely secondary to atelectasis. Lactic acid within normal limits. ABG was reassuring. Patient transferred out of the ICU on November 20, 2024 ID evaled 11/22, s/p 7 day atb therapy. Continue on pain medication diet and drain management as per surgery, diet advanced to low fiber today. Continue PT/OT evaluation Early SBO vs ileus: pt has not moved bowel post operatively, KUB 11/24 w/ concerns of ileus vs early sbo. Gen sx on board. Reviewed XR KUB, persistent small bowel distention noted. Pt moved BM last 3 days. diet advanced today to low fiber. Nonischemic dilated cardiomyopathy, Chronic systolic CHF with EF of 30 to 34%, compensated Moderate aortic insufficiency Continue home metoprolol and Entresto . Other chronic medical conditions: Continue with/resume home meds as and when able. T2DM: Sliding scale insulin while inpatient. Hypertension: Continue home cardiac medications. GERD: Continue PPI. BPH: Continue home finasteride DVT prophylaxis: Heparin subcu Disposition: PCU, PT/OT, CM to assist with DC planning. Full code Admission and Anticipated Discharge Date Admission Date: November 18, 2024 Subjective Patient was seen and examined at bedside. Patient was lying in bed, on room air, NAD, resting comfortably. Patient reports no belly pain, reports 1 BMs in AM Gen sx on board, diet being advanced to low fiber today. Patient denies any fever/sore throat/cough/chest pain/headache. Physical Exam Physical Exam: General- Not in distress. Head- atraumatic Eyes- PERRL. ENT- oropharynx dry Neck- supple, no JVD. Lungs- clear to auscultation no wheezing or crackles Heart- regular rhythm; no murmur, no gallop. Abdomen- Slightly distended. Non tender. Biliary tube with bilious output and drain with serosanguineous output. Extremities- trace pretibial edema, no erythema seen Neuro- alert, oriented PERRL, no facial palsy; no dysarthria; moves extremities Results & Data Results & Data Vital Signs (Past 12 Hours) Vital Signs Temp Pulse Pulse Resp BP BP Pulse Ox 11/27/24 11:19 60 11/27/24 10:49 36.6 C 64 22 147/78 H 95 11/27/24 07:07 36.6 C 66 18 168/68 H 96 11/27/24 04:45 152/67 H 11/27/24 04:03 36.7 C 60 18 167/75 H 96 O2 Del Method 11/27/24 11:19 11/27/24 10:49 Room Air 11/27/24 07:07 Room Air 11/27/24 04:45 11/27/24 04:03 Room Air
[2024-11-28] MEDS: METOPROLOL TARTRATE 1 MG/ML VIAL IV STA (04:30)
[2024-11-28] MEDS: POTASSIUM CHLORIDE CRTAB 20 MEQ TABCR PO STA (04:45)
[2024-11-28] MEDS: MAGNESIUM SULFATE / D5W 1 GM/100 ML BAG IV ONE (05:15)
--- NOTE | 2024-11-28 06:57 | Surgery Progress Note ---
Date of Service November 28, 2024 Assessment & Plan (1) Cholecystitis, acute: Plan: Patient is approximately 9 days postop laparoscopic placement of cholecystostomy tube and 2 Fernando drains 1 subhepatic 1 subdiaphragmatic for acute gangrenous cholecystitis and cholelithiasis Our plan was to wait about 6 weeks and consider elective cholecystectomy Patient has completed approximately 9-day course of antibiotic as recommended by infectious disease for wound cultures of the gallbladder Streptococcus species The patient abdominal distention that he had postoperatively likely an ileus secondary to the surgery and also possibility that he may have a little bile leak around the cholecystostomy tube noted by the slight change in one of the drains this morning therefore plan is to remove the Fernando drainage that has no bilious tinged fluid leave the other 2 then along with the cholecystostomy tube the patient to be discharged to the rehab service and follow-up in our office in 1 week He is virtually taken no analgesics All question answered I spoke with his daughter yesterday while she was visiting him in the room Admission and Anticipated Discharge Date Admission Date: November 18, 2024 Subjective Patient resting comfortably provide no complaints. Stating he had a good day yesterday tolerated a diet move his bowels his abdomen is less distended no abdominal discomfort anxious to be discharged Physical Exam Physical Exam: Alert coherent resting comfortably without any issues Mentally much clear and has been the last few days Normal color and texture of skin Sclera nonicteric Abdominal drainage noted the Fernando drain 1 has a slight changed about the other 1 is serosanguineous the cholecystostomy tube is draining well averaging about 40 to 60 cc a day The abdomen is soft then nontender much softer than it had been No pedal edema Results & Data Vital Signs (Past 12 Hours) Vital Signs Temp Pulse Pulse Resp BP BP BP 11/28/24 04:50 60 158/70 H 11/28/24 03:07 36.5 C 67 17 170/64 H 11/27/24 22:53 36.5 C 60 17 168/66 H 11/27/24 19:44 36.5 C 66 18 172/68 H Pulse Ox O2 Del Method 11/28/24 04:50 11/28/24 03:07 95 Room Air 11/27/24 22:53 97 Room Air 11/27/24 19:44 97 Room Air Laboratory Results Noted Diagnostic Findings Obtain a KUB of the abdomen daily yesterday KUB showed 5 cm small bowel distention pretty much unchanged still some colonic contents stool present
[2024-11-28 07:05] VITALS: RESP 19; O2SAT 97
[2024-11-28 07:29] LABS: Hematocrit (blood only) 38.2 % (42.0-52.0); Hemoglobin 13.5 g/dl (14.0-18.0); Mean Corpuscular Hemoglobin 32.4 pg (25.0-34.0); Mean Corpuscular Hgb Conc 35.3 g/dL (32.0-36.0); Mean Corpuscular Volume 91.6 fL (80.0-100.0); Mean Platelet Volume 9.4 fL (9.4-12.4); Platelet Count 326 K/uL (130-400); RDW Coefficient of Variation 12.8 % (11.5-14.5); Red Blood Count 4.17 M/uL (4.70-6.10); White Blood Count 7.46 K/ul (4.8-10.8)
[2024-11-28 07:49] LABS: BUN Creatinine Ratio 9.1 (10-20); Calcium 7.9 mg/dl (8.6-10.3); Creatinine Clr Calc Pharmacy 70.1 ml/min; Potassium 3.7 mmol/L (3.5-5.1)
[2024-11-28 11:09] VITALS: BP 157/66; PULSE 55; TEMP 97.5
--- NOTE | 2024-11-28 12:27 | Discharge Summary ---
Date of Service November 28, 2024 Admission HPI Per Admitting Provider 78-year-old male with past medical history significant for type 2 diabetes, hyperlipidemia, nonischemic dilated cardiomyopathy, chronic systolic CHF EF 30 to 34%, chronic left bundle branch block, symptomatic 2:1 AV block status post biventricular pacemaker in 2019, moderate aortic insufficiency, hypertension GERD, schatzki ring, hiatal hernia, B12 deficiency, anxiety disorder, BPH comes from home because of abdominal pain, nausea and vomiting. Patient states symptoms started last Wednesday. Pain in the epigastric region radiating to back. Associated with nausea and vomiting. No blood in the vomitus. He was in the ER on Wednesday. Symptoms not improving and was spiking temperature today and brought to hospital . also noticed heart rate was irregular. Somewhat constipated. Urine is orange color. Denies any chest pain or shortness of breath. No headache. No runny nose or sore throat or cough. No earaches. Family in the room. Past medical history. As mentioned above Past surgical history. Colonoscopy. EGD. Sinus surgery. Right foot surgery. Pacemaker insertion. Appendectomy. Bilateral cataracts. Tonsillectomy and adenoidectomy. Right total hip replacement. Right total knee replacement. Social history. . Former smoker. Alcohol rarely. No drug use. Family history. Mother had cancer. Diabetes. Father had black lung. Sister had diabetes. Admission Exam Per Admitting Provider General- Not in distress. Head- atraumatic Eyes- PERRL. ENT- oropharynx dry Neck- supple, no JVD. Lungs- clear to auscultation no wheezing or crackles Heart- regular rhythm; no murmur, no gallop. Abdomen- normal bowel sounds, soft, mild diffuse discomfort, no distension. Extremities- trace pretibial edema, no erythema seen Neuro- alert, oriented PERRL, no facial palsy; no dysarthria; moves extremities Principal Diagnosis Acute gangrenous cholecystitis status postplacement of cholecystostomy tube Acute postoperative respiratory insufficiencyresolved Discharge Exam General- Not in distress. Head- atraumatic Eyes- PERRL. ENT- oropharynx dry Neck- supple, no JVD. Lungs- clear to auscultation no wheezing or crackles Heart- regular rhythm; no murmur, no gallop. Abdomen- Slightly distended. Non tender. Biliary tube with bilious output and drain with scant serosanguineous output. Extremities- trace pretibial edema, no erythema seen Neuro- alert, oriented PERRL, no facial palsy; no dysarthria; moves extremities Discharge Data Allergies Allergy/AdvReac Type Severity Reaction Status Date / Time alfuzosin Allergy Unknown Nausea Verified 11/18/24 19:47 tamsulosin Allergy Unknown Nausea Verified 11/18/24 19:47 terazosin Allergy Unknown Nausea Verified 11/18/24 19:47 [id number] Reductase AdvReac Severe Severe Verified 11/18/24 19:47 Inhibitor muscle [Nrneexq-Zjp-Qbo Reductase weakness, Inhibitor] aches Consultations 11/18/24 19:10 ED Decision to Admit Stat 11/18/24 19:12 Consult General Surgery Stat 11/19/24 14:45 Consult Spraying Machine Operator Routine 11/22/24 07:39 Consult Infectious Diseases Routine Procedures Performed Operation Date: 11/19/24 10:00 Actual Procedures p Placement of Cholecystostomy Tube, Incarcerated umbilical Hernia(Not Applicable) - Elio Boothe MD, FACS Ordered Studies 11/18/24 16:27 CT abd pelvis IV con only Stat 11/18/24 20:20 US gallbladder Urgent Hospital Course (1) Cholecystitis, acute: 78-year-old male with past medical history significant for type 2 diabetes, hyperlipidemia, nonischemic dilated cardiomyopathy, chronic systolic CHF EF 30 to 34%, chronic left bundle branch block, symptomatic 2:1 AV block status post biventricular pacemaker in 2019, moderate aortic insufficiency, hypertension GERD, schatzki ring, hiatal hernia, B12 deficiency, anxiety disorder, BPH comes from home because of abdominal pain, nausea and vomiting for several days. He was managed for the following: Acute gangrenous cholecystitis status postplacement of cholecystostomy tube Acute postoperative respiratory insufficiencyresolved Patient presented to the hospital with abdominal pain, nausea, vomiting and fever. Total bilirubin elevated 2.4 on admission Right upper quadrant showed dilated gallbladder with sludge and a small amount of calcified stone; wall thickening and trace amount of pericholecystic fluid present. 11/19 GB culture: Streptococcus mutans, Streptococcus parasanguinis Patient initially plan for laparoscopic cholecystectomy; found to have gangrenous acute cholecystitis; placement of cholecystostomy tube was done. Patient was admitted to ICU for close observation after he was found to be hypoxic after the surgery. Likely secondary to atelectasis. Lactic acid within normal limits. ABG was reassuring. Patient transferred out of the ICU on November 20, 2024 ID selina 11/22, s/p 7 day atb therapy. Continue on pain medication diet and drain management as per surgery, diet advanced to low fiber, pt tolerating diet well. no belly pain. Continue PT/OT at rehab d/w gen sx, ok for dc pt to f/u gen sx in 1 week. Early SBO vs ileus: pt has not moved bowel post operatively, KUB 11/24 w/ concerns of ileus vs early sbo. Gen sx on board. Reviewed XR KUB, persistent small bowel distention noted. Pt moved BM last 3 days. diet advanced today to low fiber, pt tolerating diet well. Nonischemic dilated cardiomyopathy, Chronic systolic CHF with EF of 30 to 34%, compensated Moderate aortic insufficiency Continue home metoprolol and Entresto . Other chronic medical conditions: Continue with/resume home meds as and when able. T2DM: Sliding scale insulin while inpatient. Hypertension: Continue home cardiac medications. GERD: Continue PPI. BPH: Continue home finasteride DVT prophylaxis: Heparin subcu Disposition: PCU, PT/OT, CM to assist with DC planning. Full code Patient is being discharged to SNF with following instructions at the point of discharge: Follow-up with your primary care physician within a week time and likely you will need labs CBC/CMP/magnesium/phosphorus. Follow-up with your general surgery in 1 week time upon discharge. Utilize OTC bowel regimen with a goal of 1-2 bowel movements a day. Take your medications as prescribed. Please make sure that you are able to get your medications today by calling your pharmacy before you leave the hospital so that your treatment continuity is not broken. Home Health Attestation I certify that this patient is under my care and that I, or a physicians assistant drafter working with me, had a face to-face encounter that meets the home health [id number] encounter requirements with this patient. The encounter with the patient was in whole, or in part, for the following medical condition, which is the primary reason for home health care (list medical condition): I certify that, based on my findings, the following services are medically necessary home health services: My clinical findings support the need for the above services because: Further, I certify that my clinical findings support that this patient is homebound (i.e. absences from home require considerable and taxing effort and are for medical reasons or mandaeism services or infrequently or of short duration when for other reasons) because: Certification for Home Health Services: Based on the above findings, I certify that this patient is confined to the home and needs intermittent nursing home care, physical therapy and/or speech therapy or continues to need occupational therapy. The patient is under my care, and I have initiated the establishment of the plan of care. This patient will be followed by a physician who will periodically review the plan of care. Total Time Total Time Spent Total Time Spent (In Minutes): 35 Discharge Plan Discharge Items Patient Disposition: Transfer Correction Fac Reason For Visit: ACUTE CHOLECYSTITIS,HX OF CHF Discharge Diagnosis: laparoscopic cholecystectomy Activity: As commented below Lifting: No more than 10 pounds Bathing Comment: you can shower keep your drains covered, no soaking in baths /pools Exercise/Sports: Wait until after follow-up appointment Non-emergency contact: Surgeon Call non-emergency contact if: you have any medication questions, your symptoms worsen, your temperature is above 101.5, your wound has increased redness, your wound has increased drainage and your wound pain has increased Follow-up/Referrals: Elio Boothe MD, FACS [Surgeon] - (call office for an appointment in 1 week) Mookie Coyne MD [Primary Care Provider] - Diet: Carb Consistent or DM2, Heart Healthy, Low Fiber and Low Fat Addtl Attending Provider Instructions: You will have small white bandages on that are over your incision. You may sh ower with these on. They will tend to fall off on their own in a 7-10 days. Please care for your GUY drains as you have been instructed prior to discharge from the hospital. Empty drain 2-3x/daily and record output, bring a log with you to the office. Otherwise keep drain to bulb suction. You may cover the one drain site where a drain was pulled until it is healed, change daily and as needed with dry gauze/tape. Empty percutaneous cholecystostomy tube once daily and as needed, bring a log of the output with you to the office. Addtl Portrait Artist Provider Instructions: Follow-up with your primary care physician within a week time and likely you will need labs CBC/CMP/magnesium/phosphorus. Follow-up with your general surgery in 1 week time upon discharge. Utilize OTC bowel regimen with a goal of 1-2 bowel movements a day. Take your medications as prescribed. Please make sure that you are able to get your medications today by calling your pharmacy before you leave the hospital so that your treatment continuity is not broken. Pending Studies at Discharge: Yes Studies:: surgical pathology Stand-Alone Forms: My [facility] Skilled Items Patient informed of condition?: Yes DNR: No Discharge Level of Care: Skilled Communicable Disease: No Discharge Prognosis: Stable Lines: None Urinary Catheter: No Medications and DC Order Prescriptions: New pantoprazole 40 mg Tablet,Delayed Release (Dr/Ec) 40 mg PO QAM Qty: 30 0RF Continued cyanocobalamin (vitamin B-12) 1,000 mcg Capsule 1,000 mcg PO 3XWK Rx Instructions: PER PT "NO SPECIAL 3 DAYS". acetaminophen [Tylenol Extra Strength] 500 mg Tablet 1,000 mg PO Q8 Qty: 21 0RF Rx Instructions: Take 1,000mg by mouth every 8 hours for pain Trulicity 3 mg/0.5 mL pen injector 3 mg subcut WK metoprolol succinate 50 mg tablet extended release 24 hr 50 mg PO QAM finasteride 5 mg tablet 5 mg PO QAM metformin 1,000 mg tablet 1,000 mg PO BID Entresto 49-51 mg tablet 1 tab PO BID Discontinued famotidine 20 mg tablet 40 mg PO PM Discharge Orders: Discharge Order (Routine); Ordered 11/28/24 Ordered By: Jeanmarie Landaverde/Other Patient Handouts: High Blood Sugar (Hyperglycemia), Hypoglycemia (Low Blood Sugar), Managing Type 2 Diabetes Admission Data Admit Date/Time: 11/18/24 20:20 Attending Provider: Jeanmarie Hendrickson Admit Provider: Nir Deal Primary Care Provider: Mookie Coyne Other Providers: Danial Metz; [facility]; Nir Deal; Elio Booteh; Jose Luis Aguillon; Bryan Stewart; Shweta Espitia; Ruddy Max I.; Trenton Ozuna II; Chely Catalan; Bharathi Martinez; Anton Dale; Ursula Roca; Jalil Parker; [facility] Other Interventions: Discharge Summary Assessment (RN) Last Done: 11/28/24 12:10
== END 2024-11-28 13:20 | DRG 409 ==
LOC: ED 15:04 → 2N 20:20 → SUATTDRO 20:20 → 2N 21:54 → 1E 11-19 14:11 → 2E 11-21 18:31

== ENCOUNTER 2024-12-11 12:57 | Inpatient (IN) ==
[2024-12-11 13:42] LABS: Basophils # (auto) 0.02 K/uL (0.00-0.20); Basophils % (auto) 0.3 %; Eosinophils # (auto) 0.23 K/uL (0.00-0.50); Eosinophils % (auto) 3.7 %; Hematocrit (blood only) 37.9 % (42.0-52.0); Hemoglobin 13.5 g/dl (14.0-18.0); Immature Granulocytes # (auto) 0.03 K/uL (0.01-0.20); Immature Granulocytes % (auto) 0.5 %; Lymphocytes # (auto) 1.46 K/uL (1.20-3.40); Lymphocytes % (auto) 23.6 %; Mean Corpuscular Hemoglobin 31.5 pg (25.0-34.0); Mean Corpuscular Hgb Conc 35.6 g/dL (32.0-36.0); Mean Corpuscular Volume 88.3 fL (80.0-100.0); Mean Platelet Volume 9.6 fL (9.4-12.4); Monocytes # (auto) 0.52 K/uL (0.11-0.59); Monocytes % (auto) 8.4 %; Neutrophils # (auto) 3.93 K/uL (1.40-6.50); Neutrophils % (auto) 63.5 %; Platelet Count 219 K/uL (130-400); RDW Coefficient of Variation 13.1 % (11.5-14.5); RDW Standard Deviation 41.7 fL (36.4-46.3); Red Blood Count 4.29 M/uL (4.70-6.10); White Blood Count 6.19 K/ul (4.8-10.8)
--- NOTE | 2024-12-11 13:49 | XRay Report ---
XR chest 1V portable CLINICAL HISTORY: Dyspnea COMPARISON STUDY: 11/19/2024 FINDINGS: Stable pacemaker. Heart size and pulmonary vasculature are normal. There is grossly stable mild scarring or atelectasis at the left lung base. No new consolidation or pleural effusion. No pneu mothorax. IMPRESSION: Mild scarring or atelectasis left lung base. ACT 112: Negative or not required by law. Electronically signed by: Jef Alvarez M.D. 12/11/2024 1:48 PM
[2024-12-11 14:07] LABS: Albumin Globulin Ratio 1.1 (0.9-2); Albumin Level 3.8 gm/dl (3.4-5.0); BUN Creatinine Ratio 15.3 (10-20); Bilirubin,Total 0.8 mg/dl (0.2-1.0); Calcium 9.5 mg/dl (8.6-10.3); Creatinine Clr Calc Pharmacy 66.4 ml/min; Globulin 3.4 gm/dl (2.5-4.0); Potassium 4.2 mmol/L (3.5-5.1); Total Protein 7.2 gm/dl (6.0-8.3)
[2024-12-11 14:10] LABS: Troponin I High Sensitivity 5.8 pg/ml (0-20)
[2024-12-11] MEDS: SODIUM CHLORIDE 0.9% 1,000 ML IV ONE (14:41)
[2024-12-11 15:04] LABS: Adenovirus PCR Not Detected (NotDetected); Bordetella parapertussis PCR Not Detected (NotDetected); Bordetella pertussis PCR Not Detected (NotDetected); Chlamydia pneumoniae PCR Not Detected (NotDetected); Coronavirus 229E PCR Not Detected (NotDetected); Coronavirus CoV-2 (COVID19)PCR Not Detected (NotDetected); Coronavirus HKU1 PCR Not Detected (NotDetected); Coronavirus NL63 PCR Not Detected (NotDetected); Coronavirus OC43PCR Not Detected (NotDetected); Human Metapneumovirus PCR Not Detected (NotDetected); Influenza A (H1 2009) PCR DETECTED (NotDetected); Influenza B PCR Not Detected (NotDetected); Mycoplasma pneumoniae PCR Not Detected (NotDetected); Parainfluenza Virus 1 PCR Not Detected (NotDetected); Parainfluenza Virus 2 PCR Not Detected (NotDetected); Parainfluenza Virus 3 PCR Not Detected (NotDetected); Parainfluenza Virus 4 PCR Not Detected (NotDetected); Respiratory Syncytial VirusPCR Not Detected (NotDetected); Rhinovirus/Enterovirus PCR Not Detected (NotDetected)
--- NOTE | 2024-12-11 15:32 | Emergency Department Note ---
Impression & Plan Syncope and collapse, Partner unable to care for patient ED Provider Note NAME: DIONE SIEGEL AGE: 79 SEX: M : 1945 ARRIVES VIA: Ambulance INFORMANT: Patient, ED PROVIDER(S): Paul Chowdary MD CHIEF COMPLAINT: Syncope HPI: This is a an 79-year-old male presenting for syncope. Patient states that today he was sitting down in his recliner that set up. He notes that he previously had a surgery a few weeks ago. He then got sick with a flulike illness over the past few days. He notes he felt dizzy when he stood up. He was able to hang onto something and did not hit his head on the way down. He reports no nausea or vomiting currently. No chest pain or shortness of breath. His states that he is not ate or drank much in the past few days to weeks. She is concerned that he may be dehydrated. In addition patient was discharged with 2 drains in his right upper quadrant for his gallbladder. These have remained draining well without abnormalities. ROS: See above HPI for pertinent positives & negatives. A total of 10 systems reviewed and were otherwise negative. PAST MEDICAL HISTORY: See Below PAST SURGICAL HISTORY: See Below FAMILY HISTORY: See Below SOCIAL HISTORY: See Below HOME MEDICATIONS: See Below ALLERGIES: See Below VITALS: See Below PHYSICAL EXAMINATION: General: resting comfortably in no acute distress Head: Normocephalic and atraumatic Eyes: Normal inspection, extraocular muscles intact Ear, nose, throat: Normal external exam Neck: Normal range of motion Respiratory: lungs clear to auscultation bilaterally Cardiovascular: Regular rate/rhythm, no murmur GI: soft, nontender, no guarding or rebound, 2 GUY drains, no overlying erythema, swelling or discharge Extremities: nontender, moves all extremities Neuro: The patient awake and alert, appropriately conversive, no focal deficits, symmetric faces, cranial 2 through 12 grossly intact, no motor deficits Skin: Warm, dry, and intact, MEDICAL DECISION MAKING: This is an 79-year-old male presenting for syncope. Patient went from sitting to standing and then syncopized. He did have the flu a few weeks ago as well. Notes no current fevers or chills however. No nausea vomiting or diarrhea. Will do screening workup that includes blood work, chest x-ray. -Labs reviewed no significant leukocytosis. Hemoglobin 13.5, stable. Electrolytes within normal limits, sodium 135. Otherwise glucose 147. Negative transaminitis, negative troponin. Urinalysis reveals no signs UTI. Patient is positive for influenza A which she knew about before. -Chest x-ray is read with mild scarring or atelectasis of the left lung base. -Discussed current workup and plan with family. Patient was comfortable with discharge home however his is concerned that she does not have the ability to care for him, she states she cannot pick him up off the ground if he does fall again and that his current care is fairly strenuous for her. She requests admission. -The patient and had a long discussion at the end of this discussion, patient and comfortable with admission to the hospital. -Discussed care with Dr. Sepulveda, for admission. She does request CT imaging of the head, will order this at this time. Differential diagnosis: Dehydration, vasovagal syncope, ACS, PE Independent History obtained from: Diagnostics interpreted by me: ECG: ECG independently interpreted by me with atrially sensed ventricularly paced rhythm at 79, normal NH, QTc is 527. Cardiac Monitoring: An order was placed for continuous cardiac monitoring. The monitor shows a rate of 70 with paced rhythm. 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 Degenerative joint disease of knee Left hip pain Spinal stenosis of lumbar region (Chronic) Sacroiliitis Piriformis syndrome (Chronic) Pacemaker Implanted 2018 (for 2:1 AV block), Follows with [facility] cardiology (Dr. Ramírez) Hypertension Medical History (Updated 12/12/24 @ 10:48 by Paul Chowdary MD) Aortic valve disorder Migraine headache Hiatal hernia Cardiomyopathy Aortic insufficiency Nonischemic cardiomyopathy Osteoarthritis Hyperlipidemia "Borderline" LBBB (left bundle branch block) Chronic GERD CAD (coronary artery disease) Mild nonobstructive CAD per 2010 cardiac cath ([place]) Sleep apnea "Mild" > no device prescribed Surgical History (Updated 12/02/24 @ 00:08 by Fabricio Hines) H/O umbilical hernia repair (11/19/24) Placement of Cholecystostomy Tube, Incarcerated umbilical Hernia(Not Applicable) - Elio Boothe MD, FACS H/O insertion of cholecystostomy tube (11/19/24) Placement of Cholecystostomy Tube, Incarcerated umbilical Hernia(Not Applicable) - Elio Boothe MD, FACS History of tonsillectomy History of permanent cardiac pacemaker placement H/O colonoscopy H/O esophagogastroduodenoscopy S/P appy Status post total hip replacement, right Family History Family/Other Family history of diabetes mellitus BROTHER OR SISTER Other Family history non-contributory No family history of adverse response to anesthesia Silicosis Social History Smoking Status: Former smoker Tobacco Type: Cigarettes Second Hand Exposure: No; Do You Dip or Chew Tobacco: No; Tobacco Cessation Education Requested by Patient: No Hx Alcohol Use: No Hx Substance Use: No Preferred Language: Lithuanian Communication Ability: Effective Visual Impairment: No Limitations Supervisor Powdered Metal Required: No Beliefs That Will Affect Care: Adventism marital status: Current Living Situation: Spouse current occupational status: retired Other Information That Helps Us Care for You: No Feels Safe at Home: Yes Safety Concerns: Feels Safe At This Time Assistive Devices: Cane, Glasses, Hospital Bed, Raised Toilet Seat and Walker Allergies Allergies Allergy/AdvReac Type Severity Reaction Status Date / Time [id number] Reductase AdvReac Severe Severe Verified 12/11/24 15:16 Inhibitor muscle [Irajups-Cxl-Skg Reductase weakness, Inhibitor] aches alfuzosin AdvReac Mild Nausea Verified 12/11/24 15:16 tamsulosin AdvReac Mild Nausea Verified 12/11/24 15:16 terazosin AdvReac Mild Nausea Verified 12/11/24 15:16 Home Meds Home Medications Medication Instructions Recorded Confirmed cyanocobalamin (vitamin B-12) 1,000 mcg PO 3XWK 08/21/20 12/11/24 1,000 mcg capsule dulaglutide 3 mg/0.5 mL 3 mg subcut WK 11/18/24 12/11/24 subcutaneous pen injector (Trulicity) finasteride 5 mg tablet 5 mg PO QAM 11/18/24 12/11/24 metformin 1,000 mg tablet 1,000 mg PO BID 11/18/24 12/11/24 metoprolol succinate 50 mg 50 mg PO HS 11/18/24 12/11/24 tablet,extended release 24 hr sacubitril 49 mg-valsartan 51 mg 1 tab PO BID 11/18/24 12/11/24 tablet (Entresto) acetaminophen 500 mg tablet 1,000 mg PO Q8 PRN pain 12/11/24 12/11/24 (Tylenol Extra Strength) pantoprazole 40 mg tablet,delayed 40 mg PO DAILYBB 12/11/24 12/11/24 release Results & Data (ED) Vital Signs Vital Signs - 24 hr 12/11/24 13:03 12/11/24 13:03 12/11/24 13:29 Temperature 36.9 C Temperature Source Oral Pulse Rate 83 Pulse Rate from SpO2 Sensor Pulse Rhythm Regular Pulse Strength Normal Respiratory Rate 20 Respiratory Effort / Characteristics Non-Labored Respiratory Depth Normal Respiratory Pattern Regular Blood Pressure 145/61 H Blood Pressure Mean 89 Blood Pressure Position Lying Pulse Oximetry 98 96 98 Oxygen Delivery Method Room Air Room Air Room Air Sepsis Recent Fever Within 48 Hours No Sepsis New/Unexplained Change in Mental Status N/A Sepsis Action Taken by Nursing No Action Required 12/11/24 13:30 12/11/24 13:30 12/11/24 13:33 Temperature Temperature Source Pulse Rate 75 70 Pulse Rate from SpO2 Sensor 71 Pulse Rhythm Pulse Strength Respiratory Rate 27 H Respiratory Effort / Characteristics Respiratory Depth Respiratory Pattern Blood Pressure 141/71 H Blood Pressure Mean 115 Blood Pressure Position Pulse Oximetry 96 Oxygen Delivery Method Sepsis Recent Fever Within 48 Hours Sepsis New/Unexplained Change in Mental Status Sepsis Action Taken by Nursing 12/11/24 13:54 12/11/24 14:00 12/11/24 14:09 Temperature Temperature Source Pulse Rate 73 71 Pulse Rate from SpO2 Sensor 73 71 Pulse Rhythm Pulse Strength Respiratory Rate 30 H 32 H Respiratory Effort / Characteristics Respiratory Depth Respiratory Pattern Blood Pressure 130/91 Blood Pressure Mean 104 Blood Pressure Position Pulse Oximetry 95 96 Oxygen Delivery Method Sepsis Recent Fever Within 48 Hours Sepsis New/Unexplained Change in Mental Status Sepsis Action Taken by Nursing 12/11/24 14:30 12/11/24 14:30 12/11/24 15:00 Temperature Temperature Source Pulse Rate 75 Pulse Rate from SpO2 Sensor 74 Pulse Rhythm Pulse Strength Respiratory Rate 25 H Respiratory Effort / Characteristics Respiratory Depth Respiratory Pattern Blood Pressure 136/70 148/73 H Blood Pressure Mean 109 121 Blood Pressure Position Pulse Oximetry 96 Oxygen Delivery Method Sepsis Recent Fever Within 48 Hours Sepsis New/Unexplained Change in Mental Status Sepsis Action Taken by Nursing 12/11/24 15:00 12/11/24 15:30 12/11/24 16:30 Temperature Temperature Source Pulse Rate 72 70 67 Pulse Rate from SpO2 Sensor 73 71 66 Pulse Rhythm Pulse Strength Respiratory Rate 28 H 28 H 25 H Respiratory Effort / Characteristics Respiratory Depth Respiratory Pattern Blood Pressure 148/73 H 144/65 H 151/70 H Blood Pressure Mean 98 91 97 Blood Pressure Position Pulse Oximetry 98 97 97 Oxygen Delivery Method Room Air Room Air Sepsis Recent Fever Within 48 Hours Sepsis New/Unexplained Change in Mental Status Sepsis Action Taken by Nursing 12/11/24 18:00 12/11/24 18:00 12/11/24 18:06 Temperature Temperature Source Pulse Rate 76 70 Pulse Rate from SpO2 Sensor 78 Pulse Rhythm Pulse Strength Respiratory Rate 15 Respiratory Effort / Characteristics Respiratory Depth Respiratory Pattern Blood Pressure 170/72 H 170/72 H Blood Pressure Mean 104 107 Blood Pressure Position Pulse Oximetry 93 Oxygen Delivery Method Room Air Sepsis Recent Fever Within 48 Hours Sepsis New/Unexplained Change in Mental Status Sepsis Action Taken by Nursing Laboratory Data 12/12/24 06:25 12/12/24 06:25 Lab Results 12/11/24 12/11/24 12/11/24 Range/Units 13:05 14:00 16:45 WBC 6.19 (4.8-10.8) K/ul RBC 4.29 L (4.70-6.10) M/uL Hgb 13.5 L (14.0-18.0) g/dl Hct 37.9 L (42.0-52.0) % MCV 88.3 (80.0-100.0) fL MCH 31.5 (25.0-34.0) pg MCHC 35.6 (32.0-36.0) g/dL RDW Std Deviation 41.7 (36.4-46.3) fL RDW Coeff of Lio 13.1 (11.5-14.5) % Plt Count 219 (130-400) K/uL MPV 9.6 (9.4-12.4) fL Immature Gran % (Auto) 0.5 % Neut % (Auto) 63.5 % Lymph % (Auto) 23.6 % Ceiba % (Auto) 8.4 % Eos % (Auto) 3.7 % Baso % (Auto) 0.3 % Neut # (Auto) 3.93 (1.40-6.50) K/uL Lymph # (Auto) 1.46 (1.20-3.40) K/uL Ceiba # (Auto) 0.52 (0.11-0.59) K/uL Eos # (Auto) 0.23 (0.00-0.50) K/uL Baso # (Auto) 0.02 (0.00-0.20) K/uL Immature Gran # (Auto) 0.03 (0.01-0.20) K/uL Sodium 135 L (136-145) mmol/L Potassium 4.2 (3.5-5.1) mmol/L Chloride 101 (98-107) mmol/L Carbon Dioxide 27 (21-32) mmol/L Anion Gap 7 (3-11) BUN 17 (6-23) mg/dl Creatinine 1.11 (0.6-1.4) mg/dl Est Cr Clr Drug Dosing 66.4 ml/min eGFR 67.13 BUN/Creatinine Ratio 15.3 (10-20) Glucose 147 H (70-99(Fasting)) mg/dl Calcium 9.5 (8.6-10.3) mg/dl Total Bilirubin 0.8 (0.2-1.0) mg/dl AST 19 (13-39) U/L ALT 20 (7-52) U/L Alkaline Phosphatase 89 (34-104) U/L Troponin I High Sens 5.8 (0-20) pg/ml Total Protein 7.2 (6.0-8.3) gm/dl Albumin 3.8 (3.4-5.0) gm/dl Globulin 3.4 (2.5-4.0) gm/dl Albumin/Globulin Ratio 1.1 (0.9-2) Urine Color Yellow Urine Appearance Clear (Clear) Urine pH 5.5 (4.5-7.5) Ur Specific Cameron 1.008 (1.000-1.030) Urine Protein Negative (Negative) Urine Glucose (UA) Negative (Negative) Urine Ketones Negative (Negative) Urine Blood Negative (Negative) Urine Nitrite Negative (Negative) Urine Bilirubin Negative (Negative) Urine Urobilinogen Negative (Negative) Ur Leukocyte Esterase Negative (Negative) Nasal Influ A H1 2008 PCR DETECTED A (NotDetected) Adenovirus (PCR) Not Detected (NotDetected) B. pertussis DNA (PCR) Not Detected (NotDetected) B.parapertussis DNA PCR Not Detected (NotDetected) C. pneumoniae DNA (PCR) Not Detected (NotDetected) Coronavirus OC43 (PCR) Not Detected (NotDetected) Coronavirus HKU1 (PCR) Not Detected (NotDetected) Coronavirus 229E (PCR) Not Detected (NotDetected) SARS-CoV-2 (PCR) Not Detected (NotDetected) Coronavirus NL63 (PCR) Not Detected (NotDetected) Human Metapneumovir PCR Not Detected (NotDetected) Influenza Type B (PCR) Not Detected (NotDetected) M. pneumoniae (PCR) Not Detected (NotDetected) Parainfluenza 1 (PCR) Not Detected (NotDetected) Parainfluenza 2 (PCR) Not Detected (NotDetected) Parainfluenza 3 (PCR) Not Detected (NotDetected) Parainfluenza 4 (PCR) Not Detected (NotDetected) RSV (PCR) Not Detected (NotDetected) Entero/Rhino (PCR) Not Detected (NotDetected) Administered Medications Finasteride (Finasteride 5 Mg Tab) 5 mg PO QAM URIEL Stop: 01/11/25 08:59 Last Admin: 12/12/24 08:25 Dose: 5 mg Documented By: BCD Heparin Sodium (Porcine) (Heparin Sod 5,000 Unit/0.5 Ml Vial) 5,000 units SQ Q8 URIEL Stop: 01/10/25 21:59 Last Admin: 12/12/24 05:38 Dose: 5,000 units Documented By: Admin: 12/11/24 21:40 Dose: 5,000 units Documented By: FRANSISCO Insulin Aspart (Insulin Aspart Per Unit Charge) 0 units SC ACHS URIEL Stop: 01/10/25 20:59 Last Admin: 12/12/24 08:25 Dose: 4 units Documented By: KATAHRINE Co-signed By: MARIBEL Admin: 12/11/24 21:39 Dose: 1 units Documented By: FRANSISCO Co-signed By: CATA Metoprolol Succinate (Metoprolol Succ 50mg Ext Rel Tab) 50 mg PO HS [facility] Stop: 01/10/25 20:59 Last Admin: 12/11/24 21:40 Dose: 50 mg Documented By: FRANSISCO Pantoprazole Sodium (Pantoprazole 40 Mg Tab) 40 mg PO DAILYBB [facility] Stop: 01/11/25 06:29 Last Admin: 12/12/24 05:36 Dose: 40 mg Documented By: FRANSISCO Sacubitril/Valsartan (Valsartan/Sacubitril 51/49 Mg Tab) 1 tab PO BID URIEL Stop: 01/10/25 20:59 Last Admin: 12/12/24 08:25 Dose: 1 tab Documented By: Admin: 12/11/24 21:40 Dose: 1 tab Documented By: FRANSISCO Discontinued Medications Sodium Chloride (Nss) 1,000 mls @ 999 mls/hr IV .Q1H1M ONE Stop: 12/11/24 15:22 Last Infusion: 12/11/24 15:50 Dose: Infused Documented By: Admin: 12/11/24 14:41 Dose: 999 mls/hr Documented By: AIDA Imaging Data Radiologist's Impression: Chest X-Ray 12/11/24 13:29 XR chest 1V portable CLINICAL HISTORY: Dyspnea COMPARISON STUDY: 11/19/2024 FINDINGS: Stable pacemaker. Heart size and pulmonary vasculature are normal. There is grossly stable mild scarring or atelectasis at the left lung base. No new consolidation or pleural effusion. No pneumothorax. IMPRESSION: Mild scarring or atelectasis left lung base. ACT 112: Negative or not required by law. Electronically signed by: Jef Alvarez M.D. 12/11/2024 1:48 PM Discharge Plan Visit Data Chief Complaint: Dizziness Stated Complaint: DIZZINESS ED Provider: Paul Chowdary Discharge Problem: Syncope and collapse, Partner unable to care for patient Patient Disposition: Admitted As Inpatient Discharge Instructions Interventions: ED Discharge Assessment Last Done: 12/11/24 20:09
[2024-12-11 16:55] LABS: Appearance Urine Clear (Clear); Bilirubin Urine Negative (Negative); Blood Urine Negative (Negative); Color Urine Yellow; Glucose Urine UA Negative (Negative); Ketones Urine Negative (Negative); Leukocyte Esterase Urine Negative (Negative); Nitrite Urine Negative (Negative); Protein Urine Negative (Negative); Specific Gravity Urine 1.008 (1.000-1.030); Urobilinogen Urine Negative (Negative); pH Urine 5.5 (4.5-7.5)
--- NOTE | 2024-12-11 18:34 | History & Physical Report ---
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 Influenza infection Presyncopal Episode Generalized Weakness Pt presenting with concern for presyncopal episode at about noon today recently admitted with placement of cholecystostomy tubes on admission vitals stable, no increased oxygen requirement, no leukocytosis + influenza test Chest XRAY unremarkable Head CT pending asking for admission as she cannot care for pt at home given weakness. Pt recently discharged from rehab facility. PT/OT Symptoms likely in setting of acute infection above Acute gangrenous cholecystitis status postplacement of cholecystostomy tube Tubes in place Follows with General Surgery, last visit 12/05 in the chart -planning for laparoscopic cholecystectomy in about a month Continue to monitor DMII ISS Continue home jardiance for CHF indication as well hold home metformin Continue other home meds as ordered Diet: DMII/Low sodium DVT prophylaxis: heparin SQ Dispo: admit to med/surg History of Present Illness Chief Complaint: Dizziness Primary Care Provider: Mookie Coyne MD Pt is an 79yoM with past medical history significant for type 2 diabetes, hyperlipidemia, nonischemic dilated cardiomyopathy, chronic systolic CHF EF 30 to 34%, chronic left bundle branch block, symptomatic 2:1 AV block status post biventricular pacemaker in 2019, moderate aortic insufficiency, hypertension GERD, schatzki ring, hiatal hernia, B12 deficiency, anxiety disorder, BPH who presents with concern for presyncopal episode at home in the setting of an influenza infection. History obtained from both patient and at bedside. They state that he recently got home from rehab, has home health PT services. However, today around noon, he slipped down and lowered himself to ground after an episode of dizziness. He states he did not lose consciousness and did not hit his head. He notes that he has been having URI symptoms for some time. Not eating and drinking much at home these past few days. Denies SOB or chest pain or tightness. Denies fevers, chills or night sweats. States his cholecystostomy tubes are draining appropriately. Pt given IV fluids in the ED and admitted due to generalized weakness and 's concern that she is not able to care for him at home by herself at this time. Allergies Allergy/AdvReac Type Severity Reaction Status Date / Time [id number] Reductase AdvReac Severe Severe Verified 12/11/24 15:16 Inhibitor muscle [Ugfpzrj-Wlf-Arx Reductase weakness, Inhibitor] aches alfuzosin AdvReac Mild Nausea Verified 12/11/24 15:16 tamsulosin AdvReac Mild Nausea Verified 12/11/24 15:16 terazosin AdvReac Mild Nausea Verified 12/11/24 15:16 Home Medications Medication Instructions Recorded Confirmed Type cyanocobalamin (vitamin B-12) 1,000 mcg PO 3XWK 08/21/20 12/11/24 History 1,000 mcg capsule dulaglutide 3 mg/0.5 mL 3 mg subcut WK 11/18/24 12/11/24 History subcutaneous pen injector (Trulicity) finasteride 5 mg tablet 5 mg PO QAM 11/18/24 12/11/24 History metformin 1,000 mg tablet 1,000 mg PO BID 11/18/24 12/11/24 History metoprolol succinate 50 mg 50 mg PO HS 11/18/24 12/11/24 History tablet,extended release 24 hr sacubitril 49 mg-valsartan 51 mg 1 tab PO BID 11/18/24 12/11/24 History tablet (Entresto) acetaminophen 500 mg tablet 1,000 mg PO Q8 PRN pain 12/11/24 12/11/24 History (Tylenol Extra Strength) pantoprazole 40 mg tablet,delayed 40 mg PO DAILYBB 12/11/24 12/11/24 History release Past Med/Surg History Problem List (Updated 12/11/24 @ 18:58 by Rossy Gonzalez MD) Pre-syncope Influenza Hypoxemia Transaminitis (Acute) Acute dyspnea (Acute) Abdominal pain (Acute) Acute cholecystitis (Acute) Umbilical hernia, incarcerated Cholecystitis, acute Pacemaker battery depletion Nonischemic cardiomyopathy Diabetes NIDDM Post-operative pain (Acute) Status post revision of total replacement of right knee (Acute) Knee pain, right 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 Degenerative joint disease of knee Left hip pain Spinal stenosis of lumbar region (Chronic) Sacroiliitis Piriformis syndrome (Chronic) Pacemaker Implanted 2018 (for 2:1 AV block), Follows with [facility] cardiology (Dr. Ramírez) Hypertension Medical History (Updated 12/11/24 @ 18:58 by Rossy Gonzalez MD) Aortic valve disorder Migraine headache Hiatal hernia Cardiomyopathy Aortic insufficiency Nonischemic cardiomyopathy Osteoarthritis Hyperlipidemia "Borderline" LBBB (left bundle branch block) Chronic GERD CAD (coronary artery disease) Mild nonobstructive CAD per 2010 cardiac cath ([place]) Sleep apnea "Mild" > no device prescribed Surgical History (Updated 12/02/24 @ 00:08 by Fabricio Hines) H/O umbilical hernia repair (11/19/24) Placement of Cholecystostomy Tube, Incarcerated umbilical Hernia(Not Applicable) - Elio Boothe MD, FACS H/O insertion of cholecystostomy tube (11/19/24) Placement of Cholecystostomy Tube, Incarcerated umbilical Hernia(Not Applicable) - Elio Boothe MD, FACS History of tonsillectomy History of permanent cardiac pacemaker placement H/O colonoscopy H/O esophagogastroduodenoscopy S/P appy Status post total hip replacement, right Family History Family/Other Family history of diabetes mellitus BROTHER OR SISTER Other Family history non-contributory No family history of adverse response to anesthesia Silicosis Social History Smoking Status: Former smoker Second Hand Exposure: No; Do You Dip or Chew Tobacco: No; Hx Alcohol Use: No Hx Substance Use: No Preferred Language: [place] Communication Ability: Effective Visual Impairment: No Limitations Coffee Taster Required: No Beliefs That Will Affect Care: Congregation marital status: Current Living Situation: Spouse current occupational status: retired Feels Safe at Home: Yes Assistive Devices: Raised Toilet Seat and Walker Review of Systems Review of Systems: All systems reviewed & are unremarkable except as noted in Subjective Physical Exam Physical Exam: General: Alert, oriented. No acute distress Psych: Appropriate mood and affect Neuro: difficulty with movements in the bed HEENT: NC/AT CV: RRR Resp: Breath sounds clear bilaterally, no increased effort of breathing Abdomen: Firm, tubes in place Extremities: No edema in lower extremities bilaterally. Results & Data Results & Data Vital Signs (Past 12 Hours) Vital Signs Temp Pulse Resp BP Pulse Ox O2 Del Method 12/11/24 18:06 70 12/11/24 16:30 67 25 H 151/70 H 97 12/11/24 15:30 70 28 H 144/65 H 97 Room Air 12/11/24 15:00 72 28 H 148/73 H 98 Room Air 12/11/24 15:00 148/73 H 12/11/24 14:30 136/70 12/11/24 14:30 75 25 H 96 12/11/24 14:09 71 32 H 96 12/11/24 14:00 130/91 12/11/24 13:54 73 30 H 95 12/11/24 13:33 70 27 H 96 12/11/24 13:30 141/71 H 12/11/24 13:30 75 12/11/24 13:29 98 Room Air 12/11/24 13:03 96 Room Air 12/11/24 13:03 36.9 C 83 20 145/61 H 98 Room Air Diagnostic Findings Chest X-Ray 12/11/24 13:29 XR chest 1V portable CLINICAL HISTORY: Dyspnea COMPARISON STUDY: 11/19/2024 FINDINGS: Stable pacemaker. Heart size and pulmonary vasculature are normal. There is grossly stable mild scarring or atelectasis at the left lung base. No new consolidation or pleural effusion. No pneumothorax. IMPRESSION: Mild scarring or atelectasis left lung base. ACT 112: Negative or not required by law. Electronically signed by: Jef Alvarez M.D. 12/11/2024 1:[address] 12/11/24 17:59 INDICATION: Syncope. COMPARISON: No relevant priors available TECHNIQUE: Axial CT images of the head were obtained without IV contrast. Coronal and sagittal reformations were reviewed. FINDINGS: Agosto-white differentiation is relatively preserved. No mass, mass effect or midline shift. Chronic ischemic white matter changes and cortical atrophy. Arachnoid cyst in the right temporal fossa noted. No evidence of acute large territorial infarction or acute intracranial hemorrhage. Ventricles appear normal in size. Basal cisterns are patent. No depressed calvarial fracture. IMPRESSION: No acute intracranial process. Electronically signed by Buck Devi 12-11-2024 6:50 PM
--- NOTE | 2024-12-11 18:50 | CT Scan Report ---
INDICATION: Syncope. COMPARISON: No relevant priors available TECHNIQUE: Axial CT images of the head were obtained without IV contrast. Coronal and sagittal reformations were reviewed. FINDINGS: Agosto-white differentiation is relatively preserved. No mass, mass effect or midline shift. Chronic ischemic white matter changes and cortical atrophy. Arachnoid cyst in the right temporal fossa noted. No evidence of acute large territorial infarction or acute intracranial hemorrhage. Ventricles appear normal in size. Basal cisterns are patent. No depressed calvarial fracture. IMPRESSION: No acute intracranial process. Electronically signed by Buck Devi 12-11-2024 6:50 PM
[2024-12-11] MEDS ORDERED: DEXTROSE 50% 50 ML SYRINGE IV PRN (20:40)
[2024-12-11] MEDS ORDERED: ACETAMINOPHEN 500 MG TAB PO PRN (20:40)
[2024-12-11] MEDS ORDERED: GLUCAGON FOR INJ 1 MG VIAL SQ PRN (20:40)
[2024-12-11] MEDS ORDERED: CARBOHYDRATES FOR HYPOGLYCEMIA PO PRN (20:40)
[2024-12-11] MEDS ORDERED: GLUCOSE 10 TAB/TUBE PO PRN (20:40)
[2024-12-11] MEDS ORDERED: GLUCOSE 40% GEL 15 GM TUBE PO PRN (20:40)
--- NOTE | 2024-12-11 21:09 | Communication Note ---
Date of Service: December 11, 2024
--- NOTE | 2024-12-11 21:25 | Electrocardiogram Report ---
Test Reason : Blood Pressure : */* mmHG Vent. Rate : 79 BPM Atrial Rate : 79 BPM P-R Int : 134 ms QRS Dur : 150 ms QT Int : 460 ms P-R-T Axes : 5 7 183 degrees QTcB Int : 527 ms Atrial-sensed ventricular-paced rhythm Abnormal ECG When compared with ECG of 18-Nov-2024 15:17, Premature ventricular complexes are no longer Present Vent. rate has decreased by 22 bpm Confirmed by Darrius Sullivan ([id number]) on 12/11/2024 9:25:30 PM Referred By: REFERRED SELF Confirmed By: Darrius Sullivan
[2024-12-11] MEDS: INSULIN ASPART PER UNIT CHARGE SC SCH (21:39)
[2024-12-11] MEDS: VALSARTAN/SACUBITRIL 51/49 MG TAB PO SCH (21:40)
[2024-12-11] MEDS: METOPROLOL SUCC 50MG EXT REL TAB PO SCH (21:40)
[2024-12-11] MEDS: HEPARIN SOD 5,000 UNIT/0.5 ML VIAL SQ SCH (21:40)
--- OUTSIDE RECORDS SUMMARY | 2024-12-11 22:05 | External Medical Summary | Summary of Care ---
Author Name Unknown Organization [facility] Address [address] [place] [address] Phone [phone] Care Team Providers Care Field Cane Scale Clerk Name Role Phone Mookie Coyne MD Primary Care Provider + Reason for Visit * Reason Onset Date Comments Intermediate Visit - Discharge 12/08/2024 Encounter Details Date Type Department Care Team (Late st Contact Info) Description 12/08/2024 10:00 AM EDT Intermediate Visit [address] [place] [address] Kandy Nicole PA-C [address] [place] [phone] Acute gangrenous cholecystitis*; Cholecystostomy care ([facility]); Postoperative state; Influenza A; Type 2 diabetes mellitus with hemoglobin A1c goal of less than 8.0% ([facility]); Chronic systolic (congestive) heart failure ([facility]); Nonischemic dilated cardiomyopathy ([facility]); HTN, goal below 150/90; BPH with obstruction/lower urinary tract symptoms; Gastroesophageal reflux disease without esophagitis Allergies Active Allergy Reactions Criticality Noted Date Comments Statins 02/29/2012 Feels poorly on Statins Tamsulosin 12/24/2015 Nasal congestion Terazosin 12/24/2015 Low blood pressure, weak legs documented as of this encounter (statuses as of 12/08/2024) Medications AMOXICILLIN 500 MG PO CAPSIndications: Aortic valve disorder 4 by mouth 1 hour prior to procedure 4 Cap 5 4 Active B-12 1000 MCG Oral Tablet 1 tab daily 1 Tablet 2 Active Entresto 49-51 MG Oral Tablet (sacubitril-vals saul [...] EVENING meals 180 Tablet 1 5 Active Metoprolol Succinate ER 50 MG Oral Tablet Extended Release 24 Hour (toPROL XL)Indications:H TN, goal below 140/90 TAKE 1 TABLET BY MOUTH EVERY MORNING 90 Tablet 3 5 Active Pantoprazole Sodium 40 MG Oral Tablet Delayed Release (Protonix)Indica tions:Gastroesop hageal reflux disease without esophagitis Take 1 Tablet by mouth in the morning. 30 Tablet 5 Active Pantoprazole Sodium 40 MG Oral Tablet Delayed Release (Protonix) Take 1 Tablet by mouth in the morning. 12/09/19 25 Discontin ued(Refil l) documented as of this encounter (statuses as of 12/08/2024) Active Problems Problem Noted Date Diagnosed Date Acute gangrenous cholecystitis 11/30/2024 Cholecystostomy care 11/30/2024 H/O umbilical hernia repair 11/30/2024 MCI (mild cognitive impairment) 11/30/2024 Chronic systolic (congestive) heart failure 11/05 AV block 09/19/2020 S/P cardiac pacemaker procedure 03/06/2020 Vitamin B12 deficiency 04/19/2018 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/2014 HTN, goal below 150/90 05/10/2014 Hyperlipidemia with target LDL less than 100 Type 2 diabetes mellitus wit h hemoglobin A1c goal of less than 8.0% 03/11/2012 Overview (12/31/2015): Diagnosed 2011 ICD-10 update of inactive term Aortic valve regurgitation 03/11/2012 Left bundle branch block 03/11/2012 Aortic valve disorder 09/24/2003 Anxiety state Esophageal reflux documented as of this encounter (statuses as of 12/08/2024) Resolved Problems Problem Noted Date Diagnosed Date [...] as of this encounter (statuses as of 12/08/2024) Immunizations Name Administration Dates Next Due COVID-19 [...] 10 and older)(Boostrix) 12/03/2016 Varicella Zoster Vaccine [place] lt (Zostavax) 08/05/2012 Zoster Vaccine Recombinant (Shingrix) 07/10/2019 ,03/13/2019 [...] 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 Not on file Not on file Not on file documented as of this encounter Last Filed Vital Signs Vital Sign Reading Time Taken Comments Blood Pressure 128/77 12/08/2024 10:23 AM EDT Pulse 68 12/08/2024 10:23 AM EDT Temperature 36.8 °C (98.3 °F) 12/08/2024 1 0:23 AM EDT Respiratory Rate 18 12/08/2024 10:2 3 AM EDT Oxygen Saturation 91% 12/08/2024 10: 23 AM EDT room air Inhaled Oxygen Concentration - - Weight 101.9 kg (224 lb 9.6 oz) 025 10:23 AM EDT Height - - Body Mass Index 30.03 07/18/2024 11:11 AM EST documented in this encounter Patient Instructions * Patient Instructions* Kandy Nicole PA-C - 12/08/2024 10:17 AM EDT Care for your GUY drain/gallbladder drain as instructed by your surgeon. Empty the GUY drain 2-3 times per day and record the amount of output and bring this with you to your surgery follow up. Keep this drain to bulb suction. Empty the gallbladder drain once daily and as needed, record the amount of output and bring this with you to your surgery follow up. You may shower as instructed by your surgeon. Resume activity as directed by your surgeon. No driving until cleared by your surgeon or PCP. You may use tylenol as needed for your surgical pain, follow directions on the [id number] bottle. documented in this encounter Progress Notes * Kandy Nicole PA-C - 12/08/2024 10:04 AM EDT DISCHARGE NOTE TRANSITION EVENT: Type: Discharge to home Date: December 08 Code Status: Full Code Name: Karthikeyan Soto Date of : 1945 This note pertains to care provided at [facility]. Please see facility medical record for original note. This note is not to be edited or addended in [facility]. Editing or addending needs to occur in the facilities medical record. Discharge Medications: Current Outpatient Medications Medication Sig Dispense Refill B-12 1000 MCG Oral Tablet 1 tab daily 1 Tablet 0 Entresto 49-51 MG Oral Tablet (sacubitril-valsartan 49-51 mg per tab) TAKE 1 TABLET BY MOUTH EVERY MORNING AND TAKE 1 TABLET BY MOUTH AT BEDTIME 180 Tablet 3 Trulicity 3 MG/0.5ML Subcutaneous Solution Pen-injector (Dulaglutide) INJECT 3MG (0.5ML) UNDER THE SKIN ONCE WEEKLY 2 mL 11 Finasteride 5 MG Oral Tablet (Proscar) TAKE 1 TABLET BY MOUTH EVERY MORNING 90 Tablet 3 metFORMIN HCl 1000 MG Oral Tablet (Glucophage) TAKE ONE TABLET BY MOUTH twice daily with MORNING AND EVENING meals 180 Tablet 1 Metoprolol Succinate ER 50 MG Oral Tablet Extended Release 24 Hour (toPROL XL) TAKE 1 TABLET BY MOUTH EVERY MORNING 90 Tablet 3 Pantoprazole Sodium 40 MG Oral Tablet Delayed Release (Protonix) Take 1 Tablet by mouth in the morning. 30 Tablet 0 AMOXICILLIN 500 MG PO CAPS 4 by mouth 1 hour prior to procedure 4 Cap 5 No current facility-administered medications for this visit. S: Karthikeyan Soto is being discharged from [facility]. Admitted to [facility] on 11/28/24 for short-term rehab following hospitalization, which is summarized below. Per admitting note dated 11/30/24: "Recently admitted to [facility] on 11/18/24 because of acute gangrenous cholecystitis s/p cholecystostomytube placement and was transferred here and admitted on 11/28/2024. From On Service Note: "Patient of Mookie Coyne MD with history of non- ischemic cardiomyopathy (EF 30-34%), DM2, HTN, GERD, BPH, and other history noted below presented to the ER on 11/18/24 due to upper abdominal pain/fullness and fevers. He had similarly been in the ER on 11/13/24 with vomiting and epigastric pain. In the ER, WBC 6.86, hgb 13.0, plt 175, Na low at 132, K 3.4, creat 1.13, lipase elevated to 200, total bilirubin elevated at 2.4, mildly elevated AST/ALT at 41/57 respectively. Abdominal x ray showed increased bowel gas/distension compared to 11/12/24, and CT abdomen and pelvis showed enlarged liverwith fatty density and multiple small hypodense lesions, gallbladder distension to 53x12 cm with increased wall thickness and pericholecystic fat stranding, multiple bilateral simple renal cysts, enlarged prostate and a fatty umbilical defect. He was admitted for further management of acute cholecystitis. He was taken to the OR on 11/19/24 for exploratory laparoscopy and placement of cholecystostomy tube and incarcerated umbilical hernia repair by Dr. Boothe. Postoperatively developed hypoxia/respiratory insufficiency requiring 15 lpmsupplemental O2 and ICU management. He improved and was able to be transferred out of ICU on 11/20/24 . He developed early SBO vs ileus, which did improve with bowel rest. He was treated with zosyn forgangrenous cholecystitis. Bile cultures grew streptococcus mutans and parasanguinis and was evaluated by ID for further antibiotic guidance, and he completed 3 additional days of unasyn. Abx were completed prior to hospital discharge. He is to follow up with surgery in 1 week with plan for possiblecholecystectomy at some point in the near future. He was begun on pantoprazole in place of his usual famitodine." Patient is now admitted for PT/OT. He lives at home with his . He states he has not slept well since admission here and after discussion, declines any sleep aid. States melatonin and not helpful in the past and declines other sleep medication. Did discuss possible Trazodone and declines. Patient states his pain is controlled with tylenol and denies having much pain. State his appetite is improving. Denies RUQ pain after eating." He tested positive for influenza A on 12/06/24, however reported symptoms had begun several days prior. He was not treated with tamiflu per his preference and being outside the treatment window. He hasongoing mild cough, and otherwise no fevers/body aches/excessive weakness. His appetite is slowly improving. He is following closely with general surgery with plans for cholecystectomy at some point in the near future. Cholecystostomy tube remains in place. He is ambulating freely with a walker and is able to climb a flight of stairs. He is essentially independent with ADLs. Has history of : Past Medical History: Diagnosis Date Anxiety state Aortic valve disorder 09/24/2003 Esophageal reflux HTN, goal below 150/90 05/10/2014 Hyperlipidemia with target LDL less than 100 02/22/2013 Migraine OTHER 9.17.01 arachnoid cyst right [id number] lobe on mri Type 2 diabetes mellitus with hemoglobin A1c goal of less than 7.0% ([facility]) 03/11/2012 Diagnosed 2012 ICD-10 update of inactive term Patient Active Problem List Diagnosis Aortic valve disorder Anxiety state Esophageal reflux Type 2 diabetes mellitus with hemoglobin A1c goal of less than 8.0% ([facility]) Aortic valve regurgitation Left bundle branch block Hyperlipidemia with target LDL less than 100 HTN, goal below 150/90 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 Boothe COLONOSCOPY THRU STOMA, W/BIOPSY 05/01/2013 adenomatous poylp COLONOSCOPY, DIAGNOSTIC (RECTUM) 06/15/2018 hyperplastic polyp, diverticulosis, repeat 5 yrs/COLONOSCOPY FLEXIBLE PROXIMAL DIAGNOSTIC performedby Virgen Dias MD at [facility] COLONOSCOPY, DIAGNOSTIC (RECTUM) 08/16/2023 diverticulosis/biopsies normal/COLONOSCOPY FLEXIBLE PROXIMAL DIAGNOSTIC performed by Virgen Dias MD at [facility] COLONOSCOPY, GI REFERRAL OP 2002 hyperplastic polyp EGD, FLEXIBLE, DIAGNOSTIC egd 10/08 EGD, FLEXIBLE, DIAGNOSTIC 06/23/2016 [facility], repeat 2-4 wks EGD, FLEXIBLE, DIAGNOSTIC 07/23/2016 S[facility]i [facility], repeat 2-4 wks/ESOPHAGOGASTRODUODENOSCOPY (EGD), FLEXIBLE, TRANSORAL, DIAGNOSTICperformed by Ros Ricardo DO at [facility] EGD, FLEXIBLE, DIAGNOSTIC 08/25/2016 STEPHEN Joe/ESOPHAGOGASTRODUODENOSCOPY (EGD), FLEXIBLE, TRANSORAL, DIAGNOSTIC performed by Virgen Dias MD at [facility] EGD, FLEXIBLE, DIAGNOSTIC 06/15/2018 Schatzki ring/ESOPHAGOGASTRODUODENOSCOPY (EGD), FLEXIBLE, TRANSORAL, DIAGNOSTIC performed by Kaela Dias MD at [facility] EGD, FLEXIBLE, DIAGNOSTIC 04/05/2019 erosive esophagitis, repeat 8 wks/[facility] EGD, FLEXIBLE, DIAGNOSTIC 10/12/2019 Schatzki ring, hiatal hernia / ESOPHAGOGASTRODUODENOSCOPY (EGD), FLEXIBLE, TRANSORAL, DIAGNOSTIC performed by Virgen Dias MD at [facility] EXPLORATION OF MAXILLARY SINUS Sinus Surgery INFORMATION right foot surgery PACEMAKER INSERTION PER 07/2019 [place] RPR UMBILICAL HERNIA AGE 4 YRSOR MORE INCARCERATED [address] [facility] [address] Boothe REMOVAL OF APPENDIX REMOVE CATARACT, INSERT LENS PROSTH Left 12/15/2022 left EXTRACAPSULAR CATARACT REMOVAL WITH INTRAOCULAR LENS performed by Anuj Mack MD at [facility] REMOVE CATARACT, INSERT LENS PROSTH Right 12/29/2022 right EXTRACAPSULAR CATARACT REMOVAL WITH INTRAOCULAR LENS performed by Anuj Mack MD at [facility] REMOVE TONSILS & ADENOIDS, UNDER 12 Tonsillectomy/Adenoids,<12 Y/O TOTAL HIP REPLACEMENT & PROSTHESIS 04/2014 [facility] (Hip Total Replacement) TOTAL KNEE REPLACEMENT EDU. Right 06/04/2021 Family History Problem Relation Name Age of Onset Lung Disorder Father age 66 black lung Cancer Mother age 94 Neurological Disorder Sister etoh abuse age 60 Diabetes Sister age 70 Diabetes Mother No Past Hx Brother in a mining accident Family Status Relation Status Mo Alive Fa Alive emphysema Son Alive Unknown (Not Specified) Social History Socioeconomic History Marital status: Spouse name: Vernell Number of children: 2 Years of education: 16 Highest education level: Not on file Occupational History Occupation: [employer] Occupation: Retired Tobacco Use Smoking status: Former Types: Cigars, Cigarettes Smokeless tobacco: Never Vaping Use Vaping status: Never Used Substance and Sexual Activity Alcohol use: Yes Comment: very rare- when going to dinner maybe a glass of wine Drug use: No Sexual activity: Yes Partners: Female Other Topics Concern Service No Blood Transfusions No Caffeine Concern No Comment: 2-3 cups day Occupational Exposure No Hobby Hazards No Sleep Concern No Stress Concern Yes Comment: Occ stress anxiety Weight Concern Yes Special Diet No Back Care No Exercise Yes Bike Helmet Yes Seat Belt Yes Self-Exams Yes Social History Narrative 2 grandchildren for 52 years. Former Salesman Social Needs Financial Resource Strain: Low Risk (07/16/2023) Financial Resource Strain Do you have any trouble paying for your medications, or do you think you might in the future? (Adult - for ages 18 years and over): No Does your family have trouble paying for medicine? (Household - for ages 0-17 years): Not on file Food Insecurity: No Food Insecurity (07/16/2023) Food Insecurity Do you need food for this week? (Adult - for ages 18 years and over): No Are you able to get enough food for your family? (Household - for ages 0-17 years): Not on file Does your family need food this week? (Household - for ages 0-17 years): Not on file Do you always have enough food for your family? (Household - for ages 0-17 years): Not on file Transportation Needs: No Transportation Needs (07/16/2023) Transportation Needs Do you have trouble getting a ride to medical visits or work? (Adult - for ages 18 years and over):Never True Does your family have a hard time getting a ride to doctors’ visits? (Household - for ages 0-17 years): Not on file Has lack of transportation kept you from medical appointments, meetings, work, or from getting things needed for daily living? Check all that apply. (Adult - for ages 18 years and over): Not on file Do you (or your family) have trouble finding or paying for a ride (transportation)? (Household - for ages 0-17 years): Not on file Social Connections: Socially Integrated (07/16/2023) Social Connections How often do you feel lonely or isolated from those around you? (Adult - for ages 18 years and over): Never Housing Stability: Low Risk (07/16/2023) Housing Stability Do you currently live in a snf or have no steady place to sleep at night? (Adult - for ages 18 years and over): No Do you think you are at risk of becoming homeless? (Adult - for ages 18 years and over): No Does your family worry about paying for your home or becoming homeless? (Household - for ages 0-17 years): Not on file Are you homeless or worried that you might be in the future? (Adult - for ages 18 years and over): Not on file Are you (or your family) homeless or worried that you might be in the future? (Household - for ages0-17 years): Not on file Review of patient's allergies indicates: Allergen Reactions Statins Feels poorly on Statins Tamsulosin Nasal congestion Terazosin Low blood pressure, weak legs Adequate nutrition/fluids: Yes Bowel/Bladder dysfunction: No Assistive Devices: with walker ADL: independent O: BP 128/77 | Pulse 68 | Temp 36.8 °C (98.3 °F) | Resp 18 | Wt 101.9 kg (224 lb 9.6 oz) | SpO2 91% Comment: room air | BMI 30.03 kg/m² | BSA 2.28 m² General: alert, healthy, and no distress, occasional cough Head: Normocephalic Eye Exam: conjunctiva are pink and non-injected, sclera clear Oropharynx: lips, buccal mucosa, and tongue normal and mucous membranes are moist Heart: regular rate & rhythm Lungs: chest symmetric with normal AP diameter, no chest deformities noted, no chest wall tenderness, lungs clear to auscultation Abdomen: abdomen soft, non-tender, normal bowel sounds, no masses or organomegaly, no rebound or guarding, and healing umbilical incision, GUY drain with small serous drainage, cholecystostomy tube with ++ bilious drainage Extremities: less than 2 second capillary refill, no joint deformities, effusion, or inflammation, no edema Neuro Exam: alert & oriented x 3 with fluent speech, no focal motor/sensory deficits Skin: pink, warm, dry Component Latest Ref Rng 12/04/2024 12/07/2024 BUN 6 - 20 mg/dL 9 10 CREATININE 0.6 - 1.2 mg/dL 1.1 1.1 EGFR >=60 mL/min 66 66 SODIUM 135 - 146 mmol/L 137 136 POTASSIUM 3.5 - 5.1 mmol/L 3.7 4.1 CHLORIDE 98 - 107 mmol/L 103 100 CO2 22 - 32 mmol/L 22 25 ANION GAP 7 - 15 mmol/L 12 11 GLUCOSE 70 - 120 mg/dL 109 122 (H) Albumin 3.8 - 5.0 g/dL 3.0 (L) AST 10 - 50 U/L 17 Alkaline Phosphatase 35 - 130 U/L 94 Bilirubin, Total <=1.2 mg/dL 0.4 CALCIUM 8.4 - 10.2 mg/dL 8.3 (L) 8.5 Protein 6.0 - 8.3 g/dL 5.7 (L) ALT 10 - 50 U/L 17 WBC 4.00 - 10.80 K/uL 4.79 Neutrophils % 40.0 - 75.0 % 71.7 Lymphocytes % 18.0 - 42.0 % 12.9 (L) Monocytes % 1.0 - 11.0 % 12.3 (H) Eosinophils % 0.0 - 6.0 % 2.9 Basophils % 0.0 - 2.0 % 0.2 Absolute Neutrophils 1.80 - 7.70 K/uL 3.43 Absolute Lymphocytes 1.00 - 4.80 K/ul 0.62 (L) Absolute Monocytes 0.00 - 1.10 K/uL 0.59 Absolute Eosinophils 0.00 - 0.70 K/uL 0.14 Absolute Basophils 0.00 - 0.20 K/uL 0.01 WBC 4.00 - 10.80 K/uL 4.79 4.46 RBC 4.50 - 5.25 M/uL 3.83 4.22 HGB 14.0 - 16.8 g/dL 12.2 (L) 13.4 (L) HCT 40.0 - 48.4 % 35.4 (L) 38.7 (L) MCV 82.0 - 99.5 fL 92.4 91.7 MCH 27.0 - 34.0 pg 31.9 31.8 MCHC 32.0 - 36.0 g/dL 34.5 34.6 RDW 11.5 - 15.5 % 13.0 13.4 PLT 140 - 400 K/uL 274 229 MPV 6.6 - 11.1 fL 9.4 9.0 Phosphorus 2.5 - 4.8 mg/dL 3.0 Magnesium 1.5 - 2.6 mg/dL 1.6 Legend: (L) Low (H) High Results for orders placed or performed in visit on 12/05/24 INFLUENZA A/B RSV SARS-COV2,PCR Result Value Ref Range SARS-CoV-2 (COVID-19) Result Negative Negative Influenza A PCR Result Positive (A) Negative Influenza B PCR Result Negative Negative RSV PCR Result Negative Negative *Note: Due to a large number of results and/or encounters for the requested time period, some results have not been displayed. A complete set of results can be found in Results Review. A: Acute gangrenous cholecystitis (Primary) Cholecystostomy care ([facility]) Postoperative state S/p cholecystostomy tube placement and umbilical hernia repair Following closely with general surgery (Dr. Boothe) with plan for cholecystectomy in the near future Influenza A Symptoms currently mild Type 2 diabetes mellitus with hemoglobin A1c goal of less than 8.0% ([facility]) Stable on home regimen Chronic systolic (congestive) heart failure (HCC) Nonischemic dilated cardiomyopathy ([facility]) Stable throughout this admission HTN, goal below 150/90 Stable on current regimen BPH with obstruction/lower urinary tract symptoms No acute issues, home regimen continued Gastroesophageal reflux disease without esophagitis - Pantoprazole Sodium 40 MG Oral Tablet Delayed Release (Protonix); Take 1 Tablet by mouth in the morning. P: 1. Discharge to home 2. Home Health was consulted for nursing, PT, and OT. 3. Copy of chart sent to PCP 4. Patient to follow up with PCP within 7 days. 5. [employer] Power[employer] Supervisor: Amee Arredondo at [facility] 6. I spent 35 minutes on discharge. documented in this encounter Plan of Treatment Upcoming Encounters Date Type Department Care Team (Late st Contact Info) Description 12/11/2024 1:40 PM EDT Office Visit General Internal Medicine [facility] [address] [facility] [place] [address] Raghu Sargent DO [address] [facility] [place] [address] 12/25/2024 10:00 AM EDT Office Visit Cardiology, [facility] [address] [place] [phone] Bharathi Lynn PA-C [address] [place] [address] 04/19/2025 1:00 PM EDT Office Visit General Internal Medicine [facility] [address] [facility] [place] [address] Mookie Coyne MD [address] [facility] [place] [address] 05/23/2025 10:30 AM EDT Office Visit Gastroenterology, [facility] [address] [place] [phone] Cassidy Palm CRNP [address] [place] [phone] 07/24/2025 11:00 AM EST Nurse Only Ancillary Scenery State Amador Jung [address] [place] [address] Fabiana Nurse Annual [facility] [address] [place] [address] Scheduled Procedures Name Priority Associated Diagnoses Date/Ti me ESOPHAGOGASTRODUODENOSCOPY ( EGD), FLEXIBLE, TRANSORAL, DIAGNOSTIC Recall Gastroesophageal reflux disease, unspecified whether esophagitis present Health Maintenance Due Date Last Done Comments Albumin/Creatinine Ratio 05/21/2024 023, 03/21/2021, 03/06/2020, Additional history exists B-12 12/01/2024 12/02/2023, 05/07, 10/21/2022, Additional history exists *NEPHROLOGY REFERRAL DUE TO RESISTANT HTN 12/04/2024 HbA1c 12/21/2024 06/22/2024, 11/05, 05/19/2023, Additional history exists Diabetic Eye Exam 12/22/2024 12/23/2023, , 07/16/2023, Additional history exists COVID-19 Vaccine ( season) 2025 07/22/2021, 10/28/2020, 10/07/2020 Postponed from 05/07/2024 (Other) Diabetic Foot Exam 06/28/2025 06/28/2024, 0 05/19/2023, 04/01/2022, Additional history exists Adult Wellness Visit 07/18/2025 07/18/2024, 07/16/20 23 Depression Screening 07/18/2025 07/18/2024 GFR 12/07/2025 12/07/2024, 11/06, 11/13/2024, Additional history exists DTap/Tdap Vaccines (2 - Td or Tdap) 12/03/2026 12/03/2016, 07/24/2005 Colonoscopy 08/16/2028 08/16/2023, 08/06, 06/15/2018, Additional history exists Pneumococcal Vaccine: 50+ Years Completed 12/20/2014, 05/07/2011 Zoster Vaccines Completed 07/10/2019, 070 04/2019, 08/05/2012 RETIRED - COLONOSCOPY-EVERY 5 YRS [...] this encounter Medical Devices Implanted Type Area Front Office Manager Device Identifier Shelf Expiration Date Model / Serial / Lot Lens Intraoc 18.5 - [id number] Implanted:Qty: 1 on 12/15/2022 by Anuj Mack MD at OR [facility] Left: Eye [employer] 07/06/2027 [id number] / / [id number] Lens Intraoc 19.0 - [id number] - [id number] Implanted:Qty: 1 on 12/29/2022 by Anuj Mack MD at OR [facility] Right: Eye [employer] 07/06/2027 [id number] / [id number] / [id number] documented as of this encounter Visit Diagnoses Diagnosis Acute gangrenous cholecystitis- Primary Acute cholecystitis Cholecystostomy care ([facility]) Attention to other artificial opening of digestive tract Postoperative state Other postprocedural status Influenza A Influenza with other respiratory manifestations Type 2 diabetes mellitus with hemoglobin A1c goal of less than 8.0% ([facility]) Chronic systolic (congestive) heart failure (HCC) Nonischemic dilated cardiomyopathy (HCC) Other primary cardiomyopathies HTN, goal below 150/90 BPH with obstruction/lower urinary tract symptoms Hypertrophy of prostate with urinary obstruction and other lower urinary tract symptoms (LUTS) Gastroesophageal reflux disease without esophagitis Esophageal reflux documented in this encounter Additional Health Concerns Infection Onset Date Last Indicated Resolved Time Influenza (seasonal) 12/05/2024 12/05/2024 documented as of this encounter Advance Directives [...] Power of Attor raul? No Care Teams Field Cane Scale Clerk Relationship Specialty Start Date End Date Mookie Coyne MD [address] [facility] [place] [address] PCP - General Internal Medicine 12/06/17 documented as of this encounter
--- OUTSIDE RECORDS SUMMARY | 2024-12-11 22:06 | External Medical Summary | Summary of Care ---
Author Name Unknown Organization [facility] Address [address] [place] [address] Phone [phone] Care Team Providers Care Associate Genetics Professor Name Role Phone Mookie Coyne MD Primary Care Provider + Reason for Referral * Evaluate & Treat - Unlimited Visits (Within 3 days (urgent)) - Authorized Specialty Diagnoses / Procedures Referred By Mary clark Referred To Contact HOME CARE / Home Care Diagnoses Acute gangrenous cholecystitis Cholecystostomy care (HCC) H/O umbilical hernia repair Postoperative community health Kandy Nicole PA-C [address] [place] [address] Phone: tel: fax: Referral ID Status Reason Start Date Expiration Date Visits Requested Visits Authorized [id number] Authorized Specialty Services Required 12/07/[phone] Question Answer Referral Priority Within 3 days (urgent) Where should this appointment be scheduled? External Comments Documentation of Manw-sx-Xewv Encounter Addendum Patient Name: Karthikeyan Juarez Brittany I certify that this patient is under my care and that I, or a nurse practitioner or physician's technical staff assistant working with me, had a [id number] encounter that meets the physician vcmr-vh-wock encounter requirements with this patient on: 12/07/24 The encounter with the patient was in whole, or in part, for the following medical condition, which is the primary reason for home health care (List medical condition): Convalescence from surgery I certify that, based on my findings, the following services are medically necessary home health services: Nursing, Physical Therapy, and Occupational Therapy, home health aide To provide the following care/treatments: (All hospitalists not following the patient after discharge should complete this section): ADLs, rehab, gait training, medication management Primary Care Physician to follow home care plan of care after discharge: Mookie Coyne MD My clinical findings support the need for the above services because: pt requires walker for ambulation Further, I certify that my clinical findings support that this patient is homebound (i.e. Absences from home require considerable and taxing effort and are for medical reasons or mandaen services or infrequently or of short duration when for other reason) because: Unstable gait with fall risk Physician Signature: Date of Signature: Physician Printed Name: Kandy Nicole PA-C Reason for Visit * Reason Onset Date Comments Skilled Visit 12/07/2024 Encounter Details Date Type Department Care Team (Late st Contact Info) Description 12/07/2024 1:00 PM EDT [facility] Visit [address] [address] Kandy Nicole PA-C [address] [place] [address] [place] [address] Influenza A*; Acute gangrenous cholecystitis; Cholecystostomy care (HCC); H/O umbilical hernia repair; Postoperative state Allergies Active Allergy Reactions Criticality Noted Date Comments Statins 02/29/2012 Feels poorly on Statins Tamsulosin 12/24/2015 Nasal congestion Terazosin 12/24/2015 Low blood pressure, weak legs documented as of this encounter (statuses as of 12/08/2024) Medications AMOXICILLIN 500 MG PO CAPSIndications:A ortic valve disorder 4 by mouth 1 hour prior to procedure 4 Cap 5 4 Active B-12 1000 MCG Oral Tablet 1 tab daily 1 Tablet 2 Active Entresto 49-51 MG Oral Tablet (sacubitril-valsa rtan 49-51 mg per tab)Indications:H TN, goal below 150/90 TAKE 1 TABLET BY MOUTH EVERY MORNING AND TAKE 1 TABLET BY MOUTH AT BEDTIME 180 Tablet 3 4 Active Trulicity 3 MG/0.5ML Subcutaneous Solution Pen-injector (Dulaglutide)Dariana cations:Type 2 diabetes mellitus with hemoglobin A1c goal of less than 7.0% (HCC) INJECT 3MG (0.5ML) UNDER THE SKIN ONCE WEEKLY 2 mL 11 4 Active Finasteride 5 MG Oral Tablet (Proscar)Indicati ons:BPH with obstruction/lower urinary tract symptoms TAKE 1 TABLET BY MOUTH EVERY MORNING 90 Tablet 3 4 Active metFORMIN HCl 1000 MG Oral Tablet (Glucophage)Indic ations:Type 2 diabetes mellitus with hemoglobin A1c goal of less than 7.0% (HCC) TAKE ONE TABLET BY MOUTH twice daily with MORNING AND EVENING meals 180 Tablet 1 5 Active Pantoprazole Sodium 40 MG Oral Tablet Delayed Release (Protonix) Take 1 Tablet by mouth in the morning. Active Metoprolol Succinate ER 50 MG Oral Tablet Extended Release 24 Hour (toPROL XL)Indications:HT N, goal below 140/90 TAKE 1 TABLET BY MOUTH EVERY MORNING 90 Tablet 3 5 Active documented as of this encounter [...] No 07/16/2023 Does the household have a [facility] source of [facility]? (Household - for ages [...] Sign Reading Time Taken Comments Blood Pressure 160/74 12/07/2024 3:54 PM EDT Pulse 80 12/07/2024 3:54 PM EDT Temperature 36.7 °C (98 °F) 12/07/2024 3:54 PM EDT Respiratory Rate 18 12/07/2024 3:54 PM EDT Oxygen Saturation 97% 12/07/2024 3:54 PM EDT room air Inhaled Oxygen Concentration - - Weight - - Height - - Body Mass Index - - documented in this encounter Progress Notes * Kandy Nicole PA-C - 12/07/2024 2:52 PM EDT Name: Karthikeyan Soto Date of : 1945 This note pertains to care provided at [facility]. Please see facility record for original note. This note is not to be edited or addended in Health system. Editing or addending needs to occur in the facility's medical record. Chief Complaint Patient presents with Skilled Visit TRANSITION EVENT: Type: Skilled visit Date: December 07 Code Status: Full Code SUBJECTIVE: Karthikeyan Soto is a 79 year old male HPI: short-term rehab pt recently hospitalized with acute cholecystitis and incarcerated umbilical hernia s/p cholecystostomy placement and umbilical hernia repair, later findings of cough and ++ influenza A testing on 12/05/24 (pt/ feel symptoms began several days prior to + test and pt declinedtamiflu). He feels his cough is improved, he denies chest pain and dyspnea, nausea, vomiting, diarrhea. He denies abdominal pain. Admits to poor appetite. GUY drain still with output. He also denies headache, dizziness, sore throat, sinus congestion, body aches, leg edema, calf tenderness. Pt with plans to return home in the next few days, however this is being delayed as his is currently ill. 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 Review of Systems: Per HPI OBJECTIVE: BP 160/74 | Pulse 80 | Temp 36.7 °C (98 °F) | Resp 18 | SpO2 97% Comment: room air General: alert, healthy, and no distress Head: Normocephalic Heart: regular rate & rhythm Lungs: chest symmetric with normal AP diameter, no chest deformities noted, no chest wall tenderness, lungs clear to auscultation Abdomen: abdomen soft, non-tender, normal bowel sounds, no masses or organomegaly, no rebound or guarding, and GUY drain with small serous drainage, cholecystostomy drain with + bilious drainage, no erythema of skin sites, umbilical incision healed Extremities: less than 2 second capillary refill, no joint deformities, effusion, or inflammation, no edema, no calf tenderness bilaterally Neuro Exam: alert & oriented x 3 with fluent speech Skin: pink, warm, dry Results for orders placed or performed in visit on 12/07/24 BASIC METABOLIC PANEL Result Value Ref Range BUN 10 6 - 20 mg/dL CREATININE 1.1 0.6 - 1.2 mg/dL EGFR 66 >=60 mL/min SODIUM 136 135 - 146 mmol/L POTASSIUM 4.1 3.5 - 5.1 mmol/L CHLORIDE 100 98 - 107 mmol/L CO2 25 22 - 32 mmol/L ANION GAP 11 7 - 15 mmol/L GLUCOSE 122 (H) 70 - 120 mg/dL CALCIUM 8.5 8.4 - 10.2 mg/dL CBC Result Value Ref Range WBC 4.46 4.00 - 10.80 K/uL RBC 4.22 4.50 - 5.25 M/uL HGB 13.4 (L) 14.0 - 16.8 g/dL HCT 38.7 (L) 40.0 - 48.4 % MCV 91.7 82.0 - 99.5 fL MCH 31.8 27.0 - 34.0 pg MCHC 34.6 32.0 - 36.0 g/dL RDW 13.4 11.5 - 15.5 % PLT 229 140 - 400 K/uL MPV 9.0 6.6 - 11.1 fL *Note: Due to a large number of results and/or encounters for the requested time period, some results have not been displayed. A complete set of results can be found in Results Review. Results reviewed with patient ASSESSMENT/PLAN: jail chart (outside system) reviewed for vital signs, nursing notes, CODE STATUS, and most up to date medication list Discussed management with other clinician during the visit (facility RN) Influenza A (Primary) Symptoms improving Acute gangrenous cholecystitis - HOME HEALTH REFERRAL OP Cholecystostomy care (HCC) - HOME HEALTH REFERRAL OP H/O umbilical hernia repair - HOME HEALTH REFERRAL OP Postoperative state - HOME HEALTH REFERRAL OP Follow up: as needed pending final discharge plans 40 total minutes were spent in this visit. This total time includes pre-visit chart review, obtaining / reviewing separately obtained medical history, and performing the medically appropriate historyand exam. It also includes patient / family education and counseling, placing the appropriate orders, placing referrals and communicating with other medical providers, documenting clinical information in the EHR, interpreting / communicating results, and coordinating patient care. documented in this encounter Plan of Treatment Upcoming Encounters Date Type Department Care Team (Late st Contact Info) Description 12/11/2024 1:40 PM EDT Office Visit General Internal Medicine [facility] [address] [place] [address] Raghu Sargent DO [address] [place] [address] 12/25/2024 10:00 AM EDT Office Visit Cardiology, [facility] [address] [place] [phone] Bharathi Lynn PA-C [address] [place] [address] 04/19/2025 1:00 PM EDT Office Visit General Internal Medicine [facility] [address] [place] [address] Mookie Coyne MD [address] [place] [address] 05/23/2025 10:30 AM EDT Office Visit Gastroenterology, [facility] [address] [place] [phone] Cassidy Palm CRNP [address] [place] [address] 07/24/2025 11:00 AM EST Nurse Only Ancillary [place] Amador Jung [address] [place] [address] [place], Nurse Annual Wellness [facility] [address] [place] [address] Scheduled Procedures Name Priority Associated Diagnoses Date/Ti me ESOPHAGOGASTRODUODENOSCOPY ( EGD), FLEXIBLE, TRANSORAL, DIAGNOSTIC Recall Gastroesophageal reflux disease, unspecified whether esophagitis present Scheduled Referrals Name Type Priority Associated Diagnoses Orde r Schedule HOME HEALTH REFERRAL OP Referral Within 3 days (urgent) Acute gangrenous cholecystitis Cholecystostomy care (HCC) H/O umbilical hernia repair Postoperative state Ordered: 12/07/2024 Health Maintenance Due Date Last Done Comments [...] this encounter Medical Devices Implanted Type Area Tunnel Kiln Firer Device Identifier Shelf Expiration Date Model / Serial / Lot Lens Intraoc 18.5 - [id number] Implanted:Qty: 1 on 12/15/2022 by Anuj Mack MD at OR [facility] Left: Eye [employer] 07/06/2027 [id number] / / [id number] Lens Intraoc 19.0 - [id number] - [id number] Implanted:Qty: 1 on 12/29/2022 by Anuj Mack MD at OR [facility] Right: Eye [employer]OM[employer] 07/06/2027 [id number] / [id number] / [id number] documented as of this encounter Visit Diagnoses Diagnosis Influenza A- Primary Influenza with other respiratory manifestations Acute gangrenous cholecystitis Acute cholecystitis Cholecystostomy care (HCC) Attention to other artificial opening of digestive tract H/O umbilical hernia repair Personal history of surgery to other organs Postoperative state Other postprocedural status documented in this encounter Additional Health Concerns [...] 8:32 AM 12/15/2022 2:40 PM This order reflects the patients wishes and were consensually agreed upon. Question Answer Comments Discussion of Advance Directives occurred with: Patient Does the patient have a Living Will? No Does the patient have Health Care Power of Attor raul? No Care Teams Associate Genetics Professor Relationship Specialty Start Date End Date Mookie Coyne MD [address] [place] [address] PCP - General Internal Medicine 12/06/17 documented as of this encounter"
--- OUTSIDE RECORDS SUMMARY | 2024-12-11 22:06 | External Medical Summary | Summary of Care ---
Author Name Unknown Organization [facility] Address [address] [place] [address] Phone [phone] Care Team Providers Care Remote Advisor Name Role Phone Mookie Coyne MD Primary Care Provider + Reason for Visit * Reason Onset Date Comments Skilled Visit 12/06/2024 Encounter Details Date Type Department Care Team (Late st Contact Info) Description 12/05/2024 1:00 PM EDT [facility] Visit [facility] [place] [address] [place] [address] Kandy Nicole PA-C [address] [place] [address] Acute cough*; Postoperative state Allergies Active Allergy Reactions Criticality Noted Date Comments Statins 02/29/2012 Feels poorly on Statins Tamsulosin 12/24/2015 Nasal congestion Terazosin 12/24/2015 Low blood pressure, weak legs documented as of this encounter (statuses as of 12/06/2024) Medications AMOXICILLIN 500 MG PO CAPSIndications:A ortic [...] as of this encounter (statuses as of 12/06/2024) Active Problems Problem Noted Date Diagnosed Date [...] as of this encounter (statuses as of 12/06/2024) Resolved Problems Problem Noted Date Diagnosed Date [...] as of this encounter (statuses as of 12/06/2024) Immunizations Name Administration Dates Next Due COVID-19 [...] 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 Not on file Not on file Not on file documented as of this encounter Last Filed Vital Signs Vital Sign Reading Time Taken Comments Blood Pressure 161/63 12/05/2024 5:23 PM EDT Pulse 62 12/05/2024 5:23 PM EDT Temperature 36.2 °C (97.2 °F) 12/05/2024 5:23 PM ED T Respiratory Rate 18 12/05/2024 5:23 PM EDT Oxygen Saturation 98% 12/05/2024 5:23 PM EDT room air Inhaled Oxygen Concentration - - Weight - - Height - - Body Mass Index - - documented in this encounter Progress Notes * Kandy Nicole PA-C - 12/05/2024 1:00 PM EDT Name: Karthikeyan Soto Date of : 1945 This note pertains to care provided at [facility]. Please see facility record for original note. This note is not to be edited or addended in [place]. Editing or addending needs to occur in the facility's medical record. Chief Complaint Patient presents with Skilled Visit TRANSITION EVENT: Type: Skilled visit Date: December 05 Code Status: Full Code SUBJECTIVE: Karthikeyan Soto is a 79 year old male HPI: Pt c/o cough x 2 days worse at night, he denies sore throat, sinus congestion, fever, chills, body aches. Recent exploratory laparoscopy with attempted/unsuccessful cholecystectomy with cholecystostomy tube placement approximately 14 days ago. 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) Vitamin B12 deficiency S/P cardiac pacemaker procedure AV block Chronic systolic (congestive) heart failure ([facility]) Acute gangrenous cholecystitis Cholecystostomy care ([facility]) H/O umbilical hernia repair MCI (mild cognitive impairment) Review of patient's allergies indicates: Allergen Reactions Statins Feels poorly on Statins Tamsulosin Nasal congestion Terazosin Low blood pressure, weak legs Medications: Pt's current medication list is maintained at [facility] and was reviewed at this visit. Review of Systems: Per HPI OBJECTIVE: BP 161/63 | Pulse 62 | Temp 36.2 °C (97.2 °F) | Resp 18 | SpO2 98% Comment: room air General: alert, healthy, and no distress Heart: regular rate & rhythm Lungs: chest symmetric with normal AP diameter, no chest deformities noted, no chest wall tenderness, lungs clear to auscultation Abdomen: abdomen soft, non-tender, normal bowel sounds, no masses or organomegaly, no rebound or guarding, and drain x 2 RUQ Extremities: less than 2 second capillary refill, no joint deformities, effusion, or inflammation, no edema Neuro Exam: alert & oriented x 3 with fluent speech Results for orders placed or performed in visit on 12/04/24 COMPREHENSIVE METABOLIC PANEL Result Value Ref Range BUN 9 6 - 20 mg/dL CREATININE 1.1 0.6 - 1.2 mg/dL EGFR 66 >=60 mL/min SODIUM 137 135 - 146 mmol/L POTASSIUM 3.7 3.5 - 5.1 mmol/L CHLORIDE 103 98 - 107 mmol/L CO2 22 22 - 32 mmol/L ANION GAP 12 7 - 15 mmol/L GLUCOSE 109 70 - 120 mg/dL Albumin 3.0 (L) 3.8 - 5.0 g/dL AST 17 10 - 50 U/L Alkaline Phosphatase 94 35 - 130 U/L Bilirubin, Total 0.4 <=1.2 mg/dL CALCIUM 8.3 (L) 8.4 - 10.2 mg/dL Protein 5.7 (L) 6.0 - 8.3 g/dL ALT 17 10 - 50 U/L PHOSPHORUS Result Value Ref Range Phosphorus 3.0 2.5 - 4.8 mg/dL MAGNESIUM Result Value Ref Range Magnesium 1.6 1.5 - 2.6 mg/dL CBC Result Value Ref Range WBC 4.79 4.00 - 10.80 K/uL RBC 3.83 4.50 - 5.25 M/uL HGB 12.2 (L) 14.0 - 16.8 g/dL HCT 35.4 (L) 40.0 - 48.4 % MCV 92.4 82.0 - 99.5 fL MCH 31.9 27.0 - 34.0 pg MCHC 34.5 32.0 - 36.0 g/dL RDW 13.0 11.5 - 15.5 % PLT 274 140 - 400 K/uL MPV 9.4 6.6 - 11.1 fL DIFFERENTIAL, AUTOMATED Result Value Ref Range WBC 4.79 4.00 - 10.80 K/uL Neutrophils % 71.7 40.0 - 75.0 % Lymphocytes % 12.9 (L) 18.0 - 42.0 % Monocytes % 12.3 (H) 1.0 - 11.0 % Eosinophils % 2.9 0.0 - 6.0 % Basophils % 0.2 0.0 - 2.0 % Absolute Neutrophils 3.43 1.80 - 7.70 K/uL Absolute Lymphocytes 0.62 (L) 1.00 - 4.80 K/ul Absolute Monocytes 0.59 0.00 - 1.10 K/uL Absolute Eosinophils 0.14 0.00 - 0.70 K/uL Absolute Basophils 0.01 0.00 - 0.20 K/uL *Note: Due to a large number of results and/or encounters for the requested time period, some results have not been displayed. A complete set of results can be found in Results Review. Results reviewed with patient ASSESSMENT/PLAN: senior living chart (outside system) reviewed for vital signs, nursing notes, CODE STATUS, and most up to date medication list Discussed management with other clinician during the visit (facility RN) Acute cough (Primary) Postoperative state CXR 2 view Abbreviated respiratory panel Follow up: as needed pending above results 33 total minutes were spent in this visit. [...] Care Team (Late st Contact Info) Description 12/25/2024 10:00 AM EDT Office Visit Cardiology, [facility] [address] [place] [phone] Bharathi Lynn PA-C [address] [place] [address] 04/19/2025 1:00 PM EDT Office Visit General Internal Medicine [facility] [address] [facility] [address] Mookie Coyne MD [address] [facility] [place] [address] 05/23/2025 10:30 AM EDT Office Visit Gastroenterology, [facility] [address] [place] [phone] Cassidy Palm CRNP [address] [place] [address] 07/24/2025 11:00 AM EST Nurse Only Ancillary [facility] [address] [facility] [place] [address] [place], Nurse Annual Wellness [facility] [address] [facility] [place] [address] Scheduled Procedures Name Priority Associated Diagnoses Date/Ti me ESOPHAGOGASTRODUODENOSCOPY ( EGD), FLEXIBLE, TRANSORAL, DIAGNOSTIC Recall Gastroesophageal reflux disease, unspecified whether esophagitis present Health Maintenance Due Date Last Done Comments Albumin/Creatinine Ratio 05/21/2024 023, 03/21/2021, 03/06/2020, Additional history exists -12 12/01/2024 12/02/2023, 05/07, 10/21/2022, Additional history exists [...] 07/16/20 23 Depression Screening 07/18/2025 07/18/2024 GFR 12/04/2025 12/04/2024, 11/04, 08/02/2024, Additional history exists DTap/Tdap Vaccines (2 - Td or Tdap) 12/03/2026 12/03/2016, 07/24/2005 Colonoscopy 08/16/2028 08/16/2023, 08/06, 06/15/2018, Additional history exists Pneumococcal Vaccine: 50+ Years Completed 12/20/2014, 05/07/2011 Zoster Vaccines Completed 07/10/2019, 07/0 04/2019, 08/05/2012 RETIRED - COLONOSCOPY-EVERY 5 YRS [...] this encounter Medical Devices Implanted Type Area Special Education Math Teacher Device Identifier Shelf Expiration Date Model / Serial / Lot Lens Intraoc 18.5 - [id number] Implanted:Qty: 1 on 12/15/2022 by Anuj Mack MD at OR [facility] Left: Eye [employer] 07/06/2027 [id number] / / [id number] Lens Intraoc 19.0 - [id number] - [id number] Implanted:Qty: 1 on 12/29/2022 by Anuj Mack MD at OR [facility] Right: Eye [employer]OM[employer] 07/06/2027 [id number] / [id number] / [id number] documented as of this encounter Visit Diagnoses Diagnosis Acute cough- Primary Postoperative state Other postprocedural status documented in this encounter Advance Directives * [...] Power of Attor raul? No Care Teams Remote Advisor Relationship Specialty Start Date End Date Mookie Coyne MD [address] [facility], [place] [id number] PCP - General Internal Medicine 12/06/17 documented as of this encounter"
--- OUTSIDE RECORDS SUMMARY | 2024-12-11 22:06 | External Medical Summary ---
Author Name Unknown Address Unknown Organization K01:LAB[facility]ATORY [facility] [address] [facility] [address] Laboratory Report Ordering Provider Test Date Status CHERYL FERRARO 12/05/2024 13:06:19 Final Observation Date Value Abnormality Reference (Units ) Status SARS Coronavirus 2 12/05/2024 13:06:19 Negative N egative Final No SARS-CoV2 Coronavirus RNA detected by PCR (amplified probe).
This automated test was developed and its performance characteristics determined by [facility]. It has not been cleared or approved by the U.S. Food and Drug Administration (FDA). FDA does not require this test to go thru premarket FDA review. This test is used for clinical purposes. It should not be regarded as investigational or for research. This laboratory is certified under the Clinical Laboratory Improvement Amendments (CLIA) as qualified to perform high complexity clinical laboratory testing.

This test is a nucleic acid amplification test (NAAT), a reverse transcriptase polymerase chain reaction (RT-PCR) test, or a Centers for Disease Control-acceptable equivalent. The test is performed in a high complexity Clinical Laboratory Improvement Amendments-(CLIA) certified laboratory. The test is acceptable for SARS-CoV-2 diagnosis, surveillance, and travel within the [place] and to most countries. Please check with local testing authorities about requirements before travel.

The validation of bronchial specimens, tracheal aspirates, and sputum for this assay was developed and performance characteristics determined by [facility]. The validation of alternate specimen types has not been cleared or approved by the U.S. Food and Drug Administration (FDA). It has been determined that such clearance or approval is not necessary. Influenza virus A RNA [Prese nce] in Specimen by JAKOB with probe detection 12/05/2024 13:06:19 Positive Abnormal Negative Final Influenza A RNA detected by PCR (amplified probe). Test results reported to [facility]. Influenza virus B RNA [Prese nce] in Specimen by JAKOB with probe detection 12/05/2024 13:06:19 Negative Negative Final No Influenza B RNA detected by PCR (amplified probe) Respiratory syncytial virus RNA [Identifier] in Specimen by JAKOB with probe detection 12/05/2024 13:06:19 Negative Negative Final No Respiratory Syncytial Vir us RNA detected by PCR (amplified probe) Performing Location LABORATORY [facility] [place] [facility] [address] Ankit Tinajero. [facility] [address]
--- OUTSIDE RECORDS SUMMARY | 2024-12-11 22:06 | External Medical Summary ---
Author Name Unknown Address Unknown Organization K0G:LABORATORY [facility] [address] [place] [address] Laboratory Report Ordering Provider Test Date Status CHERYL FERRARO 12/07/2024 05:23:04 Final Observation Date Value Abnormality Reference (Units ) Status BUN 12/07/2024 05:23:04 10 6-20 (mg/dL) Final Creatinine 12/07/2024 05:23:04 1.1 0.6-1.2 (mg/dL) Final Glomerular filtration rate/1.73 sq M.predicted [Volume Rate/Area] in Serum, Plasma or Blood by Creatinine-based formula (CKD-EPI) 12/07/2024 05:23:04 66 >=60 (mL/min) Final eGFR is calculated based on the CKD-EPI 2020 equation. Sodium 12/07/2024 05:23:04 136 135-146 (m mol/L) Final Potassium 12/07/2024 05:23:04 4.1 3.5-5.1 (m mol/L) Final Cl 12/07/2024 05:23:04 100 98-107 (mm ol/L) Final CO2 12/07/2024 05:23:04 25 22-32 (mmo l/L) Final Anion gap 12/07/2024 05:23:04 11 7-15 (mmol /L) Final Glucose 12/07/2024 05:23:04 122 Above high normal 70 -120 (mg/dL) Final Calcium 12/07/2024 05:23:04 8.5 8.4-10.2 ( mg/dL) Final Performing Location LABORATORY [facility] [address] [place] [address]
--- OUTSIDE RECORDS SUMMARY | 2024-12-11 22:06 | External Medical Summary ---
Author Name Unknown Address Unknown Organization K0G:LABORATORY [facility] [address] [place] [address] Laboratory Report Ordering Provider Test Date Status CHERYL FERRARO 12/07/2024 05:23:04 Final Observation Date Value Abnormality Reference (Units ) Status WBC, Total 12/07/2024 05:23:04 4.46 4.00-10.8 0 (K/uL) Final RBC 12/07/2024 05:23:04 4.22 4.50-5.25 (M/uL) Final Hemoglobin 12/07/2024 05:23:04 13.4 Below low normal 14 .0-16.8 (g/dL) Final HCT 12/07/2024 05:23:04 38.7 Below low normal 40. 0-48.4 (%) Final MCV 12/07/2024 05:23:04 91.7 82.0-99.5 (fL) Final MCH 12/07/2024 05:23:04 31.8 27.0-34.0 (pg) Final MCHC 12/07/2024 05:23:04 34.6 32.0-36.0 (g/dL) Final RDW 12/07/2024 05:23:04 13.4 11.5-15.5 (%) Final Platelets 12/07/2024 05:23:04 229 140-400 (K /uL) Final MPV 12/07/2024 05:23:04 9.0 6.6-11.1 ( fL) Final Performing Location LABORATORY [facility] [address] [place] [address]
--- OUTSIDE RECORDS SUMMARY | 2024-12-11 22:06 | External Medical Summary | Summary of Care ---
Author Name Unknown Organization [facility] Address [address] [place] [address] Phone [phone] Care Team Providers Care National Sales Trainer Name Role Phone Mookie Coyne MD Primary Care Provider + Encounter Details Date Type Department Care Team (Late st Contact Info) Description 12/07/2024 Orders Only Lab [facility]le[facility] [address] [place] [address] Kandy Nicole PA-C [address] [place] [address] Influenza* Allergies Active Allergy Reactions Criticality Noted Date Comments Statins 02/29/2012 Feels poorly on Statins Tamsulosin 12/24/2015 Nasal congestion Terazosin 12/24/2015 Low blood pressure, weak legs documented as of this encounter (statuses as of 12/07/2024) Medications AMOXICILLIN 500 MG PO CAPSIndications:A ortic [...] as of this encounter (statuses as of 12/07/2024) Active Problems Problem Noted Date Diagnosed Date [...] as of this encounter (statuses as of 12/07/2024) Resolved Problems Problem Noted Date Diagnosed Date [...] as of this encounter (statuses as of 12/07/2024) Immunizations Name Administration Dates Next Due COVID-19 [...] Team (Late st Contact Info) Description 12/07/2024 5:00 AM EDT Laboratory Lab [facility]lebotomy [address] [place] [address] [facility] [place] [address] [place], [place] [id number] Arrived 12/25/2024 10:00 AM EDT Office Visit Cardiology, [facility] [address] [place] [phone] Bharathi Lynn PA-C [address] [place] [address] 04/19/2025 1:00 PM EDT Office Visit General Internal Medicine Sondra Jung [place] [address] [place] [address] Mookie Coyne MD [address] [place] [address] 05/23/2025 10:30 AM EDT Office Visit Gastroenterology, [facility] [address] [place] [phone] Cassidy Palm CRNP [address] [place] [address] 07/24/2025 11:00 AM EST Nurse Only [place]illary [place] [address] [place] [address] [place], Nurse Annual Wellness [facility] [address] [facility] [place] [address] Scheduled Orders Name Type Priority Associated Diagnoses Orde r Schedule BASIC METABOLIC PANEL Lab Routine Influenza Expected: 12/07/2024, Expires: 12/07/2025 CBC Lab Routine Influenza Expected: 12/07/2024, Expires: 12/07/2025 Scheduled Procedures Name Priority Associated Diagnoses Date/Ti [...] this encounter Medical Devices Implanted Type Area Data Collection Specialist Device Identifier Shelf Expiration Date Model / Serial / Lot Lens Intraoc 18.5 - [id number] Implanted:Qty: 1 on 12/15/2022 by Anuj Mack MD at [facility] Left: Eye [employer] LOM[employer] 07/06/2027 [id number] / / [id number] Lens Intraoc 19.0 - [id number] - [id number] Implanted:Qty: 1 on 12/29/2022 by Anuj Mack MD at [facility] Right: Eye [employer]CH [employer] LOMB 07/06/2027 [id number] / [id number] / [id number] documented as of this encounter Visit Diagnoses Diagnosis Influenza- Primary Influenza with other respiratory manifestations documented in this encounter Additional Health Concerns [...] Power of Attor raul? No Care Teams National Sales Trainer Relationship Specialty Start Date End Date Mookie Coyne MD [address] [place] [address] PCP - General Internal Medicine 12/06/17 documented as of this encounter
--- OUTSIDE RECORDS SUMMARY | 2024-12-11 22:06 | External Medical Summary | Summary of Care ---
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 Not on file Not on file Not on file documented as of this encounter Last Filed Vital Signs Vital Sign Reading Time Taken Comments Blood Pressure 152/70 12/06/2024 10:54 AM EDT Pulse 64 12/06/2024 10:54 AM EDT Temperature 36.6 °C (97.8 °F) 12/06/2024 10:54 AM E DT Respiratory Rate 18 12/06/2024 10:54 AM EDT Oxygen Saturation 97% 12/06/2024 10:54 AM EDT room air Inhaled Oxygen Concentration - - Weight - - Height - - Body Mass Index - - documented in this encounter Progress Notes * Kandy Nicole PA-C - 12/06/2024 9:45 AM EDT Name: Karthikeyan Soto Date of : 1945 This note pertains to care provided at [facility]. Please see facility record for original note. This note is not to be edited or addended in [employer] Editing or addending needs to occur in the facility's medical record. Chief Complaint Patient presents with Skilled Visit TRANSITION EVENT: Type: Skilled visit Date: December 06 Code Status: Full Code SUBJECTIVE: Karthikeyan Soto is a 79 year old male HPI: PT with ++ influenza testing today. He has ongoing, mild cough, without fever, chills, body aches, sore throat, sinus congestion. Also spoke with , at request of patient, to review results, she reports that Mr. Soto had begun with a cough nearly 1 week ago. PMH: Patient Active Problem List Diagnosis [...] AV block Chronic systolic (congestive) heart failure ([facility]) Acute gangrenous cholecystitis Cholecystostomy care ([facility]) H/O umbilical hernia repair MCI (mild cognitive impairment) Review of patient's allergies indicates: Allergen Reactions Statins Feels poorly on Statins Tamsulosin Nasal congestion Terazosin Low blood pressure, weak legs Medications: Pt's current medication list is maintained at [facility] and was reviewed at this visit. Review of Systems: Per HPI OBJECTIVE: BP 152/70 | Pulse 64 | Temp 36.6 °C (97.8 °F) | Resp 18 | SpO2 97% Comment: room air General: alert and no distress, well appearing, occasional cough Heart: regular rate & rhythm Lungs: chest symmetric with normal AP diameter, no chest deformities noted, no chest wall tenderness, lungs clear to auscultation Abdomen: abdomen soft, distended, non-tender, normal bowel sounds, no masses or organomegaly, no rebound or guarding, and GUY drain with small serous drainage, cholecystostomy drain with small biliousdrainage Extremities: less than 2 second capillary refill, no joint deformities, effusion, or inflammation, no edema Neuro Exam: alert & oriented x 3 with fluent speech Skin: skin color, texture, turgor are normal with healing umbilical incision Results for orders placed or performed in [...] results can be found in Results Review. PROCEDURE: CHEST STATUS: Final INTERPRETATION: Date of Service: 12/06/2024 Clinical Information: COUGH, POST OPERATIVE STATE Test Procedure: [id number] CHEST FINDINGS: The lungs are clear of any definite active disease. The heart size is normal. There is calcified thoracic aorta. There is left-sided tripolar cardiac pacemaker device in place. There is upper dorsal spinal dextrocurvature and mid to lower spondylosis. IMPRESSION: No definite active cardiopulmonary disease. Cardiac pacemaker device noted. . . End of Report Interpreting Doctor: GINA ELLIS D.O. Electronically Signed By: GINA ELLIS D.O. Signed Date: Physician electronically signed on - 12/06/2024 09:05 Results reviewed with pt and ASSESSMENT/PLAN: halfway chart (outside system) reviewed for vital signs, nursing notes, CODE STATUS, and most up to date medication list Discussed management with other clinician during the visit (facility RN) Influenza A (Primary) Updated by phone Likely outside window for tamiflu, pt also not interested in the medication at this time CBC BMP tomorrow Supportive care: rest, encourage oral fluids, analgesia with acetaminophen as needed Follow up: 1-2 days and as needed 48 total minutes were spent in this visit. [...] PM EDT Office Visit General Internal Medicine [place] Bust[place] [address] [place] [address] Raghu Sargent DO [address] [facility] [place] [address] 12/25/2024 10:00 AM EDT Office Visit Cardiology, [facility] [address] [place] [phone] Bharathi Lynn PA-C [address] [place] [address] 04/19/2025 1:00 PM EDT Office Visit General Internal Medicine [facility] [address] [facility] [address] [place] [address] Mookie Coyne MD [address] [facility] [place] [address] 05/23/2025 10:30 AM EDT Office Visit Gastroenterology, [facility] [address] [place] [phone] Cassidy Palm CRNP [address] [place] [address] 07/24/2025 11:00 AM EST Nurse Only Ancillary [facility] [place] [address] [facility] [place] [address] [place], Nurse Annual Wellness [address] [facility] [place] [address] Scheduled Procedures Name Priority Associated Diagnoses Date/Ti [...] this encounter Medical Devices Implanted Type Area Fur Cutting Machine Operator Device Identifier Shelf Expiration Date Model / Serial / Lot Lens Intraoc 18.5 - [id number] Implanted:Qty: 1 on 12/15/2022 by Anuj Mack MD at OR [facility] Left: Eye 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 No Care Teams Applied Technologist Relationship Specialty Start Date End Date Mookie Cyone MD [address] [facility] [place] [address] PCP - General Internal Medicine 12/06/17 documented as of this encounter"
[2024-12-12] MEDS: PANTOprazole 40 MG TAB PO SCH (05:36)
[2024-12-12 07:32] LABS: Basophils # (auto) 0.01 K/uL (0.00-0.20); Basophils % (auto) 0.2 %; Eosinophils # (auto) 0.25 K/uL (0.00-0.50); Eosinophils % (auto) 4.9 %; Hematocrit (blood only) 34.9 % (42.0-52.0); Hemoglobin 12.5 g/dl (14.0-18.0); Immature Granulocytes # (auto) 0.03 K/uL (0.01-0.20); Immature Granulocytes % (auto) 0.6 %; Lymphocytes # (auto) 1.36 K/uL (1.20-3.40); Lymphocytes % (auto) 26.9 %; Mean Corpuscular Hemoglobin 31.3 pg (25.0-34.0); Mean Corpuscular Hgb Conc 35.8 g/dL (32.0-36.0); Mean Corpuscular Volume 87.5 fL (80.0-100.0); Mean Platelet Volume 9.7 fL (9.4-12.4); Monocytes # (auto) 0.48 K/uL (0.11-0.59); Monocytes % (auto) 9.5 %; Neutrophils # (auto) 2.93 K/uL (1.40-6.50); Neutrophils % (auto) 57.9 %; Platelet Count 186 K/uL (130-400); RDW Coefficient of Variation 12.8 % (11.5-14.5); RDW Standard Deviation 40.6 fL (36.4-46.3); Red Blood Count 3.99 M/uL (4.70-6.10); White Blood Count 5.06 K/ul (4.8-10.8)
[2024-12-12 07:43] LABS: Albumin Globulin Ratio 1.1 (0.9-2); Albumin Level 3.4 gm/dl (3.4-5.0); BUN Creatinine Ratio 14.6 (10-20); Bilirubin,Total 0.9 mg/dl (0.2-1.0); Calcium 8.9 mg/dl (8.6-10.3); Creatinine Clr Calc Pharmacy 75.9 ml/min; Magnesium 1.4 mg/dl (1.7-2.4); Phosphorus 2.9 mg/dl (2.5-4.9); Potassium 3.8 mmol/L (3.5-5.1); Total Protein 6.4 gm/dl (6.0-8.3)
[2024-12-12] MEDS: FINASTERIDE 5 MG TAB PO SCH (08:25)
--- NOTE | 2024-12-12 12:37 | Hospitalist Progress Note ---
Date of Service December 12, 2024 Assessment & Plan (1) Influenza: (2) Pre-syncope: Plan Pt is an 79yoM with past medical history significant for type 2 diabetes, hyperlipidemia, nonischemic dilated cardiomyopathy, chronic systolic CHF EF 30 to 34%, chronic left bundle branch block, symptomatic 2:1 AV block status post biventricular pacemaker in 2019, moderate aortic insufficiency, hypertension GERD, schatzki ring, hiatal hernia, B12 deficiency, anxiety disorder, BPH who presents with concern for presyncopal episode at home in the setting of an influenza infection. Influenza infection Presyncopal Episode Generalized Weakness Pt presenting with concern for presyncopal episode at about noon today recently admitted with placement of cholecystostomy tubes on admission vitals stable, no increased oxygen requirement, no leukocytosis + influenza test, reports cough (w/ clear sputum) already getting better, and strength getting better, no more dizziness episode. Chest XRAY unremarkable Head CT unremarkable. Pt recently discharged from rehab facility. requesting PT/OT eval and see how he does in AM. PT/OT Symptoms likely in setting of acute infection above which has improved per my assessment and d/w patient. Acute gangrenous cholecystitis status postplacement of cholecystostomy tube Tubes in place Follows with General Surgery, last visit 12/05 in the chart -planning for laparoscopic cholecystectomy in about a month Continue to monitor DMII ISS Continue home jardiance for CHF indication as well hold home metformin Continue other home meds as ordered Diet: DMII/Low sodium DVT prophylaxis: heparin SQ Dispo: admit to med/surg Admission and Anticipated Discharge Date Admission Date: December 11, 2024 Subjective Patient was seen and examined at bedside. Patient was lying in bed, on room air, NAD, resting comfortably. Patient reports cough improving, sputum getting clear. Patient reports improvement in his strength and denies any dizziness. Patient reports he is moving around independently in the room. Patient reports eating okay. And moving bowels okay. Gave patient's phone call to update on patient's current status/lab findings/imaging findings and patient's wish to go home. I agree with the patient based on my discussion with the patient, patient's would like him to go through physical therapy and would like him to stay 1 more night to see how he does. Physical Exam Physical Exam: General: Alert, oriented. No acute distress Psych: Appropriate mood and affect Neuro: difficulty with movements in the bed HEENT: NC/AT CV: RRR Resp: Breath sounds clear bilaterally, no increased effort of breathing Abdomen: Firm, tubes in place Extremities: No edema in lower extremities bilaterally. Results & Data Results & Data Vital Signs (Past 12 Hours) Vital Signs Temp Pulse Resp BP Pulse Ox O2 Del Method 12/12/24 07:20 36.6 C 70 18 155/75 H 95 Room Air
[2024-12-12] MEDS: MAGNESIUM SULFATE / D5W 1 GM/100 ML BAG IV SCH (12:40)
[2024-12-13 07:42] VITALS: BP 158/65; PULSE 68; RESP 16; TEMP 98.1; O2SAT 96
[2024-12-13 07:52] LABS: Hematocrit (blood only) 34.8 % (42.0-52.0); Hemoglobin 12.2 g/dl (14.0-18.0); Mean Corpuscular Hemoglobin 30.5 pg (25.0-34.0); Mean Corpuscular Hgb Conc 35.1 g/dL (32.0-36.0); Mean Platelet Volume 9.4 fL (9.4-12.4); Platelet Count 167 K/uL (130-400); RDW Coefficient of Variation 13.1 % (11.5-14.5); RDW Standard Deviation 41.1 fL (36.4-46.3)
[2024-12-13] MEDS: CYANOCOBALAMIN (B-12) 500 MCG TABLET PO SCH (08:27)
[2024-12-13 08:39] LABS: BUN Creatinine Ratio 13.1 (10-20); Calcium 8.6 mg/dl (8.6-10.3); Creatinine Clr Calc Pharmacy 73.6 ml/min; Magnesium 1.7 mg/dl (1.7-2.4); Phosphorus 3.2 mg/dl (2.5-4.9); Potassium 3.7 mmol/L (3.5-5.1)
--- NOTE | 2024-12-13 11:44 | Discharge Summary ---
Date of Service December 13, 2024 Admission HPI Per Admitting Provider Pt is an 79yoM with past medical history significant for type 2 diabetes, hyperlipidemia, nonischemic dilated cardiomyopathy, chronic systolic CHF EF 30 to 34%, chronic left bundle branch block, symptomatic 2:1 AV block status post biventricular pacemaker in 2019, moderate aortic insufficiency, hypertension GERD, schatzki ring, hiatal hernia, B12 deficiency, anxiety disorder, BPH who presents with concern for presyncopal episode at home in the setting of an influenza infection. History obtained from both patient and at bedside. They state that he recently got home from rehab, has home health PT services. Valente arroyo, today around noon, he slipped down and lowered himself to ground after an episode of dizziness. He states he did not lose consciousness and did not hit his head. He notes that he has been having URI symptoms for some time. Not eating and drinking much at home these past few days. Denies SOB or chest pain or tightness. Denies fevers, chills or night sweats. States his cholecystostomy tubes are draining appropriately. Pt given IV fluids in the ED and admitted due to generalized weakness and 's concern that she is not able to care for him at home by herself at this time. Admission Exam Per Admitting Provider General: Alert, oriented. No acute distress Psych: Appropriate mood and affect Neuro: difficulty with movements in the bed HEENT: NC/AT CV: RRR Resp: Breath sounds clear bilaterally, no increased effort of breathing Abdomen: Firm, tubes in place Extremities: No edema in lower extremities bilaterally. Principal Diagnosis Influenza Discharge Exam Constitutional + well hydrated; no acute distress Eyes PERRL, conjunctivae normal, anicteric sclerae ENMT external ear and nose normal, oropharynx normal Respiratory normal respiratory effort, lungs clear to auscultation Cardiovascular Rate/Rhythm: regular rate and regular rhythm Gastrointestinal (Abdomen) normal bowel sounds, soft, nontender, no hepatosplenomegaly Cholestomy tubes in situ Musculoskeletal No pedal edema Neurologic PERRL, EOMI, accommodation nl, no face palsy, no dysarthria Psychiatric A+Ox3, euthymic affect Discharge Data Allergies Allergy/AdvReac Type Severity Reaction Status Date / Time Bjxxwaq-AYV-CjX Reductase AdvReac Severe Severe Verified 12/11/24 15:16 Inhibitor muscle [Dnloypw-Mwi-Pcl Reductase weakness, Inhibitor] aches alfuzosin AdvReac Mild Nausea Verified 12/11/24 15:16 tamsulosin AdvReac Mild Nausea Verified 12/11/24 15:16 terazosin AdvReac Mild Nausea Verified 12/11/24 15:16 Consultations 12/11/24 18:43 ED Decision to Admit Stat Ordered Studies 12/11/24 17:59 CT head/brain wo con Stat Hospital Course (1) Influenza: (2) Pre-syncope: Plan 79 year old man with past medical history significant for type 2 diabetes, hyperlipidemia, nonischemic dilated cardiomyopathy, chronic systolic CHF EF 30 to 34%, chronic left bundle branch block, symptomatic 2:1 AV block status post biventricular pacemaker in 2019, moderate aortic insufficiency, hypertension GERD, schatzki ring, hiatal hernia, B12 deficiency, anxiety disorder, BPH who presents with concern for presyncopal episode at home in the setting of an influenza infection. Influenza infection Presyncopal Episode Generalized Weakness Pt presented with concern for presyncopal episode Recently admitted with placement of cholecystostomy tubes On admission vitals stable, no increased oxygen requirement, no leukocytosis + influenza test, reports cough (w/ clear sputum) already getting better, and strength getting better, no more dizziness episode. Chest XRAY noted mild atelectasis left lung Head CT unremarkable. Supportive care was provided Patient reports feeling better today Reports minimal cuhg. Acute gangrenous cholecystitis status postplacement of cholecystostomy tube Tubes in place Follows with General Surgery, last visit 12/05 in the chart and planning for laparoscopic cholecystectomy in about a month DMII Continue home jardiance and metformin Called and updated her Total Time Total Time Spent Total Time Spent (In Minutes): 35 Total Time Includes: Examination of the Patient, Discharge Planning, Medication Reconciliation and Other Discharge Plan Discharge Items Patient Disposition: Home - Home Health Services Reason For Visit: DIZZINESS, INFLUENZA Discharge Diagnosis: Influenza Activity: Resume your previous activity Non-emergency contact: Primary Care Provider and Lab Pack Chemist Call non-emergency contact if: you have any medication questions Follow-up/Referrals: Mookie Coyne MD [Primary Care Provider] - (Date & Time 12/20/2024 11:20 AM Provider: Mookie Coyne MD General Internal Medicine [facility] ) Bharathi Lynn [Physician Orthopaedic Physician Assistant] - (Date & Time 12/25/2024 10:00 AM Provider: Bharathi Lynn PA-C Cardiology, [facility]) Diet: Carb Consistent or DM2, Heart Healthy and Low Sodium (2gm) Addtl Attending Provider Instructions: Mr Brittany Morrell were hospitalized and managed for above named diagnoses. You are being discharged home. Please ensure follow up with your Primary Doctor and Cardiology. It was a pleasure taking care of you Pending Studies at Discharge: No Stand-Alone Forms: My [facility] [employer], Smoking Cessation Medications and DC Order Prescriptions: Continued cyanocobalamin (vitamin B-12) 1,000 mcg Capsule 1,000 mcg PO 3XWK Rx Instructions: WED, WED, & WED. Trulicity 3 mg/0.5 mL pen injector 3 mg subcut WK Rx Instructions: SUNDAYS metoprolol succinate 50 mg tablet extended release 24 hr 50 mg PO HS finasteride 5 mg tablet 5 mg PO QAM metformin 1,000 mg tablet 1,000 mg PO BID Entresto 49-51 mg tablet 1 tab PO BID acetaminophen [Tylenol Extra Strength] 500 mg tablet 1,000 mg PO Q8 PRN (Reason: pain) pantoprazole 40 mg tablet,delayed release (DR/EC) 40 mg PO DAILYBB Discharge Orders: Discharge Order (Routine); Ordered 12/13/24 Ordered By: Gale Landaverde/Other Patient Handouts: The Flu (Influenza) Admission Data Admit Date/Time: 12/11/24 18:20 Attending Provider: Gale Soares I. Admit Provider: Rossy Gonzalez Primary Care Provider: Mookie Coyne Other Providers: Rossy Gonzalez; [facility],Home Healthcare; Jeanmarie Hendrickson Other Interventions: Discharge Summary Assessment (RN) Last Done: 12/13/24 12:48
== END 2024-12-13 13:23 | disposition home health service (06) | DRG 194 ==
LOC: ED 12:57 → 3W 18:20 → SUATTDRO 18:20 → 3W 20:09

== ENCOUNTER 2025-01-25 05:41 | Observation (INO) ==
--- NOTE | 2025-01-19 08:25 | Anesthesiology Consultation ---
Date of Service January 19, 2025 History Surgery Operation Date: 01/25/25 09:30 Proposed Procedures p Laparoscopic Cholecystectomy with Cholangiogram, Possible Open - Elio Boothe MD, FACS Height/Weight Height: 6 ft 1.5 in Weight: 102.058 kg Allergies Allergy/AdvReac Type Severity Reaction Status Date / Time Dmadgvv-XZA-HoI Reductase AdvReac Severe Severe Verified 01/18/25 08:01 Inhibitor muscle [Iagghpy-Saz-Qmq Reductase weakness, Inhibitor] aches alfuzosin AdvReac Mild Nausea Verified 01/18/25 08:01 tamsulosin AdvReac Mild Nausea Verified 01/18/25 08:01 terazosin AdvReac Mild Nausea Verified 01/18/25 08:01 Medications Home Medications Medication Instructions Recorded Confirmed Last Taken cyanocobalamin (vitamin B-12) 1,000 mcg PO 3XWK 08/21/20 01/18/25 12/11/24 1,000 mcg capsule dulaglutide 3 mg/0.5 mL 3 mg subcut WK 11/18/24 01/18/25 12/10/24 subcutaneous pen injector (Trulicity) finasteride 5 mg tablet 5 mg PO QAM 11/18/24 01/18/25 12/11/24 metformin 1,000 mg tablet 1,000 mg PO BID 11/18/24 01/18/25 12/11/24 08:00 metoprolol succinate 50 mg 50 mg PO HS 11/18/24 01/18/25 12/10/24 tablet,extended release 24 hr sacubitril 49 mg-valsartan 51 mg 1 tab PO BID 11/18/24 01/18/25 12/11/24 08:00 tablet (Entresto) acetaminophen 500 mg tablet 1,000 mg PO Q8 PRN pain 12/11/24 01/18/25 Unknown (Tylenol Extra Strength) pantoprazole 40 mg tablet,delayed 40 mg PO DAILYBB 12/11/24 01/18/25 12/11/24 release Past Medical History Medical History (Updated 01/18/25 @ 08:43 by Jackie Thomas RN) Aortic insufficiency Aortic valve disorder CAD (coronary artery disease) Mild nonobstructive CAD per 2010 cardiac cath ([place]) Cardiomyopathy Chronic cholecystitis due to gallbladder calculus with obstruction Chronic GERD Diabetes mellitus, type 2 Hiatal hernia Hyperlipidemia "Borderline" Hypertension LBBB (left bundle branch block) Migraine headache Nonischemic cardiomyopathy Osteoarthritis Pacemaker Implanted 2018 (for 2:1 AV block), Follows with [facility] cardiology Bharathi Lynn Pre-syncope (12/11/24) Patient "got dizzy at home, did not pass out" Admitted to [facility], +influenza and dehydration, no issues since Sacroiliac joint pain Sleep apnea "Mild" > no device prescribed-patient denies Spinal stenosis, lumbar Urinary frequency Past Family History Family History Family/Other Family history of diabetes mellitus BROTHER OR SISTER Other Family history non-contributory No family history of adverse response to anesthesia Silicosis Past Surgical History Surgical History (Updated 01/19/25 @ 08:23 by Aimee Cummins) H/O colonoscopy H/O esophagogastroduodenoscopy H/O insertion of cholecystostomy tube (11/19/24) Placement of Cholecystectomy Tube, Incarcerated umbilical Hernia H/O umbilical hernia repair (11/19/24) Placement of Cholecystectomy Tube, Incarcerated umbilical Hernia History of permanent cardiac pacemaker placement History of tonsillectomy History of total right knee replacement S/P appy Status post total hip replacement, right Social History Smoking Status: Former smoker Do You Dip or Chew Tobacco: No Smoking End Date: Hx Alcohol Use: No Alcohol type: wine alcohol intake frequency: holidays/special occasions only Hx Substance Use: No substance use type: does not use Lab Results Anesthesia Preop Results Results Anesthesia Widget: WBC 5.91 K/ul (4.8-10.8) 01/18/25 Hgb 13.5 g/dl (14.0-18.0) L 01/18/25 Hct 37.7 % (42.0-52.0) L 01/18/25 Plt 231 K/uL (130-400) 01/18/25 Na 139 mmol/L (136-145) 01/18/25 K 4.1 mmol/L (3.5-5.1) 01/18/25 Cl 104 mmol/L (98-107) 01/18/25 CO2 27 mmol/L (21-32) 01/18/25 BUN 15 mg/dl (6-23) 01/18/25 Creat 1.17 mg/dl (0.6-1.4) 01/18/25 Glucose Level 79 mg/dl (70-99(Fasting)) 01/18/25 POC Glucose 124 mg/dl (70-99) H 12/13/24 Urine Color Yellow 12/11/24 Urine Appearance Clear (Clear) 12/11/24 Urine pH 5.5 (4.5-7.5) 12/11/24 Urine Specific [place] 1.008 (1.000-1.030) 12/11/24 Urine Protein Negative (Negative) 12/11/24 Urine Glucose (UA) Negative (Negative) 12/11/24 Urine Ketones Negative (Negative) 12/11/24 Urine Blood Negative (Negative) 12/11/24 Urine Nitrite Negative (Negative) 12/11/24 Urine Bilirubin Negative (Negative) 12/11/24 Urine Urobilinogen Negative (Negative) 12/11/24 Urine Leukocyte Esterase Negative (Negative) 12/11/24 Coronavirus OC43 (PCR) Not Detected (NotDetected) 12/11/24 Coronavirus HKU1 (PCR) Not Detected (NotDetected) 12/11/24 Coronavirus 229E (PCR) Not Detected (NotDetected) 12/11/24 COVID-19 PCR Not Detected (NotDetected) 12/11/24 Coronavirus NL63 (PCR) Not Detected (NotDetected) 12/11/24
--- NOTE | 2025-01-19 11:42 | Anesthesiology Consultation ---
Date of Service January 19, 2025 Assessment & Plan Chart Review Chart Review: Acceptable Risk for Surgery and Patient NOT seen in Pre Admission Testing Consults Requested none History Surgery Operation Date: 01/25/25 09:30 Proposed Procedures p Laparoscopic Cholecystectomy with Cholangiogram, Possible Open - Elio Boothe MD, FACS Height/Weight Height: 6 ft 1.5 in Weight: 102.058 kg Allergies Allergy/AdvReac Type Severity Reaction Status Date / Time Wkzwnfa-MQV-CzL Reductase AdvReac Severe Severe Verified 01/18/25 08:01 Inhibitor muscle [Funnxqu-Rbk-Bwa Reductase weakness, Inhibitor] aches alfuzosin AdvReac Mild Nausea Verified 01/18/25 08:01 tamsulosin AdvReac Mild Nausea Verified 01/18/25 08:01 terazosin AdvReac Mild Nausea Verified 01/18/25 08:01 Medications Home Medications Medication Instructions Recorded Confirmed Last Taken cyanocobalamin (vitamin B-12) 1,000 mcg PO 3XWK 08/21/20 01/18/25 12/11/24 1,000 mcg capsule dulaglutide 3 mg/0.5 mL 3 mg subcut WK 11/18/24 01/18/25 12/10/24 subcutaneous pen injector (Trulicity) finasteride 5 mg tablet 5 mg PO QAM 11/18/24 01/18/25 12/11/24 metformin 1,000 mg tablet 1,000 mg PO BID 11/18/24 01/18/25 12/11/24 08:00 metoprolol succinate 50 mg 50 mg PO HS 11/18/24 01/18/25 12/10/24 tablet,extended release 24 hr sacubitril 49 mg-valsartan 51 mg 1 tab PO BID 11/18/24 01/18/25 12/11/24 08:00 tablet (Entresto) acetaminophen 500 mg tablet 1,000 mg PO Q8 PRN pain 12/11/24 01/18/25 Unknown (Tylenol Extra Strength) pantoprazole 40 mg tablet,delayed 40 mg PO DAILYBB 12/11/24 01/18/25 12/11/24 release Past Medical History Medical History (Updated 01/18/25 @ 08:43 by Jackie Thomas RN) Pre-syncope (12/11/24) Patient "got dizzy at home, did not pass out" Admitted to [facility], +influenza and dehydration, no issues since Urinary frequency Pacemaker Implanted 2019 (for 2:1 AV block), Follows with [facility] cardiology Bharathi Lynn Diabetes mellitus, type 2 Chronic cholecystitis due to gallbladder calculus with obstruction Hypertension Sacroiliac joint pain Spinal stenosis, lumbar Aortic valve disorder Migraine headache Hiatal hernia Cardiomyopathy Aortic insufficiency Nonischemic cardiomyopathy Osteoarthritis Hyperlipidemia "Borderline" LBBB (left bundle branch block) Chronic GERD CAD (coronary artery disease) Mild nonobstructive CAD per 2010 cardiac cath ([place]) Sleep apnea "Mild" > no device prescribed-patient denies Past Family History Family History Family/Other Family history of diabetes mellitus BROTHER OR SISTER Other Family history non-contributory No family history of adverse response to anesthesia Silicosis Past Surgical History Surgical History (Updated 01/19/25 @ 08:23 by Aimee Cummins) History of total right knee replacement H/O umbilical hernia repair (11/19/24) Placement of Cholecystectomy Tube, Incarcerated umbilical Hernia H/O insertion of cholecystostomy tube (11/19/24) Placement of Cholecystectomy Tube, Incarcerated umbilical Hernia History of tonsillectomy History of permanent cardiac pacemaker placement H/O colonoscopy H/O esophagogastroduodenoscopy S/P appy Status post total hip replacement, right Social History Smoking Status: Former smoker Do You Dip or Chew Tobacco: No Smoking End Date: Hx Alcohol Use: No Alcohol type: wine alcohol intake frequency: holidays/special occasions only Hx Substance Use: No substance use type: does not use Testing Laboratory Results Laboratory Tests 11/18/24 11/19/24 01/18/25 15:26 05:24 14:16 WBC 5.91 Hgb 13.5 L Hct 37.7 L Plt Count 231 PT 11.1 INR 1.0 APTT 28 Sodium 139 Potassium 4.1 Chloride 104 Carbon Dioxide 27 BUN 15 Creatinine 1.17 Glucose 79 Hemoglobin A1c 6.8 H Electrocardiogram Date: 12/11/24 Dual Paced Echocardiogram Date: 11/02/23 EF: 30-35% LV Function: dysfunctional (global HK)
--- NOTE | 2025-01-25 06:20 | History & Physical Bridge Note ---
Date of Service January 25, 2025 History & Physical Bridge Note I have examined the patient, reviewed the History & Physical and in the interval since the performance of the History & Physical I have noted the following changes of clinical significance: no changes noted No major issues since last seen abdomen is benign cholecystostomy tube in place Patient held Entresto since yesterday Procedure again explained to the patient including possibility of open cholecystectomy due to significant inflammatory changes with residents initial surgery and he has no problem if he needs to be converted to an open procedure to be here later All question answered
--- NOTE | 2025-01-25 10:26 | Post Operative Brief Note ---
Immediate Post Op Note Date of Surgery January 25, 2025 Pre & Post Diagnosis Operation Date: 01/25/25 07:00 Pre-Op Diagnosis: Chronic Cholecystitis Due to Gallbladder Calculus Post-Op Diagnosis: Chronic Cholecystitis Due to Gallbladder Calculus I identified the patient and participated in the time-out.: Yes Procedure Operation Date: 01/25/25 07:00 Actual Procedures p Laparoscopic Cholecystectomy with Cholangiogram(Not Applicable) - Elio Boothe MD, FACS Surgeon Elio Boothe MD, FACS Field Radio Operator Valentino BELLA Estimated Blood Loss 50 Findings Consistent with Post-Op Diagnosis Drains Fernando Drain, Carter Catheter (inserted after induction of anesthesia by Dana Kelsey RN without difficulty) and [place] Drain
--- NOTE | 2025-01-25 10:57 | Operative Report ---
PG Post Operative Report Pre & Post Diagnosis Operation Date: 01/25/25 07:00 Pre-Op Diagnosis: Chronic Cholecystitis Due to Gallbladder Calculus Post-Op Diagnosis: Chronic Cholecystitis Due to Gallbladder Calculus I identified the patient and participated in the time-out.: Yes Procedure Operation Date: 01/25/25 07:00 Actual Procedures p Laparoscopic Cholecystectomy with Cholangiogram(Not Applicable) - Elio Boothe MD, FACS The patient was brought into the operating theater general endotracheal anesthesia art line left the radial area the abdomen was prepped Betadine solution properly draped systemic antibiotics on board a timeout was had the patient identified at this point initially made a small incision supraumbilically sufficient to accommodate a Veress needle followed by 5 mm trocar in send at this time to see the right upper quadrant approximately 2 months ago pretty much. Frozen subhepatic area with significant dense infla mmation of the gallbladder and we at that time it placed a 9:00 catheter to drain the gallbladder and this was still in place although we had clamped over about a month ago and had patient without any difficulty visualize right upper quadrant and significant adhesions to the anterior abdominal wall coursing we were able just to sneak up towards the midline towards the liver could see the gallbladder edge coming out of from the liver and appeared to be less inflamed than it was approximately 2 months ago at this point I elected to do a cholangiogram and try to do it through the Malecot catheter there presents as having right upper quadrant he took the rubber bands off and that injected some saline admits some resistance and then placed in contrast and we could see the gallbladder but there was no flow beyond the portion of the gallbladder met some resistance at this point we clamped the Malecot catheter at the skin level we then entered the epigastric area under direct visualization a 5 mm trocar and used and thus we were able to free some of the adhesions to the anterior abdominal wall just let blunt dissection after identified this we were able then to place a right upper quadrant right flank 5 mm port under direct visualization and with this in the epigastric area we were able to free up a lot of adhesions that were stuck to the anterior abdominal wall these were just omental adhesions at this point we can identify the gallbladder in the upper portion is still moderately inflamed but nothing compared to what it was a few months ago we were able to grasp it with a larger grasper and elevated and we worked our way down towards the gely hepatis needing to place a fan retractor for another 5 mm trocar just left of the midline detention between the xiphoid and umbilical area and a fan retractor was placed labeled that the workable way down to the neck of the gallbladder we identified the duodenum and were able to free that despite blunt dissection away from the gallbladder the gallbladder wall was very thick and we worked towards the neck the gallbladder there are few areas that we could see very small bili ruminated stones it seem like that this was from fat necros is that may have happened on initial inflammatory response because as we were dissected down towards the neck of the gallbladder the stones were quite evident just on the fibrinous exudate that was over the gallbladder just feeling the soft we could see the stones were able to suction amount that we worked her way to the neck of the gallbladder pain attention to identify the takeoff of the cystic duct which was slightly thickened we at this point converted the 5 mm epigastric port to a 12 mm to accommodate the larger clips once we freed up the cystic duct at its takeoff from the gallbladder there was a small opening actually at the takeoff which the stone could easily be appreciated therefore we opened the cystic duct just distally placed a cholangiocatheter and took 2 x- rays cholangiogram that showed free flow into the duodenum there was no obstruction we could see the proximal biliary tree on one of the x-rays there is seem to be a bubble or filling defect but did not persist in the distal common bile duct in fact it tapered off nicely as a flow into the duodenum the Cholangiocath was removed the cystic duct was secured doubly with 11 mm clips the gallbladder was taken out bleeding is much as posterior peritoneum was possible there were few areas bariatric gallbladder but these would not eventually fulgurated there was thick walled all the way up when you are done the bleeding if it controlled with the cautery irrigated multiple times we freed it up although we had quite a few small stones that dropped into the subhepatic area we use a large suction to free up and remove as many stones as possible with a large grasper once hemostasis was appreciated the gallbladder was taken off the liver we placed in an Endopouch and taken out intact the epigastric port cultures of the gallbladder were taken this point we irrigated subhepatic suprahepatic we sufficiently we had a mod amount of these but no significant active bleeding therefore elected to drain the subhepatic area and supra hepatic right gutter area with 219 Fernando drains that were taken out through the the trocar sites attaching the skin edges with 2-0 silk the subhepatic and suprahepatic area was irrigated copiously and removed as many of the stones as we could see these were small that were able to be grasped and suction with a large sucker this took a long time since we have problem with the suction izzy aratus not working properly Prior to placing the Fernando drains we placed the camera right upper flank area to visualize original entry in the periumbilical area and no adhesions were identified or previous hernia surgery in the umbilical area that was done 2 months ago was intact no recurrent hernia an individual trocar was taken out on the left visualization with no bleeding identified the wounds were closed by fascial stitch 0 Vicryl [id number] x 2 for epigastric area and 4-0 Monocryl subcuticularly Steri-Strips applied procedure was tolerated well by the patient estimated blood loss 50 cc Keira Mann physician certified registered dental assistant was present throughout the procedure and helped retraction exposure wound closure I spoke with his Vernell at [phone] The surgery was extremely difficult tedious dissection and very difficult due to the inflammatory process still present although much improved from 2 months ago with Surgeon Elio Boothe MD, FACS Director Industrial Relations Valentino BELLA Estimated Blood Loss 50 Findings Consistent with Post-Op Diagnosis Chronic cholecystitis cholelithiasis Specimens Gallbladder and contents Cultures of gallbladder Drains To 19 round Fernando drains 1 subhepatic leak 1 subphrenic taken out to stab wound the right upper quadrant Complications Extremely difficult procedure 3-hour procedure interrupted multiple times during the procedure but in and out room personnel which made it very inappropriate to be disturbed constantly during this dissection and a severely ill patient secondary had to wait significant amount of time for any access instruments that we needed since they are not available readily in the operating room Third the suction apparatus was difficult and worked and appropriately These concerns were shared with the OR superviso and spoke directly with the supervisor detasseling crew while still in the room briefly and we will discuss the situation further after surgery is completed Indications Chronic cholecystitis cholelithiasis Description of Procedure merda I attest to the content of the Intraoperative Record and any orders documented therein. Any exceptions are noted below.
[2025-01-25 11:13] LABS: Basophils # (auto) 0.02 K/uL (0.00-0.20); Basophils % (auto) 0.3 %; Eosinophils # (auto) 0.06 K/uL (0.00-0.50); Eosinophils % (auto) 0.8 %; Hematocrit (blood only) 37.3 % (42.0-52.0); Hemoglobin 13.4 g/dl (14.0-18.0); Immature Granulocytes # (auto) 0.03 K/uL (0.01-0.20); Immature Granulocytes % (auto) 0.4 %; Lymphocytes # (auto) 0.75 K/uL (1.20-3.40); Lymphocytes % (auto) 9.4 %; Mean Corpuscular Hgb Conc 35.9 g/dL (32.0-36.0); Monocytes # (auto) 0.49 K/uL (0.11-0.59); Monocytes % (auto) 6.1 %; Neutrophils # (auto) 6.62 K/uL (1.40-6.50); Platelet Count 234 K/uL (130-400); RDW Coefficient of Variation 14.1 % (11.5-14.5); RDW Standard Deviation 45.6 fL (36.4-46.3); Red Blood Count 4.19 M/uL (4.70-6.10); White Blood Count 7.97 K/ul (4.8-10.8)
[2025-01-25 11:31] LABS: BUN Creatinine Ratio 13.7 (10-20); Calcium 8.7 mg/dl (8.6-10.3); Creatinine Clr Calc Pharmacy 72.4 ml/min; Potassium 5.1 mmol/L (3.5-5.1)
--- NOTE | 2025-01-25 11:31 | Fluoroscopy Report ---
[place] cholangiogram OR CLINICAL HISTORY: CHOLANGIOGRAM COMPARISON STUDY: KUB at 11/27/2024 CT of 11/18/2024 Fluoroscopy time: 12 seconds. FINDINGS: On the initial image there is a linear density medial right upper quadrant of uncertain isela ology, possible intra-abdominal contrast. Contrast is injected and opacifies the common bile duct and the proximal duodenum without delay. No common bile duct stones seen. IMPRESSION: Fluoroscopy for intraoperative cholangiogram. ACT 112: Negative or not required by law. Electronically signed by: Jef Alvarez M.D. 01/25/2025 11:30 AM
--- NOTE | 2025-01-25 12:15 | Anesthesiology Progress Note ---
Date of Service January 25, 2025 Anesthesia Post Procedure Vital Signs Vital Signs: Temp Pulse Resp BP BP Pulse Ox O2 Del Method 01/25/25 12:08 64 19 158/75 H 91 Nasal Cannula 01/25/25 11:55 60 20 164/82 H 92 Nasal Cannula 01/25/25 11:45 36.5 C 60 16 165/76 H 91 Nasal Cannula 01/25/25 11:35 60 24 169/74 H 93 Nasal Cannula 01/25/25 11:25 60 21 167/72 H 94 Nasal Cannula 01/25/25 11:15 60 22 169/71 H 93 Nasal Cannula 01/25/25 11:05 60 22 155/70 H 91 Nasal Cannula 01/25/25 10:55 60 24 147/63 H 95 Oxymask 01/25/25 10:48 36.3 C L 63 28 H 162/62 H 92 Oxymask 01/25/25 06:00 36.5 C 76 22 153/72 H 98 Room Air O2 Flow Rate 01/25/25 12:08 4 01/25/25 11:55 4 01/25/25 11:45 4 01/25/25 11:35 4 01/25/25 11:25 4 01/25/25 11:15 4 01/25/25 11:05 4 01/25/25 10:55 7 01/25/25 10:48 7 01/25/25 06:00 Pain Intensity Right Chest: Pain Intensity: 4 Transfer of Care Handoff Completed per policy Notes Mental Status: alert / awake / arousable Patient Amnestic to Procedure: Yes Nausea / Vomiting: adequately controlled Pain: adequately controlled Airway Patency, RR, SpO2: stable & adequate BP & HR: stable & adequate Hydration State: stable & adequate Anesthetic Complications: no major complications apparent
--- NOTE | 2025-01-25 13:10 | Consultation ---
Date of Consultation January 25, 2025 Assessment & Plan (1) Chronic cholecystitis due to gallbladder calculus with obstruction: (2) Diabetes mellitus, type 2: (3) Nonischemic cardiomyopathy: (4) Chronic HFrEF (heart failure with reduced ejection fraction): Plan 79-year-old male with past medical history significant for type 2 diabetes, hyperlipidemia, nonischemic dilated cardiomyopathy, chronic systolic CHF EF 30 to 34%, chronic left bundle branch block, symptomatic 2:1 AV block status post biventricular pacemaker in 2019, moderate aortic insufficiency, hypertension GERD, schatzki ring, hiatal hernia, B12 deficiency, anxiety disorder, BPH who presents to elective cholecystectomy by Dr. Boothe. #Chronic gangrenous cholecystitis due to calculus #S/P Laparoscopic Cholecystectomy with Cholangiogram by Dr. 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 Toledo, please see addendum I spent a total of 55 minutes coordinating, documenting and providing care for this patient excluding time spent in the performance of separately billed services or time spent by another provider/QHP. Thank you for this consultation. We will follow the patient with you during their hospital stay. You can reach a member of the [facility] Hospitalist Team 29/03 via hospitalist role on tiger text. Supervising Physician Co-Signing Physician Notes I have seen and discussed the case with the collaborating advanced practitioner. I agree with the above H&P. I have reviewed and confirmed the patients medical history, the findings on physical examination, and the patients diagnosis and treatment plan with Fanta PERSAUD and agree with the information documented. 79-year-old male with past medical history significant for type 2 diabetes, hyperlipidemia, nonischemic dilated cardiomyopathy, chronic systolic CHF EF 30 to 34%, chronic left bundle branch block, symptomatic 2:1 AV block status post biventricular pacemaker in 2019, moderate aortic insufficiency, hypertension GERD, schatzki ring, hiatal hernia, B12 deficiency, anxiety disorder, BPH who is s/p elective cholecystectomy by Dr. Boothe. No current postoperative concerns. Resume home medications. Monitor post-op labs Post op respiratory insufficiency noted. CXR in am. BNP lower than prior. Monitor intake. consider diuresis1 if necessary iso hfref and fluid resusicatation during complex op course I spent a total of 15 minutes coordinating, documenting, and providing care for this patient excluding time spent in the performance of separately billed services. All of the aforementioned completed outside of collaborating with the assigned advanced practitioner for a full treatment plan. I have reviewed the advanced practitioner's documentation, and I agree with, and take responsibility for the plan of care History of Present Illness Requesting Physician: Dr. Boothe Reason for Consultation: Post operative medical management Attending Physician: Elio Boothe MD, [facility] History of Present Illness 79-year-old male with past medical history significant for type 2 diabetes, hyperlipidemia, nonischemic dilated cardiomyopathy, chronic systolic CHF EF 30 to 34%, chronic left bundle branch block, symptomatic 2:1 AV block status post biventricular pacemaker in 2019, moderate aortic insufficiency, hypertension GERD, schatzki ring, hiatal hernia, B12 deficiency, anxiety disorder, BPH who presents to elective cholecystectomy by Dr. Boothe. Pt has had a significant course since November when he initially presented for acute cholecystitis. Initial procedure was done 11/19/24. He was found to have an acute gangrenous gallbladder and incarcerated umbilical hernia. He underwent surgery and was unable to complete a cholecystectomy due to a complex case and a cholecystomy tube was placed and cultures were obtained. He did have an incarcerated umbilical hernia repair. Post operative course was complicated by post op pulmonary insuff 2/2 atelectasis and volume overload. GB culture grew strep and parasanguinis. He completed course of Zosyn. Course further completed by ileus/sbo. He was transferred to rehab. He was rehospitalized 12/11-12/13 2/2 influenza. He presents today for removal of gallbladder. is at bedside. He feels well post op and denies pain. He feels, "out of it." Otherwise no complaints. He denies f/c/s, chest pain, sob, n/v/d. He is tolerating clears. Allergies Allergy/AdvReac Type Severity Reaction Status Date / Time [id number] Reductase AdvReac Severe Severe Verified 01/25/25 05:44 Inhibitor muscle [Qtpgrof-Ofy-Tas Reductase weakness, Inhibitor] aches alfuzosin AdvReac Mild Nausea Verified 01/25/25 05:44 tamsulosin AdvReac Mild Nausea Verified 01/25/25 05:44 terazosin AdvReac Mild Nausea Verified 01/25/25 05:44 Home Medications Medication Instructions Recorded Confirmed Type cyanocobalamin (vitamin B-12) 1,000 mcg PO 3XWK 08/21/20 01/25/25 History 1,000 mcg capsule dulaglutide 3 mg/0.5 mL 3 mg subcut WK 11/18/24 01/25/25 History subcutaneous pen injector (Trulicity) finasteride 5 mg tablet 5 mg PO QAM 11/18/24 01/25/25 History metformin 1,000 mg tablet 1,000 mg PO BID 11/18/24 01/25/25 History metoprolol succinate 50 mg 50 mg PO HS 11/18/24 01/25/25 History tablet,extended release 24 hr sacubitril 49 mg-valsartan 51 mg 1 tab PO BID 11/18/24 01/25/25 History tablet (Entresto) acetaminophen 500 mg tablet 1,000 mg PO Q8 PRN pain 12/11/24 01/25/25 History (Tylenol Extra Strength) omeprazole 10 mg capsule,delayed 10 mg PO DAILY 01/25/25 01/25/25 History release Patient History Medical History Pre-syncope (12/11/24) Patient "got dizzy at home, did not pass out" Admitted to [facility], +influenza and dehydration, no issues since Urinary frequency Pacemaker Implanted 2018 (for 2:1 AV block), Follows with [facility] cardiology Bharathi Lynn Diabetes mellitus, type 2 Chronic cholecystitis due to gallbladder calculus with obstruction Hypertension Sacroiliac joint pain Spinal stenosis, lumbar Aortic valve disorder Migraine headache Hiatal hernia Cardiomyopathy Aortic insufficiency Nonischemic cardiomyopathy Osteoarthritis Hyperlipidemia "Borderline" LBBB (left bundle branch block) Chronic GERD CAD (coronary artery disease) Mild nonobstructive CAD per 2010 cardiac cath ([place]) Sleep apnea "Mild" > no device prescribed-patient denies Surgical History History of total right knee replacement H/O umbilical hernia repair (11/19/24) Placement of Cholecystectomy Tube, Incarcerated umbilical Hernia H/O insertion of cholecystostomy tube (11/19/24) Placement of Cholecystectomy Tube, Incarcerated umbilical Hernia History of tonsillectomy History of permanent cardiac pacemaker placement H/O colonoscopy H/O esophagogastroduodenoscopy S/P appy Status post total hip replacement, right Family History Family/Other Family history of diabetes mellitus BROTHER OR SISTER Other Family history non-contributory No family history of adverse response to anesthesia Silicosis Social History Smoking Status: Former smoker Tobacco Type: Cigarettes Smoking End Date: ; Second Hand Exposure: No; Do You Dip or Chew Tobacco: No; Tobacco Cessation Education Requested by Patient: No Hx Alcohol Use: No Hx Substance Use: No Preferred Language: Welsh Communication Ability: Effective Visual Impairment: No Limitations Sports Therapist Required: No Beliefs That Will Affect Care: None marital status: Current Living Situation: Spouse current occupational status: retired Other Information That Helps Us Care for You: No Feels Safe at Home: Yes Safety Concerns: Feels Safe At This Time Assistive Devices: Glasses and Walker Review of Systems Review of Systems: All systems reviewed & are unremarkable except as noted in HPI & below Physical Exam Physical Exam: Constitutional: WD/WN, vitals as above, NAD, appears fatigued/drowsy, sitting up in bed, pleasant, conversing easily Head: Normocephalic, Atraumatic Eyes: PERRL, conjunctivae normal, anicteric sclerae ENMT: external ear and nose normal, oropharynx normal Neck: trachea midline, no thyromegaly normal visual inspection Respiratory: normal respiratory effort, lungs clear to auscultation, no wheeze, rales, rhonchi. Normal insp/exp effort, no accessory muscle use Cardiovascular: RRR, no murmur, no edema Vessels: no JVD or carotid bruit Chest: LACW pacer Abdomen: abd soft, dressing intact, GUY drain x 2 with sersosang drainage, soft, +BS Musculoskeletal: no cyanosis or clubbing,AROM x 4 Skin: no rashes, warm and dry normal turgor Neurologic: CN's II-XI intact bilaterally and moves all extremities Psychiatric: A+Ox3, euthymic affect Results & Data Vital Signs (Past 12 Hours) Vital Signs Temp Pulse Resp BP BP Pulse Ox O2 Del Method 01/25/25 12:30 36.4 C L 65 18 151/72 H 151/72 H 94 Nasal Cannula 01/25/25 12:08 64 19 158/75 H 91 Nasal Cannula 01/25/25 11:55 60 20 164/82 H 92 Nasal Cannula 01/25/25 11:45 36.5 C 60 16 165/76 H 91 Nasal Cannula 01/25/25 11:35 60 24 169/74 H 93 Nasal Cannula 01/25/25 11:25 60 21 167/72 H 94 Nasal Cannula 01/25/25 11:15 60 22 169/71 H 93 Nasal Cannula 01/25/25 11:05 60 22 155/70 H 91 Nasal Cannula 01/25/25 10:55 60 24 147/63 H 95 Oxymask 01/25/25 10:48 36.3 C L 63 28 H 162/62 H 92 Oxymask 01/25/25 06:00 36.5 C 76 22 153/72 H 98 Room Air O2 Flow Rate 01/25/25 12:30 4 01/25/25 12:08 4 01/25/25 11:55 4 01/25/25 11:45 4 01/25/25 11:35 4 01/25/25 11:25 4 01/25/25 11:15 4 01/25/25 11:05 4 01/25/25 10:55 7 01/25/25 10:48 7 01/25/25 06:00 Laboratory Results I have independently reviewed and interpreted patient's admitting labs including CBC, bmp, bnp Short CBC 01/25/25 Range/Units 10:52 WBC 7.97 (4.8-10.8) K/ul Hgb 13.4 L (14.0-18.0) g/dl Hct 37.3 L (42.0-52.0) % Plt Count 234 (130-400) K/uL [facility] 01/25/25 10:52 Sodium 136 Potassium 5.1 Chloride 106 Carbon Dioxide 22 BUN 14 Creatinine 1.02 Glucose 256 H Calcium 8.7 Diagnostic Findings Cholangiogram,Operative 01/25/25 07:00 [place] cholangiogram OR CLINICAL HISTORY: CHOLANGIOGRAM COMPARISON STUDY: KUB at 11/27/2024 CT of 11/18/2024 Fluoroscopy time: 12 seconds. FINDINGS: On the initial image there is a linear density medial right upper quadrant of uncertain etiology, possible intra-abdominal contrast. Contrast is injected and opacifies the common bile duct and the proximal duodenum without delay. No common bile duct stones seen. IMPRESSION: Fluoroscopy for intraoperative cholangiogram. ACT 112: Negative or not required by law. Electronically signed by: Jef Alvarez M.D. 01/25/2025 11:30 AM Medications Administered Current Inpatient Medications Dextrose (Dextrose 50% 50 Ml Syringe) 25 - 50 ml IV UD PRN; Protocol PRN Reason: Hypoglycemia Protocol Stop: 02/24/25 13:03 Finasteride (Finasteride 5 Mg Tab) 5 mg PO QAM URIEL Stop: 02/25/25 08:59 Glucagon (Glucagon For Inj 1 Mg Vial) 1 mg SQ UD PRN; Protocol PRN Reason: Hypoglycemia Protocol Stop: 02/24/25 13:03 Glucose (Glucose 40% Gel 15 Gm Tube) 15 - 30 gm PO UD PRN; Protocol PRN Reason: Hypoglycemia Protocol Stop: 02/24/25 13:03 Glucose (Glucose 10 Tab/Tube) 4 - 8 tab PO UD PRN; Protocol PRN Reason: Hypoglycemia Protocol Stop: 02/24/25 13:03 Piperacillin Sod/Tazobactam Sod (Zosyn) 4.5 gm in 100 mls @ 25 mls/hr IV Q8H URIEL; Protocol Stop: 02/04/25 19:29 Lactated Ringer's (Lr) 1,000 mls @ 115 mls/hr IV .[id number] URIEL Stop: 01/28/25 12:48 Acetaminophen (Ofirmev) 1,000 mg in 100 mls @ 400 mls/hr IV Q8H URIEL Stop: 01/28/25 12:48 Piperacillin Sod/Tazobactam Sod (Zosyn) 4.5 gm in 100 mls @ 200 mls/hr IV NOW STA; Protocol Stop: 01/25/25 13:26 Metoprolol Succinate (Metoprolol Succ 50mg Ext Rel Tab) 50 mg PO HS [facility] Stop: 02/24/25 20:59 Miscellaneous (Carbohydrates For Hypoglycemia ) 15 - 30 gm PO UD PRN PRN Reason: Hypoglycemia Protocol Stop: 02/24/25 13:03 Miscellaneous Information (Pharmacy Glycemic Mgmt Consult) 1 each N/A UD PRN; Protocol PRN Reason: Consult Stop: 02/24/25 12:48 Morphine Sulfate (Morphine Sulfate 2 Mg/Ml Carp) 2 mg IV Q3H PRN PRN Reason: Pain (1,2,3,4,5) & Pre PT Stop: 02/08/25 12:48 Morphine Sulfate (Morphine Sulfate 4 Mg/Ml 1 Ml Carp\\Vial) 4 mg IV Q3H PRN PRN Reason: Pain (6,7,8,9,10) Stop: 02/08/25 12:48 Ondansetron HCl (Ondansetron Inj 2 Mg/Ml 2 Ml Vial) 4 mg IV Q4H PRN PRN Reason: Nausea And Vomiting Stop: 02/24/25 12:48 Oxycodone HCl (Oxycodone Hcl Ir 5 Mg Tab (Immediate Release)) 5 mg PO Q4H PRN PRN Reason: MODERATE Pain (4,5,6) & Pre PT Stop: 02/08/25 12:48 Oxycodone HCl (Oxycodone Hcl Ir 5 Mg Tab (Immediate Release)) 10 mg PO Q4H PRN PRN Reason: SEVERE Pain (7,8,9,10) Stop: 02/08/25 12:48 Pantoprazole Sodium (Pantoprazole 40 Mg Tab) [facility] [place] Stop: 02/25/25 08:59
--- NOTE | 2025-01-25 13:59 | Pharmacy Report ---
Pharmacy Glycemic Short Note 2 - Date of Service January 25, 2025 - Glycemic Short BSG Results (Last 24 hours): 01/25/25 01/25/25 01/25/25 06:02 10:51 10:52 Glucose 256 H POC Glucose 140 H 221 H OUTPATIENT ANTIDIABETIC REGIMEN: * dulaglutide 3mg SQ weekly HbA1c: 6.8% on 11/19/24 ASSESSMENT: * Karthikeyan is an 79 year old male admitted today for a laparoscopic cholecystectomy (POD#0). Pharmacy has been consulted for glycemic management postop. * BSG preop was 140mg/dL and 221 mg/dL postop. Lantus 20 units SQ x 1 was ordered and a weight based bolus insulin regimen with a stress of ~2 was started. PLAN FOR INPATIENT GLYCEMIC CONTROL: * Hold outpatient diabetes medications * Basal insulin * Lantus 20 units SQ x 1, further need will be reassessed tomorrow morning. * Bolus insulin * NovoLog per scale ACHS or Q6hrs while NPO * Goal Range: Low 110 mg/dL - High 140 mg/dL * Correction Factor: 25 mg/dL/unit * Nutritional / Prandial insulin per carb ratio of 1 unit per 10 grams CHO consumed
[2025-01-26 06:26] LABS: Basophils # (auto) 0.04 K/uL (0.00-0.20); Basophils % (auto) 0.5 %; Eosinophils # (auto) 0.27 K/uL (0.00-0.50); Eosinophils % (auto) 3.1 %; Hematocrit (blood only) 34.4 % (42.0-52.0); Hemoglobin 12.2 g/dl (14.0-18.0); Immature Granulocytes # (auto) 0.04 K/uL (0.01-0.20); Immature Granulocytes % (auto) 0.5 %; Lymphocytes # (auto) 0.57 K/uL (1.20-3.40); Lymphocytes % (auto) 6.5 %; Mean Corpuscular Hemoglobin 31.8 pg (25.0-34.0); Mean Corpuscular Hgb Conc 35.5 g/dL (32.0-36.0); Mean Corpuscular Volume 89.6 fL (80.0-100.0); Mean Platelet Volume 9.5 fL (9.4-12.4); Monocytes # (auto) 0.72 K/uL (0.11-0.59); Monocytes % (auto) 8.2 %; Neutrophils # (auto) 7.14 K/uL (1.40-6.50); Neutrophils % (auto) 81.2 %; Platelet Count 183 K/uL (130-400); RDW Coefficient of Variation 14.6 % (11.5-14.5); RDW Standard Deviation 47.7 fL (36.4-46.3); Red Blood Count 3.84 M/uL (4.70-6.10); White Blood Count 8.78 K/ul (4.8-10.8)
[2025-01-26 06:47] LABS: Albumin Globulin Ratio 1.4 (0.9-2); Albumin Level 3.5 gm/dl (3.4-5.0); BUN Creatinine Ratio 14.5 (10-20); Calcium 8.7 mg/dl (8.6-10.3); Creatinine Clr Calc Pharmacy 67.5 ml/min; Globulin 2.5 gm/dl (2.5-4.0)
--- NOTE | 2025-01-26 07:43 | XRay Report ---
EXAM: XR chest 1V portable CLINICAL HISTORY: Post-operative resp insufficiency. TECHNIQUE: An X-ray image of the chest is obtained in AP portable projection. COMPARISON: 12/11/2024 CR. FINDINGS: Pulmonary Parenchyma: Raised right hemidiaphragm with blunting of right costophrenic recess. Small atelectatic band traversing in the right infrahilar region at the cardiophrenic angle. Homogeneous opacification of left lower zone with blunting of left CP angle. Heart and Mediastinum: The cardiac shadow is enlarged. No mediastinal widening or masses. No hilar or mediastinal lymphadenopathy. Cardiac pacemaker leads are seen in situ. Bony Thorax: Bony thorax appears intact without fractures or deformities. Soft Tissues: Soft tissues overlying the chest wall are unremarkable. IMPRESSION: 1. Raised right hemidiaphragm with blunting of right costophrenic recess, suggest pleural effusion. 2. Small atelectatic band traversing in the right infrahilar region. [Passive atelectasis] 3. Opacification of left lower zone with blunting of left costophrenic recess, could be du to consolidation with parapneumonic effusion. Suggest clinical and lab correlation. 4. Cardiomegaly. 5. Comparing the previous x-ray dated 12/11/2024 there is interval progression. Electronically signed by Corby Zuniga 01-26-2025 07:43 AM
--- NOTE | 2025-01-26 08:24 | Hospitalist Progress Note ---
Date of Service January 26, 2025 Assessment & Plan (1) Chronic cholecystitis due to gallbladder calculus with obstruction: (2) Diabetes mellitus, type 2: (3) Nonischemic cardiomyopathy: (4) Chronic HFrEF (heart failure with reduced ejection fraction): Plan 79-year-old male with past medical history significant for type 2 diabetes, hyperlipidemia, nonischemic dilated cardiomyopathy, chronic systolic CHF EF 30 to 34%, chronic left bundle branch block, symptomatic 2:1 AV block status post biventricular pacemaker in 2019, moderate aortic insufficiency, hypertension GERD, schatzki ring, hiatal hernia, B12 deficiency, anxiety disorder, BPH who presents to elective cholecystectomy by Dr. Boothe. #Chronic gangrenous cholecystitis due to calculus #S/P Laparoscopic Cholecystectomy with Cholangiogram by Dr. Boothe pt admitted to medical EBL 50mL please refer to HPI for pts complex course since November feels well post operatively [address] pain/wound management/diet per general surgery continue to wean oxygen as pt more awake/alert - > currently pt awake and on RA hx of HFrEF, tolerating clears -> diet was advanced and pt is tolerating #T2DM hold metformin, a1c 6.8 in november glycemic pharmacy consulted per surgery #Chronic LBBB #Chronic HFrEF 2/2 nonischemic [employer] #Symptomatic 2:1 AVB s/p BiV pacemaker 2018 with generator exchange 2023 follows GMG cards, daily weights, strict I and O continue metoprolol and entresto post op DVT ppx: SCDS FULL CODE PCP: Dr. Coyne Dispo: per primary service Thank you for this consultation. We will follow the patient with you during their hospital stay. You can reach a member of the [facility] Hospitalist Team 29/03 via hospitalist role on tiger text. Admission and Anticipated Discharge Date Admission Date: January 25, 2025 Subjective Pt seen in follow up of med. consult, pt s/p cholecystectomy yesterday Had previously complicated course Currently lying in bed in NAD, on RA breathing without difficulty, no chest pain He has some expected abd. discomfort after surgery His diet was advanced and so far he is tolerating Pt's present at the bedside and updated as well Review of Systems Review of Systems: All systems reviewed & are unremarkable except as noted in Subjective Physical Exam Physical Exam: Constitutional: WD/WN, in NAD Head: Normocephalic, Atraumatic Eyes: PERRL, conjunctivae normal, anicteric sclerae ENMT: external ear and nose normal Neck: normal visual inspection Respiratory: normal respiratory effort, lungs clear to auscultation, no wheeze, rales, rhonchi. Cardiovascular: RRR, no murmur, no edema Abdomen: abd soft, mildly distended. dressing intact, GUY drain x 2 with sersosang drainage, +BS Musculoskeletal: AROM x 4 Skin: no rashes, warm and dry normal turgor Neurologic: awake, alert, speech fluent, answers appropriately, moves all extremities Psychiatric: A+Ox3, euthymic affect Results & Data Results & Data Vital Signs (Past 12 Hours) Vital Signs Temp Pulse Pulse Resp BP BP Pulse Ox 01/26/25 07:30 36.3 C L 73 20 133/60 95 01/26/25 03:27 36.6 C 68 16 124/58 L 94 01/25/25 23:13 37.4 C 83 16 127/62 95 01/25/25 21:54 90 O2 Del Method O2 Flow Rate 01/26/25 07:30 Nasal Cannula 3 01/26/25 03:27 Room Air 01/25/25 23:13 Nasal Cannula 4 01/25/25 21:54 Laboratory Results 01/26/25 01/26/25 01/25/25 Range/Units 08:08 05:39 20:11 WBC 8.78 (4.8-10.8) K/ul RBC 3.84 L (4.70-6.10) M/uL Hgb 12.2 L (14.0-18.0) g/dl Hct 34.4 L (42.0-52.0) % MCV 89.6 (80.0-100.0) fL MCH 31.8 (25.0-34.0) pg MCHC 35.5 (32.0-36.0) g/dL RDW Std Deviation 47.7 H (36.4-46.3) fL RDW Coeff of Lio 14.6 H (11.5-14.5) % Plt Count 183 (130-400) K/uL MPV 9.5 (9.4-12.4) fL Immature Gran % (Auto) 0.5 % Neut % (Auto) 81.2 % Lymph % (Auto) 6.5 % Woodruff % (Auto) 8.2 % Eos % (Auto) 3.1 % Baso % (Auto) 0.5 % Neut # (Auto) 7.14 H (1.40-6.50) K/uL Lymph # (Auto) 0.57 L (1.20-3.40) K/uL Woodruff # (Auto) 0.72 H (0.11-0.59) K/uL Eos # (Auto) 0.27 (0.00-0.50) K/uL Baso # (Auto) 0.04 (0.00-0.20) K/uL Immature Gran # (Auto) 0.04 (0.01-0.20) K/uL Sodium 136 (136-145) mmol/L Potassium 4.0 D (3.5-5.1) mmol/L Chloride 103 (98-107) mmol/L Carbon Dioxide 25 (21-32) mmol/L Anion Gap 8 (3-11) BUN 16 (6-23) mg/dl Creatinine 1.10 (0.6-1.4) mg/dl Est Cr Clr Drug Dosing 67.5 ml/min eGFR 67.86 BUN/Creatinine Ratio 14.5 (10-20) Glucose 113 H (70-99(Fasting)) mg/dl POC Glucose 106 H 216 H (70-99) mg/dl Calcium 8.7 (8.6-10.3) mg/dl Total Bilirubin 1.0 (0.2-1.0) mg/dl AST 23 (13-39) U/L ALT 25 (7-52) U/L Alkaline Phosphatase 55 (34-104) U/L B-Natriuretic Peptide (0-100) pg/ml Total Protein 6.0 (6.0-8.3) gm/dl Albumin 3.5 (3.4-5.0) gm/dl Globulin 2.5 (2.5-4.0) gm/dl Albumin/Globulin Ratio 1.4 (0.9-2) 01/25/25 01/25/25 01/25/25 Range/Units 16:29 10:52 10:51 WBC 7.97 (4.8-10.8) K/ul RBC 4.19 L (4.70-6.10) M/uL Hgb 13.4 L (14.0-18.0) g/dl Hct 37.3 L (42.0-52.0) % MCV 89.0 (80.0-100.0) fL MCH 32.0 (25.0-34.0) pg MCHC 35.9 (32.0-36.0) g/dL RDW Std Deviation 45.6 (36.4-46.3) fL RDW Coeff of Lio 14.1 (11.5-14.5) % Plt Count 234 (130-400) K/uL MPV 9.0 L (9.4-12.4) fL Immature Gran % (Auto) 0.4 % Neut % (Auto) 83.0 % Lymph % (Auto) 9.4 % Woodruff % (Auto) 6.1 % Eos % (Auto) 0.8 % Baso % (Auto) 0.3 % Neut # (Auto) 6.62 H (1.40-6.50) K/uL Lymph # (Auto) 0.75 L (1.20-3.40) K/uL Woodruff # (Auto) 0.49 (0.11-0.59) K/uL Eos # (Auto) 0.06 (0.00-0.50) K/uL Baso # (Auto) 0.02 (0.00-0.20) K/uL Immature Gran # (Auto) 0.03 (0.01-0.20) K/uL Sodium 136 (136-145) mmol/L Potassium 5.1 (3.5-5.1) mmol/L Chloride 106 (98-107) mmol/L Carbon Dioxide 22 (21-32) mmol/L Anion Gap 8 (3-11) BUN 14 (6-23) mg/dl Creatinine 1.02 (0.6-1.4) mg/dl Est Cr Clr Drug Dosing 72.4 ml/min eGFR 74.30 BUN/Creatinine Ratio 13.7 (10-20) Glucose 256 H (70-99(Fasting)) mg/dl POC Glucose 222 H 221 H (70-99) mg/dl Calcium 8.7 (8.6-10.3) mg/dl Total Bilirubin (0.2-1.0) mg/dl AST (13-39) U/L ALT (7-52) U/L Alkaline Phosphatase (34-104) U/L B-Natriuretic Peptide 316 H (0-100) pg/ml Total Protein (6.0-8.3) gm/dl Albumin (3.4-5.0) gm/dl Globulin (2.5-4.0) gm/dl Albumin/Globulin Ratio (0.9-2) Medications Administered Current Inpatient Medications Dextrose (Dextrose 50% 50 Ml Syringe) 25 - 50 ml IV UD PRN; Protocol PRN Reason: Hypoglycemia Protocol Stop: 02/24/25 13:03 Finasteride (Finasteride 5 Mg Tab) 5 mg PO QAM URIEL Stop: 02/25/25 08:59 Glucagon (Glucagon For Inj 1 Mg Vial) 1 mg SQ UD PRN; Protocol PRN Reason: Hypoglycemia Protocol Stop: 02/24/25 13:03 Glucose (Glucose 40% Gel 15 Gm Tube) 15 - 30 gm PO UD PRN; Protocol PRN Reason: Hypoglycemia Protocol Stop: 02/24/25 13:03 Glucose (Glucose 10 Tab/Tube) 4 - 8 tab PO UD PRN; Protocol PRN Reason: Hypoglycemia Protocol Stop: 02/24/25 13:03 Piperacillin Sod/Tazobactam Sod (Zosyn) 4.5 gm in 100 mls @ 25 mls/hr IV Q8H URIEL; Protocol Stop: 02/04/25 19:29 Last Infusion: 01/26/25 07:34 Dose: Infused Acetaminophen (Ofirmev) 1,000 mg in 100 mls @ 400 mls/hr IV Q8H URIEL Stop: 01/28/25 12:48 Last Infusion: 01/26/25 04:27 Dose: Infused Insulin Aspart (Insulin Aspart Per Unit Charge) 0 units SC ACHS URIEL Stop: 02/24/25 13:59 Last Admin: 01/25/25 21:30 Dose: 4 units Metoprolol Succinate (Metoprolol Succ 50mg Ext Rel Tab) 50 mg PO HS [facility] Stop: 02/24/25 20:59 Last Admin: 01/25/25 22:07 Dose: 50 mg Miscellaneous (Carbohydrates For Hypoglycemia ) 15 - 30 gm PO UD PRN PRN Reason: Hypoglycemia Protocol Stop: 02/24/25 13:03 Miscellaneous Information (Pharmacy Glycemic Mgmt Consult) 1 each N/A UD PRN; Protocol PRN Reason: Consult Stop: 02/24/25 12:48 Morphine Sulfate (Morphine Sulfate 2 Mg/Ml Carp) 2 mg IV Q3H PRN PRN Reason: Pain (1,2,3,4,5) & Pre PT Stop: 02/08/25 12:48 Morphine Sulfate (Morphine Sulfate 4 Mg/Ml 1 Ml Carp\Vial) 4 mg IV Q3H PRN PRN Reason: Pain (6,7,8,9,10) Stop: 02/08/25 12:48 Ondansetron HCl (Ondansetron Inj 2 Mg/Ml 2 Ml Vial) 4 mg IV Q4H PRN PRN Reason: Nausea And Vomiting Stop: 02/24/25 12:48 Oxycodone HCl (Oxycodone Hcl Ir 5 Mg Tab (Immediate Release)) 5 mg PO Q4H PRN PRN Reason: MODERATE Pain (4,5,6) & Pre PT Stop: 02/08/25 12:48 Oxycodone HCl (Oxycodone Hcl Ir 5 Mg Tab (Immediate Release)) 10 mg PO Q4H PRN PRN Reason: SEVERE Pain (7,8,9,10) Stop: 02/08/25 12:48 Pantoprazole Sodium (Pantoprazole 40 Mg Tab) 40 mg PO QAM [facility] Stop: 02/25/25 08:59 Sacubitril/Valsartan (Valsartan/Sacubitril 51/49 Mg Tab) 1 tab PO BID [facility] Stop: 02/25/25 08:59
--- NOTE | 2025-01-26 09:45 | Surgery Progress Note ---
Date of Service January 26, 2025 Assessment & Plan (1) S/P laparoscopic cholecystectomy: Plan: POD [address] Boothe doing well , expected post surgical pain GUY drain x2, Medial GUY drain removed, keep covered with plain gauze and tape until healed. Lateral GUY drain, patient will go home with VSS, tolerating clear liquids encourage OOB with assist and IS Not ready for d/c today Pt seen and examined with Dr Boothe Admission and Anticipated Discharge Date Admission Date: January 25, 2025 Subjective pt reports doing well expected post surgical discomfort Review of Systems Gastrointestinal: + abdominal pain and + bloating; no naus ea and no vomiting Physical Exam Constitutional: cooperative and comfortable; no acute distress Respiratory: normal respiratory effort and able to speak in complete sentences; no respiratory distress Cardiovascular: Rate/Rhythm: regular rate Gastrointestinal (Abdomen): Inspection/Auscultation: + abdomen distended, + abdominal surgical incision and + abdominal surgical drain present Percussion/Palpation: + abdomen tender Results & Data Vital Signs (Past 12 Hours) Vital Signs Temp Pulse Pulse Resp BP BP Pulse Ox 01/26/25 07:30 97.3 F L 73 20 133/60 95 01/26/25 03:27 97.9 F 68 16 124/58 L 94 01/25/25 23:13 99.3 F 83 16 127/62 95 01/25/25 21:54 90 O2 Del Method O2 Flow Rate 01/26/25 07:30 Nasal Cannula 3 01/26/25 03:27 Room Air 01/25/25 23:13 Nasal Cannula 4 01/25/25 21:54 Results CBC w Diff Results: RBC 3.84 M/uL (4.70-6.10) L 01/26/25 WBC 8.78 K/ul (4.8-10.8) 01/26/25 Hgb 12.2 g/dl (14.0-18.0) L 01/26/25 Hct 34.4 % (42.0-52.0) L 01/26/25 MCV 89.6 fL (80.0-100.0) 01/26/25 MCH 31.8 pg (25.0-34.0) 01/26/25 MCHC 35.5 g/dL (32.0-36.0) 01/26/25 RDW Standard Deviation 47.7 fL (36.4-46.3) H 01/26/25 RDW Coefficient of Variation 14.6 % (11.5-14.5) H 01/26/25 Plt Count 183 K/uL (130-400) 01/26/25 MPV 9.5 fL (9.4-12.4) 01/26/25 Neutrophils (%) (Auto) 81.2 % 01/26/25 Lymphocytes (%) (Auto) 6.5 % 01/26/25 Monocytes # (Auto) 0.72 K/uL (0.11-0.59) H 01/26/25 Eosinophils # (Auto) 0.27 K/uL (0.00-0.50) 01/26/25 Immature Granulocyte % (Auto) 0.5 % 01/26/25 Neutrophils # (Auto) 7.14 K/uL (1.40-6.50) H 01/26/25 Lymphocytes # (Auto) 0.57 K/uL (1.20-3.40) L 01/26/25 Monocytes # (Auto) 0.72 K/uL (0.11-0.59) H 01/26/25 Eosinophils # (Auto) 0.27 K/uL (0.00-0.50) 01/26/25 Basophils # (Auto) 0.04 K/uL (0.00-0.20) 01/26/25 Immature Granulocyte # (Auto) 0.04 K/uL (0.01-0.20) 5 PG Care Time/CCT Total # of Minutes Spent Total Time Spent with Patient: Total time spent is greater than 50% in coordination of care (as documented) at patient's floor/unit and/or counseling patient: Coding Level of Care Code 97148 Post Operative Follow-Up Diagnoses S/P laparoscopic cholecystectomy Z90.49
--- NOTE | 2025-01-26 13:11 | Pharmacy Report ---
Pharmacy Glycemic Short Note 2 - Date of Service January 26, 2025 - Glycemic Short BSG Results (Last 24 hours): 01/25/25 01/25/25 01/26/25 16:29 20:11 05:39 Glucose 113 H POC Glucose 222 H 216 H 01/26/25 01/26/25 08:08 11:52 Glucose POC Glucose 106 H 138 H OUTPATIENT ANTIDIABETIC REGIMEN: * dulaglutide 3mg SQ weekly HbA1c: 6.8% on 11/19/24 ASSESSMENT: 01/26 * Karthikeyan received a total of 32 units of insulin yesterday (20 units were basal and 12 units were bolus). BSGs were still above goal postop yesterday. * Fasting BSG was 106mg/dL this morning. No additional basal insulin will be ordered at this time and the CR of the bolus insulin has been loosened. * POD #1 and he continues on Zosyn. 01/25 * Karthikeyan is an 79 year old male admitted today for a laparoscopic cholecystectomy (POD#0). Pharmacy has been consulted for glycemic management postop. * BSG preop was 140mg/dL and 221 mg/dL postop. Lantus 20 units SQ x 1 was ordered and a weight based bolus insulin regimen with a stress of ~2 was started. PLAN FOR INPATIENT GLYCEMIC CONTROL: * Hold outpatient diabetes medications * Basal insulin * Lantus 20 units SQ x 1 on 01/25. No further dosing needed at this time * Bolus insulin * NovoLog per scale ACHS or Q6hrs while NPO * Goal Range: Low 110 mg/dL - High 140 mg/dL * Correction Factor: 25 mg/dL/unit * Nutritional / Prandial insulin per carb ratio of 1 unit per 15 grams CHO consumed
--- NOTE | 2025-01-27 04:09 | Surgery Progress Note ---
Date of Service January 27, 2025 Assessment & Plan (1) Chronic cholecystitis due to gallbladder calculus with obstruction: Plan: Status post laparoscopic cholecystectomy on 01/25/2025 (postop day #2) Continue analgesics Continue antiemetics Continue diet as tolerated Continue GUY drain to self suction (patient will likely go home with this in place and will be reevaluated in the office at time of follow-up) Continue antibiotics in the form of Zosyn Continue to mobilize as able Check a.m. labs when available as above. feeling well. ok for d/c. will keep GUY and home an augmentin per Dr. Boothe. f/u with him next week for drain removal. Admission and Anticipated Discharge Date Admission Date: January 25, 2025 Subjective Patient is resting comfortably in bed. He notes he is tolerating solid food without nausea or vomiting. He notes tenderness near his surgical incisions. He is passing flatus but has not had a bowel movement since his surgery. Physical Exam Gastrointestinal (Abdomen): Abdomen is soft with slight distention. Appropriate tenderness noted near surgical incisions which are clean, dry, intact. GUY drain is in place and is draining serous appearing fluid Results & Data Vital Signs (Past 12 Hours) Vital Signs Temp Pulse Pulse Resp BP Pulse Ox O2 Del Method 01/27/25 03:29 36.8 C 74 15 153/70 H 93 Room Air 01/26/25 23:06 36.9 C 85 16 143/66 H 97 Room Air 01/26/25 22:56 36.8 C 81 16 141/90 H 96 Room Air 01/26/25 21:47 74 01/26/25 19:53 37.1 C 78 15 148/70 H 92 Room Air PG Care Time/CCT Total # of Minutes Spent Total Time Spent with Patient: Total time spent is greater than 50% in coordination of care (as documented) at patient's floor/unit and/or counseling patient: Coding Level of Care Code 76848 Post Operative Follow-Up Diagnoses Chronic cholecystitis due to gallbladder calculus with obstruction K80.11
[2025-01-27 06:45] LABS: Hematocrit (blood only) 34.9 % (42.0-52.0); Hemoglobin 12.1 g/dl (14.0-18.0); Mean Corpuscular Hemoglobin 31.3 pg (25.0-34.0); Mean Corpuscular Hgb Conc 34.7 g/dL (32.0-36.0); Mean Corpuscular Volume 90.2 fL (80.0-100.0); Mean Platelet Volume 9.5 fL (9.4-12.4); Platelet Count 169 K/uL (130-400); RDW Coefficient of Variation 14.4 % (11.5-14.5); RDW Standard Deviation 47.1 fL (36.4-46.3); Red Blood Count 3.87 M/uL (4.70-6.10)
[2025-01-27 07:18] LABS: BUN Creatinine Ratio 14.3 (10-20); Bilirubin,Total 0.9 mg/dl (0.2-1.0); Calcium 8.8 mg/dl (8.6-10.3); Magnesium 1.5 mg/dl (1.7-2.4); Phosphorus 2.9 mg/dl (2.5-4.9); Potassium 3.7 mmol/L (3.5-5.1)
[2025-01-27 07:19] LABS: Albumin Globulin Ratio 1.2 (0.9-2); Albumin Level 3.3 gm/dl (3.4-5.0); Globulin 2.7 gm/dl (2.5-4.0)
[2025-01-27 07:42] VITALS: BP 152/70; PULSE 73; RESP 16; TEMP 97.9; O2SAT 92
--- NOTE | 2025-01-27 07:51 | Hospitalist Progress Note ---
Date of Service January 27, 2025 Assessment & Plan (1) Chronic cholecystitis due to gallbladder calculus with obstruction: (2) Diabetes mellitus, type 2: (3) Nonischemic cardiomyopathy: (4) Chronic HFrEF (heart failure with reduced ejection fraction): Plan 79-year-old male with past medical history significant for type 2 diabetes, hyperlipidemia, nonischemic dilated cardiomyopathy, chronic systolic CHF EF 30 to 34%, chronic left bundle branch block, symptomatic 2:1 AV block status post biventricular pacemaker in 2019, moderate aortic insufficiency, hypertension GERD, schatzki ring, hiatal hernia, B12 deficiency, anxiety disorder, BPH who presents to elective cholecystectomy by Dr. Boothe. #Chronic gangrenous cholecystitis due to calculus #S/P Laparoscopic Cholecystectomy with Cholangiogram by Dr. Boothe pt admitted to medical EBL 50mL please refer to HPI for pts complex course since November feels well post operatively [address] pain/wound management/diet per general surgery continue to wean oxygen as pt more awake/alert - > currently pt awake and on RA hx of HFrEF, tolerating clears -> diet was advanced and pt is tolerating #T2DM hold metformin, a1c 6.8 in november glycemic pharmacy consulted per surgery #Chronic LBBB #Chronic HFrEF 2/2 nonischemic [employer] #Symptomatic 2:1 AVB s/p BiV pacemaker 2018 with generator exchange 2023 follows GMG cards, daily weights, strict I and O continue metoprolol and entresto post op DVT ppx: SCDS FULL CODE PCP: Dr. Coyne Dispo: per primary service Thank you for this consultation. We will follow the patient with you during their hospital stay. You can reach a member of the [facility] Hospitalist Team 29/03 via hospitalist role on tiger text. Admission and Anticipated Discharge Date Admission Date: January 25, 2025 Subjective Pt seen in follow up of med. consult, pt s/p cholecystectomy Had previously complicated course Currently lying in bed in NAD, on RA breathing without difficulty, no chest pain He has some expected abd. discomfort after surgery His diet was advanced and so far he is tolerating Review of Systems Review of Systems: All systems reviewed & are unremarkable except as noted in Subjective Physical Exam Physical Exam: Constitutional: WD/WN, in NAD Head: Normocephalic, Atraumatic Eyes: PERRL, conjunctivae normal, anicteric sclerae ENMT: external ear and nose normal Neck: normal visual inspection Respiratory: normal respiratory effort, lungs clear to auscultation, no wheeze, rales, rhonchi. Cardiovascular: RRR, no murmur, no edema Abdomen: abd soft, mildly distended. dressing intact, GUY drain x 2 with sersosang drainage, +BS Musculoskeletal: AROM x 4 Skin: no rashes, warm and dry normal turgor Neurologic: awake, alert, speech fluent, answers appropriately, moves all extremities Psychiatric: A+Ox3, euthymic affect Results & Data Results & Data Vital Signs (Past 12 Hours) Vital Signs Temp Pulse Pulse Resp BP Pulse Ox O2 Del Method 01/27/25 07:41 36.6 C 73 16 152/70 H 92 Room Air 01/27/25 07:24 77 01/27/25 03:29 36.8 C 74 15 153/70 H 93 Room Air 01/26/25 23:06 36.9 C 85 16 143/66 H 97 Room Air 01/26/25 22:56 36.8 C 81 16 141/90 H 96 Room Air 01/26/25 21:47 74 01/26/25 19:53 37.1 C 78 15 148/70 H 92 Room Air Laboratory Results 01/27/25 01/26/25 01/26/25 Range/Units 05:59 20:24 16:54 WBC 7.30 (4.8-10.8) K/ul RBC 3.87 L (4.70-6.10) M/uL Hgb 12.1 L (14.0-18.0) g/dl Hct 34.9 L (42.0-52.0) % MCV 90.2 (80.0-100.0) fL MCH 31.3 (25.0-34.0) pg MCHC 34.7 (32.0-36.0) g/dL RDW Std Deviation 47.1 H (36.4-46.3) fL RDW Coeff of Lio 14.4 (11.5-14.5) % Plt Count 169 (130-400) K/uL MPV 9.5 (9.4-12.4) fL Sodium 136 (136-145) mmol/L Potassium 3.7 (3.5-5.1) mmol/L Chloride 104 (98-107) mmol/L Carbon Dioxide 25 (21-32) mmol/L Anion Gap 7 (3-11) BUN 14 (6-23) mg/dl Creatinine 0.98 (0.6-1.4) mg/dl Est Cr Clr Drug Dosing 77.0 ml/min eGFR 77.95 BUN/Creatinine Ratio 14.3 (10-20) Glucose 131 H (70-99(Fasting)) mg/dl POC Glucose 162 H 154 H (70-99) mg/dl Calcium 8.8 (8.6-10.3) mg/dl Phosphorus 2.9 (2.5-4.9) mg/dl Magnesium 1.5 L (1.7-2.4) mg/dl Total Bilirubin 0.9 (0.2-1.0) mg/dl AST 17 (13-39) U/L ALT 22 (7-52) U/L Alkaline Phosphatase 52 (34-104) U/L Total Protein 6.0 (6.0-8.3) gm/dl Albumin 3.3 L (3.4-5.0) gm/dl Globulin 2.7 (2.5-4.0) gm/dl Albumin/Globulin Ratio 1.2 (0.9-2) 01/26/25 01/26/25 Range/Units 11:52 08:08 WBC (4.8-10.8) K/ul RBC (4.70-6.10) M/uL Hgb (14.0-18.0) g/dl Hct (42.0-52.0) % MCV (80.0-100.0) fL MCH (25.0-34.0) pg MCHC (32.0-36.0) g/dL RDW Std Deviation (36.4-46.3) fL RDW Coeff of Lio (11.5-14.5) % Plt Count (130-400) K/uL MPV (9.4-12.4) fL Sodium (136-145) mmol/L Potassium (3.5-5.1) mmol/L Chloride (98-107) mmol/L Carbon Dioxide (21-32) mmol/L Anion Gap (3-11) BUN (6-23) mg/dl Creatinine (0.6-1.4) mg/dl Est Cr Clr Drug Dosing ml/min eGFR BUN/Creatinine Ratio (10-20) Glucose (70-99(Fasting)) mg/dl POC Glucose 138 H 106 H (70-99) mg/dl Calcium (8.6-10.3) mg/dl Phosphorus (2.5-4.9) mg/dl Magnesium (1.7-2.4) mg/dl Total Bilirubin (0.2-1.0) mg/dl AST (13-39) U/L ALT (7-52) U/L Alkaline Phosphatase (34-104) U/L Total Protein (6.0-8.3) gm/dl Albumin (3.4-5.0) gm/dl Globulin (2.5-4.0) gm/dl Albumin/Globulin Ratio (0.9-2) Medications Administered Current Inpatient Medications Dextrose (Dextrose 50% 50 Ml Syringe) 25 - 50 ml IV UD PRN; Protocol PRN Reason: Hypoglycemia Protocol Stop: 02/24/25 13:03 Finasteride (Finasteride 5 Mg Tab) 5 mg PO QAM URIEL Stop: 02/25/25 08:59 Last Admin: 01/26/25 08:51 Dose: 5 mg Glucagon (Glucagon For Inj 1 Mg Vial) 1 mg SQ UD PRN; Protocol PRN Reason: Hypoglycemia Protocol Stop: 02/24/25 13:03 Glucose (Glucose 40% Gel 15 Gm Tube) 15 - 30 gm PO UD PRN; Protocol PRN Reason: Hypoglycemia Protocol Stop: 02/24/25 13:03 Glucose (Glucose 10 Tab/Tube) 4 - 8 tab PO UD PRN; Protocol PRN Reason: Hypoglycemia Protocol Stop: 02/24/25 13:03 Piperacillin Sod/Tazobactam Sod (Zosyn) 4.5 gm in 100 mls @ 25 mls/hr IV Q8H URIEL; Protocol Stop: 02/04/25 19:29 Last Admin: 01/27/25 04:48 Dose: 25 mls/hr Acetaminophen (Ofirmev) 1,000 mg in 100 mls @ 400 mls/hr IV Q8H URIEL Stop: 01/28/25 12:48 Last Infusion: 01/27/25 05:36 Dose: Infused Magnesium Sulfate/Dextrose (Magnesium Sulfate / D5w) 1 gm in 100 mls @ 50 mls/hr IV ONE ONE Stop: 01/27/25 09:48 Insulin Aspart (Insulin Aspart Per Unit Charge) 0 units SC ACHS [facility] Stop: 02/24/25 13:59 Last Admin: 01/26/25 20:46 Dose: 1 units Magnesium Oxide (Magnesium Oxide 400 Mg Tab) 400 mg PO QAM [facility] Stop: 02/26/25 08:59 Metoprolol Succinate (Metoprolol Succ 50mg Ext Rel Tab) 50 mg PO HS [facility] Stop: 02/24/25 20:59 Last Admin: 01/26/25 20:45 Dose: 50 mg Miscellaneous (Carbohydrates For Hypoglycemia ) 15 - 30 gm PO UD PRN PRN Reason: Hypoglycemia Protocol Stop: 02/24/25 13:03 Miscellaneous Information (Pharmacy Glycemic Mgmt Consult) 1 each N/A UD PRN; Protocol PRN Reason: Consult Stop: 02/24/25 12:48 Morphine Sulfate (Morphine Sulfate 2 Mg/Ml Carp) 2 mg IV Q3H PRN PRN Reason: Pain (1,2,3,4,5) & Pre PT Stop: 02/08/25 12:48 Morphine Sulfate (Morphine Sulfate 4 Mg/Ml 1 Ml Carp\Vial) 4 mg IV Q3H PRN PRN Reason: Pain (6,7,8,9,10) Stop: 02/08/25 12:48 Ondansetron HCl (Ondansetron Inj 2 Mg/Ml 2 Ml Vial) 4 mg IV Q4H PRN PRN Reason: Nausea And Vomiting Stop: 02/24/25 12:48 Oxycodone HCl (Oxycodone Hcl Ir 5 Mg Tab (Immediate Release)) 5 mg PO Q4H PRN PRN Reason: MODERATE Pain (4,5,6) & Pre PT Stop: 02/08/25 12:48 Oxycodone HCl (Oxycodone Hcl Ir 5 Mg Tab (Immediate Release)) 10 mg PO Q4H PRN PRN Reason: SEVERE Pain (7,8,9,10) Stop: 02/08/25 12:48 Pantoprazole Sodium (Pantoprazole 40 Mg Tab) 40 mg PO QAM [facility] Stop: 02/25/25 08:59 Last Admin: 01/26/25 08:50 Dose: 40 mg Sacubitril/Valsartan (Valsartan/Sacubitril 51/49 Mg Tab) 1 tab PO BID [facility] Stop: 02/25/25 08:59 Last Admin: 01/26/25 20:45 Dose: 1 tab
== END 2025-01-27 12:19 | disposition home or self-care (01) ==
LOC: ASU 05:41 → 2N 05:41